=== PATIENT | female | born 1950 | race Caucasian/White ===

== ENCOUNTER → 2016-10-19 | Outpatient (CLI) | payer OTHER ==
[~2016-10-19] MED LIST: ASPCH81X PO; CYAN250T PO; FOLI800T PO; GLIP-197 PO; HYDR25TA4 PO; IPRA1AER2 INH; LOSA50TA6 PO; METF1TAB53 PO; METH2.5T PO; MULT-506 PO; NVLNI SC; PRAV20TA2 PO; RRNOVOLINR SC; SYMIN INH; TRAZ50TA35 PO; VITACAP37 PO; VITAMIN D PO
[2016-10-19 12:43] LABS: ESTIMATED AVERAGE GLUCOSE 143 mg/dl; HA1C FLAG Normal (Normal)
== END | disposition home or self-care (01) ==
LOC: C.LAB1850 09:58
PROVIDERS: ATTEND Nurse Practitioner Adult Health
DX: E11.9 Type 2 diabetes mellitus without complications (principal)

== ENCOUNTER → 2016-10-25 | Outpatient (CLI) | payer OTHER ==
--- NOTE | 2016-10-25 14:37 | MAMMOGRAPHY REPORT ---
BILATERAL DIGITAL SCREENING MAMMOGRAM WITH CAD: 10/25/2016 CLINICAL HISTORY: Routine screening. Patient has no complaints. TECHNIQUE: Bilateral CC, MLO and nipple in profile views in the CC projection were obtained. Curre nt study was also evaluated with a Computer Aided Detection (CAD) system. COMPARISON: Comparison is made to exams dated: 10/23/2015 mammogram, 05/09/2015 mammogram, 11/05/2014 mammogram, and 10/22/2014 mammogram - [facility]. BREAST COMPOSITION: There are scattered areas of fibroglandular density in both breasts. FINDINGS: There are stable benign-appearing calcifications within the right breast. A stable lobula iván 10 mm mass in the left upper outer quadrant. No new suspicious mass, architectural distortion o r cluster of microcalcifications is seen. IMPRESSION: ACR BI-RADS CATEGORY 1: NEGATIVE There is no mammographic evidence of malignancy. A 1 year screening mammogram is recommended. The p atient will receive written notification of the results. Approximately 10% of breast cancers are not detected with mammography. A negative mammographic repor t should not delay biopsy if a clinically suggestive mass is present. Mima Patel M.D. ay/:10/25/2016 14:07:03 Mimeographer: Olamide Jacob RT(R)(Shay)(BD), [facility] letter sent: Normal 1/2 BI-RADS Code: ACR BI-RADS Category 1: Negative
== END | disposition home or self-care (01) ==
LOC: C.MAMM 11:44
PROVIDERS: ATTEND Obstetrics & Gynecology
DX: Z12.31 Encounter for screening mammogram for malignant neoplasm of breast (principal)

== ENCOUNTER → 2016-11-26 | Outpatient (CLI) | payer OTHER ==
--- NOTE | 2016-11-26 11:32 | DIAGNOSTIC IMAGING REPORT ---
LUMBAR SPINE 5 VIEWS HISTORY: Pain. M54.5 Low back [id number] COMPARISON: 03/23/2012 FINDINGS: There is no fracture. No subluxation. Mild degenerative disc change. IMPRESSION: Mild degenerative disc change. No acute process. No change from the prior study. Electronically signed by: Adolfo Ochoa M.D. 11/26/2016 11:31 AM Dictated Date/Time: 11/26/2016 11:28 AM
== END | disposition home or self-care (01) ==
LOC: C.RAD1850 10:34
PROVIDERS: ATTEND Physician Assistant
DX: M54.5 Low back pain (principal)

== ENCOUNTER → 2016-12-10 | Outpatient (CLI) | payer OTHER ==
[2016-12-10 10:56] LABS: BLOOD UREA NITROGEN 18 mg/dl (7-18); CREATININE 0.95 mg/dl (0.60-1.20)
== END | disposition home or self-care (01) ==
LOC: C.LAB1850 09:07
PROVIDERS: ATTEND Physician Assistant
DX: Z00.00 Encounter for general adult medical examination without abnormal findings (principal); M54.5 Low back pain

== ENCOUNTER → 2016-12-17 | Outpatient (CLI) | payer OTHER ==
[~2016-12-17] MED LIST changes: +GADAVIST IV PRN
--- NOTE | 2016-12-17 13:35 | DIAGNOSTIC IMAGING REPORT ---
LUMBAR SPINE MRI WITH AND WITHOUT CONTRAST HISTORY: Low back pain. TECHNIQUE: Multiplanar multisequence MRI of the lumbar spine was performed both before and after the intravenous administration of contrast. COMPARISON: Lumbar spine 11/26/2016. FINDINGS: For the purpose of the report the L5-S1 disc space will be located on axial image 27 of 30. Alignment and curvature intact. No fracture or subluxation. Moderate facet degenerative changes at L4-L5. The conus to right at the L1-L2 disc space level. There is diffuse disc desiccation. However, there is no significant disc space narrowing. Subcutaneous edema within the lumbar region. A 12 mm hypointense lesion within the L2 vertebral body. There is also an 11 mm T1 and T2 hyperintense lesion at L1. This favors a hemangioma. No abnormal enhancement. L1-L2: Tiny broad-based posterior disc bulge without significant central canal or neural foraminal narrowing. L2-L3: No central canal or neural foraminal narrowing. L3-L4: Tiny broad-based posterior disc bulge without significant central canal or neural foraminal narrowing. L4-L5: No central canal narrowing. Mild right neural foraminal narrowing due to the facet hypertrophy. L5-S1: No central canal narrowing. Mild right neural foraminal narrowing due to the facet hypertrophy. IMPRESSION: 1. No significant central canal narrowing. No disc herniations. 2. Mild right-sided neural foraminal narrowing at L4-L5 and L5-S1 due to the facet hypertrophy. 3. A 12 mm hypointense lesion within the L2 vertebral body. This is consistent with a nonspecific sclerotic lesion. In the absence of a known malignancy this favors a benign lesion. Electronically signed by: Seng Griffith M.D. 12/17/2016 1:33 PM Dictated Date/Time: 12/17/2016 1:21 PM
== END | disposition home or self-care (01) ==
LOC: C.MRI 11:37
PROVIDERS: ATTEND Physician Assistant
DX: M54.5 Low back pain (principal)

== ENCOUNTER → 2017-01-27 | Outpatient (CLI) | payer OTHER ==
[~2017-01-27] MED LIST changes: -GADAVIST IV PRN
[2017-01-27 09:59] LABS: BASO % 0.5 %; BASO ABS # 0.04 K/uL (0-0.2); COMPLETE YES; EOS % 2.9 %; HEMATOCRIT 36.5 % (37-47); IG% 0.4 %; LYMPH % 27.1 %; LYMPH ABS # 2.07 K/uL (1.2-3.4); MEAN CELL VOLUME 90.3 fL (80-100); MEAN CORPUSCULAR HEMOGLOBIN 28.7 pg (25-34); MEAN CORPUSCULAR HGB CONC 31.8 g/dl (32-36); MEAN PLATELET VOLUME 9.4 fL (7.4-10.4); MONO % 6.8 %; NEUT % 62.3 %; PLATELET COUNT 276 K/uL (130-400); RED BLOOD COUNT 4.04 M/uL (4.2-5.4); WHITE BLOOD COUNT 7.64 K/uL (4.8-10.8)
== END | disposition home or self-care (01) ==
LOC: C.LAB1850 09:28
PROVIDERS: ATTEND Physician Assistant Medical
DX: Z01.812 Encounter for preprocedural laboratory examination (principal)

== ENCOUNTER → 2017-02-10 | Outpatient (CLI) | payer OTHER ==
--- NOTE | 2017-02-10 09:45 | DIAGNOSTIC IMAGING REPORT ---
RIGHT HAND MIN 3 VIEWS ROUTINE CLINICAL HISTORY: Z79.899,M06.9 Right pain COMPARISON: None. DISCUSSION: Moderate degenerative change of all major osseous structures. This primarily is of the interphalangeal joints. Several marginal erosions. No significant periarticular osteopenia. Moderate degenerative change of the intercarpal as well as carpometacarpal joints. There is no evidence for soft tissue swelling. IMPRESSION: Moderate degenerative change of the hand and wrist. The appearance is nonspecific currently. No acute bony abnormality. Electronically signed by: Adolfo Ochoa M.D. 02/10/2017 9:43 AM Dictated Date/Time: 02/10/2017 9:42 AM
--- NOTE | 2017-02-10 09:50 | DIAGNOSTIC IMAGING REPORT ---
LEFT HAND 3 VIEWS HISTORY: Left hand pain. COMPARISON: None. FINDINGS: There is no fracture or dislocation. Bone mineralization is intact. No erosions identified. Soft tissues are unremarkable. Mild cartilage space narrowing within the DIP joints of the hand. There are also mild degenerative changes within the left wrist. No radiopaque foreign bodies. 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 Electronically signed by: Seng Griffith M.D. 02/10/2017 9:48 AM Dictated Date/Time: 02/10/2017 9:43 AM
== END | disposition home or self-care (01) ==
LOC: C.RAD1850 09:23
PROVIDERS: ATTEND Internal Medicine Rheumatology
DX: M06.9 Rheumatoid arthritis, unspecified (principal); M19.041 Primary osteoarthritis, right hand; M19.042 Primary osteoarthritis, left hand; Z79.899 Other long term (current) drug therapy; L97.511 Non-pressure chronic ulcer of other part of right foot limited to breakdown of skin; M20.41 Other hammer toe(s) (acquired), right foot; E11.42 Type 2 diabetes mellitus with diabetic polyneuropathy

== ENCOUNTER → 2017-02-10 | Outpatient (CLI) | payer OTHER ==
--- NOTE | 2017-02-10 14:02 | DIAGNOSTIC IMAGING REPORT ---
ANKLE BRACHIAL INDEX COMPLETE CLINICAL HISTORY: DIABETIC POLYNEUROPATHY peripheral neuropathy TECHNIQUE: Ankle brachial index COMPARISON STUDY: None FINDINGS: Normal arterial ankle-brachial brachial index evaluation bilaterally. Ankle brachial indices are one or greater at all sites. IMPRESSION: Normal study Electronically signed by: Adolfo Ochoa M.D. 02/10/2017 2:00 PM Dictated Date/Time: 02/10/2017 1:58 PM
== END | disposition home or self-care (01) ==
LOC: C.ULTR 12:30
PROVIDERS: ATTEND Podiatrist
DX: L97.511 Non-pressure chronic ulcer of other part of right foot limited to breakdown of skin (principal); M20.41 Other hammer toe(s) (acquired), right foot; E11.42 Type 2 diabetes mellitus with diabetic polyneuropathy

== ENCOUNTER → 2017-02-11 | Day surgery (SDC) | payer OTHER ==
[2017-01-31 13:56] VITALS: Ht 157.5 cm; Wt 118.2 kg
--- NOTE | 2017-02-08 09:34 | PAT Medication Instructions ---
Service Date Feb 08, 2017. Current Home Medication List Aspirin (Aspirin Chewable), 81 MG PO QAM Budesonide/Formoterol Fumarate (Symbicort 160-4.5 Mcg/Act), 2 PUFFS INH DAILY Cyanocobalamin (Vitamin B-12), 250 MCG PO QAM Folic Acid (Folic Acid), 1 TAB PO QAM Glipizide (Glipizide Er), 1 DOSE PO BID Hydrochlorothiazide (Hctz), 25 MG PO QAM Insulin Human NPH (Novolin N), 35 UNITS SC QPM Insulin Human Regular (Novolin R), 10-14 UNITS SC QPM Ipratropium-Albuterol (Combivent Respimat), 1 PUFFS INH QID PRN for Shortness of Breath Losartan Potassium (Cozaar), 50 MG PO QPM Metformin Hcl (Glucophage Ext Rel), 1,000 MG PO BID Methotrexate (Methotrexate), 5 TAB PO WK Multivitamin (Multivitamin), 1 TAB PO QAM Pravastatin Sodium (Pravachol), 20 MG PO QPM Trazodone Hcl (Trazodone), 50 MG PO HS PRN for Sleep Vitamin E (E-400), 1 CAP PO QPM [Vitamin D], 800 INTER.UNIT PO QPM Medication Instructions For Your Scheduled Surgery - Check with surgeon/dairy products maker for instructions: Methotrexate (Methotrexate), 5 TAB PO WK (Tuesday PM) - Check with surgeon for instructions: Aspirin (Aspirin Chewable), 81 MG PO QAM - Hold the following medications starting 02/08/17 prior to surgery: Vitamin E (E-400), 1 CAP PO QPM - Hold the following medications 48 hours prior to surgery: Metformin Hcl (Glucophage Ext Rel), 1,000 MG PO BID - Hold the following medications the morning of surgery: Multivitamin (Multivitamin), 1 TAB PO QAM Hydrochlorothiazide (Hctz), 25 MG PO QAM Glipizide (Glipizide Er), 1 DOSE PO BID Folic Acid (Folic Acid), 1 TAB PO QAM Cyanocobalamin (Vitamin B-12), 250 MCG PO QAM - Take the following medications the morning of surgery with a sip of water: Ipratropium-Albuterol (Combivent Respimat), 1 PUFFS INH QID PRN for Shortness of Breath (if needed) Budesonide/Formoterol Fumarate (Symbicort 160-4.5 Mcg/Act), 2 PUFFS INH DAILY - Hold the following medications as scheduled the night before surgery: Losartan Potassium (Cozaar), 50 MG PO QPM - Take the following medications as scheduled the night before surgery: [Vitamin D], 800 INTER.UNIT PO QPM Trazodone Hcl (Trazodone), 50 MG PO HS PRN for Sleep (if needed) Pravastatin Sodium (Pravachol), 20 MG PO QPM Ipratropium-Albuterol (Combivent Respimat), 1 PUFFS INH QID PRN for Shortness of Breath (if needed) Insulin Human Regular (Novolin R), 10-14 UNITS SC QPM Insulin Human NPH (Novolin N), 35 UNITS SC QPM Glipizide (Glipizide Er), 1 DOSE PO BID Budesonide/Formoterol Fumarate (Symbicort 160-4.5 Mcg/Act), 2 PUFFS INH DAILY If you have any questions please call us at [phone] or [phone] or [phone]
--- NOTE | 2017-02-08 10:23 | DIAGNOSTIC IMAGING REPORT ---
CHEST PREADMISSION(PA/LAT) HISTORY: Preop. COMPARISON: Chest 04/04/2013. FINDINGS: The lungs are clear. Cardiac silhouette is normal in size. No pleural effusions. No pneumothorax. IMPRESSION: No acute process. Electronically signed by: Seng Griffith M.D. 02/08/2017 10:22 AM Dictated Date/Time: 02/08/2017 10:20 AM
[2017-02-08 10:30] LABS: BUN/CREATININE RATIO 19.2 (10-20); CALCIUM 8.9 mg/dl (8.5-10.1); POTASSIUM 3.7 mmol/L (3.5-5.1); PROTHROMBIN TIME (PATIENT) 10.5 SECONDS (9.0-12.0)
--- NOTE | 2017-02-08 10:58 | DIAGNOSTIC IMAGING REPORT ---
CERVICAL SPINE 2 OR 3 VIEWS CLINICAL HISTORY: PREOP, RHEUMATOID ARTHRITIS COMPARISON STUDY: None. FINDINGS: Lateral, swimmer's view, flexion, and extension of the cervical spine. The cervical spine is visualized from C1 through T1. Straightening of the cervical spine. The alignment remains intact through both flexion and extension. Specifically, the C1-C2 interval is well-maintained. Prevertebral soft tissues are within normal limits. Moderate disc space narrowing at C5-C6 and mild disc space narrowing at C6-C7 with small endplate osteophytes. No fractures. IMPRESSION: Degenerative changes as described above. The alignment remains intact throughout the examination. Electronically signed by: Seng Griffith M.D. 02/08/2017 10:57 AM Dictated Date/Time: 02/08/2017 10:55 AM
[~2017-02-11] VITALS: Ht 157.5 cm; Wt 118.2 kg
[~2017-02-11] MED LIST changes: +ATROPINE SULFATE 0.1 MG/ML 5ML SYR IV PRN; +BUPIVACAINE 0.5 % 5 MG/1 ML MPF 30ML VIAL ONE; +CEFAZOLIN 2000 MG/60 ML D5W IV SCH; +EpHEDrine SULFATE INJ 50 MG/ML AMP IV PRN; +FENTANYL CITRATE INJ 50 MCG/1 ML 2 ML VIAL IV PRN; +FENTANYL CITRATE INJ 50 MCG/1 ML 2 ML VIAL ONE; +HYDROCODONE/ACETAMOPHEN 5/325MG TAB PO PRN; +LACTATED RINGER'S 1000ML 1,000 ML IV SCH; +LIDOCAINE HCL 1% 20 ML VIAL ONE; +LIDOCAINE HCL 2% 2 ML VIAL (20MG/ML) ONE; +METOCLOPRAMIDE HCL INJ 5 MG/ML 2 ML VIAL IV PRN; +MIDAZOLAM HCL 1 MG/ML 2ML VIAL ONE; +ONDANSETRON INJ 2 MG/ML 2 ML VIAL IV PRN; +OXYCODONE/ACETAMINOPHEN 5-325 TAB PO PRN; +PROPOFOL IV EMULSION 10 MG/ML 20 ML VIAL IV ONE; +SODIUM CHLORIDE 0.9% 1000ML 1,000 ML IV SCH
--- NOTE | 2017-02-11 06:49 | History & Physical Bridge - SC ---
H&P Re-Evaluation Bridge Note: I have examined the patient, reviewed the History & Physical and in the interval since the performance of the History & Physical I have noted the following changes of clinical significance: No changes noted
[2017-02-11 08:24] VITALS: TEMP 36.5
--- NOTE | 2017-02-11 08:24 | Discharge Instructions-SurgCtr ---
Discharge Instructions Date of Service Feb 11, 2017. Visit Reason for Visit: Right ValadezSendy, Pain Discharge Discharge Diagnosis / Problem: right 5th hammertoe Discharge Goals Goal(s): Decrease discomfort, Improve function Medications Stopped Medications Name(s): metformin Vit E Restart Stopped Medication(s): all Activity Recommendations Activity Limitations: as noted below (partial weightbearing right foot, keep dressings in place with cam boot) Lifting Limitations: none Exercise/Sports Limitations: none May Resume Sexual Activity: after two weeks Shower/Bathe: keep incision dry Driving or Machine Use: none Weightbearing Status: Right partial keep dressings clean and dry call [phone] Anesthesia . Post Anesthesia Instructions: If you have had General Anesthesia or IV Sedation: * Do not drive today. * Resume driving when surgeon permits. * Do not make important decisions or sign legal documents today. * Call surgeon for: 1. Temperature elevations greater than 101 degrees F. 2. Uncontrollable pain. 3. Excessive bleeding. 4. Persistent nausea and vomiting. 5. Medication intolerance (nausea, vomiting or rash). * For nausea and vomiting use only clear liquids such as: tea, soda, bouillon until nausea subsides, then gradually increase diet as tolerated. * If you have any concerns or questions, call your surgeon's office. If physician is unavailable and it is an emergency, call 911 or go to the nearest emergency room. . Instructions / Follow-Up Instructions / Follow-Up follow up on Tuesday in the office Diet Recommendations Home Diet: diabetes diet Procedures Procedures Performed: Right Foot Fifth Digit Surgical Correction Hammertoe Deformity By Removing The Bump And Realigning The Joint With Fixation And Fusion, V-Y Skinplasty Pending Studies Studies pending at discharge: no Medical Emergencies . Who to Call and When: Medical Emergencies: If at any time you feel your situation is an emergency, please call 911 immediately. Non-Emergent Contact Non-Emergency issues call your: Primary Care Provider Call Non-Emergent contact if: temperature is above 101.5, your pain is not controlled, wound has increased drainage, wound has increased redness, wound has increased pain [phone] . . "Provider Documentation" section prepared by Misty Myers. . [place] Drug Monitoring Program Search Results: patient reviewed within database, no issues identified
--- NOTE | 2017-02-11 08:25 | [facility] Post Operative Brief Note ---
Immediate Operative Summary Operative Date Feb 11, 2017. Pre-Operative Diagnosis Right 5th hammertoe Post-Operative Diagnosis same Procedure(s) Performed Right Foot Fifth Digit Surgical Correction Hammertoe Deformity By Removing The Bump And Realigning The Joint With Fixation And Fusion, V-Y Skinplasty Surgeon Dr Talley Self Propelled Hot Mix Roller Operator Surgeon(s) 0 Estimated Blood Loss 2 ML Findings bone right foot Specimens A. Bone from right foot Drains none Anesthesia local iv sedation Complication(s) None Disposition Recovery Room / PACU stable
--- NOTE | 2017-02-11 08:31 | DIAGNOSTIC IMAGING REPORT ---
INTRAOPERATIVE RIGHT FOOT SINGLE VIEW CLINICAL HISTORY: Hammertoe deformity COMPARISON STUDY: 05/31/2012 FLUOROSCOPY TIME: 1 seconds. A single fluoroscopic spot image was acquired.. FINDINGS: Again evident are postsurgical changes of arthroplasties involving the proximal to phalangeal joints of the second third and fourth toes. There are postsurgical changes of an osteotomy involving the distal aspect of the proximal phalanx the fifth toe. A single orthopedic wire overlies the interphalangeal joints of the fifth toe and fifth metatarsal phalangeal joint. IMPRESSION: Intraoperative radiograph as described above. Electronically signed by: Umesh Julio M.D. 02/11/2017 8:30 AM Dictated Date/Time: 02/11/2017 8:28 AM
[2017-02-11 08:50] VITALS: BP 132/78; PULSE 76; O2SAT 94
--- NOTE | 2017-02-11 08:52 | Anesthesia Progress Nt - [facility] ---
Anesthesia Post Op Note Date & Time Feb 11, 2017 at 08:52 Vital Signs Pain Intensity: 0 Vital Signs Past 12 Hours Date Time Temp Pulse Resp B/P (MAP) Pulse Ox O2 Delivery O2 Flow Rate FiO2 02/11/17 08:50 76 16 132/78 (96) 94 Room Air 02/11/17 08:24 36.5 78 16 160/82 (108) 94 Room Air 02/11/17 06:26 37.0 86 16 164/112 (129) 94 Room Air Notes Mental Status: alert / awake / arousable, participated in evaluation Pt Amnestic to Procedure: Yes Nausea / Vomiting: adequately controlled Pain: adequately controlled Airway Patency, RR, SpO2: stable & adequate BP & HR: stable & adequate Hydration State: stable & adequate Anesthetic Complications: no major complications apparent
--- NOTE | 2017-02-11 14:37 | OPERATIVE REPORT ---
DATE OF OPERATION: 02/11/2017 PREOPERATIVE DIAGNOSIS: Painful right fifth hammertoe deformity. POSTOPERATIVE DIAGNOSIS: Same. PROCEDURE: Right fifth digit arthroplasty was 0.045 K-wire percutaneous fixation and V-Y skin plasty again of the right foot. SURGEON: Misty Talley DPM. HEMOSTASIS: Pneumatic ankle tourniquet at 250 mmHg. BLOOD LOSS: About 3 mL. ANESTHESIA: Local IV sedation. OPERATION AND FINDINGS: PROCEDURE: The patient was brought in the operating room and placed in the supine position. The right lower extremity was prepped and draped in the usual sterile manner. A 1:1 mixture of 1% lidocaine plain and 0.5% Marcaine was utilized to anesthetize the right foot around the area of the right 5th metatarsophalangeal joint or right fifth digit. At this point, anesthesia was induced. A timeout was taken and the procedure began. An elliptical incision was made over the right fifth proximal interphalangeal joint of the right fifth digit, there was also a V-type incision made just a hair proximal to the toe itself with the medial and lateral hands of the V proximally. At this point, the wedge of skin was removed. The extensor tendon was transected at the level of the proximal interphalangeal joint of the right fifth digit. It was dissected both proximally and distally to expose the proximal phalanx of the fifth digit. The proximal phalanx was then resected utilizing a sagittal saw and passed off the table and sent to pathology for permanent specimen. The area was flushed with copious amounts of normal saline. Next, the K-wire was then driven first distally and then proximally across the fifth proximal interphalangeal joint and adhered to the fifth metatarsal head for stability. Next, the extensor tendon was then reattached utilizing the Vicryl and the skin was closed with 3-0 nylon and simple interrupted sutures. Next, attention was directed to the area for the V-Y skin plasty. The V incision was made, the V was then dissected back with care to ensure that the subcutaneous tissues were encompassed in the skin flap to prevent skin necrosis. The fifth metatarsophalangeal joint was plantarflexed in order to allow the apex of the V to come to a more distal position to lengthen the skin in this area. The sutures were then used to close the medial and lateral sides of the V which is now forming a Y and simple interrupted sutures. This was a 3-0 nylon in the center portion which formed the base of the Y was closed in simple interrupted 3-0 nylon sutures. The toe was in a straightened and less contracted position. The patient had a prior surgery before and she had a history of diabetes and ulceration that was forming between her fourth and fifth digit due to the prior hammertoes that were fixed by a different doctor and the fifth toe being retracted and rubbing on the fourth toe. So anatomically everything was corrected. Intraoperative fluoroscopy pictures were obtained. The patient was taken to the recovery room with all vital signs stable and intact. She had good hemodynamic response noted to the digits. She will follow up with me in the office in 1 week and again she was made aware of all risks and benefits and signed consent for the procedure. Again, the patient opted to have this procedure done mainly because she is diabetic and she was forming the ulcerations on the 4th and 5th digits which were proving to be difficult to heal and that is why she opted for surgical correction at this time. I attest to the content of the Intraoperative Record and any orders documented therein. Any exceptions are noted below. JAZMYNE
== END | disposition home or self-care (01) ==
LOC: X.SURG 06:02
PROVIDERS: ATTEND Podiatrist
DX: M20.41 Other hammer toe(s) (acquired), right foot (principal); E11.21 Type 2 diabetes mellitus with diabetic nephropathy; E11.42 Type 2 diabetes mellitus with diabetic polyneuropathy; I10 Essential (primary) hypertension; E78.5 Hyperlipidemia, unspecified; D64.9 Anemia, unspecified; K21.9 Gastro-esophageal reflux disease without esophagitis; J44.9 Chronic obstructive pulmonary disease, unspecified; M06.9 Rheumatoid arthritis, unspecified; I87.2 Venous insufficiency (chronic) (peripheral); E66.9 Obesity, unspecified; Z79.4 Long term (current) use of insulin; Z79.899 Other long term (current) drug therapy; Z79.82 Long term (current) use of aspirin

== ENCOUNTER → 2017-02-21 | Outpatient (CLI) | payer OTHER ==
[~2017-02-21] MED LIST changes: -ATROPINE SULFATE 0.1 MG/ML 5ML SYR IV PRN; -BUPIVACAINE 0.5 % 5 MG/1 ML MPF 30ML VIAL ONE; -CEFAZOLIN 2000 MG/60 ML D5W IV SCH; -EpHEDrine SULFATE INJ 50 MG/ML AMP IV PRN; -FENTANYL CITRATE INJ 50 MCG/1 ML 2 ML VIAL IV PRN; -FENTANYL CITRATE INJ 50 MCG/1 ML 2 ML VIAL ONE; -HYDROCODONE/ACETAMOPHEN 5/325MG TAB PO PRN; -LACTATED RINGER'S 1000ML 1,000 ML IV SCH; -LIDOCAINE HCL 1% 20 ML VIAL ONE; -LIDOCAINE HCL 2% 2 ML VIAL (20MG/ML) ONE; -METOCLOPRAMIDE HCL INJ 5 MG/ML 2 ML VIAL IV PRN; -MIDAZOLAM HCL 1 MG/ML 2ML VIAL ONE; -ONDANSETRON INJ 2 MG/ML 2 ML VIAL IV PRN; -OXYCODONE/ACETAMINOPHEN 5-325 TAB PO PRN; -PROPOFOL IV EMULSION 10 MG/ML 20 ML VIAL IV ONE; -SODIUM CHLORIDE 0.9% 1000ML 1,000 ML IV SCH
[2017-02-21 09:32] LABS: HEMATOCRIT 36.2 % (37-47); MEAN CELL VOLUME 90.7 fL (80-100); MEAN CORPUSCULAR HEMOGLOBIN 30.1 pg (25-34); MEAN CORPUSCULAR HGB CONC 33.1 g/dl (32-36); MEAN PLATELET VOLUME 9.8 fL (7.4-10.4); PLATELET COUNT 255 K/uL (130-400); RED BLOOD COUNT 3.99 M/uL (4.2-5.4); WHITE BLOOD COUNT 6.46 K/uL (4.8-10.8)
[2017-02-21 09:51] LABS: BLOOD UREA NITROGEN 16 mg/dl (7-18); BUN/CREATININE RATIO 16.9 (10-20); CALCIUM 9.1 mg/dl (8.5-10.1); CARBON DIOXIDE 30 mmol/L (21-32); CHLORIDE 104 mmol/L (98-107); CHOLESTEROL 133 mg/dl (0-200); CREATININE 0.96 mg/dl (0.60-1.20); GLUCOSE 116 mg/dl (70-99); POTASSIUM 4.4 mmol/L (3.5-5.1); SODIUM 141 mmol/L (136-145); TRIGLYCERIDES 179 mg/dl (0-150); VERY LOW DENSITY LIPOPROT CALC 36 mg/dl
[2017-02-21 09:59] LABS: CHOLESTEROL/HDL RATIO 3.8; HDL CHOLESTEROL 35 mg/dl; LDL CHOLESTEROL CALCULATED 62 mg/dl
[2017-02-21 10:12] LABS: ESTIMATED AVERAGE GLUCOSE 143 mg/dl; HA1C FLAG Normal (Normal)
== END | disposition home or self-care (01) ==
LOC: C.LAB1850 08:11
PROVIDERS: ATTEND Internal Medicine
DX: E11.49 Type 2 diabetes mellitus with other diabetic neurological complication (principal); Z79.4 Long term (current) use of insulin; D64.9 Anemia, unspecified

== ENCOUNTER → 2017-02-23 | Outpatient (CLI) | payer OTHER ==
--- NOTE | 2017-02-23 14:25 | DIAGNOSTIC IMAGING REPORT ---
BILATERAL LOWER EXTREMITY VENOUS DOPPLER CLINICAL HISTORY: Bilateral leg pain. COMPARISON STUDY: Right lower extremity venous Doppler May 01, 2013. TECHNIQUE: Sonography of the deep venous system of the bilateral lower extremities was performed. Compression and augmentation were evaluated. FINDINGS: The common femoral, superficial femoral and popliteal veins were compressible. Augmentation was normal. Flow was shown within the deep calf vessels. IMPRESSION: No evidence of deep venous thrombus within the bilateral lower extremities. Electronically signed by: Mj Membreno M.D. 02/23/2017 2:24 PM Dictated Date/Time: 02/23/2017 2:23 PM
== END | disposition home or self-care (01) ==
LOC: C.ULTRBC 13:16
PROVIDERS: ATTEND Podiatrist
DX: I70.293 Other atherosclerosis of native arteries of extremities, bilateral legs (principal); M79.651 Pain in right thigh; I74.3 Embolism and thrombosis of arteries of the lower extremities

== ENCOUNTER → 2017-06-20 | Outpatient (CLI) | payer OTHER ==
[2017-06-20 14:37] LABS: BASO % 0.6 %; BASO ABS # 0.05 K/uL (0-0.2); COMPLETE YES; EOS % 2.3 %; HEMATOCRIT 37.9 % (37-47); IG% 0.2 %; LYMPH % 32.6 %; LYMPH ABS # 2.69 K/uL (1.2-3.4); MEAN CELL VOLUME 85.9 fL (80-100); MEAN CORPUSCULAR HEMOGLOBIN 28.3 pg (25-34); MEAN PLATELET VOLUME 10.6 fL (7.4-10.4); MONO % 10.3 %; PLATELET COUNT 278 K/uL (130-400); RED BLOOD COUNT 4.41 M/uL (4.2-5.4); WHITE BLOOD COUNT 8.26 K/uL (4.8-10.8)
[2017-06-20 16:18] LABS: RATIO 30.1 mcg/mg (0-30.0)
[2017-06-20 16:55] LABS: ALB/GLOB RATIO 0.9 (0.9-2); ALKALINE PHOSPHATASE 67 U/L (45-117); ALT/SGPT 22 U/L (12-78); AST/SGOT 12 U/L (15-37); BLOOD UREA NITROGEN 20 mg/dl (7-18); BUN/CREATININE RATIO 22.3 (10-20); CALCIUM 9.8 mg/dl (8.5-10.1); CARBON DIOXIDE 27 mmol/L (21-32); CHLORIDE 104 mmol/L (98-107); CREATININE 0.88 mg/dl (0.60-1.20); POTASSIUM 3.8 mmol/L (3.5-5.1); SODIUM 140 mmol/L (136-145)
[2017-06-20 16:56] LABS: GLUCOSE 50 mg/dl (70-99)
[2017-06-21 07:02] LABS: ESTIMATED AVERAGE GLUCOSE 134 mg/dl; HA1C FLAG Normal (Normal)
== END | disposition home or self-care (01) ==
LOC: C.LAB1850 12:57
PROVIDERS: ATTEND Nurse Practitioner Adult Health
DX: E11.49 Type 2 diabetes mellitus with other diabetic neurological complication (principal); M06.9 Rheumatoid arthritis, unspecified; Z79.899 Other long term (current) drug therapy; M19.041 Primary osteoarthritis, right hand

== ENCOUNTER 2017-09-17 10:42 | Inpatient (IN) | payer OTHER ==
[~2017-09-17] VITALS: Ht 157.5 cm; Wt 121.2 kg
[2017-09-17] VITALS (8 sets, daily range): BP systolic 122–169; BP diastolic 66–97; PULSE 87–112; TEMP 36.9–39.2; O2SAT 95–99; Ht 157.5 cm; Wt 121.2 kg
--- NOTE | 2017-09-17 11:05 | EMERGENCY ROOM VISIT NOTE ---
History Report prepared by Andres: Armen Parks Under the Supervision of: Dr. Cory Jesus M.D. First contact with patient: 10:53 Stated Complaint: WEAKNESS History of Present Illness The patient is a 67 year old female who presents to the Emergency Room with complaints of generalized weakness that began 2 days ago. Upon EMS arrival, she was altered and given 2 tubes of glucose with mild improvement. She reports body aches, fevers, chills, runny nose, nausea, vomiting, and productive cough. She denies taking any Tylenol. The patient denies chest pain, shortness of breath, dysuria, diarrhea, and chest pain. She denies a history of liver problems. She reports sick contacts with her and states she had a flu shot. No recent antibiotics. Admits not moving around much last few days. No extremity pains. No falls/injuries. Source of History: patient Onset: 2 days ago Position: other (global) Timing: constant Associated Symptoms: + fevers, + chills, + cough, + nausea, + vomiting, + weakness, No chest pain, No SOB, No diarrhea, No urinary symptoms Note: Patient reports runny nose. Review of Systems See HPI for pertinent positives & negatives. A total of 10 systems reviewed and were otherwise negative. Past Medical & Surgical Medical Problems: (1) Diabetes Family History Diabetes mellitus Social History Smoking Status: Former Smoker Alcohol Use: none Marital Status: Housing Status: lives with significant other Occupation Status: employed Current/Historical Medications Scheduled Aspirin (Aspirin Chewable), 81 MG PO QAM Budesonide/Formoterol Fumarate (Symbicort 160-4.5 Mcg/Act), 2 PUFFS INH DAILY Cyanocobalamin (Vitamin B-12), 250 MCG PO QAM Folic Acid (Folic Acid), 1 TAB PO QAM Glipizide (Glipizide Er), 1 DOSE PO BID Hydrochlorothiazide (Hctz), 25 MG PO QAM Insulin Human NPH (Novolin N), 30 UNITS SC QPM Insulin Human Regular (Novolin R), 10-14 UNITS SC QPM Losartan Potassium (Cozaar), 50 MG PO QPM Metformin Hcl (Glucophage Ext Rel), 1,000 MG PO BID Methotrexate (Methotrexate), 5 TAB PO WK Multivitamin (Multivitamin), 1 TAB PO QAM Pravastatin Sodium (Pravachol), 20 MG PO QPM Vitamin E (E-400), 1 CAP PO QPM [Vitamin D], 800 INTER.UNIT PO QPM Scheduled PRN Ipratropium-Albuterol (Combivent Respimat), 1 PUFFS INH QID PRN for Shortness of Breath Trazodone Hcl (Trazodone), 50 MG PO HS PRN for Sleep Allergies Coded Allergies: Grass (Verified Allergy, Intermediate, DIFFICULTY BREATHING, 09/17/17) Molds and Smuts (Verified Allergy, Intermediate, DIFFICULTY BREATHING, ) POLLEN (Verified Allergy, Intermediate, DIFFICULTY BREATHING, 09/17/17) Etodolac (Verified Allergy, Unknown, UNKNOWN, 09/17/17) Simvastatin (Verified Allergy, Unknown, "FEELS FUNNY", 09/17/17) Tetanus Toxoid (Verified Allergy, Unknown, SWELLING, 09/17/17) Physical Exam Vital Signs Date Time Temp Pulse Resp B/P (MAP) Pulse Ox O2 Delivery O2 Flow Rate FiO2 09/17/17 12:36 88 20 139/93 95 Nasal Cannula 2.0 09/17/17 11:51 94 22 134/83 95 Nasal Cannula 2.0 09/17/17 11:00 39.2 100 28 128/65 90 Room Air 09/17/17 10:55 98 Physical Exam GENERAL: Patient is ill and dehydrated appearing and in mild distress. HEENT: No acute trauma, normocephalic atraumatic, mucous membranes moist, no nasal congestion, no scleral icterus. Bilateral rhinorrhea. NECK: No stridor, no adenopathy, no meningismus, trachea is midline. LUNGS: No dyspnea. Clear to auscultation and equal bilaterally. No wheeze, no rhonchi. Crackles at the bases of both lungs. HEART: Tachycardiac and rhythm. No murmurs, rubs, gallops appreciated. ABDOMEN: Soft, nontender, bowel sounds positive, no masses appreciated, no peritonitis. BACK: No midline tenderness, no CVA tenderness EXTREMITIES: Normal motion all extremities, no cyanosis, no edema. NEUROLOGIC: Alert and oriented, no acute motor or sensory deficits, no focal weakness, cranial nerves grossly intact. SKIN: No rash, no jaundice, no diaphoresis. Medical Decision & Procedures ER Provider Diagnostic Interpretation: Radiology results and stated below per my review and radiologist interpretation: SINGLE VIEW CHEST CLINICAL HISTORY: Generalized weakness. FINDINGS: An AP, portable, upright chest radiograph is compared to study dated 02/08/2017. The examination is degraded by portable technique, large body habitus, and patient rotation. The heart is top normal for projection. Chronic interstitial thickening is unchanged. The lungs and pleural spaces are clear. No pneumothorax is seen. The skeletal structures are osteopenic. The bony thorax is grossly intact. IMPRESSION: No active disease in the chest. Electronically signed by: Ranjeet Lopez M.D. 09/17/2017 11:18 AM Dictated Date/Time: 09/17/2017 11:17 AM Laboratory Results 09/17/17 11:03 Red Blood Count 3.92, Mean Corpuscular Volume 85.5, Mean Corpuscular Hemoglobin 29.3, Mean Corpuscular Hemoglobin Concent 34.3, Mean Platelet Volume 9.9, Neutrophils (%) (Auto) 85.2, Lymphocytes (%) (Auto) 5.5, Monocytes (%) (Auto) 8.8, Eosinophils (%) (Auto) 0.0, Basophils (%) (Auto) 0.2, Neutrophils # (Auto) 9.93, Lymphocytes # (Auto) 0.64, Monocytes # (Auto) 1.02, Eosinophils # (Auto) 0.00, Basophils # (Auto) 0.02 Test 09/17/17 10:58 09/17/17 11:03 09/17/17 11:15 09/17/17 11:29 Bedside Glucose 257 mg/dl (70-90) White Blood Count 11.64 K/uL (4.8-10.8) Red Blood Count 3.92 M/uL (4.2-5.4) Hemoglobin 11.5 g/dL (12.0-16.0) Hematocrit 33.5 % (37-47) Mean Corpuscular Volume 85.5 fL (80-100) Mean Corpuscular Hemoglobin 29.3 pg (25-34) Mean Corpuscular Hemoglobin Concent 34.3 g/dl (32-36) Platelet Count 203 K/uL (130-400) Mean Platelet Volume 9.9 fL (7.4-10.4) Neutrophils (%) (Auto) 85.2 % Lymphocytes (%) (Auto) 5.5 % Monocytes (%) (Auto) 8.8 % Eosinophils (%) (Auto) 0.0 % Basophils (%) (Auto) 0.2 % Neutrophils # (Auto) 9.93 K/uL (1.4-6.5) Lymphocytes # (Auto) 0.64 K/uL (1.2-3.4) Monocytes # (Auto) 1.02 K/uL (0.11-0.59) Eosinophils # (Auto) 0.00 K/uL (0-0.5) Basophils # (Auto) 0.02 K/uL (0-0.2) RDW Standard Deviation 46.6 fL (36.4-46.3) RDW Coefficient of Variation 15.0 % (11.5-14.5) Immature Granulocyte % (Auto) 0.3 % Immature Granulocyte # (Auto) 0.03 K/uL (0.00-0.02) Phosphorus Level 2.1 mg/dl (2.5-4.9) Magnesium Level 1.4 mg/dl (1.8-2.4) Total Bilirubin 0.5 mg/dl (0.2-1) Direct Bilirubin 0.1 mg/dl (0-0.2) Aspartate Amino Transf (AST/SGOT) 38 U/L (15-37) Alanine Aminotransferase (ALT/SGPT) 22 U/L (12-78) Alkaline Phosphatase 60 U/L (45-117) Total Creatine Kinase 3550 U/L (26-192) Creatine Kinase MB 1.4 ng/ml (0.5-3.6) Creatine Kinase MB Ratio 0.0 (0-3.0) Troponin I < 0.015 ng/ml (0-0.045) Total Protein 7.3 gm/dl (6.4-8.2) Albumin 3.2 gm/dl (3.4-5.0) Lipase 58 U/L (73-393) Bedside Lactic Acid Venous 3.13 mmol/L (0.90-1.70) Influenza Type A Antigen Neg for Influ A (NEG) Influenza Type B Antigen Neg for Influ B (NEG) Prothrombin Time 12.0 SECONDS (9.0-12.0) Prothromb Time International Ratio 1.1 (0.9-1.1) Activated Partial Thromboplast Time 30.6 SECONDS (21.0-31.0) Partial Thromboplastin Ratio 1.2 Test 09/17/17 12:00 Urine Color YELLOW Urine Appearance CLOUDY (CLEAR) Urine pH 5.0 (4.5-7.5) Urine Specific [place] 1.021 (1.000-1.030) Urine Protein 2+ (NEG) Urine Glucose (UA) NEG (NEG) Urine Ketones NEG (NEG) Urine Occult Blood 3+ (NEG) Urine Nitrite NEG (NEG) Urine Bilirubin NEG (NEG) Urine Urobilinogen NEG (NEG) Urine Leukocyte Esterase MODERATE (NEG) Urine WBC (Auto) >30 /hpf (0-5) Urine RBC (Auto) 5-10 /hpf (0-4) Urine Hyaline Casts (Auto) 1-5 /lpf (0-5) Urine Epithelial Cells (Auto) >30 /lpf (0-5) Urine Bacteria (Auto) NEG (NEG) Urine Pathogenic Casts /lpf (0) Urine Yeast (Auto) (NONE PRSENT) Laboratory results as reviewed by me. Medications Administered Medications (Trade) Dose Ordered Sig/Lux Route Start Time Stop Time Status Last Admin Dose Admin Acetaminophen (Tylenol Tab) 1,000 mg NOW STAT PO 09/17/17 11:08 09/17/17 11:09 DC 09/17/17 11:24 1,000 MG Sodium Chloride 1,000 ml @ 999 mls/hr Q1H1M STAT IV 09/17/17 11:08 09/17/17 12:08 DC 09/17/17 11:08 999 MLS/HR Vancomycin HCl 2250 mg/Sodium Chloride 545 ml @ 200 mls/hr ONE STAT IV 09/17/17 11:39 09/17/17 14:22 DC 09/17/17 12:36 200 MLS/HR ECG Indication: weakness Rate (beats per minute): 102 Rhythm: sinus tachycardia, other (poor baseline) Findings: no acute ischemic change, no ectopy Change: EKG interpreted by me. ED Course 1053: The patient was evaluated in room C9. A complete history and physical exam was performed. 1144: I checked on the patient and she is feeling better after fluids and Tylenol. She is far too weak to stand as noted by her . 1217: I spoke with Dr. Cortes. 1231: Upon reevaluation, the patient is stable. Discussed results and treatment plan with the patient. She verbalized understanding and agreement with the treatment plan. The patient will be evaluated for further management. Medical Decision Differential: Viral, Pharyngitis, Cellulitis, Pneumonia, Influenza, Meningitis, Sepsis, Bacteremia, UTI/Pyelonephritis, Endocrine, Toxicologic, amongst other pathologies entertained. Ill appearing 67 yr old female arrives with febrile illness was altered at home but more awake with oral glucose by EMS (unknown BSG prior to it being given apparently). Not meningitis by examination. She has URI symptoms consistent with flu vs pneumonia. Lactic acid is bump and with fever, tachy she is septic. I suspect lung source and guerrero start abx with cefepime/vanco. Flu negative thus will defer tamiflu use for now. Patient looking better with fluids. admits she has essentially just been laying around the last few days, thus I suspect this is cause of Rhabdo. Medication Reconcilliation Current Medication List: was personally reviewed by me Blood Pressure Screening Patient's blood pressure: Normal blood pressure Blood pressure disposition: Did not require urgent referral Consults Time Called: 1215 Consulting Physician: Dr. Cortes Returned Call: 1217 Discussed the patient's case. The patient will be evaluated for further treatment and disposition. Impression Primary Impression: Sepsis Additional Impressions: Dehydration Rhabdomyolysis Hypomagnesemia Upper respiratory infection Scribe Attestation The scribe's documentation has been prepared under my direction and personally reviewed by me in its entirety. I confirm that the note above accurately reflects all work, treatment, procedures, and medical decision making performed by me. Departure Information Dispostion Being Evaluated By Hospitalist Referrals Chicho Langley M.D. (PCP) Problem Qualifiers
[2017-09-17] MEDS ORDERED: SODIUM CHLORIDE 0.9% 1000ML 1,000 ML IV STA ×2 (11:08→13:10)
[2017-09-17] MEDS ORDERED: ACETAMINOPHEN 500 MG TAB PO STA (11:08)
--- NOTE | 2017-09-17 11:19 | DIAGNOSTIC IMAGING REPORT ---
SINGLE VIEW CHEST CLINICAL HISTORY: Generalized weakness. FINDINGS: An AP, portable, upright chest radiograph is compared to study dated 02/08/2017. The examination is degraded by portable technique, large body habitus, and patient rotation. The heart is top normal for projection. Chronic interstitial thickening is unchanged. The lungs and pleural spaces are clear. No pneumothorax is seen. The skeletal structures are osteopenic. The bony thorax is grossly intact. IMPRESSION: No active disease in the chest. Electronically signed by: Ranjeet Lopez M.D. 09/17/2017 11:18 AM Dictated Date/Time: 09/17/2017 11:17 AM
[2017-09-17 11:35] LABS: BASO % 0.2 %; BASO ABS # 0.02 K/uL (0-0.2); HEMATOCRIT 33.5 % (37-47); HEMOGLOBIN 11.5 g/dL (12.0-16.0); IG# 0.03 K/uL (0.00-0.02); LYMPH % 5.5 %; LYMPH ABS # 0.64 K/uL (1.2-3.4); MEAN CELL VOLUME 85.5 fL (80-100); MEAN CORPUSCULAR HEMOGLOBIN 29.3 pg (25-34); MEAN CORPUSCULAR HGB CONC 34.3 g/dl (32-36); MEAN PLATELET VOLUME 9.9 fL (7.4-10.4); MONO % 8.8 %; MONO ABS # 1.02 K/uL (0.11-0.59); NEUT % 85.2 %; NEUT ABS # 9.93 K/uL (1.4-6.5); PLATELET COUNT 203 K/uL (130-400); RED CELL DISTRIBUTION WIDTH SD 46.6 fL (36.4-46.3); WHITE BLOOD COUNT 11.64 K/uL (4.8-10.8)
[2017-09-17] MEDS ORDERED: VANCOMYCIN INJ 2,250 MG in SODIUM CHLORIDE 0.9% 500ML 500 ML IV STA (11:39)
[2017-09-17] MEDS ORDERED: CEFEPIME IV 1,000 MG in DEXTROSE 5% 100ML 100 ML IV STA (11:39)
[2017-09-17 11:45] LABS: ALBUMIN 3.2 gm/dl (3.4-5.0); ALT/SGPT 22 U/L (12-78); AST/SGOT 38 U/L (15-37); BLOOD UREA NITROGEN 20 mg/dl (7-18); CALCIUM 8.5 mg/dl (8.5-10.1); CARBON DIOXIDE 29 mmol/L (21-32); CREATININE 1.25 mg/dl (0.60-1.20); GLUCOSE 236 mg/dl (70-99); LIPASE 58 U/L (73-393); POTASSIUM 3.2 mmol/L (3.5-5.1); SODIUM 129 mmol/L (136-145)
[2017-09-17] MEDS ORDERED: VANCOMYCIN CONSULT ACTIVE PRN (11:45)
[2017-09-17 11:57] LABS: INFLUENZA B ANTIGEN Neg for Influ B (NEG)
[2017-09-17 12:04] LABS: ALKALINE PHOSPHATASE 60 U/L (45-117); CKMB 1.4 ng/ml (0.5-3.6); PHOSPHORUS 2.1 mg/dl (2.5-4.9); TOTAL PROTEIN 7.3 gm/dl (6.4-8.2)
[2017-09-17 12:06] LABS: INR 1.1 (0.9-1.1); PTT PATIENT 30.6 SECONDS (21.0-31.0)
[2017-09-17] MEDS ORDERED: MAGNESIUM SULFATE 1GM / D5W 1 GM BAG IV STA (12:18)
--- NOTE | 2017-09-17 13:16 | History and Physical ---
History & Physical Date & Time of Service: Sep 17, 2017 at 13:16 Chief Complaint: Weakness Primary Care Physician: Chicho Langley M.D. History of Present Illness 67 yo female presents to the hospital with 2 day history of subjective fever, malaise, myalgias, rhinorrhea. Patient reports having flu shot. Patient denies any sick contacts. Patient reports feeling thirsty and having sweats. She has noticed becoming more short of breath this past day. Patient reports having productive cough as well, unable to quantify production. States yellow mucus. As patient reports getting worse, she decided to come to ER. Past Medical/Surgical History Medical Problems: (1) Diabetes Status: Chronic Family History Diabetes mellitus Social History Smoking Status: Former Smoker Marital Status: Housing status: lives with family Occupational Status: employed Immunizations History of Influenza Vaccine: Yes Influenza Vaccine Date: Jun 29, 2011 History of Tetanus Vaccine?: UNSURE History of Pneumococcal: Yes Pneumococcal Date: Aug 29, 2010 History of Hepatitis B Vaccine: No Multi-Drug Resistant Organisms History of MDRO: No Allergies Coded Allergies: Grass (Verified Allergy, Intermediate, DIFFICULTY BREATHING, 09/17/17) Molds and Smuts (Verified Allergy, Intermediate, DIFFICULTY BREATHING, ) POLLEN (Verified Allergy, Intermediate, DIFFICULTY BREATHING, 09/17/17) Etodolac (Verified Allergy, Unknown, UNKNOWN, 09/17/17) Simvastatin (Verified Allergy, Unknown, "FEELS FUNNY", 09/17/17) Tetanus Toxoid (Verified Allergy, Unknown, SWELLING, 09/17/17) Home Medications Scheduled Aspirin (Aspirin Chewable), 81 MG PO QAM Budesonide/Formoterol Fumarate (Symbicort 160-4.5 Mcg/Act), 2 PUFFS INH DAILY Cyanocobalamin (Vitamin B-12), 250 MCG PO QAM Folic Acid (Folic Acid), 1 TAB PO QAM Glipizide (Glipizide Er), 1 DOSE PO BID Hydrochlorothiazide (Hctz), 25 MG PO QAM Insulin Human NPH (Novolin N), 30 UNITS SC QPM Insulin Human Regular (Novolin R), 10-14 UNITS SC QPM Losartan Potassium (Cozaar), 50 MG PO QPM Metformin Hcl (Glucophage Ext Rel), 1,000 MG PO BID Methotrexate (Methotrexate), 5 TAB PO WK Multivitamin (Multivitamin), 1 TAB PO QAM Pravastatin Sodium (Pravachol), 20 MG PO QPM Vitamin E (E-400), 1 CAP PO QPM [Vitamin D], 800 INTER.UNIT PO QPM Scheduled PRN Ipratropium-Albuterol (Combivent Respimat), 1 PUFFS INH QID PRN for Shortness of Breath Trazodone Hcl (Trazodone), 50 MG PO HS PRN for Sleep Review of Systems Constitutional: + fever, No weight loss, No weakness ENT: No hearing loss, No unusual epistaxis Respiratory: + cough, + wheezing, + shortness of breath Cardiovascular: No chest pain, No orthopnea Abdomen: No pain, No nausea Musculoskeletal: No joint pain Neurologic: No memory loss, No paralysis Psychiatric: No depression symptoms Endocrine: + fatigue Hematologic / Lymphatic: No abnormal bleeding/bruising Integumentary: No rash Allergic / Immunologic: No environmental allergies Physical Exam Vital Signs Date Time Temp Pulse Resp B/P (MAP) Pulse Ox O2 Delivery O2 Flow Rate FiO2 09/17/17 12:36 88 20 139/93 95 Nasal Cannula 2.0 09/17/17 11:51 94 22 134/83 95 Nasal Cannula 2.0 09/17/17 11:00 39.2 100 28 128/65 90 Room Air 09/17/17 10:55 98 General Appearance: WD/WN, + moderate distress Head: normocephalic Eyes: normal inspection ENT: normal ENT inspection, + nasal congestion, + pertinent finding (dry mucous membranes) Neck: supple, no adenopathy Respiratory/Chest: chest non-tender, lungs clear, normal breath sounds Cardiovascular: no edema, no murmur, + tachycardia Abdomen/GI: normal bowel sounds, non tender, soft Extremities/Musculoskelatal: normal inspection Skin: normal color Lymphatic: no adenopathy Diagnostics Laboratory Results Results Past 24 Hours Test 09/17/17 10:58 09/17/17 11:03 09/17/17 11:15 09/17/17 11:29 Range/Units Bedside Glucose 257 70-90 mg/dl White Blood Count 11.64 4.8-10.8 K/uL Red Blood Count 3.92 4.2-5.4 M/uL Hemoglobin 11.5 12.0-16.0 g/dL Hematocrit 33.5 37-47 % Mean Corpuscular Volume 85.5 80-100 fL Mean Corpuscular Hemoglobin 29.3 25-34 pg Mean Corpuscular Hemoglobin Concent 34.3 32-36 g/dl Platelet Count 203 130-400 K/uL Mean Platelet Volume 9.9 7.4-10.4 fL Neutrophils (%) (Auto) 85.2 % Lymphocytes (%) (Auto) 5.5 % Monocytes (%) (Auto) 8.8 % Eosinophils (%) (Auto) 0.0 % Basophils (%) (Auto) 0.2 % Neutrophils # (Auto) 9.93 1.4-6.5 K/uL Lymphocytes # (Auto) 0.64 1.2-3.4 K/uL Monocytes # (Auto) 1.02 0.11-0.59 K/uL Eosinophils # (Auto) 0.00 0-0.5 K/uL Basophils # (Auto) 0.02 0-0.2 K/uL RDW Standard Deviation 46.6 36.4-46.3 fL RDW Coefficient of Variation 15.0 11.5-14.5 % Immature Granulocyte % (Auto) 0.3 % Immature Granulocyte # (Auto) 0.03 0.00-0.02 K/uL Sodium Level 129 136-145 mmol/L Potassium Level 3.2 3.5-5.1 mmol/L Chloride Level 94 98-107 mmol/L Carbon Dioxide Level 29 21-32 mmol/L Anion Gap 6.0 3-11 mmol/L Blood Urea Nitrogen 20 7-18 mg/dl Creatinine 1.25 0.60-1.20 mg/dl Est Creatinine Clear Calc Drug Dose 53.0 ml/min Estimated GFR () 51.2 Estimated GFR (Non- 44.2 BUN/Creatinine Ratio 15.7 10-20 Random Glucose 236 70-99 mg/dl Calcium Level 8.5 8.5-10.1 mg/dl Phosphorus Level 2.1 2.5-4.9 mg/dl Magnesium Level 1.4 1.8-2.4 mg/dl Total Bilirubin 0.5 0.2-1 mg/dl Direct Bilirubin 0.1 0-0.2 mg/dl Aspartate Amino Transf (AST/SGOT) 38 15-37 U/L Alanine Aminotransferase (ALT/SGPT) 22 12-78 U/L Alkaline Phosphatase 60 45-117 U/L Total Creatine Kinase 3550 26-192 U/L Creatine Kinase MB 1.4 0.5-3.6 ng/ml Creatine Kinase MB Ratio 0.0 0-3.0 Troponin I < 0.015 0-0.045 ng/ml Total Protein 7.3 6.4-8.2 gm/dl Albumin 3.2 3.4-5.0 gm/dl Lipase 58 73-393 U/L Bedside Lactic Acid Venous 3.13 0.90-1.70 mmol/L Influenza Type A Antigen Neg for Influ A NEG Influenza Type B Antigen Neg for Influ B NEG Prothrombin Time 12.0 9.0-12.0 SECONDS Prothromb Time International Ratio 1.1 0.9-1.1 Activated Partial Thromboplast Time 30.6 21.0-31.0 SECONDS Partial Thromboplastin Ratio 1.2 Test 09/17/17 12:00 Range/Units Urine Color YELLOW Urine Appearance CLOUDY CLEAR Urine pH 5.0 4.5-7.5 Urine Specific [place] 1.021 1.000-1.030 Urine Protein 2+ NEG Urine Glucose (UA) NEG NEG Urine Ketones NEG NEG Urine Occult Blood 3+ NEG Urine Nitrite NEG NEG Urine Bilirubin NEG NEG Urine Urobilinogen NEG NEG Urine Leukocyte Esterase MODERATE NEG Urine WBC (Auto) >30 0-5 /hpf Urine RBC (Auto) 5-10 0-4 /hpf Urine Hyaline Casts (Auto) 1-5 0-5 /lpf Urine Epithelial Cells (Auto) >30 0-5 /lpf Urine Bacteria (Auto) NEG NEG Urine Pathogenic Casts 0 /lpf Urine Yeast (Auto) NONE PRSENT Microbiology Results 09/17/17 Blood Culture, Received Pending 09/17/17 Blood Culture, Received Pending 09/17/17 Urine Culture, Received Pending Impression Assessment and Plan FLU like symptoms in a 67 yo female with Rheumatoid Arthritis, HTN, DM2. Initially admitted to [facility] Rapid flu is negative will give flu as patient has clinical symptoms of flu plus given her age Patient also has dirty urine but patient denies any dysuria. for now patient received cefepime and vanco in ER. Will obtain FLU PCR however, as stated above given her symptomatology, Influenza willl highly suspected. will continue with Rocephin as well. no steroids given as does not improve mortality in flu Asymptomatic bacteriura Patient comes in with symptoms of upper respiratory infection. On Rocephin may consider to dc. ARSEN creatinine bumped to 1.21 gave iVF. Elevated CK-Rhabdomyolysis Likely from above. However patient may be dehydrated. Obtain 2 liters in ER. HTN will appears to be controlled for now. will hold off meds. Rheumatoid Arthritis on methotrexate on Fridays stable DM2 will place on sliding scale droplet precautions GMF DVT heparin Update: Code Purple was called due to tachypnea. Respiratory rate was in the high 30s low 40s. Found to be in hypoxic respiratory failure X-ray was done which showed pulmonary edema 80 mg of lasix given IV patient placed on BIPAP Patient upgraded to telemetry Patient improved after 1 hours and was after placed on oxy mask May consider echocardiogram tomorrow 35 minutes spent on critical care time with patient. was informed. Level of Care Telemetry Advanced Directives Existing Advance Directive: No Existing Living Will: No Existing Power of Station Mechanic: No Existing Health Care Proxy: No Resuscitation Status FULL RESUSCITATION VTE Prophylaxis VTE Risk Assessment Done? Y/N: Yes Risk Level: Moderate Given or contraindicated: Unfractionated heparin SQ Note Total Time: Critical Care 30 - 74 minutes
[2017-09-17] MEDS ORDERED: CONSULT PHARMACY STA ×2 (13:23)
[2017-09-17] MEDS ORDERED: OSELTAMIVIR PHOSPHATE 75 MG CAP PO STA (13:29)
[2017-09-17] MEDS ORDERED: GLUCAGON FOR INJ 1 MG VIAL SQ PRN (13:30)
[2017-09-17] MEDS ORDERED: INFLUENZA VIRUS QUAD VACCINE 0.5 ML SYR IM. ONE (13:30)
[2017-09-17] MEDS ORDERED: ALUMINUM/MAGNESIUM/SIMETH (MAALOX MAX) 30 ML UDC PO PRN (13:30)
[2017-09-17] MEDS ORDERED: GLUCOSE 10 TABS/TUBE PO PRN (13:30)
[2017-09-17] MEDS ORDERED: PNEUMOCOCCAL POLYSACCHARIDES 25 MCG/0.5 ML VIAL/SYR IM. ONE (13:30)
[2017-09-17] MEDS ORDERED: MAGNESIUM HYDROXIDE SUSP 30 ML UDC PO PRN (13:30)
[2017-09-17] MEDS ORDERED: DEXTROSE 50% 50 ML SYR IV PRN (13:30)
[2017-09-17] MEDS ORDERED: ONDANSETRON INJ 2 MG/ML 2 ML VIAL IV PRN (13:30)
[2017-09-17] MEDS ORDERED: GLUCOSE 40% GEL 15 GM TUBE PO PRN (13:30)
[2017-09-17] MEDS ORDERED: POTASSIUM CHLORIDE 10 MEQ TABCR PO ONE (14:15)
[2017-09-17 14:48] LABS: CALCIUM 8.6 mg/dl (8.5-10.1); CREATININE 1.08 mg/dl (0.60-1.20); POTASSIUM 2.9 mmol/L (3.5-5.1)
[2017-09-17] MEDS ORDERED: PIPERACILL/TAZOBAC CONSULT ACTIVE PRN (15:30)
[2017-09-17] MEDS ORDERED: INFLUENZA VACCINE HIGH DOSE 65+ 0.5 ML SYR IM. ONE (16:00)
[2017-09-17] MEDS ORDERED: PNEUMOCOCCAL ADMINISTRATION CHARGE ONE (16:00)
[2017-09-17] MEDS ORDERED: INFLUENZA ADMINISTRATION CHARGE ONE (16:00)
--- NOTE | 2017-09-17 16:25 | DIAGNOSTIC IMAGING REPORT ---
SINGLE VIEW CHEST CLINICAL HISTORY: Sepsis. Upper respiratory tract infection. FINDINGS: An AP, portable, upright chest radiograph is compared to study dated 09/17/2017. Correlation is made with chest CT dated 04/23/2011. The examination is degraded by portable technique, large body habitus, and patient rotation. The heart is top normal for projection. There is prominence of the central pulmonary vessels. No airspace consolidation or large pleural effusion is identified. No pneumothorax is seen. The skeletal structures are osteopenic. The bony thorax is grossly intact. IMPRESSION: 1. There is no airspace consolidation or large pleural effusion. 2. There is prominence of the central pulmonary vessels. Correlate clinically for evidence of mild congestive failure. Electronically signed by: Ranjeet Lopez M.D. 09/17/2017 4:24 PM Dictated Date/Time: 09/17/2017 4:22 PM
[2017-09-17] MEDS: HEPARIN SOD 5000 UNIT/0.5 ML CARP SQ SCH (17:03)
[2017-09-17] MEDS: INSULIN ASPART 100 UNITS/ML 3 ML PEN SC SCH ×2 (17:35→21:28)
[2017-09-17] MEDS: CEFTRIAXONE SOD INJ 1000 MG in DEXTROSE 5% 50ML IV SCH (17:51)
[2017-09-17] MEDS ORDERED: PIPERACILL/TAZOBAC IV 4.5 GM in DEXTROSE 5% 100ML 100 ML IV SCH (18:00)
[2017-09-17] MEDS: ACETAMINOPHEN 325 MG TAB PO PRN (18:21)
[2017-09-17] MEDS: POTASSIUM CHLR 10 MEQ / WTR 10 MEQ in PREMIXED WATER 100 ML IV SCH ×3 (18:43→21:22)
[2017-09-17] MEDS: POTASSIUM CHLORIDE 10 MEQ TABCR PO SCH (21:22)
[2017-09-17] MEDS: OSELTAMIVIR PHOSPHATE 75 MG CAP PO SCH (21:23)
[2017-09-17 21:49] LABS: CALCIUM 8.8 mg/dl (8.5-10.1); CREATININE 1.17 mg/dl (0.60-1.20); POTASSIUM 3.1 mmol/L (3.5-5.1)
[2017-09-18] VITALS (7 sets, daily range): BP systolic 112–146; BP diastolic 72–96; PULSE 87–98; TEMP 36.5–38.9; O2SAT 94–100
[2017-09-18] MEDS: HEPARIN SOD 5000 UNIT/0.5 ML CARP SQ SCH ×3 (00:53→16:17)
[2017-09-18 01:27] LABS: CALCIUM 8.7 mg/dl (8.5-10.1); CREATININE 1.26 mg/dl (0.60-1.20); POTASSIUM 3.4 mmol/L (3.5-5.1)
[2017-09-18] MEDS: POTASSIUM CHLR 10 MEQ / WTR 10 MEQ in PREMIXED WATER 100 ML IV SCH (01:30)
[2017-09-18] MEDS: ACETAMINOPHEN 325 MG TAB PO PRN ×2 (04:09→19:57)
[2017-09-18 05:54] LABS: HEMATOCRIT 34.6 % (37-47); HEMOGLOBIN 11.7 g/dL (12.0-16.0); MEAN CELL VOLUME 85.6 fL (80-100); MEAN CORPUSCULAR HGB CONC 33.8 g/dl (32-36); MEAN PLATELET VOLUME 9.5 fL (7.4-10.4); PLATELET COUNT 171 K/uL (130-400); RED CELL DISTRIBUTION WIDTH CV 15.3 % (11.5-14.5); RED CELL DISTRIBUTION WIDTH SD 47.8 fL (36.4-46.3)
[2017-09-18 06:30] LABS: ALBUMIN 3.1 gm/dl (3.4-5.0); CALCIUM 8.5 mg/dl (8.5-10.1); CREATININE 1.14 mg/dl (0.60-1.20); POTASSIUM 3.3 mmol/L (3.5-5.1)
[2017-09-18 06:33] LABS: TOTAL PROTEIN 7.2 gm/dl (6.4-8.2)
[2017-09-18 07:19] LABS: INFLUENZA A PCR Neg for Influ A (NEG); INFLUENZA B PCR Neg for Influ B (NEG)
[2017-09-18] MEDS: INSULIN ASPART 100 UNITS/ML 3 ML PEN SC SCH ×4 (08:33→21:58)
[2017-09-18] MEDS: PANTOprazole SOD 40 MG TAB PO SCH (08:33)
[2017-09-18] MEDS: OSELTAMIVIR PHOSPHATE 75 MG CAP PO SCH ×2 (09:13→19:58)
[2017-09-18] MEDS: POTASSIUM CHLORIDE 10 MEQ TABCR PO SCH ×2 (09:30→19:58)
[2017-09-18] MEDS: IPRATROPIUM BROMIDE/ALBUTEROL respimat INH INH SCH ×4 (10:45→19:58)
[2017-09-18] MEDS: BUDESONIDE/FORMOTEROL FUMARATE 160/4.5 60 PUFFS/INHALER INH SCH ×2 (10:45→19:59)
[2017-09-18] MEDS: BENZONATATE 100MG CAP PO PRN (13:02)
[2017-09-18] MEDS: GUAIFENESIN 600 MG TABCR PO SCH ×2 (13:02→19:57)
[2017-09-18] MEDS: CEFTRIAXONE SOD INJ 1000 MG in DEXTROSE 5% 50ML IV SCH (18:24)
--- NOTE | 2017-09-18 19:02 | Progress Note ---
Subjective Date of Service: Sep 18, 2017. Subjective Pt evaluation today including: conversation w/ patient, physical exam, chart review, lab review, review of studies (cxr), review of inpatient medication list Pain: myalgias - diffuse PO Intake: ate 100% breakfast today Voiding: garnica catheter in place events of last 24 hours noted including code purple for tachypnea, etc she states "I feel a little better today" still with cough and mild dyspnea but no orthopnea apparently recently IV lasix yesterday for ? acute CHF and diuresed over 1 liter with such is sick with exact symptoms at home she has been sick for 3-4 days no recent travel patient states "I was dx with COPD by Dr. Alberts" doesn't use symbicort regularly Problem List Medical Problems: (1) Dehydration Status: Acute (2) Hypomagnesemia Status: Acute (3) Rhabdomyolysis Status: Acute (4) Sepsis Status: Acute (5) Upper respiratory infection Status: Acute Review of Systems Constitutional: + fever, + chills, + fatigue Respiratory: + cough, + dyspnea on exertion, No sputum, No wheezing, No shortness of breath, No dyspnea at rest Cardiac: No chest pain, No orthopnea Abdomen: + vomiting (had such at home, now resolved), No pain, No nausea Musculoskeletal: + joint pain, + muscle pain Objective Vital Signs Date Time Temp Pulse Resp B/P (MAP) Pulse Ox O2 Delivery O2 Flow Rate FiO2 09/18/17 16:00 37.3 87 18 134/75 (94) 96 Nasal Cannula 2.0 09/18/17 16:00 Nasal Cannula 2.0 09/18/17 12:00 Nasal Cannula 2.0 09/18/17 12:00 37.2 96 18 128/82 (97) 96 Nasal Cannula 2.0 09/18/17 08:00 Nasal Cannula 3.0 09/18/17 08:00 37.7 98 23 112/78 (89) 100 Nasal Cannula 3.0 09/18/17 06:00 37.6 09/18/17 04:00 38.7 96 30 144/96 (112) 97 8.0 09/18/17 04:00 Oxymask 8.0 09/18/17 00:00 36.5 88 31 146/82 (103) Oxymask 10.0 09/17/17 23:59 Oxymask 1/20/18 20:00 Oxymask 09/17/17 20:00 36.9 87 24 127/66 (86) 97 Oxymask 10.0 Physical Exam General Appearance: no apparent distress, + obese, + pertinent finding (looks sick but nontoxic) ENT: + pertinent finding (MM slightly dry) Neck: no JVD Respiratory/Chest: chest non-tender, lungs clear, normal breath sounds, no respiratory distress, no accessory muscle use Cardiovascular: regular rate, rhythm, no gallop, no murmur Abdomen: normal bowel sounds, non tender, soft, no organomegaly Extremities: no pedal edema Neurologic/Psychiatric: alert, oriented x 3 Skin: no rash Laboratory Results Last 24 Hours Test 09/17/17 20:47 09/17/17 21:24 09/18/17 00:00 09/18/17 00:51 Bedside Glucose 216 mg/dl Venous Blood pH 7.46 Venous Blood Partial Pressure CO2 41 mmHg Venous Blood Partial Pressure O2 55 mmHg Venous Blood HCO3 28 mmol/L Venous Blood Oxygen Saturation 87.6 % Venous Blood Base Excess 4.2 mEq/L Sodium Level 133 mmol/L 133 mmol/L Potassium Level 3.1 mmol/L 3.4 mmol/L Chloride Level 94 mmol/L 93 mmol/L Carbon Dioxide Level 28 mmol/L 31 mmol/L Anion Gap 11.0 mmol/L 9.0 mmol/L Blood Urea Nitrogen 20 mg/dl 20 mg/dl Creatinine 1.17 mg/dl 1.26 mg/dl Est Creatinine Clear Calc Drug Dose 56.6 ml/min 52.5 ml/min Estimated GFR () 55.4 50.7 Estimated GFR (Non- 47.8 43.7 BUN/Creatinine Ratio 17.0 15.5 Random Glucose 198 mg/dl 157 mg/dl Calcium Level 8.8 mg/dl 8.7 mg/dl Magnesium Level 2.3 mg/dl Influenza Type A (RT-PCR) Neg for Influ A Influenza Type B (RT-PCR) Neg for Influ B Test 09/18/17 05:44 09/18/17 06:37 09/18/17 11:21 09/18/17 16:20 White Blood Count 10.60 K/uL Red Blood Count 4.04 M/uL Hemoglobin 11.7 g/dL Hematocrit 34.6 % Mean Corpuscular Volume 85.6 fL Mean Corpuscular Hemoglobin 29.0 pg Mean Corpuscular Hemoglobin Concent 33.8 g/dl RDW Standard Deviation 47.8 fL RDW Coefficient of Variation 15.3 % Platelet Count 171 K/uL Mean Platelet Volume 9.5 fL Sodium Level 131 mmol/L Potassium Level 3.3 mmol/L Chloride Level 94 mmol/L Carbon Dioxide Level 29 mmol/L Anion Gap 8.0 mmol/L Blood Urea Nitrogen 21 mg/dl Creatinine 1.14 mg/dl Est Creatinine Clear Calc Drug Dose 58.1 ml/min Estimated GFR () 57.2 Estimated GFR (Non- 49.4 BUN/Creatinine Ratio 18.4 Random Glucose 156 mg/dl Lactic Acid Level 1.3 mmol/L Calcium Level 8.5 mg/dl Magnesium Level 1.8 mg/dl Total Bilirubin 0.5 mg/dl Aspartate Amino Transf (AST/SGOT) 43 U/L Alanine Aminotransferase (ALT/SGPT) 26 U/L Alkaline Phosphatase 61 U/L Total Creatine Kinase 2303 U/L Troponin I 0.019 ng/ml Total Protein 7.2 gm/dl Albumin 3.1 gm/dl Globulin 4.1 gm/dl Albumin/Globulin Ratio 0.8 Bedside Glucose 168 mg/dl 181 mg/dl 196 mg/dl Assessment and Plan 67yo female - 1. sepsis 2nd to suspected influenza - more stable today, patient feeling better, and fever resolving. CBC stable. Continue tamiflu x 5 days. 2. suspected influenza despite negative rapid flu testing - tamiflu x 5 days; supportive care. 3. proteus UTI - day #2 of rocephin; await final culture results. 4. acute hypoxic respiratory failure - 2nd to suspected influenza. Does not appear to have active asthma/COPD exacerbation; defer on IV steroids for now. Wean o2 as tolerated. 5. morbid obesity with BMI 50 6. at risk of DELL - avoid sedatives, benzos, etc. 7. acute kidney injury - improved, 2nd to #1 above. 8. hyponatremia - likely 2nd to HCTZ use and volume depletion in setting of illness. Improved today. 9. hypokalemia - 2nd to HCTZ use and vomiting - improved, but not normal; cont supplementation. BMP in am. 10. rhabdomyolysis - CPK improved today. Either 2nd to viral illness vs statin vs other. Hold statin. Supportive care. Ideally would give IVF but patient may have had mild volume overload overnight. 11. hypomagnesemia - resolved. 12. RA - noted. 13. HTN - hold anti-hypertensive meds for now. 13. DVT proph - heparin TID. 14. request PT, OT consults. 15. T2DM - hold oral agents; novolog for meal coverage; add lantus 10 units HS as well. 16. high AST - likely due to high CPK; repeat CPK in am; recheck AST in 48 hours. update when able Continued [facility] stay due to: inadequate po fluid intake, voiding difficulties, ambulation difficulties, multiple IV medications needed Discharge planning: uncertain
[2017-09-18] MEDS ORDERED: INSULIN GLARGINE SOLOSTAR 100 UNITS/ML 3 ML PEN SC SCH (21:00)
[2017-09-19] VITALS (7 sets, daily range): BP systolic 116–155; BP diastolic 63–94; PULSE 74–88; TEMP 36.8–37.1; O2SAT 93–98
[2017-09-19] MEDS: HEPARIN SOD 5000 UNIT/0.5 ML CARP SQ SCH ×3 (00:01→17:24)
[2017-09-19] MEDS: ACETAMINOPHEN 325 MG TAB PO PRN (06:21)
[2017-09-19 06:46] LABS: CALCIUM 8.5 mg/dl (8.5-10.1); CREATININE 0.87 mg/dl (0.60-1.20); POTASSIUM 3.6 mmol/L (3.5-5.1)
[2017-09-19] MEDS: IPRATROPIUM BROMIDE/ALBUTEROL respimat INH INH SCH ×4 (07:47→21:21)
[2017-09-19] MEDS: BUDESONIDE/FORMOTEROL FUMARATE 160/4.5 60 PUFFS/INHALER INH SCH ×2 (07:47→21:21)
[2017-09-19] MEDS: GUAIFENESIN 600 MG TABCR PO SCH ×2 (07:48→21:23)
[2017-09-19] MEDS: POTASSIUM CHLORIDE 10 MEQ TABCR PO SCH ×2 (07:48→21:22)
[2017-09-19] MEDS: PANTOprazole SOD 40 MG TAB PO SCH (07:48)
[2017-09-19] MEDS: OSELTAMIVIR PHOSPHATE 75 MG CAP PO SCH ×2 (07:48→21:22)
[2017-09-19] MEDS: BENZONATATE 100MG CAP PO PRN ×2 (07:49→17:18)
[2017-09-19] MEDS: INSULIN ASPART 100 UNITS/ML 3 ML PEN SC SCH ×4 (07:55→21:25)
--- NOTE | 2017-09-19 08:27 | DIAGNOSTIC IMAGING REPORT ---
CHEST 2 VIEWS ROUTINE HISTORY: resp failure, influenza, eval for any developing pneumonia COMPARISON: Chest 09/17/2017. FINDINGS: The lungs are clear. Cardiac silhouette is normal in size. No pleural effusions. No pneumothorax. IMPRESSION: No acute process. Electronically signed by: Seng Griffith M.D. 09/19/2017 8:25 AM Dictated Date/Time: 09/19/2017 8:22 AM
--- NOTE | 2017-09-19 09:16 | Clinical Documentation Query ---
SUSAN Menchaca : CLINICAL DOCUMENTATION QUERY Please document the POA status of sepsis as this did not appear in H&P so as to avoid chain puller uncertainty at time of discharge. Thank you. In your clinical opinion is this patient being managed for: ( x ) Sepsis, POA, secondary to suspected influenza ( ) Sepsis, not POA, secondary to suspected influenza ( ) Not Agree ( ) Other explanation of clinical findings (Please Explain) ( ) Unable to determine (Please Define) ( ) Need to Discuss The medical record reflects the following clinical findings, treatment, and risk factors. Please clarify and document your clinical opinion in the progress notes and discharge summary. Terms such as "probable", "suspected", "likely", "questionable", "possible", or "still to be ruled out" are acceptable. IF IN AGREEMENT, YOU MUST DOCUMENT ABOVE DIAGNOSTIC STATEMENT IN DAILY PROGRESS NOTES AND DISCHARGE SUMMARY. This document is not part of the patient's record. Thank You, Arnie Flores, RN [phone]
[2017-09-19] MEDS ORDERED: COUGH DROP (SUGAR FREE) LOZ 24 LOZ/1 BOX LOZ ONE (11:10)
--- NOTE | 2017-09-19 16:29 | Hospitalist Progress Note ---
Hospitalist Progress Note Date of Service Sep 19, 2017. (Opal Marvin PA-C) Subjective Pt evaluation today including: conversation w/ patient, physical exam, chart review, lab review, review of studies, review of inpatient medication list Voiding: garnica catheter in place Patient seen and evaluated. No acute events overnight. Tele with NSR. Reporting feeling much better compared to admission but states not her normal self. Continues to feel achy all over and weak. Did participate in PT/OT and recommending that she could return home if she meets goals. Reporting her breathing is much better but still with supplemental O2. States she does not use this at home. Constitutional: + weakness, + fatigue, No fever, No chills ENT: + nasal symptoms, + sore throat Respiratory: + cough, + sputum, No shortness of breath Cardiovascular: No chest pain Abdomen: No pain, No nausea, No vomiting, No diarrhea, No constipation Female : No dysuria Heme: No abnormal bleeding/bruising Skin: No rash (Opal Marvin, MYLESC) Medications Current Inpatient Medications Medications (Trade) Dose Ordered Sig/Lux Route Start Time Stop Time Status Last Admin Dose Admin Heparin Sodium (Porcine) (Heparin Sq 5000 Unit/0.5ml) 5,000 unit Q8H SQ 09/17/17 16:00 10/17/17 15:59 09/19/17 07:55 5,000 UNIT Acetaminophen (Tylenol Tab) 650 mg Q4H PRN PO 09/17/17 13:30 10/17/17 13:29 09/19/17 06:21 650 MG Al Hydrox/Mg Hydrox/Simethicone (Maalox Max Susp) 15 ml Q4H PRN PO 09/17/17 13:30 10/17/17 13:29 Magnesium Hydroxide (Milk Of Magnesia Susp) 30 ml Q6H PRN PO 09/17/17 13:30 10/17/17 13:29 Ondansetron HCl (Zofran Inj) 4 mg Q6H PRN IV 09/17/17 13:30 10/17/17 13:29 Insulin Aspart (novoLOG ASPART) SLIDING SCALE If C... ACHS SC 09/17/17 16:00 10/17/17 15:59 09/19/17 12:33 8 UNITS Glucose (Glucose 40% Gel) 15-30 GRAMS 15 GRAMS... UD PRN PO 09/17/17 13:30 10/17/17 13:29 Glucose (Glucose Chew Tab) 4-8 Tablets 4 Tabl... UD PRN PO 09/17/17 13:30 10/17/17 13:29 Dextrose (Dextrose 50% 50ML Syringe) 25-50ML OF 50% DW IV FOR... UD PRN IV 09/17/17 13:30 10/17/17 13:29 Glucagon (Glucagon Inj) 1 mg UD PRN SQ 09/17/17 13:30 10/17/17 13:29 Oseltamivir Phosphate (Tamiflu Cap) 75 mg BID PO 09/17/17 20:00 09/22/17 20:59 09/19/17 07:48 75 MG Potassium Chloride (Klor-Con M10) 20 meq BID PO 09/17/17 20:00 10/17/17 20:59 09/19/17 07:48 20 MEQ Ceftriaxone Sodium 1 gm/ Dextrose 50 ml @ 100 mls/hr DAILY@1800 IV 09/17/17 18:00 09/27/17 17:59 09/18/17 18:24 100 MLS/HR Pantoprazole Sodium (Protonix Tab) 40 mg QAM PO 09/18/17 09:00 09/22/17 08:59 09/19/17 07:48 40 MG Budesonide/ Formoterol Fumarate (Symbicort 160/ 4.5 Inh) 2 puffs BID INH 09/18/17 10:45 10/18/17 10:44 09/19/17 07:47 2 PUFFS Albuterol/ Ipratropium (Combivent Respimat Inh) 1 puffs QID INH 09/18/17 10:45 10/18/17 10:44 09/19/17 12:34 1 PUFFS Guaifenesin (Mucinex Contr Rel Tab) 1,200 mg Q12 PO 09/18/17 10:45 10/18/17 10:44 09/19/17 07:48 1,200 MG Benzonatate (Tessalon Perles Cap) 100 mg TID PRN PO 09/18/17 10:45 10/18/17 10:44 09/19/17 07:49 100 MG Insulin Glargine (Lantus Solostar Pen) 10 units HS SC 09/18/17 21:00 10/18/17 20:59 09/18/17 21:59 10 UNITS (Opal Marvin PA-C) Objective Vital Signs Date Time Temp Pulse Resp B/P (MAP) Pulse Ox O2 Delivery O2 Flow Rate FiO2 09/19/17 12:17 36.9 79 18 119/89 (99) 98 Nasal Cannula 2.0 09/19/17 12:00 Nasal Cannula 09/19/17 08:14 37.0 84 16 119/94 (102) 95 Room Air 09/19/17 08:00 Nasal Cannula 09/19/17 04:00 Nasal Cannula 2.0 09/19/17 03:36 37.0 86 19 128/77 (94) 94 Nasal Cannula 2.0 09/19/17 00:04 37.0 74 16 144/88 (106) 95 Nasal Cannula 2.0 09/19/17 00:00 Nasal Cannula 2.0 09/18/17 20:00 Nasal Cannula 2.0 09/18/17 19:50 38.9 87 20 119/72 (88) 94 Nasal Cannula 2.0 (Opal Marvin PA-C) Physical Exam General Appearance: WD/WN, no apparent distress, + obese Eyes: sclerae normal ENT: hearing grossly normal Neck: supple, no JVD, trachea midline Respiratory/Chest: lungs clear, no respiratory distress, no accessory muscle use, + decreased breath sounds (bases b/l) Cardiovascular: regular rate, rhythm Abdomen: normal bowel sounds, non tender, soft Extremities: no pedal edema, no calf tenderness Neurologic/Psychiatric: alert, oriented x 3 Skin: normal color, warm/dry (Opal Marvin, JESSICA-C) Laboratory Results Last 24 Hours Test 09/18/17 20:51 09/19/17 05:39 09/19/17 07:05 09/19/17 11:22 Bedside Glucose 183 mg/dl 190 mg/dl 240 mg/dl Sodium Level 132 mmol/L Potassium Level 3.6 mmol/L Chloride Level 95 mmol/L Carbon Dioxide Level 30 mmol/L Anion Gap 7.0 mmol/L Blood Urea Nitrogen 17 mg/dl Creatinine 0.87 mg/dl Est Creatinine Clear Calc Drug Dose 76.8 ml/min Estimated GFR () 79.3 Estimated GFR (Non- 68.5 BUN/Creatinine Ratio 19.2 Random Glucose 161 mg/dl Calcium Level 8.5 mg/dl Total Creatine Kinase 1258 U/L (Opal Marvin, PA-C) Assessment and Plan Sepsis 2/2 Suspected Influenza and Acute Hypoxic Respiratory Failure: IMPROVING - Suspected influenza despite negative testing - Tamiflu 75 mg BID - Plan to wean O2 as tolerated Pansensitive Proteus UTI: - Initiated on Rocephin and will convert to Keflex 500 mg BID Rhabdomyolysis and High AST: IMPROVING - Continues to trend down - will continue to monitor - likely due to illness vs statin - Will allow oral intake and hold further fluids for concern of fluid overload ARSEN 2/2 Above: RESOLVED - HCTZ and Cozaar on hold Asthma/COPD without Exacerbation: - Symbicort 2 puffs BID and Combivent T2DM: - Hold oral agents and cover with Lantus 10 units SC HS and SSI DVT Prophylaxis: Heparin 5000 units SC Q8H Disposition: - PT/OT evaluations - goals set and pending clinical course home vs rehab Continued [facility] stay due to: multiple IV medications needed Discharge planning: uncertain (Opal Marvin, PA-C) Attending Attestation: Pt seen/examined, chart reviewed, care plan d/w JESSICA Marvin. I agree w/ the douglas components of her documentation. Pt "feeling better than yesterday" but still with cough, weakness, mild anorexia. Tele overnight wnl. febrile overnight, now resolved VSS otherwise gen - ill-appearing but nontoxic, NAD neck - no JVD heart - RRR lungs - CTA b/l, no wheeze, no rales abd - soft ext - no edema A/P: 1. sepsis 2nd to flu or flu-like illness + proteus UTI - improving. 2. suspected influenza - finish tamiflu, supportive care. CXR today still w/o pneumonia. 3. UTI - change rocephin to keflex; Rx 5-7 days in total. 4. uncontrolled T2DM - increase lantus to 15 units HS. 5. rhabdomyolysis - improving; CPK in am. PT, OT progressing Klaus MCGRATH MD (Tavon Mcgrath MD)
[2017-09-19] MEDS: CEFTRIAXONE SOD INJ 1000 MG in DEXTROSE 5% 50ML IV SCH (17:18)
[2017-09-19] MEDS ORDERED: GUAIFENESIN/CODEINE 100MG/10MG 5ML UDC PO PRN (18:45)
[2017-09-19] MEDS: INSULIN GLARGINE SOLOSTAR 100 UNITS/ML 3 ML PEN SC SCH (21:26)
[2017-09-20] VITALS (8 sets, daily range): BP systolic 127–155; BP diastolic 61–100; PULSE 76–88; TEMP 36.6–37.1; O2SAT 91–95
[2017-09-20] MEDS: HEPARIN SOD 5000 UNIT/0.5 ML CARP SQ SCH ×4 (00:18→23:58)
[2017-09-20 07:10] LABS: HEMATOCRIT 34.5 % (37-47); HEMOGLOBIN 11.6 g/dL (12.0-16.0); MEAN CELL VOLUME 85.6 fL (80-100); MEAN CORPUSCULAR HEMOGLOBIN 28.8 pg (25-34); MEAN CORPUSCULAR HGB CONC 33.6 g/dl (32-36); MEAN PLATELET VOLUME 10.1 fL (7.4-10.4); PLATELET COUNT 174 K/uL (130-400); RED CELL DISTRIBUTION WIDTH CV 15.1 % (11.5-14.5); RED CELL DISTRIBUTION WIDTH SD 47.5 fL (36.4-46.3); WHITE BLOOD COUNT 7.14 K/uL (4.8-10.8)
[2017-09-20] MEDS: INSULIN ASPART 100 UNITS/ML 3 ML PEN SC SCH ×4 (07:36→21:44)
[2017-09-20] MEDS: BUDESONIDE/FORMOTEROL FUMARATE 160/4.5 60 PUFFS/INHALER INH SCH ×2 (07:38→19:25)
[2017-09-20] MEDS: IPRATROPIUM BROMIDE/ALBUTEROL respimat INH INH SCH ×4 (07:38→19:25)
[2017-09-20] MEDS: CEPHALEXIN MONOHYDRATE 500 MG CAP PO SCH ×2 (07:39→19:26)
[2017-09-20] MEDS: POTASSIUM CHLORIDE 10 MEQ TABCR PO SCH ×2 (07:39→19:27)
[2017-09-20] MEDS: OSELTAMIVIR PHOSPHATE 75 MG CAP PO SCH ×2 (07:40→19:26)
[2017-09-20] MEDS: PANTOprazole SOD 40 MG TAB PO SCH (07:40)
[2017-09-20] MEDS: GUAIFENESIN 600 MG TABCR PO SCH ×2 (07:40→19:28)
[2017-09-20 07:43] LABS: ALBUMIN 2.6 gm/dl (3.4-5.0); CALCIUM 9.1 mg/dl (8.5-10.1); CREATININE 0.93 mg/dl (0.60-1.20); POTASSIUM 3.8 mmol/L (3.5-5.1)
[2017-09-20 07:46] LABS: TOTAL PROTEIN 6.9 gm/dl (6.4-8.2)
[2017-09-20] MEDS ORDERED: SODIUM CHLORIDE 0.9% 10ML FLUSH IV ONE (08:07)
[2017-09-20] MEDS ORDERED: FUROSEMIDE 10 MG/ML 10 ML VIAL IV ONE (08:07)
--- NOTE | 2017-09-20 13:41 | Hospitalist Progress Note ---
Hospitalist Progress Note Date of Service Sep 20, 2017. (Opal Marvin PA-C) Subjective Pt evaluation today including: conversation w/ patient, physical exam, chart review, lab review, review of studies, review of inpatient medication list Patient seen and evaluated. No acute events overnight. Reporting feeling a little bit better today and feels that her weakness is slowly improving. Does not feel quite at baseline. Feels that she is coughing more mucus up and has a lot more post-nasal drip. Feels that breathing is improving and currently on RA. Would like to leave Carroll in place today as she does not feel that she can ambulate fast enough to the bathroom. at home with similar symptoms. State he did test positive for the flu but was told he was outside the window for treatment. Says he is slowly recovering. Constitutional: No fever, No chills ENT: + nasal symptoms, + sore throat Respiratory: + cough, + sputum, + dyspnea on exertion, No wheezing, No dyspnea at rest Cardiovascular: No chest pain, No palpitations Abdomen: No pain, No nausea, No vomiting, No diarrhea, No constipation Musculoskeletal: No swelling, No calf pain Female : No dysuria Heme: No abnormal bleeding/bruising Skin: No rash (Opal Marvin PA-C) Medications Current Inpatient Medications Medications (Trade) Dose Ordered Sig/Lux Route Start Time Stop Time Status Last Admin Dose Admin Heparin Sodium (Porcine) (Heparin Sq 5000 Unit/0.5ml) 5,000 unit Q8H SQ 09/17/17 16:00 10/17/17 15:59 09/20/17 07:36 5,000 UNIT Acetaminophen (Tylenol Tab) 650 mg Q4H PRN PO 09/17/17 13:30 10/17/17 13:29 09/19/17 06:21 650 MG Al Hydrox/Mg Hydrox/Simethicone (Maalox Max Susp) 15 ml Q4H PRN PO 09/17/17 13:30 10/17/17 13:29 Magnesium Hydroxide (Milk Of Magnesia Susp) 30 ml Q6H PRN PO 09/17/17 13:30 10/17/17 13:29 Ondansetron HCl (Zofran Inj) 4 mg Q6H PRN IV 09/17/17 13:30 10/17/17 13:29 Insulin Aspart (novoLOG ASPART) SLIDING SCALE If C... ACHS SC 09/17/17 16:00 10/17/17 15:59 09/20/17 11:58 8 UNITS Glucose (Glucose 40% Gel) 15-30 GRAMS 15 GRAMS... UD PRN PO 09/17/17 13:30 10/17/17 13:29 Glucose (Glucose Chew Tab) 4-8 Tablets 4 Tabl... UD PRN PO 09/17/17 13:30 10/17/17 13:29 Dextrose (Dextrose 50% 50ML Syringe) 25-50ML OF 50% DW IV FOR... UD PRN IV 09/17/17 13:30 10/17/17 13:29 Glucagon (Glucagon Inj) 1 mg UD PRN SQ 09/17/17 13:30 10/17/17 13:29 Oseltamivir Phosphate (Tamiflu Cap) 75 mg BID PO 09/17/17 20:00 09/22/17 20:59 09/20/17 07:40 75 MG Potassium Chloride (Klor-Con M10) 20 meq BID PO 09/17/17 20:00 10/17/17 20:59 09/20/17 07:39 20 MEQ Pantoprazole Sodium (Protonix Tab) 40 mg QAM PO 09/18/17 09:00 09/22/17 08:59 09/20/17 07:40 40 MG Budesonide/ Formoterol Fumarate (Symbicort 160/ 4.5 Inh) 2 puffs BID INH 09/18/17 10:45 10/18/17 10:44 09/20/17 07:38 2 PUFFS Albuterol/ Ipratropium (Combivent Respimat Inh) 1 puffs QID INH 09/18/17 10:45 10/18/17 10:44 09/20/17 07:38 1 PUFFS Guaifenesin (Mucinex Contr Rel Tab) 1,200 mg Q12 PO 09/18/17 10:45 10/18/17 10:44 09/20/17 07:40 1,200 MG Benzonatate (Tessalon Perles Cap) 100 mg TID PRN PO 09/18/17 10:45 10/18/17 10:44 09/19/17 17:18 100 MG Codeine Phosphate/ Guaifenesin (Robitussin-AC Sugar Free Syrup) 5 ml HS PRN PO 09/19/17 18:45 10/19/17 18:44 Insulin Glargine (Lantus Solostar Pen) 15 units HS SC 09/19/17 21:00 10/18/17 20:59 09/19/17 21:26 15 UNITS Cephalexin Monohydrate (Keflex Cap) 500 mg BID PO 09/20/17 09:00 09/25/17 08:59 09/20/17 07:39 500 MG (Opal Marvin PA-C) Objective Vital Signs Date Time Temp Pulse Resp B/P (MAP) Pulse Ox O2 Delivery O2 Flow Rate FiO2 09/20/17 12:07 Room Air 09/20/17 12:00 Room Air 09/20/17 11:32 82 18 128/86 (100) 93 Room Air 09/20/17 11:32 36.6 09/20/17 11:32 Room Air 09/20/17 08:00 Room Air 09/20/17 07:36 36.9 86 18 144/79 (100) 95 09/20/17 04:00 37.1 88 19 135/79 (97) 92 Room Air 09/20/17 04:00 Nasal Cannula 2.0 09/19/17 23:59 Nasal Cannula 2.0 09/19/17 23:43 36.8 88 20 122/63 (82) 95 Nasal Cannula 2.0 09/19/17 20:00 Nasal Cannula 2.0 09/19/17 19:33 37.0 88 21 116/85 (95) 96 Nasal Cannula 2.0 09/19/17 16:00 37.1 88 26 155/86 (109) 93 Room Air 09/19/17 16:00 Nasal Cannula (Opal Marvin PA-C) Physical Exam General Appearance: WD/WN, no apparent distress, + obese Eyes: sclerae normal ENT: hearing grossly normal Neck: supple, no JVD, trachea midline Respiratory/Chest: no respiratory distress, no accessory muscle use, + decreased breath sounds (bases b/l) Cardiovascular: regular rate, rhythm, no gallop, no murmur Abdomen: normal bowel sounds, non tender, soft Extremities: no calf tenderness Neurologic/Psychiatric: alert Skin: normal color, warm/dry (Opal Marvin, PA-C) Laboratory Results Last 24 Hours Test 09/19/17 16:32 09/19/17 21:09 09/20/17 06:42 Bedside Glucose 207 mg/dl 185 mg/dl White Blood Count 7.14 K/uL Red Blood Count 4.03 M/uL Hemoglobin 11.6 g/dL Hematocrit 34.5 % Mean Corpuscular Volume 85.6 fL Mean Corpuscular Hemoglobin 28.8 pg Mean Corpuscular Hemoglobin Concent 33.6 g/dl RDW Standard Deviation 47.5 fL RDW Coefficient of Variation 15.1 % Platelet Count 174 K/uL Mean Platelet Volume 10.1 fL Sodium Level 132 mmol/L Potassium Level 3.8 mmol/L Chloride Level 98 mmol/L Carbon Dioxide Level 29 mmol/L Anion Gap 6.0 mmol/L Blood Urea Nitrogen 18 mg/dl Creatinine 0.93 mg/dl Est Creatinine Clear Calc Drug Dose 71.8 ml/min Estimated GFR () 73.2 Estimated GFR (Non- 63.1 BUN/Creatinine Ratio 19.7 Random Glucose 171 mg/dl Calcium Level 9.1 mg/dl Total Bilirubin 0.3 mg/dl Aspartate Amino Transf (AST/SGOT) 30 U/L Alanine Aminotransferase (ALT/SGPT) 33 U/L Alkaline Phosphatase 58 U/L Total Creatine Kinase 431 U/L Total Protein 6.9 gm/dl Albumin 2.6 gm/dl Globulin 4.3 gm/dl Albumin/Globulin Ratio 0.6 (Opal Marvin, PA-C) Assessment and Plan Sepsis 2/2 Suspected Influenza and Acute Hypoxic Respiratory Failure: IMPROVING - Suspected influenza despite negative testing - Tamiflu 75 mg BID to finish on 09/22 Pansensitive Proteus UTI: - Initiated on Rocephin and will complete course with Keflex 500 mg BID Rhabdomyolysis and High AST: IMPROVING - Continues to trend down - will continue to monitor - likely due to illness vs statin - Will allow oral intake and hold further fluids for concern of fluid overload ARSEN 2/2 Above: RESOLVED - HCTZ and Cozaar on hold - BP continue to be acceptable and will continue to monitor off them Asthma/COPD without Exacerbation: - Symbicort 2 puffs BID and Combivent T2DM: - Hold oral agents and cover with Lantus 10 units SC HS and SSI DVT Prophylaxis: Heparin 5000 units SC Q8H Disposition: - PT/OT evaluations - goals set and pending clinical course home vs rehab - Possible D/C next 1-2 days Discharge planning: home (Opal Marvin, PAJoseph) Attending Attestation: Pt seen/examined, chart reviewed, care plan d/w JESSICA Marvin. I agree w/ the douglas components of her documentation. Pt again feels better than yesterday. Still w/ cough but no dyspnea at rest. VSS, no fever gen - looks better today; obese neck - no JVD heart - RRR lungs - CTA b/l, no wheeze, no rales abd - soft ext - no edema A/P: 1. sepsis 2nd to flu or flu-like illness + proteus UTI - improving/resolved. 2. suspected influenza - finish tamiflu, supportive care. No clinical evidence of complicating pneumonia. 3. UTI - proteus - keflex 500 BID. total 7 days. 4. uncontrolled T2DM - increase lantus to 15 units BID; novolog as is for now. 5. rhabdomyolysis - improving as CPK today is nearly normal. 6. hyponatremia - slowly improving. d/c nahun PT, OT progressing slowly Klaus MCGRATH MD (Tavon Mcgrath MD)
[2017-09-20] MEDS: ACETAMINOPHEN 325 MG TAB PO PRN (16:25)
[2017-09-20] MEDS: BENZONATATE 100MG CAP PO PRN (18:24)
[2017-09-20] MEDS: INSULIN GLARGINE SOLOSTAR 100 UNITS/ML 3 ML PEN SC SCH (21:45)
[2017-09-21 07:05] LABS: HEMATOCRIT 32.9 % (37-47); HEMOGLOBIN 11.1 g/dL (12.0-16.0); MEAN CELL VOLUME 85.7 fL (80-100); MEAN CORPUSCULAR HEMOGLOBIN 28.9 pg (25-34); MEAN CORPUSCULAR HGB CONC 33.7 g/dl (32-36); MEAN PLATELET VOLUME 10.3 fL (7.4-10.4); PLATELET COUNT 187 K/uL (130-400); RED CELL DISTRIBUTION WIDTH CV 15.2 % (11.5-14.5); RED CELL DISTRIBUTION WIDTH SD 47.4 fL (36.4-46.3); WHITE BLOOD COUNT 7.44 K/uL (4.8-10.8)
[2017-09-21 07:37] VITALS: BP 143/78; PULSE 82; TEMP 37.2; O2SAT 94
[2017-09-21 07:43] LABS: ALBUMIN 2.8 gm/dl (3.4-5.0); CALCIUM 8.7 mg/dl (8.5-10.1); CREATININE 0.94 mg/dl (0.60-1.20); POTASSIUM 4.3 mmol/L (3.5-5.1)
[2017-09-21] MEDS: HEPARIN SOD 5000 UNIT/0.5 ML CARP SQ SCH ×2 (07:56→17:04)
[2017-09-21] MEDS: IPRATROPIUM BROMIDE/ALBUTEROL respimat INH INH SCH ×4 (07:57→20:44)
[2017-09-21] MEDS: INSULIN GLARGINE SOLOSTAR 100 UNITS/ML 3 ML PEN SC SCH ×2 (07:57→20:56)
[2017-09-21] MEDS: CEPHALEXIN MONOHYDRATE 500 MG CAP PO SCH ×2 (07:58→20:48)
[2017-09-21] MEDS: BUDESONIDE/FORMOTEROL FUMARATE 160/4.5 60 PUFFS/INHALER INH SCH ×2 (07:58→20:44)
[2017-09-21] MEDS: POTASSIUM CHLORIDE 10 MEQ TABCR PO SCH ×2 (08:00→20:48)
[2017-09-21] MEDS: GUAIFENESIN 600 MG TABCR PO SCH ×2 (08:00→20:45)
[2017-09-21] MEDS: OSELTAMIVIR PHOSPHATE 75 MG CAP PO SCH ×2 (08:04→20:47)
[2017-09-21] MEDS: ACETAMINOPHEN 325 MG TAB PO PRN (08:11)
[2017-09-21] MEDS: PANTOprazole SOD 40 MG TAB PO SCH (08:11)
[2017-09-21] MEDS: INSULIN ASPART 100 UNITS/ML 3 ML PEN SC SCH ×4 (09:24→20:55)
[2017-09-21] MEDS: BENZONATATE 100MG CAP PO PRN (12:26)
[2017-09-21 15:16] VITALS: BP 157/106; PULSE 88; TEMP 36.5; O2SAT 95
--- NOTE | 2017-09-21 15:36 | Hospitalist Progress Note ---
Hospitalist Progress Note Date of Service Sep 21, 2017. (Opal Marvin PA-C) Subjective Pt evaluation today including: conversation w/ patient, physical exam, chart review, lab review, review of studies, review of inpatient medication list Patient seen and evaluated. No acute events overnight. Continues to feel a little better each day but is hesitant to return home at this time due to weakness. States she is trying to ambulate more but really just getting up to go to the bathroom. PT/OT are on the case. Patient was feeling too weak to participate in PT yesterday. Did encourage her to participate even if still weak as we would not want her to get weaker by not moving. Continues to be on room air. Continues to have a cough but feels breathing is much better. Constitutional: No fever, No chills Respiratory: + cough, No shortness of breath Cardiovascular: No chest pain Abdomen: No pain, No nausea, No vomiting, No diarrhea, No constipation Musculoskeletal: No calf pain Female : No dysuria Heme: No abnormal bleeding/bruising (Opal Marvin, MYLESC) Medications Current Inpatient Medications Medications (Trade) Dose Ordered Sig/Lux Route Start Time Stop Time Status Last Admin Dose Admin Heparin Sodium (Porcine) (Heparin Sq 5000 Unit/0.5ml) 5,000 unit Q8H SQ 09/17/17 16:00 10/17/17 15:59 09/21/17 07:56 5,000 UNIT Acetaminophen (Tylenol Tab) 650 mg Q4H PRN PO 09/17/17 13:30 10/17/17 13:29 09/21/17 08:11 650 MG Al Hydrox/Mg Hydrox/Simethicone (Maalox Max Susp) 15 ml Q4H PRN PO 09/17/17 13:30 10/17/17 13:29 Magnesium Hydroxide (Milk Of Magnesia Susp) 30 ml Q6H PRN PO 09/17/17 13:30 10/17/17 13:29 Ondansetron HCl (Zofran Inj) 4 mg Q6H PRN IV 09/17/17 13:30 10/17/17 13:29 Insulin Aspart (novoLOG ASPART) SLIDING SCALE If C... ACHS SC 09/17/17 16:00 10/17/17 15:59 09/21/17 13:01 12 UNITS Glucose (Glucose 40% Gel) 15-30 GRAMS 15 GRAMS... UD PRN PO 09/17/17 13:30 10/17/17 13:29 Glucose (Glucose Chew Tab) 4-8 Tablets 4 Tabl... UD PRN PO 09/17/17 13:30 10/17/17 13:29 Dextrose (Dextrose 50% 50ML Syringe) 25-50ML OF 50% DW IV FOR... UD PRN IV 09/17/17 13:30 10/17/17 13:29 Glucagon (Glucagon Inj) 1 mg UD PRN SQ 09/17/17 13:30 10/17/17 13:29 Oseltamivir Phosphate (Tamiflu Cap) 75 mg BID PO 09/17/17 20:00 09/22/17 20:59 09/21/17 08:04 75 MG Potassium Chloride (Klor-Con M10) 20 meq BID PO 09/17/17 20:00 10/17/17 20:59 09/21/17 08:00 20 MEQ Pantoprazole Sodium (Protonix Tab) 40 mg QAM PO 09/18/17 09:00 09/22/17 08:59 09/21/17 08:11 40 MG Budesonide/ Formoterol Fumarate (Symbicort 160/ 4.5 Inh) 2 puffs BID INH 09/18/17 10:45 10/18/17 10:44 09/21/17 07:58 2 PUFFS Albuterol/ Ipratropium (Combivent Respimat Inh) 1 puffs QID INH 09/18/17 10:45 10/18/17 10:44 09/21/17 12:15 1 PUFFS Guaifenesin (Mucinex Contr Rel Tab) 1,200 mg Q12 PO 09/18/17 10:45 10/18/17 10:44 09/21/17 08:00 1,200 MG Benzonatate (Tessalon Perles Cap) 100 mg TID PRN PO 09/18/17 10:45 10/18/17 10:44 09/21/17 12:26 100 MG Codeine Phosphate/ Guaifenesin (Robitussin-AC Sugar Free Syrup) 5 ml HS PRN PO 09/19/17 18:45 10/19/17 18:44 Cephalexin Monohydrate (Keflex Cap) 500 mg BID PO 09/20/17 09:00 09/25/17 08:59 09/21/17 07:58 500 MG Insulin Glargine (Lantus Solostar Pen) 15 units BID SC 09/21/17 08:00 10/18/17 20:59 09/21/17 07:57 15 UNITS (Opal Marvin PA-C) Objective Vital Signs Date Time Temp Pulse Resp B/P (MAP) Pulse Ox O2 Delivery O2 Flow Rate FiO2 09/21/17 15:16 36.5 88 18 157/106 (123) 95 Room Air 09/21/17 13:22 Room Air 09/21/17 08:53 Room Air 09/21/17 07:37 37.2 82 20 143/78 (99) 94 09/21/17 00:25 Room Air 09/20/17 23:28 36.7 83 16 127/84 (98) 93 Room Air 09/20/17 17:45 37.0 76 20 128/61 (83) 91 Room Air 09/20/17 17:30 Room Air 09/20/17 17:16 36.9 82 18 94 2.0 09/20/17 16:38 94 Nasal Cannula 2.0 09/20/17 16:34 36.9 82 18 155/100 (118) 94 Nasal Cannula 2.0 09/20/17 16:00 Room Air (Opal Marvin PA-C) Physical Exam General Appearance: WD/WN, no apparent distress, + obese Eyes: sclerae normal ENT: hearing grossly normal Neck: supple, no JVD, trachea midline Respiratory/Chest: lungs clear, normal breath sounds, no respiratory distress, no accessory muscle use Cardiovascular: regular rate, rhythm, no gallop, no murmur Abdomen: normal bowel sounds, non tender, soft Neurologic/Psychiatric: alert Skin: normal color, warm/dry (Opal Marvin PA-C) Laboratory Results Last 24 Hours Test 09/20/17 16:10 09/20/17 20:12 09/21/17 06:17 Bedside Glucose 156 mg/dl 210 mg/dl White Blood Count 7.44 K/uL Red Blood Count 3.84 M/uL Hemoglobin 11.1 g/dL Hematocrit 32.9 % Mean Corpuscular Volume 85.7 fL Mean Corpuscular Hemoglobin 28.9 pg Mean Corpuscular Hemoglobin Concent 33.7 g/dl RDW Standard Deviation 47.4 fL RDW Coefficient of Variation 15.2 % Platelet Count 187 K/uL Mean Platelet Volume 10.3 fL Sodium Level 133 mmol/L Potassium Level 4.3 mmol/L Chloride Level 99 mmol/L Carbon Dioxide Level 28 mmol/L Anion Gap 6.0 mmol/L Blood Urea Nitrogen 21 mg/dl Creatinine 0.94 mg/dl Est Creatinine Clear Calc Drug Dose 71.0 ml/min Estimated GFR () 72.2 Estimated GFR (Non- 62.3 BUN/Creatinine Ratio 22.5 Random Glucose 183 mg/dl Calcium Level 8.7 mg/dl Total Bilirubin 0.3 mg/dl Aspartate Amino Transf (AST/SGOT) 27 U/L Alanine Aminotransferase (ALT/SGPT) 40 U/L Alkaline Phosphatase 63 U/L Total Creatine Kinase 175 U/L Total Protein 7.0 gm/dl Albumin 2.8 gm/dl Globulin 4.2 gm/dl Albumin/Globulin Ratio 0.7 (Opal Marvin PA-C) Assessment and Plan Sepsis 2/2 Suspected Influenza and Acute Hypoxic Respiratory Failure: IMPROVING - Suspected influenza despite negative testing - Tamiflu 75 mg BID to finish on 09/22 Pansensitive Proteus UTI: - Initiated on Rocephin and will complete course with Keflex 500 mg BID Rhabdomyolysis and High AST: RESOLVED ARSEN 2/2 Above: RESOLVED - HCTZ and Cozaar on hold - BP continue to be acceptable and will continue to monitor off them Asthma/COPD without Exacerbation: - Symbicort 2 puffs BID and Combivent T2DM: - Hold oral agents and cover with Lantus 15 units SC BID and SSI -- Is running high but will monitor with BID dosing which was just started today DVT Prophylaxis: Heparin 5000 units SC Q8H Disposition: - Hopeful D/C tomorrow Continued [facility] stay due to: other (generalized weakness) Discharge planning: home (Opal Marvin PA-C) PA Physician Supervision Note: I interviewed and examined the patient. Discussed with Opal Marvin PAC and agree with findings and plan as documented in the note. Any exceptions or clarifications are listed here: None Patient still feels wheezy short of breath and fatigued. Her labs from improve with regard to her rhabdomyolysis, glucose control has been challenging. Vital signs show temp 37 2 pulse 82 respiration rate 20 blood pressure 143/70 Lung exam shows coarse rhonchi in all lung velásquez with occasional expiratory wheezing The patient is here with acute hypoxic respiratory failure and influenza resolving rhabdomyolysis with IV fluids continue supportive care with her baseline history of chronic lung disease of COPD escalation control over her glycemic management with long-acting insulin Documented By: Leonardo Abraham (Leonardo Abraham M.D.)
[2017-09-21] MEDS ORDERED: COUGH DROP (SUGAR FREE) LOZ 24 LOZ/1 BOX LOZ PRN (16:15)
[2017-09-21] MEDS ORDERED: HydrALAZINE HCL 20 MG/ML VIAL IV. PRN (16:45)
[2017-09-21 20:46] VITALS: BP 138/83; PULSE 80
[2017-09-21] MEDS: LOSARTAN POTASSIUM 50 MG TAB PO SCH (20:50)
[2017-09-21] MEDS: GUAIFENESIN/CODEINE 100MG/10MG 5ML UDC PO PRN (20:56)
[2017-09-22 00:14] VITALS: BP 131/81; PULSE 84; TEMP 36.7; O2SAT 95
[2017-09-22] MEDS: GUAIFENESIN/CODEINE 100MG/10MG 5ML UDC PO PRN (04:25)
[2017-09-22 07:36] VITALS: BP 115/74; PULSE 79; TEMP 36.9; O2SAT 95
[2017-09-22] MEDS: HEPARIN SOD 5000 UNIT/0.5 ML CARP SQ SCH ×4 (08:00→23:29)
[2017-09-22] MEDS: BENZONATATE 100MG CAP PO PRN (08:08)
[2017-09-22] MEDS: BUDESONIDE/FORMOTEROL FUMARATE 160/4.5 60 PUFFS/INHALER INH SCH ×2 (08:08→21:43)
[2017-09-22] MEDS: IPRATROPIUM BROMIDE/ALBUTEROL respimat INH INH SCH ×4 (08:08→21:43)
[2017-09-22] MEDS: GUAIFENESIN 600 MG TABCR PO SCH ×2 (08:09→21:48)
[2017-09-22] MEDS: PANTOprazole SOD 40 MG TAB PO SCH (08:10)
[2017-09-22] MEDS: POTASSIUM CHLORIDE 10 MEQ TABCR PO SCH ×2 (08:10→21:49)
[2017-09-22] MEDS: OSELTAMIVIR PHOSPHATE 75 MG CAP PO SCH ×2 (08:11→21:48)
[2017-09-22] MEDS: CEPHALEXIN MONOHYDRATE 500 MG CAP PO SCH ×2 (08:11→21:49)
[2017-09-22] MEDS: INSULIN ASPART 100 UNITS/ML 3 ML PEN SC SCH ×4 (09:32→21:46)
[2017-09-22] MEDS: INSULIN GLARGINE SOLOSTAR 100 UNITS/ML 3 ML PEN SC SCH ×2 (09:32→21:45)
--- NOTE | 2017-09-22 13:26 | Hospitalist Progress Note ---
Hospitalist Progress Note Date of Service Sep 22, 2017. (Opal Marvin PA-C) Subjective Pt evaluation today including: conversation w/ patient, physical exam, chart review, lab review, review of studies, review of inpatient medication list Patient seen and evaluated. No acute events overnight. States she feels that she is getting a little better each day. States she is still having more CORRIGAN then what is baseline for her. Is hesitant that she would not be able to appropriately get around at home given her CORRIGAN. Feels that she is moving a lot more secretions today. Constitutional: + fatigue, No fever, No chills Respiratory: + cough, + sputum, + dyspnea on exertion, No dyspnea at rest Cardiovascular: No chest pain Abdomen: No pain, No nausea, No vomiting Musculoskeletal: No swelling, No calf pain Heme: No abnormal bleeding/bruising (Opal Marvin PA-C) Medications Current Inpatient Medications Medications (Trade) Dose Ordered Sig/Lux Route Start Time Stop Time Status Last Admin Dose Admin Heparin Sodium (Porcine) (Heparin Sq 5000 Unit/0.5ml) 5,000 unit Q8H SQ 09/17/17 16:00 10/17/17 15:59 09/21/17 17:04 5,000 UNIT Acetaminophen (Tylenol Tab) 650 mg Q4H PRN PO 09/17/17 13:30 10/17/17 13:29 09/21/17 08:11 650 MG Al Hydrox/Mg Hydrox/Simethicone (Maalox Max Susp) 15 ml Q4H PRN PO 09/17/17 13:30 10/17/17 13:29 Magnesium Hydroxide (Milk Of Magnesia Susp) 30 ml Q6H PRN PO 09/17/17 13:30 10/17/17 13:29 Ondansetron HCl (Zofran Inj) 4 mg Q6H PRN IV 09/17/17 13:30 10/17/17 13:29 Insulin Aspart (novoLOG ASPART) SLIDING SCALE If C... ACHS SC 09/17/17 16:00 10/17/17 15:59 09/22/17 12:35 5 UNITS Glucose (Glucose 40% Gel) 15-30 GRAMS 15 GRAMS... UD PRN PO 09/17/17 13:30 10/17/17 13:29 Glucose (Glucose Chew Tab) 4-8 Tablets 4 Tabl... UD PRN PO 09/17/17 13:30 10/17/17 13:29 Dextrose (Dextrose 50% 50ML Syringe) 25-50ML OF 50% DW IV FOR... UD PRN IV 09/17/17 13:30 10/17/17 13:29 Glucagon (Glucagon Inj) 1 mg UD PRN SQ 09/17/17 13:30 10/17/17 13:29 Oseltamivir Phosphate (Tamiflu Cap) 75 mg BID PO 09/17/17 20:00 09/22/17 20:59 09/22/17 08:11 75 MG Potassium Chloride (Klor-Con M10) 20 meq BID PO 09/17/17 20:00 10/17/17 20:59 09/22/17 08:10 20 MEQ Budesonide/ Formoterol Fumarate (Symbicort 160/ 4.5 Inh) 2 puffs BID INH 09/18/17 10:45 10/18/17 10:44 09/22/17 08:08 2 PUFFS Albuterol/ Ipratropium (Combivent Respimat Inh) 1 puffs QID INH 09/18/17 10:45 10/18/17 10:44 09/22/17 12:29 1 PUFFS Guaifenesin (Mucinex Contr Rel Tab) 1,200 mg Q12 PO 09/18/17 10:45 10/18/17 10:44 09/22/17 08:09 1,200 MG Benzonatate (Tessalon Perles Cap) 100 mg TID PRN PO 09/18/17 10:45 10/18/17 10:44 09/22/17 08:08 100 MG Cephalexin Monohydrate (Keflex Cap) 500 mg BID PO 09/20/17 09:00 09/25/17 08:59 09/22/17 08:11 500 MG Insulin Glargine (Lantus Solostar Pen) 15 units BID SC 09/21/17 08:00 10/18/17 20:59 09/22/17 09:32 15 UNITS Codeine Phosphate/ Guaifenesin (Robitussin-AC Sugar Free Syrup) 5 ml Q6H PRN PO 09/21/17 16:15 10/19/17 18:44 09/22/17 04:25 5 ML Menthol (Nice Brijesh) 1 brijesh Q1H PRN BRIJESH 09/21/17 16:15 10/21/17 16:14 09/21/17 17:04 1 BRIJESH Losartan Potassium (coZAAR TAB) 50 mg QPM PO 09/21/17 21:00 10/21/17 20:59 09/21/17 20:50 50 MG Hydralazine HCl (HydrALAZINE INJ) 10 mg Q6 PRN IV. 09/21/17 16:45 10/21/17 16:44 09/21/17 17:00 10 MG (Opal Marvin PA-C) Objective Vital Signs Date Time Temp Pulse Resp B/P (MAP) Pulse Ox O2 Delivery O2 Flow Rate FiO2 09/22/17 07:36 36.9 79 20 115/74 (88) 95 09/22/17 01:29 Room Air 09/22/17 00:14 36.7 84 20 131/81 (98) 95 Room Air 09/21/17 20:46 80 138/83 (101) 09/21/17 15:16 36.5 88 18 157/106 (123) 95 Room Air 09/21/17 13:22 Room Air (Opal Marvin PA-C) Physical Exam General Appearance: WD/WN, no apparent distress, + obese ENT: hearing grossly normal Neck: supple, no JVD, trachea midline Respiratory/Chest: no respiratory distress, no accessory muscle use, + rhonchi (bases b/l) Cardiovascular: regular rate, rhythm Abdomen: normal bowel sounds, non tender, soft Skin: normal color, warm/dry (Opal Marvin, JESSICA-C) Laboratory Results Last 24 Hours Test 09/21/17 16:28 09/21/17 20:24 09/22/17 07:17 Bedside Glucose 154 mg/dl 216 mg/dl 201 mg/dl (Opal Marvin PA-C) Assessment and Plan Sepsis 2/2 Suspected Influenza and Acute Hypoxic Respiratory Failure: IMPROVING - Suspected influenza despite negative testing - Tamiflu 75 mg BID completed today Pansensitive Proteus UTI: - Initiated on Rocephin and will complete course with Keflex 500 mg BID - Complete 7 day course on 09/23 Rhabdomyolysis and High AST: RESOLVED ARSEN 2/2 Above: RESOLVED - Cozaar 50 mg HS Asthma/COPD without Exacerbation: - Symbicort 2 puffs BID and Combivent T2DM: - Hold oral agents and cover with Lantus 15 units SC BID and SSI DVT Prophylaxis: Heparin 5000 units SC Q8H Disposition: - Hopeful D/C next 1-2 days Continued [facility] stay due to: ambulation difficulties Discharge planning: home (Opal Marvin, PA-C) PA Physician Supervision Note: I interviewed and examined the patient. Discussed with Opal Marvin PAC and agree with findings and plan as documented in the note. Any exceptions or clarifications are listed here: None Patient is improved somewhat with her breathing however she remains with increased coughing she's in no additional fevers overall she feels weak and tired and ambulation the room is a challenge for her due to dyspnea on exertion temperatures 36 9 respiration rate 20 pulse 79 and blood pressure 115/74 Her lungs have prolonged expiratory phase and poor air movement no focal air loss Patient is slowly recovering from an influenza exacerbation on top of existing chronic lung disease continuing treatment with Tamiflu supportive nebulizers with the addition of flutter valve continuing mucolytic and adding formoterol Documented By: Leonardo Abraham (Leonardo Abraham M.D.)
[2017-09-22 14:55] VITALS: BP 108/76; PULSE 79; TEMP 36.6; O2SAT 95
[2017-09-22] MEDS: LOSARTAN POTASSIUM 50 MG TAB PO SCH (21:48)
[2017-09-22] MEDS: ACETAMINOPHEN 325 MG TAB PO PRN (21:54)
[2017-09-22 22:54] VITALS: BP 143/85; PULSE 86; TEMP 36.8; O2SAT 90
[2017-09-23 07:32] VITALS: BP 113/68; PULSE 73; TEMP 36.8; O2SAT 96
[2017-09-23] MEDS: HEPARIN SOD 5000 UNIT/0.5 ML CARP SQ SCH ×3 (08:00→23:34)
[2017-09-23] MEDS: IPRATROPIUM BROMIDE/ALBUTEROL respimat INH INH SCH ×4 (08:11→20:45)
[2017-09-23] MEDS: BUDESONIDE/FORMOTEROL FUMARATE 160/4.5 60 PUFFS/INHALER INH SCH ×2 (08:11→20:44)
[2017-09-23] MEDS: BENZONATATE 100MG CAP PO PRN (08:11)
[2017-09-23] MEDS: GUAIFENESIN 600 MG TABCR PO SCH ×2 (08:12→20:45)
[2017-09-23] MEDS: POTASSIUM CHLORIDE 10 MEQ TABCR PO SCH ×2 (08:13→20:46)
[2017-09-23] MEDS: INSULIN ASPART 100 UNITS/ML 3 ML PEN SC SCH ×4 (08:22→20:40)
[2017-09-23] MEDS: INSULIN GLARGINE SOLOSTAR 100 UNITS/ML 3 ML PEN SC SCH ×2 (08:22→20:50)
[2017-09-23] MEDS: CIPROFLOXACIN 500 MG TAB PO SCH ×2 (09:05→20:46)
[2017-09-23 14:49] VITALS: BP 126/85; PULSE 84; TEMP 36.7; O2SAT 93
[2017-09-23] MEDS: ACETAMINOPHEN 325 MG TAB PO PRN (17:47)
--- NOTE | 2017-09-23 18:20 | Progress Note ---
Subjective Date of Service: Sep 23, 2017. Subjective Patient is feeling better continuing to having dyspnea on exertion cough has been significantly reduced Problem List Medical Problems: (1) Dehydration Status: Acute (2) Hypomagnesemia Status: Acute (3) Rhabdomyolysis Status: Acute (4) Sepsis Status: Acute (5) Upper respiratory infection Status: Acute Review of Systems Constitutional: + weakness, + fatigue, No fever, No chills Respiratory: + dyspnea on exertion, No cough, No shortness of breath Cardiac: No chest pain, No orthopnea, No edema Abdomen: No pain, No nausea, No vomiting, No diarrhea Psychiatric: No depression symptoms, No anhedonism Objective Vital Signs Date Time Temp Pulse Resp B/P (MAP) Pulse Ox O2 Delivery O2 Flow Rate FiO2 09/23/17 16:00 Room Air 09/23/17 14:49 36.7 84 20 126/85 (99) 93 09/23/17 08:00 Room Air 09/23/17 07:32 36.8 73 20 113/68 (83) 96 09/23/17 00:00 Room Air 2.0 Nasal Cannula 09/22/17 22:54 36.8 86 22 143/85 (104) 90 Room Air 09/22/17 20:00 Room Air 2.0 Nasal Cannula Physical Exam General Appearance: WD/WN, + mild distress, + obese Eyes: PERRL, EOMI Respiratory/Chest: chest non-tender, + respiratory distress (mild), + accessory muscle use Cardiovascular: regular rate, rhythm, no murmur Abdomen: normal bowel sounds, non tender, soft Extremities: no pedal edema, no calf tenderness Neurologic/Psychiatric: alert, oriented x 3 Laboratory Results Last 24 Hours Test 09/22/17 20:21 09/23/17 07:14 09/23/17 11:28 Bedside Glucose 187 mg/dl 188 mg/dl 282 mg/dl Assessment and Plan 67-year-old female admitted with Sepsis 2/2 Suspected Influenza and Acute Hypoxic Respiratory Failure: Review of acute hypoxic respiratory failure has continued to generally improve we continue to suspect influenza despite negative testing - Tamiflu 75 mg BID completed 09/22 Another source of her sepsis wasn't on admission was likely Pansensitive Proteus UTI: We'll of completed a seven-day course on 09/23 Rhabdomyolysis and High AST: RESOLVED suspect due to poor by mouth intake at home ARSEN 2/2 Above: RESOLVED - Cozaar 50 mg HS has been resumed Asthma/COPD without Exacerbation: - Symbicort 2 puffs BID and Combivent Some of her respiratory distress is based upon her morbid obesity with a BMI of 48.9 making her have increased exertion and chest wall heaviness with ambulation T2DM continued to- Hold oral agents and cover with Lantus 15 units SC BID and SSI DVT Prophylaxis: Heparin 5000 units SC Q8H Continued [facility] stay due to: ambulation difficulties Discharge planning: home
[2017-09-23] MEDS: LOSARTAN POTASSIUM 50 MG TAB PO SCH (20:45)
[2017-09-23 22:58] VITALS: BP 103/74; PULSE 75; TEMP 36.6; O2SAT 94
[2017-09-24] VITALS: O2SAT 94
[2017-09-24 07:21] VITALS: BP 113/75; PULSE 91; TEMP 36.6; O2SAT 93
[2017-09-24] MEDS ORDERED: GUAISYP4 PO (08:13)
--- NOTE | 2017-09-24 08:15 | Discharge Instructions ---
Discharge Instructions Date of Service Sep 24, 2017. Admission Reason for Admission: Rhabdomyolysis,Sepsis,Upper Resp. Infection Discharge Discharge Diagnosis / Problem: uti with sepsis, cough Discharge Goals Goal(s): Diagnostic testing, Therapeutic intervention Activity Recommendations Activity Limitations: as noted below You may also use Gyne lotrimin or generic over the counter if you need to please see your primary care doctor this week . Current Hospital Diet Patient's current hospital diet: Diabetes Type 2 Diet, AHA Diet (Heart Healthy) Discharge Diet Recommended Diet: Regular Diet Pending Studies Studies pending at discharge: no Medical Emergencies . Who to Call and When: Medical Emergencies: If at any time you feel your situation is an emergency, please call 911 immediately. . Non-Emergent Contact Non-Emergency issues call your: Primary Care Provider Call Non-Emergent contact if: temperature is above 101, your pain is unusual for you . . "Provider Documentation" section prepared by Leonardo Abraham. . VTE Core Measure Inpt VTE Proph given/why not?: Unfractionated heparin SQ
[2017-09-24] MEDS: BUDESONIDE/FORMOTEROL FUMARATE 160/4.5 60 PUFFS/INHALER INH SCH (08:25)
[2017-09-24] MEDS: IPRATROPIUM BROMIDE/ALBUTEROL respimat INH INH SCH ×2 (08:25→12:00)
[2017-09-24] MEDS: BENZONATATE 100MG CAP PO PRN (08:26)
[2017-09-24] MEDS: CIPROFLOXACIN 500 MG TAB PO SCH (08:30)
[2017-09-24] MEDS: GUAIFENESIN 600 MG TABCR PO SCH (08:30)
[2017-09-24] MEDS: HEPARIN SOD 5000 UNIT/0.5 ML CARP SQ SCH (08:30)
[2017-09-24] MEDS: POTASSIUM CHLORIDE 10 MEQ TABCR PO SCH (08:30)
[2017-09-24] MEDS: INSULIN ASPART 100 UNITS/ML 3 ML PEN SC SCH ×2 (08:38→12:07)
[2017-09-24] MEDS: INSULIN GLARGINE SOLOSTAR 100 UNITS/ML 3 ML PEN SC SCH (08:38)
[2017-09-24] MEDS ORDERED: FLUC150T PO (08:57)
[2017-09-24 09:51] VITALS: BP 113/75; PULSE 91; TEMP 36.6; O2SAT 93
[2017-09-24] MEDS: GUAIFENESIN/CODEINE 100MG/10MG 5ML UDC PO PRN (11:28)
--- NOTE | 2017-09-24 13:11 | Discharge Summary ---
Discharge Summary Date of Service Sep 24, 2017. Discharge Summary Admission Date: Sep 17, 2017 at 13:29 Discharge Date: Sep 24, 2017 Discharge Disposition: Home Principal Diagnosis: sepsis from uti poa Immunizations: Have You Had Influenza Vaccine: Yes Influenza Vaccine Date: Jun 29, 2011 History of Tetanus Vaccine?: UNSURE History of Pneumococcal: Yes Pneumococcal Date: Aug 29, 2010 History of Hepatitis B Vaccine: No Medication Reconciliation New Medications: Fluconazole (Diflucan) 150 Mg Tab 150 MG PO WK, #2 TAB Guaifenesin/Codeine (Robitussin-Ac Syrup) Syrp 5-10 ML PO Q6H PRN for Cough, #200 ML Continued Medications: Aspirin (Aspirin Chewable) 81 Mg Chew 81 MG PO QAM Budesonide/Formoterol Fumarate (Symbicort 160-4.5 Mcg/Act) 60 Puffs/Inhaler Aero 2 PUFFS INH DAILY Cyanocobalamin (Vitamin B-12) 250 Mcg Tab 250 MCG PO QAM, TAB Folic Acid (Folic Acid) 800 Mcg Tab 1 TAB PO QAM Glipizide (Glipizide Er) 5 Mg Tab 1 DOSE PO BID for 90 Days, TAB 3 Refills 2 TABS IN AM 1 TAB IN PM Hydrochlorothiazide (Hctz) 25 Mg Tab 25 MG PO QAM, TAB Insulin Human NPH (Novolin N) 100 Units/Ml Susp 30 UNITS SC QPM Insulin Human Regular (Novolin R) 100 Units/1 Ml Inj 10-14 UNITS SC QPM "WILL TAKE AN ADDITIONAL DOSE OF INSULIN IN AM IF BSG ELEVATED" Ipratropium-Albuterol (Combivent Respimat) 1 Aer Aer 1 PUFFS INH QID PRN for Shortness of Breath, INH Losartan Potassium (Cozaar) 50 Mg Tab 50 MG PO QPM, TAB Metformin Hcl (Glucophage Ext Rel) 1,000 Mg Tab 1000 MG PO BID, TAB Methotrexate (Methotrexate) 2.5 Mg Tab 5 TAB PO WK, TAB TAKES ON FRIDAYS Multivitamin (Multivitamin) Tab 1 TAB PO QAM, TAB Pravastatin Sodium (Pravachol) 20 Mg Tab 20 MG PO QPM, TAB Trazodone Hcl (Trazodone) 50 Mg Tab 50 MG PO HS PRN for Sleep, TAB Vitamin E (E-400) 400 Unit Cap 1 CAP PO QPM [Vitamin D] () 800 INTER.UNIT PO QPM Discharge Exam Review of Systems: Constitutional: No fever, No chills Respiratory: No cough, No sputum, No shortness of breath, No dyspnea on exertion Cardiovascular: No chest pain, No orthopnea, No edema Abdomen: No pain, No nausea, No diarrhea Physical Exam: General Appearance: WD/WN Eyes: PERRL, EOMI Neck: supple, no JVD Respiratory/Chest: chest non-tender, lungs clear, normal breath sounds Cardiovascular: regular rate, rhythm, no murmur Neurologic/Psychiatric: alert, oriented x 3 Hospital Course 67-year-old female admitted with Sepsis 2/2 Suspected Influenza and Acute Hypoxic Respiratory Failure: Review of acute hypoxic respiratory failure has improved we continue to suspect influenza despite negative testing - Tamiflu 75 mg BID completed 09/22 Another source of her sepsis wasn't on admission was Pansensitive Proteus UTI: We'll of completed a seven-day course on 09/23 Rhabdomyolysis and High AST: RESOLVED suspect due to poor by mouth intake at home ARSEN 2/2 Above: RESOLVED Cozaar 50 mg HS has been resumed Asthma/COPD without Exacerbation: Symbicort 2 puffs BID and Combivent Some of her respiratory distress is based upon her morbid obesity with a BMI of 48.9 making her have increased exertion and chest wall heaviness with ambulation T2DM resume usual home regimen recommend follow up with Dr Tao in the next week Total Time Spent: Greater than 30 minutes This includes examination of the patient, discharge planning, medication reconciliation, and communication with other providers. Discharge Instructions Please refer to the electronic Patient Visit Report (Discharge Instructions) for additional information.
== END 2017-09-24 12:16 | disposition home or self-care (01) | DRG 871 ==
LOC: EDBD 10:42 → C.EDC 10:43 → C.4E 13:29 → UNDOADMIN 13:29 → ENRESERV 13:59 → C.MSICU 16:48 → C.4E 16:48 → ENRESERV 09-18 19:00 → C.2E 09-18 19:44 → C.MSICU 09-18 19:44 → ENRESERV 09-20 16:07 → C.2E 09-20 17:14 → C.MS4W 09-20 17:14
PROVIDERS: ADMIT Internal Medicine Sports Medicine; ATTEND Internal Medicine
DX: A41.89 Other specified sepsis (principal); J96.01 Acute respiratory failure with hypoxia; M62.82 Rhabdomyolysis; N17.9 Acute kidney failure, unspecified; Z68.43 Body mass index [BMI] 50.0-59.9, adult; E87.1 Hypo-osmolality and hyponatremia; N39.0 Urinary tract infection, site not specified; E11.9 Type 2 diabetes mellitus without complications; J11.1 Influenza due to unidentified influenza virus with other respiratory manifestations; Z87.891 Personal history of nicotine dependence; Z79.4 Long term (current) use of insulin; E86.0 Dehydration; E83.42 Hypomagnesemia; J06.9 Acute upper respiratory infection, unspecified; Z79.84 Long term (current) use of oral hypoglycemic drugs; M06.9 Rheumatoid arthritis, unspecified; R65.20 Severe sepsis without septic shock; J44.9 Chronic obstructive pulmonary disease, unspecified; E66.01 Morbid (severe) obesity due to excess calories; G47.33 Obstructive sleep apnea (adult) (pediatric); E87.6 Hypokalemia; T50.2X5A Adverse effect of carbonic-anhydrase inhibitors, benzothiadiazides and other diuretics, initial encounter; B97.89 Other viral agents as the cause of diseases classified elsewhere; B96.4 Proteus (mirabilis) (morganii) as the cause of diseases classified elsewhere; Y92.239 Unspecified place in hospital as the place of occurrence of the external cause

== ENCOUNTER → 2017-10-26 | Outpatient (CLI) | payer OTHER ==
[~2017-10-26] MED LIST changes: +GUAISYP4 PO
--- NOTE | 2017-10-26 15:55 | MAMMOGRAPHY REPORT ---
BILATERAL DIGITAL SCREENING MAMMOGRAM TOMOSYNTHESIS WITH CAD: 10/26/2017 CLINICAL HISTORY: Routine screening. Patient reported lower outer quadrant breast pain since a fall 2 years ago, which she also reported at the time of the 2016 mammograms. TECHNIQUE: Bilateral breast tomosynthesis in addition to standard 2D mammography was performed. Curre nt study was also evaluated with a Computer Aided Detection (CAD) system. COMPARISON: Comparison is made to exams dated: 10/25/2016 mammogram, 10/23/2015 mammogram, 05/09/2015 m ammogram, 11/05/2014 ultrasound, 11/05/2014 mammogram, and 10/22/2014 mammogram - [facility]. BREAST COMPOSITION: There are scattered areas of fibroglandular density in both breasts. FINDINGS: [employer] markers were placed over the nipples prior to mammographic imaging. There is a st able benign 10 mm mass in the left upper outer quadrant. No new suspicious mass, asymmetry, architec tural distortion or cluster of microcalcifications is seen. IMPRESSION: ACR BI-RADS CATEGORY 1: NEGATIVE 1. Stable bilateral mammograms, without mammographic evidence of malignancy. A 1 year screening mamm ogram is recommended. 2. Clinical follow-up is recommended for the reported pain in the lower outer quadrant. The patient will receive written notification of the results. Approximately 10% of breast cancers are not detected with mammography. A negative mammographic report should not delay biopsy if a clinically suggestive mass is present. Mima Patel M.D. ay/:10/26/2017 10:29:58 Alligator Trapper: Blessing YANEZ(R)(M), [facility] letter sent: Normal 1/2 BI-RADS Code: ACR BI-RADS Category 1: Negative
== END | disposition home or self-care (01) ==
LOC: C.MAMM 09:56
PROVIDERS: ATTEND Obstetrics & Gynecology
DX: Z12.31 Encounter for screening mammogram for malignant neoplasm of breast (principal); N64.4 Mastodynia

== ENCOUNTER → 2017-10-26 | Outpatient (CLI) | payer OTHER ==
[2017-10-26 09:32] LABS: BASO % 1.1 %; BASO ABS # 0.07 K/uL (0-0.2); EOS % 2.2 %; EOS ABS # 0.14 K/uL (0-0.5); IG# 0.01 K/uL (0.00-0.02); LYMPH % 36.4 %; LYMPH ABS # 2.34 K/uL (1.2-3.4); MEAN CELL VOLUME 87.6 fL (80-100); MEAN CORPUSCULAR HEMOGLOBIN 29.2 pg (25-34); MEAN CORPUSCULAR HGB CONC 33.3 g/dl (32-36); MEAN PLATELET VOLUME 10.1 fL (7.4-10.4); MONO ABS # 0.64 K/uL (0.11-0.59); NEUT % 50.1 %; NEUT ABS # 3.23 K/uL (1.4-6.5); PLATELET COUNT 248 K/uL (130-400); RED CELL DISTRIBUTION WIDTH CV 15.6 % (11.5-14.5); RED CELL DISTRIBUTION WIDTH SD 50.1 fL (36.4-46.3); WHITE BLOOD COUNT 6.43 K/uL (4.8-10.8)
[2017-10-26 09:50] LABS: HEMOGLOBIN A1C 5.9 % (4.5-5.6)
[2017-10-26 10:06] LABS: ALBUMIN 3.5 gm/dl (3.4-5.0); ALT/SGPT 37 U/L (12-78); AST/SGOT 18 U/L (15-37); BLOOD UREA NITROGEN 18 mg/dl (7-18); CALCIUM 8.9 mg/dl (8.5-10.1); CARBON DIOXIDE 28 mmol/L (21-32); CREATININE 0.92 mg/dl (0.60-1.20); GLUCOSE 89 mg/dl (70-99); SODIUM 140 mmol/L (136-145)
[2017-10-26 10:08] LABS: ALKALINE PHOSPHATASE 50 U/L (45-117); LDL CHOLESTEROL (DIRECT) 47 mg/dl; TOTAL PROTEIN 6.8 gm/dl (6.4-8.2)
== END | disposition home or self-care (01) ==
LOC: C.LAB1850 08:44
PROVIDERS: ATTEND Internal Medicine Rheumatology
DX: M06.9 Rheumatoid arthritis, unspecified (principal); Z79.899 Other long term (current) drug therapy; Z51.81 Encounter for therapeutic drug level monitoring; E11.49 Type 2 diabetes mellitus with other diabetic neurological complication; Z79.4 Long term (current) use of insulin; Z86.31 Personal history of diabetic foot ulcer; E78.5 Hyperlipidemia, unspecified

== ENCOUNTER → 2017-12-12 | Outpatient (CLI) | payer OTHER | END | disposition home or self-care (01) | LOC: C.PAPS 16:25 | PROVIDERS: ATTEND Obstetrics & Gynecology | DX: Z12.4 Encounter for screening for malignant neoplasm of cervix (principal) ==

== ENCOUNTER → 2018-01-16 | Outpatient (CLI) | payer OTHER ==
--- NOTE | 2018-01-16 12:37 | DIAGNOSTIC IMAGING REPORT ---
RIGHT FOOT 3 VIEWS CLINICAL HISTORY: Hammertoe deformity of the right foot. FINDINGS: 3 views of the right foot are compared to study dated 05/31/2012. The skeletal structures are osteopenic. No fracture is seen. There has been arthroplasty placement at the second, third, and fourth proximal phalangeal joints. Erosive change is seen involving the distal shaft and head of the fifth proximal phalanx. Osteoarthritic change is seen at the first metatarsophalangeal and interphalangeal joints. Osteoarthritic change is also seen involving the second through fourth distal interphalangeal joints. Enthesopathy is noted at the base of the fifth metatarsal. There are large dorsal and plantar calcaneal enthesophytes. Bulky degenerative spurring is seen on the dorsal aspect of the tarsal bones. The overlying soft tissues are within normal limits. IMPRESSION: 1. Erosive change is seen involving the distal shaft and head of the fifth proximal phalanx. Clinical correlation will be essential. 2. Osteopenia with additional postoperative and degenerative changes of the foot as above. 3. Large heel spurs. Dictated: 01/16/2018 11:59 AM Transcribed: 01/16/2018 12:37 PM Tayo Electronically signed by: Ranjeet Lopez M.D. 01/16/2018 12:53 PM Dictated Date/Time: 01/16/2018 11:59 AM
== END | disposition home or self-care (01) ==
LOC: C.RAD1850 11:43
PROVIDERS: ATTEND Podiatrist
DX: M20.41 Other hammer toe(s) (acquired), right foot (principal); M85.871 Other specified disorders of bone density and structure, right ankle and foot; M77.31 Calcaneal spur, right foot

== ENCOUNTER 2018-10-05 11:11 | Observation (INO) ==
[2018-10-05] MEDS ORDERED: DiphenhydrAMINE HCL 50 MG/ML VIAL IV STA (12:06)
[2018-10-05] MEDS ORDERED: PROCHLORPERAZINE 5 MG/ML 2 ML VIAL IV STA (12:06)
[2018-10-05 13:44] LABS: Basophils # (auto) 0.05 K/uL (0-0.2); Basophils % (auto) 0.4 %; Eosinophils # (auto) 0.31 K/uL (0-0.5); Eosinophils % (auto) 2.7 %; Hematocrit (blood only) 38.8 % (37-47); Immature Granulocytes # (auto) 0.04 K/uL (0.00-0.02); Immature Granulocytes % (auto) 0.3 %; Lymphocytes # (auto) 4.53 K/uL (1.2-3.4); Lymphocytes % (auto) 39.4 %; Mean Corpuscular Hgb Conc 33.5 g/dL (32-36); Mean Corpuscular Volume 85.8 fL (80-100); Mean Platelet Volume 9.9 fL (7.4-10.4); Monocytes # (auto) 1.12 K/uL (0.11-0.59); Monocytes % (auto) 9.7 %; Neutrophils # (auto) 5.46 K/uL (1.4-6.5); Neutrophils % (auto) 47.5 %; Platelet Count 274 K/uL (130-400); RDW Standard Deviation 47.1 fL (36.4-46.3); Red Blood Count 4.52 M/uL (4.2-5.4); White Blood Count 11.51 K/uL (4.8-10.8)
[2018-10-05] MEDS ORDERED: GLUCOSE 40% GEL 15 GM TUBE PO ONE (13:50)
[2018-10-05] MEDS ORDERED: GLUCOSE 40% GEL 15 GM TUBE PO STA (13:58)
[2018-10-05 14:04] LABS: Alanine Aminotransferase 26 U/L (12-78); Albumin Globulin Ratio 0.9 (0.9-2); Albumin Level 3.6 gm/dl (3.4-5.0); Alkaline Phosphatase 64 U/L (45-117); Aspartate Aminotransferase 16 U/L (15-37); Bilirubin,Total 0.3 mg/dl (0.2-1); Blood Urea Nitrogen 16 mg/dl (7-18); Calcium 9.2 mg/dl (8.5-10.1); Carbon Dioxide 29 mmol/L (21-32); Chloride 105 mmol/L (98-107); Creatinine Clr Calc Pharmacy 66.4 ml/min; Est GFR (African American) 67.4; Est GFR (Non-African American) 58.1; Glucose 49 mg/dl (70-99); Potassium 3.6 mmol/L (3.5-5.1); Sodium 140 mmol/L (136-145); Total Protein 7.6 gm/dl (6.4-8.2); Troponin I < 0.015 ng/ml (0-0.045)
[2018-10-05] MEDS ORDERED: PROCHLORPERAZINE 5 MG/ML 2 ML VIAL ONE (16:14)
[2018-10-05] MEDS ORDERED: DiphenhydrAMINE HCL 50 MG/ML VIAL ONE (16:15)
[2018-10-05] MEDS ORDERED: LORazepam 1 MG TAB SL STA (16:49)
[2018-10-05] MEDS ORDERED: LORazepam 1 MG TAB ONE (16:50)
--- NOTE | 2018-10-05 17:45 | Magnetic Resonance Report ---
MR angio head wo con HISTORY: Mental status change eval for cva TECHNIQUE: 3-D [id number] MRA of the brain was performed without contrast. COMPARISON STUDY: None. FINDINGS: Visualized intracranial internal carotid arteries,, and basilar artery are widely patent. T here is no significant stenosis, occlusion, or aneurysm seen within the bilateral ACAs, MCAs, or shipping coordinator . Appears to be occlusion of the right vertebral vessel. Left vertebral vessel is dominant and serpig inous. Small caliber posterior cerebral vessels. IMPRESSION: 1. Occlusion of the right vertebral vessel. 2. Left vertebral artery is dominant and serpiginous. 3. No acute process of the middle or anterior cerebral circulation . 4. Small caliber posterior cerebral vasculature. The above report was generated using voice recognition software. It may contain grammatical, syntax or spelling errors. Electronically signed by: Adolfo Ochoa M.D. 10/05/2018 5:44 PM
[2018-10-05] MEDS ORDERED: GADOBUTROL 65ML VIAL IV PRN (18:02)
--- NOTE | 2018-10-05 18:09 | Magnetic Resonance Report ---
MR brain wo/w con CLINICAL HISTORY: vertigo and lip numbness eval for cva COMPARISON STUDY: No previous studies for comparison. TECHNIQUE: Utilizing a 1.5 Kianna magnet and dedicated coil, multiplanar, multiecho imaging of the br ain was performed pre and postcontrast administration. IV administration of 8 mL of Gadavist contras t was uneventful. FINDINGS: Diffusion-weighted images are negative for an acute ischemic event. Minimal age-related atr ophy and chronic small vessel change. Signal characteristics are otherwise unremarkable. No evidence for abnormal postcontrast enhancement. Sella and parasellar region is unremarkable. IMPRESSION: 1. No evidence for an acute ischemic event. 2. Minimal/mild age-related atrophy and chronic small vessel change. 3. No abnormal postcontrast enhancement. The above report was generated using voice recognition software. It may contain grammatical, syntax or spelling errors. Electronically signed by: Adolfo Ochoa M.D. 10/05/2018 6:07 PM
--- NOTE | 2018-10-05 18:11 | Emergency Department Note ---
Entered by Saran Lazaro acting as a scribe for History of Present Illness General Chief complaint: Dizziness Stated complaint: DIZZINESS Source: patient Limitations: no limitations History of Present Illness Provider complaint: Dizziness Onset (ago): day(s) (4) Location: head Pain Consistency: + other (persistent) Maximum Pain Intensity: 1 Quality: + other (lightheaded and dizzy) Associated symptoms: + other (Lips are numb); no chest pain, no fever/chills, no headaches and no nausea/vomiting Treatments prior to arrival: none The patient is a 68 year old female who presents to the Emergency Room with complaints of persistent dizziness that first on set 4-5 days ago. The patient states that she was here in the emergency department 4 days ago for vertigo. She notes that she felt well when she was discharged and continued to improve as she was resting at home. The patient explains that she was laying in bed two nights ago and "rolled over" to shift positions and instantly felt like she was spinning around. She has been persistently dizzy since and describes her current dizziness as both lightheaded, and the room spinning. The patient notes that her symptoms are now precipitated/exacerbated by changing positions from lying to standing. She adds that the severity of her symptoms are dependent upon how fasts she stands up. She will also feel lightheaded/dizzy with rotation of her head. The patient also complains of ringing in her ears which began on 3 days ago, as well as a new "numbness" around her lips. She describes the numbness as though she just took "4 shots of Ino Ashley." The numbness is bilateral and involves the upper and lower lips. She denies any headache or vomiting and has not hit her head recently. She is able to walk with her cane. She has not experienced any chest pain or abdominal pain. She denies any numbness or weakness to her legs or arms. Home Medications Home Medications Medication Instructions Recorded Confirmed Type aspirin [Aspir-81] 81 mg PO DAILY 06/18/18 10/05/18 History glipizide 10 mg PO QAM 06/18/18 10/05/18 History hydrochlorothiazide 25 mg PO DAILY 06/18/18 10/05/18 History losartan 50 mg PO DAILY 06/18/18 10/05/18 History metformin 1,000 mg PO BID 06/18/18 10/05/18 History methotrexate sodium 12.5 mg PO .Tuesday06/18/18 10/05/18 History multivitamin 1 tab PO DAILY 06/18/18 10/05/18 History budesonide-formoterol [Symbicort] 2 puff INHALATION BID 10/01/18 10/05/18 History cholecalciferol (vitamin D3) 1,000 unit PO DAILY 10/01/18 10/05/18 History folic acid 2 mg PO DAILY 10/01/18 10/05/18 History glipizide 5 mg PO QPM 10/01/18 10/05/18 History insulin NPH isoph U-100 human 25 - 30 units SUBCUT DAILY 10/01/18 10/05/18 History [Novolin N NPH U-100 Insulin] insulin regular human [Novolin R 10 unit SUBCUT .LUNCH 10/01/18 10/05/18 History Regular U-100 Insuln] insulin regular human [Novolin R 15 - 20 unit SUBCUT .MANNY MEAL 10/01/18 History Regular U-100 Insuln] meclizine 25 mg PO TID PRN #14 tab 10/01/18 10/05/18 Rx pravastatin 20 mg PO HS 10/01/18 10/05/18 History vitamin E 400 unit PO DAILY 10/01/18 10/05/18 History Allergies Allergy/AdvReac Type Severity Reaction Status Date / Time grass pollen-perennial rye, Allergy Intermediate DIFFICULTY Verified 10/05/18 11 :55 standar BREATHING mold Allergy Intermediate DIFFICULTY Verified 10/05/18 11:55 BREATHING pollen extracts Allergy Intermediate DIFFICULTY Verified 10/05/18 11:55 BREATHING etodolac Allergy Unknown UNKNOWN Verified 10/05/18 11:55 simvastatin Allergy Unknown "FEELS Verified 10/05/18 11:55 FUNNY" tetanus toxoid, adsorbed Allergy Unknown SWELLING Verified 10/05/18 11:55 Past Med/Surg History Medical History Diabetes (Chronic) GI bleed (Acute) Hypertension Family History Other Family history non-contributory Social History Feels Safe at Home: Yes Smoking Status: Former smoker Preferred Language: Indian Review of Systems See HPI for pertinent positives & negatives. and A total of 10 systems reviewed and were otherwise negative Physical Exam Vital Signs Vital Signs - 24 hr 10/05/18 11:13 10/05/18 11:17 10/05/18 11:40 Temperature 36.5 C Temperature Source Oral Sepsis Recent Fever Within 48 Hours No Sepsis New/Unexplained Change in Mental Status No Sepsis Action Taken by Nursing No Action Required Pulse Rate - Lying Pulse Rate - Sitting Pulse Rate - Standing Pulse Rate 79 82 83 Pulse Rate [Left] Respiratory Rate 23 17 24 Respiratory Effort / Characteristics Respiratory Depth Respiratory Pattern Blood Pressure - Lying Blood Pressure - Sitting Blood Pressure- Standing Blood Pressure 135/85 148/77 H 150/104 H Blood Pressure [Right Arm] Blood Pressure Mean 101 100 119 Blood Pressure Mean [Right Arm] Blood Pressure Position Sitting Pulse Oximetry 94 Oxygen Delivery Method Room Air 10/05/18 11:42 10/05/18 11:43 10/05/18 12:07 Temperature Temperature Source Sepsis Recent Fever Within 48 Hours Sepsis New/Unexplained Change in Mental Status Sepsis Action Taken by Nursing Pulse Rate - Lying 74 Pulse Rate - Sitting 80 Pulse Rate - Standing 70 Pulse Rate Pulse Rate [Left] Respiratory Rate 24 33 H Respiratory Effort / Characteristics Respiratory Depth Respiratory Pattern Blood Pressure - Lying 150/104 H Blood Pressure - Sitting 155/96 H Blood Pressure- Standing 138/119 H Blood Pressure 155/96 H 138/119 H Blood Pressure [Right Arm] Blood Pressure Mean 115 125 Blood Pressure Mean [Right Arm] Blood Pressure Position Pulse Oximetry 93 Oxygen Delivery Method Room Air 10/05/18 13:00 10/05/18 13:55 10/05/18 13:56 Temperature Temperature Source Sepsis Recent Fever Within 48 Hours Sepsis New/Unexplained Change in Mental Status Sepsis Action Taken by Nursing Pulse Rate - Lying Pulse Rate - Sitting Pulse Rate - Standing Pulse Rate 83 82 Pulse Rate [Left] 83 Respiratory Rate 28 H 20 27 H Respiratory Effort / Characteristics Respiratory Depth Respiratory Pattern Blood Pressure - Lying Blood Pressure - Sitting Blood Pressure- Standing Blood Pressure 141/92 H Blood Pressure [Right Arm] 141/92 H Blood Pressure Mean 108 Blood Pressure Mean [Right Arm] 108 Blood Pressure Position Pulse Oximetry 92 93 93 Oxygen Delivery Method Room Air 10/05/18 15:26 10/05/18 15:30 10/05/18 16:00 Temperature Temperature Source Sepsis Recent Fever Within 48 Hours Sepsis New/Unexplained Change in Mental Status Sepsis Action Taken by Nursing Pulse Rate - Lying Pulse Rate - Sitting Pulse Rate - Standing Pulse Rate 86 84 84 Pulse Rate [Left] Respiratory Rate 23 22 25 H Respiratory Effort / Characteristics Respiratory Depth Respiratory Pattern Blood Pressure - Lying Blood Pressure - Sitting Blood Pressure- Standing Blood Pressure 139/83 145/78 H 162/101 H Blood Pressure [Right Arm] Blood Pressure Mean 101 100 121 Blood Pressure Mean [Right Arm] Blood Pressure Position Pulse Oximetry 93 92 93 Oxygen Delivery Method 10/05/18 18:38 Temperature Temperature Source Sepsis Recent Fever Within 48 Hours Sepsis New/Unexplained Change in Mental Status Sepsis Action Taken by Nursing Pulse Rate - Lying Pulse Rate - Sitting Pulse Rate - Standing Pulse Rate Pulse Rate [Left] 81 Respiratory Rate 24 Respiratory Effort / Characteristics Non-Labored Spontaneous Respiratory Depth Normal Respiratory Pattern Regular Blood Pressure - Lying Blood Pressure - Sitting Blood Pressure- Standing Blood Pressure Blood Pressure [Right Arm] 151/93 H Blood Pressure Mean Blood Pressure Mean [Right Arm] 112 Blood Pressure Position Pulse Oximetry 93 Oxygen Delivery Method Room Air Constitutional: Vital signs reviewed. Eyes: Pupils are equal round reactive to light. Conjunctiva are noninjected. ENT: Pharynx is clear without erythema or exudate. Mucous membranes are moist. Neck supple without meningeal signs. Respiratory: Clear to auscultation bilaterally. Breath sounds are equal bilaterally. Cardiovascular: Regular rate and rhythm. No rubs or gallops. GI: Soft, nondistended and nontender. Bowel sounds are present. Musculoskeletal: No peripheral edema. No lower extremity tenderness. Integumentary: No cyanosis. Neurological: The patient is awake and alert. Cranial nerves II-XII are intact. Motor is 5 out of 5 all extremities. Sensation is intact to light touch all extremities. Normal speech. No pronator drift. No limb ataxia. No dysdiadochokinesis. Psychiatric: Normal affect. Course 1159: Past medical records reviewed. The patient was evaluated in room A4B, and a complete history and physical examination were performed. 1358: The patient's blood sugar resulted at 54. I I did treat her with orange juice as well as oral glucose. 1434: The patient's blood sugar come up to 75. 1503: I checked on the patient she is feeling better. 1630: The patient is on her way to MRI. Consultations Consultation #1: Dr. Fleming Time: 18:39 Administered Medications Gadobutrol (Gadavist 65ml) 12 ml IV ONCE PRN PRN Reason: Interaction Checking Stop: 10/09/18 18:01 Last Admin: 10/05/18 18:02 Dose: 12 ml Discontinued Medications Diphenhydramine HCl (Benadryl) 25 mg IV NOW STA Stop: 10/05/18 12:07 Last Admin: 10/05/18 14:48 Dose: 25 mg Diphenhydramine HCl (Benadryl) Confirm Administered Dose 50 mg .ROUTE .STK-MED ONE Stop: 10/05/18 16:16 Last Admin: 10/05/18 16:17 Dose: 25 mg Glucose (Glucose 40%) Confirm Administered Dose 15 gm PO .STK-MED ONE Stop: 10/05/18 13:51 Last Admin: 10/05/18 13:53 Dose: 15 gm Glucose (Glucose 40%) 15 gm PO NOW STA Stop: 10/05/18 13:59 Last Admin: 10/05/18 14:08 Dose: Not Given Lorazepam (Ativan) 1 mg SL NOW STA Stop: 10/05/18 16:50 Last Admin: 10/05/18 17:24 Dose: 1 mg Lorazepam (Ativan) Confirm Administered Dose 1 mg .ROUTE .STK-MED ONE Stop: 10/05/18 16:51 Last Admin: 10/05/18 17:24 Dose: Not Given Prochlorperazine (Compazine) 5 mg IV NOW STA Stop: 10/05/18 12:07 Last Admin: 10/05/18 14:48 Dose: 5 mg Prochlorperazine (Compazine) Confirm Administered Dose 10 mg .ROUTE .STK-MED ONE Stop: 10/05/18 16:15 Last Admin: 10/05/18 16:17 Dose: 5 mg . Medical Decision Making Differential Diagnosis Differential Diagnosis includes: BPV, intracranial mass, intracranial hemorrhage, CVA, labyrinthitis. Medical Records Attestation: I reviewed the patient's medical records. Home Medications Current Medication List: was personally reviewed by me Laboratory Data Attestation: I reviewed the patient's lab results. Result diagrams: 10/05/18 13:20 10/05/18 13:20 Lab Results 10/05/18 10/05/18 10/05/18 Range/Units 11:35 13:20 13:20 WBC 11.51 H (4.8-10.8) K/uL RBC 4.52 (4.2-5.4) M/uL Hgb 13.0 (12.0-16.0) g/dL Hct 38.8 (37-47) % MCV 85.8 (80-100) fL MCH 28.8 (25-34) pg MCHC 33.5 (32-36) g/dL RDW Std Deviation 47.1 H (36.4-46.3) fL RDW Coeff of Ilana 15.0 H (11.5-14.5) % Plt Count 274 (130-400) K/uL MPV 9.9 (7.4-10.4) fL Immature Gran % (Auto) 0.3 % Neut % (Auto) 47.5 % Lymph % (Auto) 39.4 % [place] % (Auto) 9.7 % Eos % (Auto) 2.7 % Baso % (Auto) 0.4 % Immature Gran # (Auto) 0.04 H (0.00-0.02) K/uL Neut # (Auto) 5.46 (1.4-6.5) K/uL Lymph # (Auto) 4.53 H (1.2-3.4) K/uL [place] # (Auto) 1.12 H (0.11-0.59) K/uL Eos # (Auto) 0.31 (0-0.5) K/uL Baso # (Auto) 0.05 (0-0.2) K/uL Sodium 140 (136-145) mmol/L Potassium 3.6 (3.5-5.1) mmol/L Chloride 105 (98-107) mmol/L Carbon Dioxide 29 (21-32) mmol/L Anion Gap 6.0 (3-11) BUN 16 (7-18) mg/dl Creatinine 0.99 (0.6-1.2) mg/dl Est Cr Clr Drug Dosing 66.4 ml/min Est GFR ( Amer) 67.4 Est GFR (Non-Af Amer) 58.1 BUN/Creatinine Ratio 16.0 (10-20) Glucose 49 L* (70-99) mg/dl POC Glucose 126 H (70-99) Calcium 9.2 (8.5-10.1) mg/dl Total Bilirubin 0.3 (0.2-1) mg/dl AST 16 (15-37) U/L ALT 26 (12-78) U/L Alkaline Phosphatase 64 (45-117) U/L Troponin I < 0.015 (0-0.045) ng/ml Total Protein 7.6 (6.4-8.2) gm/dl Albumin 3.6 (3.4-5.0) gm/dl Globulin 4.0 (2.5-4.0) gm/dl Albumin/Globulin Ratio 0.9 (0.9-2) 10/05/18 10/05/18 10/05/18 Range/Units 13:42 13:46 14:01 WBC (4.8-10.8) K/uL RBC (4.2-5.4) M/uL Hgb (12.0-16.0) g/dL Hct (37-47) % MCV (80-100) fL MCH (25-34) pg MCHC (32-36) g/dL RDW Std Deviation (36.4-46.3) fL RDW Coeff of Ilana (11.5-14.5) % Plt Count (130-400) K/uL MPV (7.4-10.4) fL Immature Gran % (Auto) % Neut % (Auto) % Lymph % (Auto) % [place] % (Auto) % Eos % (Auto) % Baso % (Auto) % Immature Gran # (Auto) (0.00-0.02) K/uL Neut # (Auto) (1.4-6.5) K/uL Lymph # (Auto) (1.2-3.4) K/uL [place] # (Auto) (0.11-0.59) K/uL Eos # (Auto) (0-0.5) K/uL Baso # (Auto) (0-0.2) K/uL Sodium (136-145) mmol/L Potassium (3.5-5.1) mmol/L Chloride (98-107) mmol/L Carbon Dioxide (21-32) mmol/L Anion Gap (3-11) BUN (7-18) mg/dl Creatinine (0.6-1.2) mg/dl Est Cr Clr Drug Dosing ml/min Est GFR ( Amer) Est GFR (Non-Af Amer) BUN/Creatinine Ratio (10-20) Glucose (70-99) mg/dl POC Glucose 51 L* 54 L* 75 (70-99) Calcium (8.5-10.1) mg/dl Total Bilirubin (0.2-1) mg/dl AST (15-37) U/L ALT (12-78) U/L Alkaline Phosphatase (45-117) U/L Troponin I (0-0.045) ng/ml Total Protein (6.4-8.2) gm/dl Albumin (3.4-5.0) gm/dl Globulin (2.5-4.0) gm/dl Albumin/Globulin Ratio (0.9-2) 10/05/18 Range/Units 15:24 WBC (4.8-10.8) K/uL RBC (4.2-5.4) M/uL Hgb (12.0-16.0) g/dL Hct (37-47) % MCV (80-100) fL MCH (25-34) pg MCHC (32-36) g/dL RDW Std Deviation (36.4-46.3) fL RDW Coeff of Ilana (11.5-14.5) % Plt Count (130-400) K/uL MPV (7.4-10.4) fL Immature Gran % (Auto) % Neut % (Auto) % Lymph % (Auto) % [place] % (Auto) % Eos % (Auto) % Baso % (Auto) % Immature Gran # (Auto) (0.00-0.02) K/uL Neut # (Auto) (1.4-6.5) K/uL Lymph # (Auto) (1.2-3.4) K/uL [place] # (Auto) (0.11-0.59) K/uL Eos # (Auto) (0-0.5) K/uL Baso # (Auto) (0-0.2) K/uL Sodium (136-145) mmol/L Potassium (3.5-5.1) mmol/L Chloride (98-107) mmol/L Carbon Dioxide (21-32) mmol/L Anion Gap (3-11) BUN (7-18) mg/dl Creatinine (0.6-1.2) mg/dl Est Cr Clr Drug Dosing ml/min Est GFR ( Amer) Est GFR (Non-Af Amer) BUN/Creatinine Ratio (10-20) Glucose (70-99) mg/dl POC Glucose 120 H (70-99) Calcium (8.5-10.1) mg/dl Total Bilirubin (0.2-1) mg/dl AST (15-37) U/L ALT (12-78) U/L Alkaline Phosphatase (45-117) U/L Troponin I (0-0.045) ng/ml Total Protein (6.4-8.2) gm/dl Albumin (3.4-5.0) gm/dl Globulin (2.5-4.0) gm/dl Albumin/Globulin Ratio (0.9-2) Imaging Data Attestation: I personally reviewed and interpreted this imaging study as follows : Radiologist's Impression: MR angio head wo con HISTORY: Mental status change eval for cva TECHNIQUE: 3-D [id number] MRA of the brain was performed without contrast. COMPARISON STUDY: None. FINDINGS: Visualized intracranial internal carotid arteries,, and basilar artery are widely patent. There is no significant stenosis, occlusion, or aneurysm seen within the bilateral ACAs, MCAs, or auto fleet manager. Appears to be occlusion of the right vertebral vessel. Left vertebral vessel is dominant and serpiginous. Small caliber posterior cerebral vessels. IMPRESSION: 1. Occlusion of the right vertebral vessel. 2. Left vertebral artery is dominant and serpiginous. 3. No acute process of the middle or anterior cerebral circulation . 4. Small caliber posterior cerebral vasculature. The above report was generated using voice recognition software. It may contain grammatical, syntax or spelling errors. Electronically signed by: Adolfo Ochoa M.D. 10/05/2018 5:44 PM MR ANGIOGRAM OF THE NECK COMBO CLINICAL HISTORY: Strokelike symptoms. Dizziness. COMPARISON STUDY: Carotid artery ultrasound dated 03/04/2010. TECHNIQUE: Axial 3-D [id number] MR angiography of the neck is performed. Subsequently, following the IV administration of 12 cc of Gadavist. Coronal MR angiogram of the neck was performed to corroborate the findings. 3-D reformats are created and assessed. All measurements were calculated based on NASCET criteria. The examination is degraded by large body habitus and motion artifact. FINDINGS: Visualized portions of the thoracic aorta are normal in caliber. The aortic arch demonstrates standard 3-vessel anatomy. The subclavian arteries are widely patent bilaterally. The right common carotid artery is widely patent, as are the right internal and external carotid arteries. The left common carotid artery is widely patent, as are the left internal and external carotid arteries. The vertebral arteries are widely patent. The left vertebral artery is dominant. The right vertebral artery is diminutive. The visualized intracranial vessels at the skull base appear patent. IMPRESSION: Unremarkable MR angiogram of the neck. MR brain wo/w con CLINICAL HISTORY: vertigo and lip numbness eval for cva COMPARISON STUDY: No previous studies for comparison. TECHNIQUE: Utilizing a 1.5 Kianna magnet and dedicated coil, multiplanar, multiecho imaging of the brain was performed pre and postcontrast administration. IV administration of 8 mL of Gadavist contrast was uneventful. FINDINGS: Diffusion-weighted images are negative for an acute ischemic event. Minimal age-related atrophy and chronic small vessel change. Signal characteristics are otherwise unremarkable. No evidence for abnormal postcontrast enhancement. Sella and parasellar region is unremarkable. IMPRESSION: 1. No evidence for an acute ischemic event. 2. Minimal/mild age-related atrophy and chronic small vessel change. 3. No abnormal postcontrast enhancement. ECG Data Attestation: I personally reviewed and interpreted this ECG as follows: Indication: other (Dizziness) Rate (beats per minute): 75 Rhythm: sinus rhythm Findings: + other (Low voltage QRS) and + Q waves (inferiorly) Blood Pressure Blood Pressure Findings: Elevated blood pressure Blood Pressure Disposition: Referred to patients primary care provider KORY Narrative I did perform a limited focused review of portions of the patient's old chart on the electronic medical record. The patient was seen here on the 3rd of this month for dizziness. Treated with Meclizine and normal saline and discharged home. I did evaluate the patient as noted above. The patient is presenting with persistent vertigo with change in position. She was evaluated for the same and felt better with Antivert 4 days ago. She was sent here for MRI by her regular physician. She has developed numbness to her lips but states that this is bilateral and involving both the upper and lower extremities. IV access was established. The patient was placed on a continuous court recording monitor. I did order and personally review the patient's 12-lead EKG and chest x-ray as described above. Twelve-lead EKG does not show any acute ischemia. She does have low voltage QRS. I did order and review the patient's blood work as noted in the electronic medical record. She is hypoglycemic. She was given oral glucose as well as something to eat. She did feel much better afterwards. I did order an MRI of the brain as well as an MRA of the head and neck. I did review the images myself as well as the radiology report as described above. She does have occlusion of the right vertebral vessel with a dominant left vertebral artery and small caliber posterior cerebral vasculature. No evidence of CVA. I did treat patient with IV Compazine and Benadryl. She was given normal saline. She was also given Ativan. She had no resolution of her symptoms. She felt too dizzy to go home. I did discuss the test results with the patient. I did discuss case with Dr. Tolliver of neurology. It is unclear if she has true vertebral basilar insufficiency versus peripheral vertigo. She will be hospitalized for further care and evaluation. I did discuss case with the hospitalist and continuous pillowcase cutter. Impression & Plan Vertebral basilar insufficiency Discharge Plan Visit Data Chief Complaint: Dizziness Stated Complaint: DIZZINESS ED Provider: Leonardo Torres Discharge Problem: Vertebral basilar insufficiency Patient Disposition: Being Evaluated by Hospitalist Condition: Fair Forms Stand Alone Forms: My [facility] Prescriptions Prescriptions: No Action multivitamin Tablet 1 tab PO DAILY RF: 0 losartan 50 mg tablet 50 mg PO DAILY RF: 0 aspirin [Aspir-81] 81 mg Tablet,Delayed Release (Dr/Ec) 81 mg PO DAILY RF: 0 methotrexate sodium 2.5 mg tablet 12.5 mg PO .TUESDAY RF: 0 metformin 1,000 mg tablet 1,000 mg PO BID RF: 0 hydrochlorothiazide 25 mg tablet 25 mg PO DAILY RF: 0 glipizide 5 mg tablet 10 mg PO QAM RF: 0 vitamin E 400 unit Capsule 400 unit PO DAILY RF: 0 budesonide-formoterol [Symbicort] 160-4.5 mcg/actuation Hfa Aerosol Inhaler 2 puff INHALATION BID RF: 0 glipizide 5 mg Tablet 5 mg PO QPM RF: 0 insulin NPH isoph U-100 human [Novolin N NPH U-100 Insulin] 100 unit/mL Suspension 25 - 30 units subcut DAILY RF: 0 insulin regular human [Novolin R Regular U-100 Insuln] 100 unit/mL Solution 10 unit SUBCUT .LUNCH RF: 0 insulin regular human [Novolin R Regular U-100 Insuln] 100 unit/mL Solution 15 - 20 unit SUBCUT .MANNY MEAL RF: 0 pravastatin 20 mg Tablet 20 mg PO HS RF: 0 cholecalciferol (vitamin D3) 1,000 unit Tablet 1,000 unit PO DAILY RF: 0 folic acid 1 mg Tablet 2 mg PO DAILY RF: 0 meclizine 25 mg tablet 25 mg PO TID PRN (Reason: dizziness) Qty: 14 RF: 0 Referrals Referrals: Pro,Chicho Velez MD [Primary Care Provider] - The scribe's documentation has been prepared under my direction and personally reviewed by me in its entirety. I confirm that the note above accurately reflects all work, treatment, procedures, and medical decision making performed by me.
--- NOTE | 2018-10-05 18:29 | Magnetic Resonance Report ---
MR ANGIOGRAM OF THE NECK COMBO CLINICAL HISTORY: Strokelike symptoms. Dizziness. COMPARISON STUDY: Carotid artery ultrasound dated 03/04/2010. TECHNIQUE: Axial 3-D [id number] MR angiography of the neck is performed. Subsequently, following the IV administration of 12 cc of Gadavist. Coronal MR angiogram of the neck was performed to corrobo rate the findings. 3-D reformats are created and assessed. All measurements were calculated based on NASCET criteria. The examination is degraded by large body habitus and motion artifact. FINDINGS: Visualized portions of the thoracic aorta are normal in caliber. The aortic arch demonstrat es standard 3-vessel anatomy. The subclavian arteries are widely patent bilaterally. The right common carotid artery is widely patent, as are the right internal and external carotid arteries. The left c ommon carotid artery is widely patent, as are the left internal and external carotid arteries. The ve rtebral arteries are widely patent. The left vertebral artery is dominant. The right vertebral artery is diminutive. The visualized intracranial vessels at the skull base appear patent. IMPRESSION: Unremarkable MR angiogram of the neck. Electronically signed by: Ranjeet Lopez M.D. 10/05/2018 6:28 PM
--- NOTE | 2018-10-05 21:19 | History & Physical Report ---
Date of Service October 05, 2018 Assessment & Plan (1) Vertigo: 68-year-old female who presents to the emergency room due to intractable dizziness. She was seen on 4 days prior in the emergency room for similar complaints, was given meclizine and sodium chloride, EKG was unremarkable for acute ischemic changes, diagnosed with vertigo and sent home. She was offered further workup for stroke but patient declined at that time. She presented again today with similar complaints of dizziness upon standing. The symptoms were exacerbated when she rolled over to shift her position in bed and instantly felt like the room was spinning. Exacerbated by changing positions. She also complained of ringing in her ears which began 3 days ago. And some numbness around her lips. No fall or syncope before presentation to the emergency room. Denies chest pain, dyspnea, abdominal pain, diarrhea or constipation, or any focal weakness. Her blood sugar was noted to be 54 when she presented to the emergency room which was treated with p.o. glucose and orange juice and came back up to 75. She was given more Compazine, Ativan and Benadryl with good effect. Labs were otherwise unremarkable. Electrolytes normal. No transaminitis no anemia. MRA of the head without contrast was initially read as showing an occlusion of the right vertebral vessel, left vertebral artery dominant and serpiginous. MR of the brain with and without contrast showed no evidence for an acute ischemic event. Hospitalist service was consulted for further management. Dizziness consistent with vertigo which could be secondary to BPPV/ labyrinthitis versus CVA and vertebral artery occlusion -Positional -Patient is clinically dry -no evidence of infarct on MR brain. MRA of neck unremarkable. -I personally called Dr. Lopez radiology at [phone] to discuss the findings of MRA of head, query "RT vertebral artery occlusion". -He confirmed with me that there was indeed no occlusion of the right vertebral artery but was rather a physiologic narrowing. -I also discussed radiology's revised impression with Dr. Tolliver in neurology and she agreed that we could treat her vertigo symptomatically. -I discussed this revision of the initial impression of the imaging with the patient. I answered all her questions and she verbalized understanding. Plan -Meclizine 3 times daily as needed p.o. -Maintenance fluids -Recommend outpatient physical therapy for vertigo, discussed with the patient Hypoglycemia in setting of type 2 diabetes -On insulin sliding scale here -Held home metformin and glipizide -Last A1c 6.1 in May 2018 -Exacerbating vertigo here -recommend hold home glipizide which is associated with high risk of hypoglycemia, on discharge until can be reassessed by her veterinary medicine doctor -A1c pending. Goal A1c less than 7 FEN/GI: Heart healthy, diabetic diet. Maintenance fluids running at 125 mL/hr DVT ppx: Low risk-Daily aspirin, SCDs CODE STATUS: Full code DISPO: Observation on MedSurg Other ongoing medical problems: Hyperlipidemia-continue home pravastatin 20 mg p.o. at bedtime Rheumatoid arthritis-continue home methotrexate 12.5 mg p.o. q. Tuesday Hypertension-continue home losartan 50 mg nightly, hydrochlorothiazide 25 mg daily COPD-continue home Symbicort 2 puffs twice daily Kae Johnson MD Literacy Coach (2) Diabetes: (3) Hypoglycemia: (4) Hyperlipidemia: (5) Morbid obesity with BMI of 60.0-69.9, adult: (6) Benign essential hypertension: History of Present Illness Chief Complaint: Dizziness Primary Care Provider: Chicho Langley MD 68-year-old female who presents to the emergency room due to intractable dizziness. She was seen on 4 days prior in the emergency room for similar complaints, was given meclizine and sodium chloride, EKG was unremarkable for acute ischemic changes, diagnosed with vertigo and sent home. She was offered further workup for stroke but patient declined at that time. She presented again today with similar complaints of dizziness upon standing. The symptoms were exacerbated when she rolled over to shift her position in bed and instantly felt like the room was spinning. Exacerbated by changing positions. She also complained of ringing in her ears which began 3 days ago. And some numbness around her lips. No fall or syncope before presentation to the emergency room. Denies chest pain, dyspnea, abdominal pain, diarrhea or constipation, or any focal weakness. Her blood sugar was noted to be 54 when she presented to the emergency room which was treated with p.o. glucose and orange juice and came back up to 75. She was given more Compazine, Ativan and Benadryl with good effect. Labs were otherwise unremarkable. Electrolytes normal. No transaminitis no anemia. MRA of the head without contrast was initially read as showing an occlusion of the right vertebral vessel, left vertebral artery dominant and serpiginous. MR of the brain with and without contrast showed no evidence for an acute ischemic event. Hospitalist service was consulted for further management. I called Dr. Lopez radiology at [phone] to discuss the findings of this exam. He confirmed with me that there was indeed no occlusion of the right vertebral artery but was rather a narrowing but not critical. I also discussed radiology's revised impression with Dr. Tolliver in neurology and she agreed that we could treat her vertigo symptomatically. Upon my examination of the patient she was lying in bed sleeping but arousable. Symptom-free. PMH 1. Morbid obesity 2. Type 2 diabetes, on Novolin NPH, metformin, glipizide 3. Hypertension 4. Hyperlipidemia, on pravastatin Social history: Lives with , former smoker, no illicit drug use or alcohol. Allergies Allergy/AdvReac Type Severity Reaction Status Date / Time grass pollen-perennial rye, Allergy Intermediate DIFFICULTY Verified 10/05/18 11 :55 standar BREATHING mold Allergy Intermediate DIFFICULTY Verified 10/05/18 11:55 BREATHING pollen extracts Allergy Intermediate DIFFICULTY Verified 10/05/18 11:55 BREATHING etodolac Allergy Unknown UNKNOWN Verified 10/05/18 11:55 simvastatin Allergy Unknown "FEELS Verified 10/05/18 11:55 FUNNY" tetanus toxoid, adsorbed Allergy Unknown SWELLING Verified 10/05/18 11:55 Home Medications Home Medications Medication Instructions Recorded Confirmed Type aspirin [Aspir-81] 81 mg PO DAILY 06/18/18 10/05/18 History glipizide 10 mg PO QAM 06/18/18 10/05/18 History hydrochlorothiazide 25 mg PO DAILY 06/18/18 10/05/18 History losartan 50 mg PO DAILY 06/18/18 10/05/18 History metformin 1,000 mg PO BID 06/18/18 10/05/18 History methotrexate sodium 12.5 mg PO .Tuesday06/18/18 10/05/18 History multivitamin 1 tab PO DAILY 06/18/18 10/05/18 History budesonide-formoterol [Symbicort] 2 puff INHALATION BID 10/01/18 10/05/18 History cholecalciferol (vitamin D3) 1,000 unit PO DAILY 10/01/18 10/05/18 History folic acid 2 mg PO DAILY 10/01/18 10/05/18 History glipizide 5 mg PO QPM 10/01/18 10/05/18 History insulin NPH isoph U-100 human 25 - 30 units SUBCUT DAILY 10/01/18 10/05/18 History [Novolin N NPH U-100 Insulin] insulin regular human [Novolin R 10 unit SUBCUT .LUNCH 10/01/18 10/05/18 History Regular U-100 Insuln] insulin regular human [Novolin R 15 - 20 unit SUBCUT .AMNNY MEAL 10/01/18 History Regular U-100 Insuln] meclizine 25 mg PO TID PRN #14 tab 10/01/18 10/05/18 Rx pravastatin 20 mg PO HS 10/01/18 10/05/18 History vitamin E 400 unit PO DAILY 10/01/18 10/05/18 History Past Med/Surg History Medical History Diabetes (Chronic) GI bleed (Acute) Hypertension Family History Other Family history non-contributory Social History Current Living Situation: Spouse Other Information That Helps Us Care for You: No Feels Safe at Home: Yes Safety Concerns: Feels Safe At This Time Smoking Status: Former smoker Hx Alcohol Use: No Hx Substance Use: No Beliefs That Will Affect Care: None Preferred Language: Palauan Review of Systems All systems reviewed & are unremarkable except as noted in HPI & below Physical Exam 2 Vital Signs (Past 24 Hours): Last Vital Signs Temp 36.5 C 10/05/18 11:17 Pulse 83 10/05/18 20:15 Resp 20 10/05/18 20:15 BP 148/112 H 10/05/18 20:15 Pulse Ox 92 10/05/18 20:15 Physical Exam: Vitals noted as above and within normal limits with the exception of hypertension. GENERAL: Awake, alert to person, place, and time, nontoxic-appearing, in no distress HENT: Normocephalic, atraumatic. . Mucus membranes appear dry. EYES: Normal conjunctiva. Sclera non-icteric. EOMI. NECK: Supple. Full range of motion. No JVD RESPIRATORY: Clear to auscultation. Normal work of breathing. CARDIAC: Regular rate, normal rhythm. Extremities warm and well perfused, 2+ radial pulses bilaterally; 2+ posterior tibialis pulses bilaterally. ABDOMEN: Soft, non-distended. No tenderness to palpation in all four quadrants. No rebound or guarding. No masses. Bowel sounds are normal. LOWER EXTREMITIES: Inspection of calves reveal equal size bilaterally. They are non-tender. No edema. No discoloration. NEURO: No focal gross focal motor deficits noted. Sensation in tact. CN II-XII grossly in tact. SKIN: Rash not present. No jaundice noted. Significant lesions not present. PSYCH: Appropriate mood and affect. Cooperative. Exam as done by Kae Johnson MD, Literacy Coach. Results & Data Laboratory Results 10/05/18 10/05/18 10/05/18 Range/Units 22:14 15:24 14:01 WBC (4.8-10.8) K/uL RBC (4.2-5.4) M/uL Hgb (12.0-16.0) g/dL Hct (37-47) % MCV (80-100) fL MCH (25-34) pg MCHC (32-36) g/dL RDW Std Deviation (36.4-46.3) fL RDW Coeff of Ilana (11.5-14.5) % Plt Count (130-400) K/uL MPV (7.4-10.4) fL Immature Gran % (Auto) % Neut % (Auto) % Lymph % (Auto) % [place] % (Auto) % Eos % (Auto) % Baso % (Auto) % Immature Gran # (Auto) (0.00-0.02) K/uL Neut # (Auto) (1.4-6.5) K/uL Lymph # (Auto) (1.2-3.4) K/uL [place] # (Auto) (0.11-0.59) K/uL Eos # (Auto) (0-0.5) K/uL Baso # (Auto) (0-0.2) K/uL Sodium (136-145) mmol/L Potassium (3.5-5.1) mmol/L Chloride (98-107) mmol/L Carbon Dioxide (21-32) mmol/L Anion Gap (3-11) BUN (7-18) mg/dl Creatinine (0.6-1.2) mg/dl Est Cr Clr Drug Dosing ml/min Est GFR ( Amer) Est GFR (Non-Af Amer) BUN/Creatinine Ratio (10-20) Glucose (70-99) mg/dl POC Glucose 175 H 120 H 75 (70-99) Calcium (8.5-10.1) mg/dl Total Bilirubin (0.2-1) mg/dl AST (15-37) U/L ALT (12-78) U/L Alkaline Phosphatase (45-117) U/L Troponin I (0-0.045) ng/ml Total Protein (6.4-8.2) gm/dl Albumin (3.4-5.0) gm/dl Globulin (2.5-4.0) gm/dl Albumin/Globulin Ratio (0.9-2) 10/05/18 10/05/18 10/05/18 Range/Units 13:46 13:42 13:20 WBC (4.8-10.8) K/uL RBC (4.2-5.4) M/uL Hgb (12.0-16.0) g/dL Hct (37-47) % MCV (80-100) fL MCH (25-34) pg MCHC (32-36) g/dL RDW Std Deviation (36.4-46.3) fL RDW Coeff of Ilana (11.5-14.5) % Plt Count (130-400) K/uL MPV (7.4-10.4) fL Immature Gran % (Auto) % Neut % (Auto) % Lymph % (Auto) % [place] % (Auto) % Eos % (Auto) % Baso % (Auto) % Immature Gran # (Auto) (0.00-0.02) K/uL Neut # (Auto) (1.4-6.5) K/uL Lymph # (Auto) (1.2-3.4) K/uL [place] # (Auto) (0.11-0.59) K/uL Eos # (Auto) (0-0.5) K/uL Baso # (Auto) (0-0.2) K/uL Sodium 140 (136-145) mmol/L Potassium 3.6 (3.5-5.1) mmol/L Chloride 105 (98-107) mmol/L Carbon Dioxide 29 (21-32) mmol/L Anion Gap 6.0 (3-11) BUN 16 (7-18) mg/dl Creatinine 0.99 (0.6-1.2) mg/dl Est Cr Clr Drug Dosing 66.4 ml/min Est GFR ( Amer) 67.4 Est GFR (Non-Af Amer) 58.1 BUN/Creatinine Ratio 16.0 (10-20) Glucose 49 L* (70-99) mg/dl POC Glucose 54 L* 51 L* (70-99) Calcium 9.2 (8.5-10.1) mg/dl Total Bilirubin 0.3 (0.2-1) mg/dl AST 16 (15-37) U/L ALT 26 (12-78) U/L Alkaline Phosphatase 64 (45-117) U/L Troponin I < 0.015 (0-0.045) ng/ml Total Protein 7.6 (6.4-8.2) gm/dl Albumin 3.6 (3.4-5.0) gm/dl Globulin 4.0 (2.5-4.0) gm/dl Albumin/Globulin Ratio 0.9 (0.9-2) 10/05/18 10/05/18 Range/Units 13:20 11:35 WBC 11.51 H (4.8-10.8) K/uL RBC 4.52 (4.2-5.4) M/uL Hgb 13.0 (12.0-16.0) g/dL Hct 38.8 (37-47) % MCV 85.8 (80-100) fL MCH 28.8 (25-34) pg MCHC 33.5 (32-36) g/dL RDW Std Deviation 47.1 H (36.4-46.3) fL RDW Coeff of Ilana 15.0 H (11.5-14.5) % Plt Count 274 (130-400) K/uL MPV 9.9 (7.4-10.4) fL Immature Gran % (Auto) 0.3 % Neut % (Auto) 47.5 % Lymph % (Auto) 39.4 % [place] % (Auto) 9.7 % Eos % (Auto) 2.7 % Baso % (Auto) 0.4 % Immature Gran # (Auto) 0.04 H (0.00-0.02) K/uL Neut # (Auto) 5.46 (1.4-6.5) K/uL Lymph # (Auto) 4.53 H (1.2-3.4) K/uL [place] # (Auto) 1.12 H (0.11-0.59) K/uL Eos # (Auto) 0.31 (0-0.5) K/uL Baso # (Auto) 0.05 (0-0.2) K/uL Sodium (136-145) mmol/L Potassium (3.5-5.1) mmol/L Chloride (98-107) mmol/L Carbon Dioxide (21-32) mmol/L Anion Gap (3-11) BUN (7-18) mg/dl Creatinine (0.6-1.2) mg/dl Est Cr Clr Drug Dosing ml/min Est GFR ( Amer) Est GFR (Non-Af Amer) BUN/Creatinine Ratio (10-20) Glucose (70-99) mg/dl POC Glucose 126 H (70-99) Calcium (8.5-10.1) mg/dl Total Bilirubin (0.2-1) mg/dl AST (15-37) U/L ALT (12-78) U/L Alkaline Phosphatase (45-117) U/L Troponin I (0-0.045) ng/ml Total Protein (6.4-8.2) gm/dl Albumin (3.4-5.0) gm/dl Globulin (2.5-4.0) gm/dl Albumin/Globulin Ratio (0.9-2) Code Status & VTE Plan Code Status Full code Supervising Physician Co-Signing Physician Notes Attending addendum: I have physically seen this patient, have supervised the medical residents activities, and agree with the H&P unless as otherwise noted. Assessment and Plan: Intractable dizziness/vertigo-- Differential includes BPPV versus CVA associated with vertebral artery occlusion versus aggravation by hypoglycemia. Per conversation with Dr. Tolliver from neurology, patient is being admitted for treatment of intractable vertigo. Meclizine 25 mg p.o. 3 times daily as needed. IV fluids. Consult for PT/OT. Consider consult for ENT/audiology. Will also hold any sulfonylureas that could cause persistent hypoglycemia. Remainder of orders and notations as noted. Resident Activity Tracking Resident Involvement: Resident Care Provided Care Provided: Adult [facility] Medicine
[2018-10-05] MEDS ORDERED: ALUMINUM/MAGNESIUM SUSP 30 ML UDC PO PRN (22:06)
[2018-10-05] MEDS ORDERED: CARBOHYDRATES FOR HYPOGLYCEMIA PO PRN ×2 (22:06→22:24)
[2018-10-05] MEDS ORDERED: ACETAMINOPHEN 325 MG TAB PO PRN (22:06)
[2018-10-05] MEDS ORDERED: GLUCAGON FOR INJ 1 MG VIAL SQ PRN ×2 (22:06→22:24)
[2018-10-05] MEDS ORDERED: DEXTROSE 50% 50 ML SYRINGE IV PRN ×2 (22:06→22:24)
[2018-10-05] MEDS ORDERED: POLYETHYLENE (MIRALAX) 17 GM PACK PO PRN (22:06)
[2018-10-05] MEDS ORDERED: GLUCOSE 10 TABS/TUBE PO PRN ×2 (22:06→22:24)
[2018-10-05] MEDS ORDERED: MAGNESIUM HYDROXIDE SUSP 30 ML UDC PO PRN (22:06)
[2018-10-05] MEDS ORDERED: GLUCOSE 40% GEL 15 GM TUBE PO PRN ×2 (22:06→22:24)
[2018-10-05] MEDS: SODIUM CHLORIDE 0.9% 500 ML IV SCH (23:09)
[2018-10-06] MEDS: MECLIZINE HCL 25 MG TAB PO PRN ×4 (00:19→23:54)
[2018-10-06] MEDS: LOSARTAN POTASSIUM 50 MG TAB PO SCH ×2 (00:19→20:57)
[2018-10-06] MEDS: SODIUM CHLORIDE 0.9% 1000ML 1,000 ML IV SCH ×3 (03:57→20:57)
[2018-10-06 06:16] LABS: Calcium 8.8 mg/dl (8.5-10.1); Creatinine Clr Calc Pharmacy 59.9 ml/min; Est GFR (African American) 58.7; Est GFR (Non-African American) 50.6
[2018-10-06] MEDS: SODIUM CHLORIDE 0.9% 500 ML IV SCH (06:18)
[2018-10-06 07:08] LABS: Estimated Average Glucose 134 mg/dl
[2018-10-06] MEDS: FOLIC ACID 1 MG TAB PO SCH (07:41)
[2018-10-06] MEDS: MULTIVITAMIN TAB PO SCH (07:42)
[2018-10-06] MEDS: CHOLECALCIFEROL 1,000 UNITS TAB PO SCH ×2 (07:43→20:04)
[2018-10-06] MEDS: TOCOPHERYL, DL-ALPHA 400 UNITS CAP PO SCH ×2 (07:43→20:04)
[2018-10-06] MEDS: ASPIRIN 81 MG ECTAB PO SCH (07:44)
[2018-10-06] MEDS: BUDESONIDE/FORMOTEROL FUMARATE 160/4.5 60 PUFFS/INHALER INH SCH ×2 (07:45→17:56)
[2018-10-06] MEDS ORDERED: metHOTREXate sodium 2.5 MG TAB PO SCH (08:00)
--- NOTE | 2018-10-06 08:33 | Hospitalist Progress Note ---
Date of Service October 06, 2018 Assessment & Plan (1) Vertigo: 68-year-old female who presents to the emergency room due to intractable dizziness. She was seen on 4 days prior in the emergency room for similar complaints, was given meclizine and sodium chloride, EKG was unremarkable for acute ischemic changes, diagnosed with vertigo and sent home. She was offered further workup for stroke but patient declined at that time. She presented again today with similar complaints of dizziness upon standing. The symptoms were exacerbated when she rolled over to shift her position in bed and instantly felt like the room was spinning. Exacerbated by changing positions. She also complained of ringing in her ears which began 3 days ago. And some numbness around her lips. No fall or syncope before presentation to the emergency room. Denies chest pain, dyspnea, abdominal pain, diarrhea or constipation, or any focal weakness. Her blood sugar was noted to be 54 when she presented to the emergency room which was treated with p.o. glucose and orange juice and came back up to 75. She was given more Compazine, Ativan and Benadryl with good effect. Labs were otherwise unremarkable. Electrolytes normal. No transaminitis no anemia. MRA of the head without contrast was initially read as showing an occlusion of the right vertebral vessel, left vertebral artery dominant and serpiginous. MR of the brain with and without contrast showed no evidence for an acute ischemic event. Hospitalist service was consulted for further management. Dizziness consistent with vertigo which could be secondary to BPPV/ labyrinthitis versus CVA and vertebral artery occlusion -Positional -no evidence of infarct on MR brain. MRA of neck unremarkable. Dr. Hidalgo personally called Dr. Lopez radiology at [phone] to discuss the findings of MRA of head, query "RT vertebral artery occlusion". -He confirmed with me that there was indeed no occlusion of the right vertebral artery but was rather a physiologic narrowing. Dr. Johnson also discussed radiology's revised impression with Dr. Tolliver in neurology and she agreed that we could treat her vertigo symptomatically. Plan -Meclizine 3 times daily as needed p.o. I offered additional Transderm scopolamine which patient says she wishes C of the meclizine works especially since the physical therapy maneuver improves her symptoms -We will continue to recommend outpatient physical therapy for vertigo, (2) Diabetes: Hypoglycemia in setting of type 2 diabetes -On insulin sliding scale here -Held home metformin and glipizide -Last A1c 6.1 in May 2018 (3) Hypoglycemia: (4) Hyperlipidemia: Atorvastatin (5) Morbid obesity with BMI of 60.0-69.9, adult: (6) Benign essential hypertension: Losartan (7) COPD (chronic obstructive pulmonary disease): Symbicort Subjective Patient says her instability dizziness and vertiginous symptoms have improved with the institution of meclizine and also physical therapy Delta maneuver. Patient says she feels about 50-60% improved but still has fairly significant disequilibrium with walking and moving around her room. He had no nausea and vomiting he does have occasional double vision with this Review of Systems ROS: well nourished well developed. Occasional double vision but no blurry vision No problems with speech or swallowing No palpitations, chest pain or pressure No Wheezing or breathing issues No abdominal pain mild nausea when symptom medic but no vomiting or diarrhea No burning urine urine frequency or changes in color No focal joint pain or muscle pain No skin rashes or oral lesions No unusual bruising or bleeding No focused back pain or numbness or loss of strength No changes in memory or confusion Physical Exam 2 Vital Signs (Past 24 Hours): Last Vital Signs Temp 36.7 C 10/06/18 07:08 Pulse 72 10/06/18 07:08 Resp 20 10/06/18 07:08 BP 126/73 10/06/18 07:08 Pulse Ox 98 10/06/18 07:08 The patient appeared well nourished and normally developed. Vital signs as documented. Head exam is unremarkable. normocephalic, atraumatic no nystagmus PERRLA EOMI Neck is without jugular venous distension, thyromegaly, or lymphademopathy Lungs are clear to auscultation and percussion. Cardiac exam reveals Rhythm is regular. First and second heart sounds normal. Abdominal exam reveals normal bowel sounds, no masses, no organomegaly Extremities are nonedematous and both pedal pulses are present Neurologic exam is A&Ox3, no focal deficits, strength is equal bilateral symptoms are reproducible with head movement Psychologically seems neither anxious or depressed Skin is warm Dry without bruises or lesions
[2018-10-06] MEDS: INSULIN ASPART 100 UNITS/ML 3 ML PEN SC SCH ×4 (08:55→20:57)
[2018-10-06] MEDS ORDERED: LOSARTAN POTASSIUM 50 MG TAB PO SCH (09:00)
[2018-10-06] MEDS ORDERED: hydroCHLOROthiazide 25 MG TAB PO SCH (09:00)
[2018-10-06] MEDS ORDERED: CHOLECALCIFEROL 1,000 UNITS TAB PO SCH (21:00)
[2018-10-06] MEDS ORDERED: TOCOPHERYL, DL-ALPHA 400 UNITS CAP PO SCH (21:00)
[2018-10-06] MEDS ORDERED: PRAVASTATIN SOD 20 MG TAB PO SCH (21:00)
[2018-10-07] MEDS: MULTIVITAMIN TAB PO SCH (08:02)
[2018-10-07] MEDS: ASPIRIN 81 MG ECTAB PO SCH (08:02)
[2018-10-07] MEDS: BUDESONIDE/FORMOTEROL FUMARATE 160/4.5 60 PUFFS/INHALER INH SCH (08:02)
[2018-10-07] MEDS: FOLIC ACID 1 MG TAB PO SCH (08:02)
[2018-10-07] MEDS: INSULIN ASPART 100 UNITS/ML 3 ML PEN SC SCH ×2 (08:44→12:32)
--- NOTE | 2018-10-07 11:36 | Discharge Summary ---
Date of Service October 07, 2018 Admission HPI Per Admitting Provider 68-year-old female who presents to the emergency room due to intractable dizziness. She was seen on 4 days prior in the emergency room for similar complaints, was given meclizine and sodium chloride, EKG was unremarkable for acute ischemic changes, diagnosed with vertigo and sent home. She was offered further workup for stroke but patient declined at that time. She presented again today with similar complaints of dizziness upon standing. The symptoms were exacerbated when she rolled over to shift her position in bed and instantly felt like the room was spinning. Exacerbated by changing positions. She also complained of ringing in her ears which began 3 days ago. And some numbness around her lips. No fall or syncope before presentation to the emergency room. Denies chest pain, dyspnea, abdominal pain, diarrhea or constipation, or any focal weakness. Her blood sugar was noted to be 54 when she presented to the emergency room which was treated with p.o. glucose and orange juice and came back up to 75. She was given more Compazine, Ativan and Benadryl with good effect. Labs were otherwise unremarkable. Electrolytes normal. No transaminitis no anemia. MRA of the head without contrast was initially read as showing an occlusion of the right vertebral vessel, left vertebral artery dominant and serpiginous. MR of the brain with and without contrast showed no evidence for an acute ischemic event. Hospitalist service was consulted for further management. I called Dr. Lopez radiology at [phone] to discuss the findings of this exam. He confirmed with me that there was indeed no occlusion of the right vertebral artery but was rather a narrowing but not critical. I also discussed radiology's revised impression with Dr. Tolliver in neurology and she agreed that we could treat her vertigo symptomatically. Upon my examination of the patient she was lying in bed sleeping but arousable. Symptom-free. PMH 1. Morbid obesity 2. Type 2 diabetes, on Novolin NPH, metformin, glipizide 3. Hypertension 4. Hyperlipidemia, on pravastatin Social history: Lives with , former smoker, no illicit drug use or alcohol. Principal Diagnosis intractable vertigo Discharge Exam Constitutional well developed and average body habitus Eyes no conjunctival abnormality and no scleral abnormality Neck normal visual inspection and trachea midline Respiratory normal respiratory effort; no respiratory distress Auscultation: lungs clear to auscultation bilaterally Cardiovascular RRR, no murmur, no edema Gastrointestinal (Abdomen) normal bowel sounds, soft, nontender, no hepatosplenomegaly Musculoskeletal no cyanosis or clubbing, extremities motor strength 5/5 Discharge Data Allergies Allergy/AdvReac Type Severity Reaction Status Date / Time grass pollen-perennial rye, Allergy Intermediate DIFFICULTY Verified 10/05/18 11 :55 standar BREATHING mold Allergy Intermediate DIFFICULTY Verified 10/05/18 11:55 BREATHING pollen extracts Allergy Intermediate DIFFICULTY Verified 10/05/18 11:55 BREATHING etodolac Allergy Unknown UNKNOWN Verified 10/05/18 11:55 simvastatin Allergy Unknown "FEELS Verified 10/05/18 11:55 FUNNY" tetanus toxoid, adsorbed Allergy Unknown SWELLING Verified 10/05/18 11:55 Consultations 10/05/18 18:38 ED Decision to Admit Stat Ordered Studies 10/05/18 12:06 MR angio head wo con Stat MR angio neck wo/w con Stat MR brain wo/w con Stat Hospital Course (1) Vertigo: 68-year-old female who presents to the emergency room due to intractable dizziness. She was seen on 4 days prior in the emergency room for similar complaints, was given meclizine and sodium chloride, EKG was unremarkable for acute ischemic changes, diagnosed with vertigo and sent home. She was offered further workup for stroke but patient declined at that time. She presented again today with similar complaints of dizziness upon standing. The symptoms were exacerbated when she rolled over to shift her position in bed and instantly felt like the room was spinning. Exacerbated by changing positions. She also complained of ringing in her ears which began 3 days ago. And some numbness around her lips. No fall or syncope before presentation to the emergency room. Denies chest pain, dyspnea, abdominal pain, diarrhea or constipation, or any focal weakness. Her blood sugar was noted to be 54 when she presented to the emergency room which was treated with p.o. glucose and orange juice and came back up to 75. She was given more Compazine, Ativan and Benadryl with good effect. Labs were otherwise unremarkable. Electrolytes normal. No transaminitis no anemia. MRA of the head without contrast was initially read as showing an occlusion of the right vertebral vessel, left vertebral artery dominant and serpiginous. MR of the brain with and without contrast showed no evidence for an acute ischemic event. Hospitalist service was consulted for further management. Dizziness consistent with vertigo -no evidence of infarct on MR brain. MRA of neck unremarkable. Dr. Hidalgo personally called Dr. Lopez radiology at [phone] to discuss the findings of MRA of head, query "RT vertebral artery occlusion". -He confirmed with me that there was indeed no occlusion of the right vertebral artery but was rather a physiologic narrowing. Dr. Johnson also discussed radiology's revised impression with Dr. Tolliver in neurology and she agreed that we could treat her vertigo symptomatically. Pt has complete resolution of her symptoms, mostly improved after PT an brunson (2) Diabetes: Hypoglycemia in setting of type 2 diabetes reusme home metformin and glipizide -Last A1c 6.1 in May 2018 (3) Hypoglycemia: (4) Hyperlipidemia: Atorvastatin (5) Morbid obesity with BMI of 60.0-69.9, adult: (6) Benign essential hypertension: Losartan Total Time Total Time Spent Total Time Spent (In Minutes): greater than 30 minutes were required to prepare discharge Discharge Plan Discharge Items Patient Disposition: Home - Self-Care Reason For Visit: INTRACTABLE DIZZINESS Discharge Diagnosis: Vertigo Condition: Fair Discharge Goals: Decrease discomfort and Improve disease control Activity: Resume your previous activity Non-emergency contact: Primary Care Provider Call non-emergency contact if: you have any medication questions Diet: Carb Consistent or DM2 Addtl Provider Instructions: please follow up with your primary care in one week Prescriptions: Continue multivitamin Tablet 1 tab PO DAILY RF: 0 losartan 50 mg tablet 50 mg PO DAILY RF: 0 aspirin [Aspir-81] 81 mg Tablet,Delayed Release (Dr/Ec) 81 mg PO DAILY RF: 0 methotrexate sodium 2.5 mg tablet 12.5 mg PO .TUESDAY RF: 0 metformin 1,000 mg tablet 1,000 mg PO BID RF: 0 hydrochlorothiazide 25 mg tablet 25 mg PO DAILY RF: 0 glipizide 5 mg tablet 10 mg PO QAM RF: 0 vitamin E 400 unit Capsule 400 unit PO DAILY RF: 0 budesonide-formoterol [Symbicort] 160-4.5 mcg/actuation Hfa Aerosol Inhaler 2 puff INHALATION BID RF: 0 glipizide 5 mg Tablet 5 mg PO QPM RF: 0 insulin NPH isoph U-100 human [Novolin N NPH U-100 Insulin] 100 unit/mL Suspension 25 - 30 units subcut DAILY RF: 0 insulin regular human [Novolin R Regular U-100 Insuln] 100 unit/mL Solution 10 unit SUBCUT .LUNCH RF: 0 insulin regular human [Novolin R Regular U-100 Insuln] 100 unit/mL Solution 15 - 20 unit SUBCUT .MANNY MEAL RF: 0 pravastatin 20 mg Tablet 20 mg PO HS RF: 0 cholecalciferol (vitamin D3) 1,000 unit Tablet 1,000 unit PO DAILY RF: 0 folic acid 1 mg Tablet 2 mg PO DAILY RF: 0 meclizine 25 mg tablet 25 mg PO TID PRN (Reason: dizziness) Qty: 14 RF: 0 Stand-Alone Forms: [facility], [facility] Discharge Orders: Discharge Order (Routine); Ordered 10/07/18 Ordered By: Leonardo Abraham Admission Data Admit Date/Time: 10/05/18 21:13 Attending Provider: Leonardo Abraham Admit Provider: Kae Johnson Primary Care Provider: Chicho Langley Other Providers: Pablo Guerrero Service: Medical Other Interventions: Discharge Summary Assessment (RN) Last Done: 10/07/18 11:03
--- NOTE | 2018-10-23 11:18 | Coding Letter ---
A supporting diagnosis is required for the test/procedure performed on this patient in order for us to be reimbursed by the patient's insurance. Please provide a supporting diagnosis for the following test/procedure listed below next to the test name along with your signature. *If there is no additional diagnosis for this patient that would support the following test/procedure please document that below next to the test/procedure. Test(s)/Procedure(s) that require a supporting diagnosis: * [id number] CANALITH REPOSITIONING PROC DIAGNOSIS: DATE OF SERVICE: 10/06/18 Provider Signature: Date: Thank you Erik Lerma [facility] Information Management Once completed, please kindly fax back to [phone] For questions please call [phone] [email or web address]
== END 2018-10-07 13:05 | disposition home or self-care (01) ==
LOC: ED 11:11 → 4W 11:11 → SUATTDRO 21:13 → 4W 21:55

== ENCOUNTER 2019-08-09 12:40 | Inpatient (IN) ==
[2019-08-09] MEDS ORDERED: ONDANSETRON INJ 2 MG/ML 2 ML VIAL IV STA (14:06)
[2019-08-09] MEDS ORDERED: SODIUM CHLORIDE 0.9% 500 ML IV SCH (14:15)
[2019-08-09 14:32] LABS: Basophils # (auto) 0.03 K/uL (0-0.2); Basophils % (auto) 0.2 %; Eosinophils # (auto) 0.08 K/uL (0-0.5); Eosinophils % (auto) 0.6 %; Hemoglobin 13.1 g/dL (12.0-16.0); Immature Granulocytes # (auto) 0.04 K/uL (0.00-0.02); Immature Granulocytes % (auto) 0.3 %; Lymphocytes % (auto) 10.5 %; Mean Corpuscular Hemoglobin 28.4 pg (25-34); Mean Corpuscular Hgb Conc 32.8 g/dL (32-36); Mean Corpuscular Volume 86.6 fL (80-100); Monocytes # (auto) 1.05 K/uL (0.11-0.59); Monocytes % (auto) 8.5 %; Neutrophils # (auto) 9.92 K/uL (1.4-6.5); Neutrophils % (auto) 79.9 %; Platelet Count 271 K/uL (130-400); RDW Coefficient of Variation 15.1 % (11.5-14.5); RDW Standard Deviation 47.7 fL (36.4-46.3); Red Blood Count 4.62 M/uL (4.2-5.4); White Blood Count 12.42 K/uL (4.8-10.8)
[2019-08-09] MEDS: fentaNYL citrate 100 MCG/2 ML VIAL IV PRN ×2 (14:36→16:53)
--- NOTE | 2019-08-09 14:43 | Emergency Department Note ---
Entered by Agustin Mitchell acting as a scribe for History of Present Illness General Chief complaint: Back Injury/Pain Stated complaint: BACK PAIN Time Seen by Provider: 08/09/19 13:56 Source: patient History of Present Illness Onset (ago): hour(s) (11) Location: right (flank) Severity: moderate Pain Consistency: + other (worsening) Maximum Pain Intensity: 9 Associated symptoms: + denies other symptoms (changes in her urination), + nausea/vomiting and + other (abdominal discomfort); no chest pain and no shortness of breath The patient is a 69 y/o female who presents to the ED w/ CC of worsening, moderate, right flank discomfort beginning 11 hours ago. The patient states her pain woke her up from her sleep at 0300. She reports it was sudden and does not radiate. The patient notes she also has abdominal discomfort and intermittent nausea. She states she vomited once this morning, and it helped her abdominal discomfort, but it did not change her flank discomfort. The patient reports she still has her gallbladder, and she does not have a history of this pain or kidney stones. She notes her PCP is Dr. Langley, and she has not been evaluated for this pain yet. The patient denies changes in her urination, chest pain, and shortness of breath. Home Medications Home Medications Medication Instructions Recorded Confirmed Type aspirin [Aspir-81] 81 mg PO DAILY 06/18/18 08/09/19 History hydrochlorothiazide 25 mg PO DAILY 06/18/18 08/09/19 History metformin 1,000 mg PO BID 06/18/18 08/09/19 History multivitamin 1 tab PO DAILY 06/18/18 08/09/19 History Novolin N NPH U-100 Insulin 25 - 30 units SUBCUT DAILY 10/01/18 08/09/19 History cholecalciferol (vitamin D3) 1,000 unit PO DAILY 10/01/18 08/09/19 History vitamin E 400 unit PO DAILY 10/01/18 08/09/19 History fesoterodine 8 mg tablet,extended 8 mg PO DAILY #90 tab 04/16/19 08/09/19 Rx release 24 hr losartan 50 mg tablet 50 mg PO DAILY 90 Days #90 tab 04/26/19 08/09/19 Rx cyanocobalamin (vitamin B-12) 1,000 mcg PO DAILY tab 05/22/19 08/09/19 History 1,000 mcg tablet folic acid 1 mg tablet 1 mg PO DAILY tab 05/22/19 08/09/19 History glipizide 5 mg tablet 5 mg PO UD tab 05/22/19 08/09/19 History insulin regular human 100 regular 15 units SUBCUT DAILY ml 05/22/19 08/09/19 History human 100 unit/mL injection solution ipratropium 20 mcg-albuterol 100 1 puffs INH Q6H PRN 05/22/19 08/09/19 History mcg/actuation mist for inhalation methotrexate sodium 2.5 mg tablet 5 mg PO WEEKLY tab 05/22/19 08/09/19 History atorvastatin 20 mg tablet 20 mg PO QPM #90 tab 07/30/19 08/09/19 Rx Allergies Allergy/AdvReac Type Severity Reaction Status Date / Time grass pollen-perennial rye, Allergy Intermediate DIFFICULTY Verified 08/09/19 15:11 standar BREATHING mold Allergy Intermediate DIFFICULTY Verified 08/09/19 15:11 BREATHING pollen extracts Allergy Intermediate DIFFICULTY Verified 08/09/19 15:11 BREATHING etodolac Allergy Unknown UNKNOWN Verified 08/09/19 15:11 simvastatin Allergy Unknown "FEELS Verified 08/09/19 15:11 FUNNY" tetanus toxoid, adsorbed Allergy Unknown SWELLING Verified 08/09/19 15:11 house dust Allergy Verified 08/09/19 15:11 pregabalin [From Lyrica] Allergy Verified 08/09/19 15:11 Lodine Allergy Unknown Uncoded 08/09/19 15:11 Past Med/Surg History Medical History Acquired claw toe of left foot (Acute) Acquired claw toe of right foot (Acute) Acquired hallux valgus of right foot (Acute) Asthma (Acute) Callus (Acute) Controlled type 2 diabetes mellitus with neurologic complication, with long-term current use of insulin (Acute) Diabetes (Chronic) Diabetes mellitus with diabetic polyneuropathy (Acute) Diabetic nephropathy associated with type 2 diabetes mellitus (Acute) Diabetic peripheral neuropathy associated with type 2 diabetes mellitus (Acute) Dyslipidemia (Acute) Dysuria (Acute) Edema (Acute) Generalized osteoarthritis of multiple sites (Acute) Generalized weakness (Acute) GI bleed (Acute) Hallux valgus (acquired), left foot (Acute) History of diabetic ulcer of foot (Resolved) History of gastrointestinal hemorrhage (Resolved) History of Helicobacter pylori infection (Resolved) Hypertension Long-term use of hydroxychloroquine (Acute) Loss of sensation (Acute) Low back pain (Acute) Neuropathic ulcer of toe of right foot (Acute) Osteoarthritis of hands, bilateral (Acute) Rheumatoid arthritis (Acute) Sensory problems with limbs (Acute) Urethral stricture (Acute) Urge and stress incontinence (Acute) Venous insufficiency (chronic) (peripheral) (Acute) Vertigo (Acute) Xerostomia (Acute) Surgical History S/P section S/P foot surgery S/P knee surgery S/P oophorectomy Status post repair of nerve Family History Mother Colorectal cancer Myocardial infarction Sister Diabetes Father Diabetes Grandfather Diabetes Myocardial infarction Other Family history non-contributory Social History Preferred Language: Tuvaluan Communication Ability: Effective Visual Impairment: No Limitations Hearing Ability: Normal Transition Assistant Required: No Beliefs That Will Affect Care: None marital status: Current Living Situation: Spouse current occupational status: employed 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 and A total of 10 systems reviewed and were otherwise negative Physical Exam Vital Signs Vital Signs - 24 hr 08/09/19 14:46 08/09/19 16:15 08/09/19 16:54 Temperature 37.1 C Temperature Source Oral Pulse Rate 89 Pulse Rate [Right Finger] 84 91 H 93 H Respiratory Rate 20 20 20 Respiratory Effort / Characteristics Non-Labored Spontaneous Respiratory Depth Normal Normal Blood Pressure [Right Arm] 157/99 H 124/66 139/63 Blood Pressure Mean [Right Arm] 118 85 88 Blood Pressure Position [Right Arm] Lying Pulse Oximetry 97 93 94 Oxygen Delivery Method Room Air Room Air Room Air Oxygen Flow Rate 08/09/19 18:39 Temperature Temperature Source Pulse Rate Pulse Rate [Right Finger] 84 Respiratory Rate 20 Respiratory Effort / Characteristics Non-Labored Respiratory Depth Normal Blood Pressure [Right Arm] 145/68 H Blood Pressure Mean [Right Arm] 93 Blood Pressure Position [Right Arm] Lying Pulse Oximetry 99 Oxygen Delivery Method Nasal Cannula Oxygen Flow Rate 2 GENERAL: The patient is awake and alert. She is very anxious appearing and appears to be in significant pain. EYES: The conjunctivae are clear. The pupils are round and reactive. EARS, NOSE, MOUTH AND THROAT: The nose is without any evidence of any deformity. Mucous membranes are moist. Tongue is midline. NECK: The neck is nontender and supple. RESPIRATORY: Normal respiratory effort is noted there is no evidence of wheezing rhonchi or rales CARDIOVASCULAR: Regular rate and rhythm noted there no murmurs rubs or gallops normal S1 normal S2. GASTROINTESTINAL: The abdomen is mildly distended. There is tenderness in the right upper quadrant. BACK: No midline tenderness was noted. There was significant right CVA tenderness to palpation and percussion. MUSCULOSKELETAL/EXTREMITIES: There is no evidence of gross deformity full range of motion is noted in the hips and shoulders. SKIN: There is no obvious evidence of any rash. Trace pedal edema was noted bilaterally. NEUROLOGIC: Patient is awake alert and oriented x3 strength is symmetric patellar reflexes are 2+ bilaterally Course Course 1403: Past medical records reviewed. The patient was evaluated in room C05. A complete history and physical exam was performed. During evaluation the patient's discomfort moved from the right flank to the middle of her back. 1614: Upon reevaluation, the patient is resting comfortably. I discussed laboratory and radiographic results with the patient. She verbalized agreement of the treatment plan. The patient will be evaluated for further management and care. 191: I discussed the patient's case with Dr. Tiera Blanchard, [facility] Hospitalist. He requests that I consult urology. He will evaluate the patient for further management and care. 1921: I discussed the patient's case with Dr. Llanes, Urology. Urology will be on consult for the hospitalist's evaluation. Administered Medications Atorvastatin Calcium (Lipitor) 20 mg PO QPM [facility] Stop: 09/08/19 20:59 Last Admin: 08/09/19 22:52 Dose: 20 mg Documented by: [id number] Clopidogrel Bisulfate (Plavix) 75 mg PO QAM [facility] Stop: 09/09/19 08:59 Last Admin: 08/10/19 09:43 Dose: 75 mg Documented by: [id number] Sodium Chloride (Nss 1000ml) 1,000 mls @ 150 mls/hr IV .Q6H40M [facility] Stop: 09/08/19 20:14 Last Infusion: 08/10/19 13:00 Dose: 0 mls/hr Documented by: [id number] Admin: 08/09/19 22:46 Dose: 60 mls/hr Documented by: [id number] Acetaminophen (Ofirmev) 1,000 mg in 100 mls @ 400 mls/hr IV Q8H PRN PRN Reason: Pain or Fever Stop: 08/13/19 03:16 Last Infusion: 08/10/19 04:40 Dose: 0 mls/hr Documented by: [id number] Admin: 08/10/19 03:34 Dose: 400 mls/hr Documented by: [id number] Insulin Aspart (Novolog Flexpen) 0 units SC ACHS [facility] Stop: 09/08/19 20:59 Last Admin: 08/10/19 13:25 Dose: Not Given Documented by: [id number] Cosigned by: [id number] Admin: 08/10/19 07:51 Dose: 2 units Documented by: [id number] Cosigned by: [id number] Admin: 08/09/19 22:52 Dose: 5 units Documented by: [id number] Cosigned by: [id number] Lactobacillus Acidophilus (Floranex Granules/Powder Packet) 1 gm PO TIDM [facility] Stop: 09/09/19 07:59 Last Admin: 08/10/19 13:12 Dose: Not Given Documented by: [id number] Admin: 08/10/19 09:41 Dose: Not Given Documented by: [id number] Miscellaneous (Order Awaiting Action) 1 ea N/A QS [facility] Stop: 09/09/19 00:00 Last Admin: 08/10/19 09:42 Dose: Not Given Documented by: [id number] Admin: 08/10/19 01:08 Dose: Not Given Documented by: [id number] Discontinued Medications Acetaminophen (Tylenol) 650 mg TN NOW STA Stop: 08/10/19 01:30 Last Admin: 08/10/19 01:32 Dose: 650 mg Documented by: [id number] Acetaminophen (Tylenol) Confirm Administered Dose 650 mg .ROUTE .STK-MED ONE Stop: 08/10/19 01:30 Last Admin: 08/10/19 01:32 Dose: Not Given Documented by: [id number] Dextrose (Dextrose 50%) 25 ml IV NOW ONE Stop: 08/09/19 16:51 Last Admin: 08/09/19 17:07 Dose: 25 ml Documented by: [id number] Fentanyl Citrate (Fentanyl Citrate) 50 mcg IV Q15M PRN PRN Reason: Pain Stop: 08/23/19 14:05 Last Admin: 08/09/19 16:53 Dose: 50 mcg Documented by: [id number] Admin: 08/09/19 14:36 Dose: 50 mcg Documented by: [id number] Sodium Chloride (Nss) 500 mls @ 999 mls/hr IV .Q31M VIVI Stop: 08/09/19 14:45 Last Infusion: 08/09/19 15:08 Dose: 0 mls/hr Documented by: [id number] Admin: 08/09/19 14:36 Dose: 999 mls/hr Documented by: [id number] Ceftriaxone Sodium (Rocephin) 2,000 mg in 70 mls @ 140 mls/hr IV NOW STA Stop: 08/09/19 16:43 Last Infusion: 08/09/19 17:47 Dose: 0 mls/hr Documented by: [id number] Admin: 08/09/19 17:09 Dose: 140 mls/hr Documented by: [id number] Iothalamate Meglumine (Cysto-Conray Ii) Confirm Administered Dose 250 ml .ROUTE .STK-MED ONE Stop: 08/10/19 13:11 Last Admin: 08/10/19 14:08 Dose: 20 ml Documented by: [id number] Miscellaneous (Patient's Height And/Or Weight Needed) 1 ea N/A Q2H VIVI Stop: 09/08/19 22:29 Last Admin: 08/10/19 03:01 Dose: Not Given Documented by: [id number] Admin: 08/10/19 03:01 Dose: Not Given Documented by: [id number] Ondansetron HCl (Zofran) 4 mg IV NOW STA Stop: 08/09/19 14:07 Last Admin: 08/09/19 14:36 Dose: 4 mg Documented by: [id number] Perflutren Lipid Microsphere (Definity) 2 ml IV ONCE ONE Stop: 08/10/19 08:29 Last Admin: 08/10/19 08:29 Dose: 2 ml Documented by: [id number] Medical Decision Making Differential Diagnosis Differential diagnosis: Etiologies such as shingles, pyelonephritis/UTI, renal colic, appendicitis, diverticulitis, mesenteric ischemia, torsion, aortic pathology, infections, inflammatory bowel disease, bowel obstruction, PUD, biliary pathology, as well as others were entertained. Medical Records Attestation: I reviewed the patient's medical records. Home Medications Current Medication List: was personally reviewed by me Laboratory Data Attestation: I reviewed the patient's lab results. Result diagrams: 08/10/19 07:52 08/10/19 07:52 Lab Results 08/09/19 08/09/19 08/09/19 Range/Units 14:15 14:15 14:15 WBC 12.42 H (4.8-10.8) K/uL RBC 4.62 (4.2-5.4) M/uL Hgb 13.1 (12.0-16.0) g/dL Hct 40.0 (37-47) % MCV 86.6 (80-100) fL MCH 28.4 (25-34) pg MCHC 32.8 (32-36) g/dL RDW Std Deviation 47.7 H (36.4-46.3) fL RDW Coeff of Ilana 15.1 H (11.5-14.5) % Plt Count 271 (130-400) K/uL MPV 10.0 (7.4-10.4) fL Immature Gran % (Auto) 0.3 % Neut % (Auto) 79.9 % Lymph % (Auto) 10.5 % Hart % (Auto) 8.5 % Eos % (Auto) 0.6 % Baso % (Auto) 0.2 % Immature Gran # (Auto) 0.04 H (0.00-0.02) K/uL Neut # (Auto) 9.92 H (1.4-6.5) K/uL Lymph # (Auto) 1.30 (1.2-3.4) K/uL Hart # (Auto) 1.05 H (0.11-0.59) K/uL Eos # (Auto) 0.08 (0-0.5) K/uL Baso # (Auto) 0.03 (0-0.2) K/uL PT Cancelled INR Cancelled APTT Cancelled PTT Ratio Cancelled Sodium 141 (136-145) mmol/L Potassium (3.5-5.1) mmol/L Chloride 104 (98-107) mmol/L Carbon Dioxide 28 (21-32) mmol/L Anion Gap 9.0 (3-11) BUN 20 H (7-18) mg/dl Creatinine 1.04 (0.6-1.2) mg/dl Est Cr Clr Drug Dosing Not Reportable Est GFR ( Amer) 63.0 Est GFR (Non-Af Amer) 54.4 BUN/Creatinine Ratio 19.2 (10-20) Glucose 75 (70-99) mg/dl POC Glucose (70-99) Estimat Average Glucose mg/dl Hemoglobin A1c (4.5-5.6) % Calcium 10.4 H (8.5-10.1) mg/dl Total Bilirubin 0.4 (0.2-1) mg/dl AST (15-37) U/L ALT 27 (12-78) U/L Alkaline Phosphatase 67 (45-117) U/L Total Protein 7.8 (6.4-8.2) gm/dl Albumin 3.7 (3.4-5.0) gm/dl Globulin 4.1 H (2.5-4.0) gm/dl Albumin/Globulin Ratio 0.9 (0.9-2) Lipase 62 L (73-393) U/L Urine Color Urine Appearance (Clear) Urine pH (4.5-7.5) Ur Specific [place] (1.000-1.030) Urine Protein (Negative) Urine Glucose (UA) (Negative) Urine Ketones (Negative) Urine Blood (Negative) Urine Nitrite (Negative) Urine Bilirubin (Negative) Urine Urobilinogen (Negative) Ur Leukocyte Esterase (Negative) Urine RBC (0-4) /hpf Urine WBC (0-5) /hpf Ur Epithelial Cells (0-5) /lpf Urine Bacteria (Negative) 08/09/19 08/09/19 08/09/19 Range/Units 14:15 14:40 16:05 WBC (4.8-10.8) K/uL RBC (4.2-5.4) M/uL Hgb (12.0-16.0) g/dL Hct (37-47) % MCV (80-100) fL MCH (25-34) pg MCHC (32-36) g/dL RDW Std Deviation (36.4-46.3) fL RDW Coeff of Ilana (11.5-14.5) % Plt Count (130-400) K/uL MPV (7.4-10.4) fL Immature Gran % (Auto) % Neut % (Auto) % Lymph % (Auto) % Hart % (Auto) % Eos % (Auto) % Baso % (Auto) % Immature Gran # (Auto) (0.00-0.02) K/uL Neut # (Auto) (1.4-6.5) K/uL Lymph # (Auto) (1.2-3.4) K/uL Hart # (Auto) (0.11-0.59) K/uL Eos # (Auto) (0-0.5) K/uL Baso # (Auto) (0-0.2) K/uL PT INR APTT PTT Ratio Sodium (136-145) mmol/L Potassium (3.5-5.1) mmol/L Chloride (98-107) mmol/L Carbon Dioxide (21-32) mmol/L Anion Gap (3-11) BUN (7-18) mg/dl Creatinine (0.6-1.2) mg/dl Est Cr Clr Drug Dosing Est GFR ( Amer) Est GFR (Non-Af Amer) BUN/Creatinine Ratio (10-20) Glucose (70-99) mg/dl POC Glucose 75 (70-99) Estimat Average Glucose 134 mg/dl Hemoglobin A1c 6.3 H (4.5-5.6) % Calcium (8.5-10.1) mg/dl Total Bilirubin (0.2-1) mg/dl AST (15-37) U/L ALT (12-78) U/L Alkaline Phosphatase (45-117) U/L Total Protein (6.4-8.2) gm/dl Albumin (3.4-5.0) gm/dl Globulin (2.5-4.0) gm/dl Albumin/Globulin Ratio (0.9-2) Lipase (73-393) U/L Urine Color Yellow Urine Appearance Clear (Clear) Urine pH 6.0 (4.5-7.5) Ur Specific [place] 1.025 (1.000-1.030) Urine Protein Trace H (Negative) Urine Glucose (UA) Negative (Negative) Urine Ketones Negative (Negative) Urine Blood 1+ H (Negative) Urine Nitrite Positive A (Negative) Urine Bilirubin Negative (Negative) Urine Urobilinogen Negative (Negative) Ur Leukocyte Esterase Negative (Negative) Urine RBC 5-10 H (0-4) /hpf Urine WBC 10-30 H (0-5) /hpf Ur Epithelial Cells 20-30 H (0-5) /lpf Urine Bacteria 4+ H (Negative) 08/09/19 08/09/19 Range/Units 16:28 17:54 WBC (4.8-10.8) K/uL RBC (4.2-5.4) M/uL Hgb (12.0-16.0) g/dL Hct (37-47) % MCV (80-100) fL MCH (25-34) pg MCHC (32-36) g/dL RDW Std Deviation (36.4-46.3) fL RDW Coeff of Ilana (11.5-14.5) % Plt Count (130-400) K/uL MPV (7.4-10.4) fL Immature Gran % (Auto) % Neut % (Auto) % Lymph % (Auto) % Hart % (Auto) % Eos % (Auto) % Baso % (Auto) % Immature Gran # (Auto) (0.00-0.02) K/uL Neut # (Auto) (1.4-6.5) K/uL Lymph # (Auto) (1.2-3.4) K/uL Hart # (Auto) (0.11-0.59) K/uL Eos # (Auto) (0-0.5) K/uL Baso # (Auto) (0-0.2) K/uL PT INR APTT PTT Ratio Sodium (136-145) mmol/L Potassium (3.5-5.1) mmol/L Chloride (98-107) mmol/L Carbon Dioxide (21-32) mmol/L Anion Gap (3-11) BUN (7-18) mg/dl Creatinine (0.6-1.2) mg/dl Est Cr Clr Drug Dosing Est GFR ( Amer) Est GFR (Non-Af Amer) BUN/Creatinine Ratio (10-20) Glucose (70-99) mg/dl POC Glucose 74 130 H (70-99) Estimat Average Glucose mg/dl Hemoglobin A1c (4.5-5.6) % Calcium (8.5-10.1) mg/dl Total Bilirubin (0.2-1) mg/dl AST (15-37) U/L ALT (12-78) U/L Alkaline Phosphatase (45-117) U/L Total Protein (6.4-8.2) gm/dl Albumin (3.4-5.0) gm/dl Globulin (2.5-4.0) gm/dl Albumin/Globulin Ratio (0.9-2) Lipase (73-393) U/L Urine Color Urine Appearance (Clear) Urine pH (4.5-7.5) Ur Specific [place] (1.000-1.030) Urine Protein (Negative) Urine Glucose (UA) (Negative) Urine Ketones (Negative) Urine Blood (Negative) Urine Nitrite (Negative) Urine Bilirubin (Negative) Urine Urobilinogen (Negative) Ur Leukocyte Esterase (Negative) Urine RBC (0-4) /hpf Urine WBC (0-5) /hpf Ur Epithelial Cells (0-5) /lpf Urine Bacteria (Negative) Imaging Data Radiologist's Impression: Radiology results as stated below per my review and the radiologist's interpretation: CT OF THE ABDOMEN AND PELVIS WITHOUT CONTRAST CLINICAL HISTORY: Right flank pain. COMPARISON STUDY: CT of the abdomen and pelvis June 18, 2018. TECHNIQUE: Axial images of the abdomen and pelvis were obtained without IV contrast. Images were reviewed in the axial, sagittal, and coronal planes. Automated exposure control was utilized for the study. A dose lowering technique was utilized adhering to the principles of ALARA. FINDINGS: Lung bases are unremarkable. A 5 mm right ureteropelvic junction calculus results in moderate hydronephrosis. No additional urinary calculi identified. There is mild right perinephric and periureteral infiltration. Evaluation of the remainder of the abdomen and pelvis is suboptimal on this unenhanced examination. The liver, spleen, adrenal glands and pancreas are unremarkable. The appendix is normal. There is colonic diverticulosis without evidence for acute diverticulitis. There is no lymphadenopathy or ascites. There are no suspicious osseous lesions. Calcified fibroids are noted. IMPRESSION: 1. 5 mm right ureteropelvic junction calculus which results in moderate right hydronephrosis with perinephric and periureteral infiltration. 2. Colonic diverticulosis without evidence for acute diverticulitis. Electronically signed by: Mj Membreno M.D. 08/09/2019 4:00 PM Blood Pressure Blood Pressure Findings: Elevated blood pressure Blood Pressure Disposition: further management by hospitalist [facility] Narrative The patient is a 69-year-old female who presented to the emergency department with right flank pain. The patient had acute onset of right flank pain. The pain was very severe. Due to the acuity of the pain I felt this was consistent with renal colic. The patient was treated with IV fluids and IV pain medication. She was also given IV antibiotics for presumed urinary tract infection. The patient had a CAT scan which did reveal a large proximal right ureteral calculus. Due to the patient's finding on CAT scan as well as the findings on urinalysis I do feel the patient would be a better candidate for inpatient management. I discussed the patient's laboratory and radiographic studies with her. She was agreeable to this plan. [facility] They will evaluate the patient in the emergency department for further management and disposition. Impression & Plan Kidney stone, Hydronephrosis, Acute UTI Discharge Plan Visit Data *Final* Discharge Date/Time: 08/09/19 21:19 Chief Complaint: Back Injury/Pain Stated Complaint: BACK PAIN ED Provider: Chicho Roberson Discharge Problem: Kidney stone, Hydronephrosis, Acute UTI Patient Disposition: Admitted As Inpatient Discharge Instructions Interventions: ED Discharge Assessment Last Done: 08/09/19 21:19 Discharge Problem: Hydronephrosis Qualifiers: Hydronephrosis type: unspecified Qualified Code(s): N13.30 - Unspecified hydronephrosis The scribe's documentation has been prepared under my direction and personally reviewed by me in its entirety. I confirm that the note above accurately reflects all work, treatment, procedures, and medical decision making performed by me.
[2019-08-09 15:02] LABS: Appearance Urine Clear (Clear); Bilirubin Urine Negative (Negative); Blood Urine 1+ (Negative); Color Urine Yellow; Glucose Urine UA Negative (Negative); Ketones Urine Negative (Negative); Leukocyte Esterase Urine Negative (Negative); Nitrite Urine Positive (Negative); Protein Urine Trace (Negative); Specific Gravity Urine 1.025 (1.000-1.030); Urobilinogen Urine Negative (Negative)
[2019-08-09 15:28] LABS: Epithelial Cell Urine 20-30 /lpf (0-5)
[2019-08-09 15:29] LABS: Bacteria Urine 4+ (Negative)
[2019-08-09 15:31] LABS: Alanine Aminotransferase 27 U/L (12-78); Albumin Globulin Ratio 0.9 (0.9-2); Albumin Level 3.7 gm/dl (3.4-5.0); Alkaline Phosphatase 67 U/L (45-117); BUN Creatinine Ratio 19.2 (10-20); Bilirubin,Total 0.4 mg/dl (0.2-1); Blood Urea Nitrogen 20 mg/dl (7-18); Calcium 10.4 mg/dl (8.5-10.1); Carbon Dioxide 28 mmol/L (21-32); Chloride 104 mmol/L (98-107); Est GFR (Non-African American) 54.4; Globulin 4.1 gm/dl (2.5-4.0); Glucose 75 mg/dl (70-99); Lipase 62 U/L (73-393); Sodium 141 mmol/L (136-145); Total Protein 7.8 gm/dl (6.4-8.2)
--- NOTE | 2019-08-09 16:01 | CT Scan Report ---
CT OF THE ABDOMEN AND PELVIS WITHOUT CONTRAST CLINICAL HISTORY: Right flank pain. COMPARISON STUDY: CT of the abdomen and pelvis June 18, 2018. TECHNIQUE: Axial images of the abdomen and pelvis were obtained without IV contrast. Images were revi ewed in the axial, sagittal, and coronal planes. Automated exposure control was utilized for the gene dy. A dose lowering technique was utilized adhering to the principles of ALARA. FINDINGS: Lung bases are unremarkable. A 5 mm right ureteropelvic junction calculus results in modera te hydronephrosis. No additional urinary calculi identified. There is mild right perinephric and omari ureteral infiltration. Evaluation of the remainder of the abdomen and pelvis is suboptimal on this un enhanced examination. The liver, spleen, adrenal glands and pancreas are unremarkable. The appendix i s normal. There is colonic diverticulosis without evidence for acute diverticulitis. There is no lymp hadenopathy or ascites. There are no suspicious osseous lesions. Calcified fibroids are noted. IMPRESSION: 1. 5 mm right ureteropelvic junction calculus which results in moderate right hydronephrosis with per inephric and periureteral infiltration. 2. Colonic diverticulosis without evidence for acute diverticulitis. Electronically signed by: Mj Membreno M.D. 08/09/2019 4:00 PM
[2019-08-09] MEDS ORDERED: cefTRIAXone SODIUM 2,000 MG/70 ML BAG IV STA (16:14)
[2019-08-09] MEDS ORDERED: DEXTROSE 50% 50 ML SYRINGE IV ONE (16:50)
[2019-08-09] MEDS ORDERED: IPRATROPIUM BROMIDE/ALBUTEROL respimat INH INH PRN (20:05)
[2019-08-09] MEDS ORDERED: GLUCAGON FOR INJ 1 MG VIAL SQ PRN (20:07)
[2019-08-09] MEDS ORDERED: ONDANSETRON INJ 2 MG/ML 2 ML VIAL IV PRN (20:07)
[2019-08-09] MEDS ORDERED: CARBOHYDRATES FOR HYPOGLYCEMIA PO PRN (20:07)
[2019-08-09] MEDS ORDERED: ZOLPIDEM TARTRATE 5 MG TAB PO PRN (20:07)
[2019-08-09] MEDS ORDERED: GLUCOSE 40% GEL 15 GM TUBE PO PRN (20:07)
[2019-08-09] MEDS ORDERED: DEXTROSE 50% 50 ML SYRINGE IV PRN (20:07)
[2019-08-09] MEDS ORDERED: ALUMINUM/MAGNESIUM SUSP 30 ML UDC PO PRN (20:07)
[2019-08-09] MEDS ORDERED: MAGNESIUM HYDROXIDE SUSP 30 ML UDC PO PRN (20:07)
[2019-08-09] MEDS ORDERED: GLUCOSE 10 TABS/TUBE PO PRN (20:07)
[2019-08-09] MEDS ORDERED: POLYETHYLENE (MIRALAX) 17 GM PACK PO PRN (20:07)
[2019-08-09] MEDS ORDERED: MoRPHine SULFATE 2 MG/ML CARP IV PRN (20:12)
--- NOTE | 2019-08-09 20:37 | History & Physical Report ---
Date of Service August 09, 2019 Assessment & Plan (1) UTI (urinary tract infection): Complicated UTI/obstructive uropathy Continue ceftriaxone Urine culture/blood cultures Admit to telemetry (2) Obstructive uropathy: Consult urologist, Dr. Llanes recommended n.p.o. after midnight Continue straining urine CT scan abdomen reviewed, 5 mm right ureteropelvic junction calculus which results in moderate right hydronephrosis with perinephric and periureteral infiltration. (3) Rheumatoid arthritis: Hold methotrexate Patient denies taking any prednisone (4) Hyperlipidemia: Continue atorvastatin (5) Essential (primary) hypertension: Hold losartan hydrochlorothiazide for potential sepsis Restart blood pressure meds as needed (6) Diabetes 1.5, managed as type 2: Hold glipizide and metformin Hold home insulin dose Patient will be n.p.o., keep on sliding scale insulin History of Present Illness Chief Complaint: Abdominal pain and chills Primary Care Provider: Chicho Langley MD 69 years old female with past medical history of diabetes mellitus type 2 on insulin, COPD, neuropathy, sleep apnea noncompliant with CPAP, morbid obesity and essential hypertension 08/09/2019 with abdominal pain, right flank pain associated with nausea and vomiting and chills. Pain started today and woke her up from sleep at 3 AM. Associated with chills vomiting x1 no hematemesis.. In the ED she had a CT abdomen that showed 5 mm right ureteropelvic junction calculus with moderate right hydronephrosis and perinephric and periureteral in filtration. UA was suggestive for UTI. She was giving 1 dose of ceftriaxone, urologist was consulted and recommended n.p.o. from midnight for possible cystoscopy and stent placement in the morning. Patient will be admitted for further evaluation and management. Allergies Allergy/AdvReac Type Severity Reaction Status Date / Time grass pollen-perennial rye, Allergy Intermediate DIFFICULTY Verified 08/09/19 15:11 standar BREATHING mold Allergy Intermediate DIFFICULTY Verified 08/09/19 15:11 BREATHING pollen extracts Allergy Intermediate DIFFICULTY Verified 08/09/19 15:11 BREATHING etodolac Allergy Unknown UNKNOWN Verified 08/09/19 15:11 simvastatin Allergy Unknown "FEELS Verified 08/09/19 15:11 FUNNY" tetanus toxoid, adsorbed Allergy Unknown SWELLING Verified 08/09/19 15:11 house dust Allergy Verified 08/09/19 15:11 pregabalin [From Lyrica] Allergy Verified 08/09/19 15:11 Lodine Allergy Unknown Uncoded 08/09/19 15:11 Home Medications Home Medications Medication Instructions Recorded Confirmed Type aspirin [Aspir-81] 81 mg PO DAILY 06/18/18 08/09/19 History hydrochlorothiazide 25 mg PO DAILY 06/18/18 08/09/19 History metformin 1,000 mg PO BID 06/18/18 08/09/19 History multivitamin 1 tab PO DAILY 06/18/18 08/09/19 History Novolin N NPH U-100 Insulin 25 - 30 units SUBCUT DAILY 10/01/18 08/09/19 History cholecalciferol (vitamin D3) 1,000 unit PO DAILY 10/01/18 08/09/19 History vitamin E 400 unit PO DAILY 10/01/18 08/09/19 History fesoterodine 8 mg tablet,extended 8 mg PO DAILY #90 tab 04/16/19 08/09/19 Rx release 24 hr losartan 50 mg tablet 50 mg PO DAILY 90 Days #90 tab 04/26/19 08/09/19 Rx cyanocobalamin (vitamin B-12) 1,000 mcg PO DAILY tab 05/22/19 08/09/19 History 1,000 mcg tablet folic acid 1 mg tablet 1 mg PO DAILY tab 05/22/19 08/09/19 History glipizide 5 mg tablet 5 mg PO UD tab 05/22/19 08/09/19 History insulin regular human 100 regular 15 units SUBCUT DAILY ml 05/22/19 08/09/19 History human 100 unit/mL injection solution ipratropium 20 mcg-albuterol 100 1 puffs INH Q6H PRN 05/22/19 08/09/19 History mcg/actuation mist for inhalation methotrexate sodium 2.5 mg tablet 5 mg PO WEEKLY tab 05/22/19 08/09/19 History atorvastatin 20 mg tablet 20 mg PO QPM #90 tab 07/30/19 08/09/19 Rx Past Med/Surg History Medical History Acquired claw toe of left foot (Acute) Acquired claw toe of right foot (Acute) Acquired hallux valgus of right foot (Acute) Asthma (Acute) Callus (Acute) Controlled type 2 diabetes mellitus with neurologic complication, with long-term current use of insulin (Acute) Diabetes (Chronic) Diabetes mellitus with diabetic polyneuropathy (Acute) Diabetic nephropathy associated with type 2 diabetes mellitus (Acute) Diabetic peripheral neuropathy associated with type 2 diabetes mellitus (Acute) Dyslipidemia (Acute) Dysuria (Acute) Edema (Acute) Generalized osteoarthritis of multiple sites (Acute) Generalized weakness (Acute) GI bleed (Acute) Hallux valgus (acquired), left foot (Acute) History of diabetic ulcer of foot (Resolved) History of gastrointestinal hemorrhage (Resolved) History of Helicobacter pylori infection (Resolved) Hypertension Long-term use of hydroxychloroquine (Acute) Loss of sensation (Acute) Low back pain (Acute) Neuropathic ulcer of toe of right foot (Acute) Osteoarthritis of hands, bilateral (Acute) Rheumatoid arthritis (Acute) Sensory problems with limbs (Acute) Urethral stricture (Acute) Urge and stress incontinence (Acute) Venous insufficiency (chronic) (peripheral) (Acute) Vertigo (Acute) Xerostomia (Acute) Surgical History S/P section S/P foot surgery S/P knee surgery S/P oophorectomy Status post repair of nerve Family History Mother Colorectal cancer Myocardial infarction Sister Diabetes Father Diabetes Grandfather Diabetes Myocardial infarction Other Family history non-contributory Social History Preferred Language: Bahraini Visual Impairment: No Limitations Hearing Ability: Normal Beliefs That Will Affect Care: None marital status: Current Living Situation: Spouse current occupational status: employed 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 Feels Safe at Home: Yes Smoking Status: Former smoker Second Hand Exposure: No ; Hx Alcohol Use: No Hx Substance Use: No Seatbelt Use: always Review of Systems Review of Systems: Review of system Constitutional: Generalized body ache, chills Eyes: no blurring of vision / no eye pain / no discharge / no redness ENT: no hearing loss / no epistaxis /no swallowing problems Respiratory: no cough / no wheezing / no SOB / no hemoptysis Cardiovascular: no Chest pain / no lower extremity edema / no palpitation Abdomen: Generalized abdominal pain but mainly right flank Musculoskeletal: no joint pain / no muscle pain / no joint swelling Genitourinary: no dysuria / no incontinence / no urinary retention Neurologic: no focal weakness / no numbness/tingling / no ataxia Psychiatric: no depression symptoms / no anxiety / no insomnia Endocrine: no excessive thirst / no excessive urination Hematologic: no abnormal bleeding / no bruising / no LN swelling Skin: No rash / no pallor Physical Exam Physical Exam: Physical examination General obese, appears to be in mild distress HEENT: Atraumatic , normocephalic /no jaundice /no pallor /anicteric /no dry mucous membrane /normal external ear inspection Neck: Supple /no swelling /central trach Heart: S1/S2 normal/regular rate and rhythm/no gallop /no rub /no murmur Lungs: Clear to auscultation bilaterally/normal chest with expansion/no rhonchi/no rales/no wheezing/no use of accessory muscles of respiration Abdomen: Overall abdomen is soft, but the patient does have some right costovertebral angle tenderness to the right middle quadrant. Musculoskeletal: No swelling/no edema/no tenderness/normal range of motion Neuro exam: Awake alert oriented 3/cranial nerves II through XII appear to be intact/sensation intact/moves all extremities/no abnormal movements Psychiatric evaluation: No depressed mood/normal affect Skin: No rash on exposed skin area/no erythema Extremity: Normal pulse/no pitting edema/no clubbing or cyanosis Endocrine/lymphatic: No obvious lymphadenopathy /no lymphedema Results & Data Vital Signs (Past 12 Hours) Vital Signs Temp Pulse Pulse Resp BP BP Pulse Ox 08/09/19 18:39 84 20 145/68 H 99 08/09/19 16:54 37.1 C 93 H 20 139/63 94 08/09/19 16:15 89 91 H 20 124/66 93 08/09/19 14:46 84 20 157/99 H 97 08/09/19 12:51 36.8 C 83 16 170/99 H 96 Code Status & VTE Plan Code Status Full code as per discussion with patient VTE Prophylaxis Plan VTE Prophylaxis will be ordered: Yes PG Care Time/CCT Total # of Minutes Spent Total Time Spent with Patient: 35 minutes total time spent is greater than 50% in coordination of care (as documented) at patient's floor/unit and/or counseling patient/family discussion of care with nursing staff
[2019-08-09] MEDS: SODIUM CHLORIDE 0.9% 1000ML 1,000 ML IV SCH (22:46)
[2019-08-09] MEDS: INSULIN ASPART 100 UNITS/ML 3 ML PEN SC SCH (22:52)
[2019-08-09] MEDS: ATORVASTATIN 20 MG TAB PO SCH (22:52)
[2019-08-09 23:20] LABS: INR 1.1 (0.9-1.1); Partial Thromboplastin Time 26.8 Seconds (21.0-31.0)
[2019-08-10] MEDS: ACETAMINOPHEN 325 MG TAB PO PRN ×2 (01:08→15:43)
[2019-08-10] MEDS ORDERED: ACETAMINOPHEN 650 MG SUPP PR STA (01:29)
[2019-08-10] MEDS ORDERED: ACETAMINOPHEN 650 MG SUPP ONE (01:29)
--- NOTE | 2019-08-10 02:43 | Procedure Note ---
Procedure Note Date of Service August 10, 2019 Stroke alert was called in this patient while in PCU room 242-2. Upon assessment in the ICU room 112, the patient was noted to have poor peripheral access with a 22-gauge IV in her LEFT foot. IV team had tried multiple occasions for peripheral access. At the request of staff and need for better access, I did assess the patient with ultrasound. Large cephalic vein was appreciated in the LEFT upper arm. Discussed this with the patient prior to procedure. She consents for insertion of Endurance catheter. Procedure: Skilled Nursing Indwelling Peripherally Inserted IV Catheter Placement Attending: Dr. Diallo APC: Julio Cesar Angelo PA-C Indication: Need for IV Access, Poor Vascular Access Anesthesia: None Verbal consent was obtained from patient prior to performing the procedure. A time-out was completed verifying correct patient, procedure, site, positioning, and implant(s) or special equipment if applicable. Utilizing bedside ultrasound, vascularity of the LEFT upper extremity was assessed. Vessel size was noted for appropriate catheter selection and skin was marked with gen tle pressure. Patients LEFT upper extremity was prepped and draped in the usual sterile fashion utilizing chlorhexidine. Ultrasound guidance was used to aid needle placement. An 18 g Endurance Catheter was introduced into the LEFT cephalic vein under direct ultrasound guidance. Guide wire was easily deployed without resistance. Catheter was threaded over the guide wire without resistance and the entire apparatus was removed intact. Good venous blood return was noted in the catheter. The IV catheter was easily flushed with sterile saline flush. Sterile clave was attached to the end of the catheter and good blood return was again noted. Tourniquet was released. StatLock device and sterile dressing were applied. The patient tolerated the procedure well. Blood Loss: Minimal Complications: None Procedural Ultrasound Guidance: Procedure Date: 08/10/2019 Indication: Poor Vascular Access Attending: Dr. Diallo APC: Julio Cesar Angelo PA-C Artery/Veins Identified: YES Access confirmed in Vein with ultrasound: YES Complications: NONE Patient tolerated procedure: WELL Coding CPT Codes Tubes, Drains, and Vasc Access - Tubes, Drains, and Vasc Access: [id number] Venipuncture, Age 2/>Req phys skill, (sep proc), Dx/Tx (not rtn) ([id number])
[2019-08-10] MEDS: PATIENT'S HEIGHT AND/OR WEIGHT NEEDED SCH (03:01)
[2019-08-10] MEDS ORDERED: ACETAMINOPHEN 1,000 MG/100 ML VIAL IV PRN (03:17)
--- NOTE | 2019-08-10 05:56 | Hospitalist Consultation ---
Date of Consultation August 10, 2019 Assessment & Plan (1) Altered mental status: Paged by nursing staff at 0125 this morning. Nurse described an acute/abrupt change in patient's mental status. Nurse noted that she had previously been able to walk to the bathroom on her own had been pleasantly conversant, alert and oriented x3. Nurse was attempting to establish an IV line site, when she noted that the patient was acutely dysphasic, eyes were drifting to the right. NIHSS was obtained, and patient scored 15. Score included stuporous level of consciousness, unable to follow commands, bilateral hemianopsia, drift in right leg, aphasia and dysarthria. Stroke alert was called and stat CT head was obtained. It was also noted that patient temperature was elevated at this time. She was administered [place] Tylenol. CT head negative for acute bleed. By the time the patient was assessed by the tele-stroke service, most of her symptoms had resolved. Dr. Ford did note a right leg deficit, however patient reported that this is chronic for her. She recommended we add Plavix to the patient's regimen and work her up for a possible TIA. She also recommended that we consider deferring her urologic procedure today. I will leave this to day team discretion and discussion with the surgeon. History of Present Illness Attending Physician: Walt Greenwood MD Allergies Allergy/AdvReac Type Severity Reaction Status Date / Time grass pollen-perennial rye, Allergy Intermediate DIFFICULTY Verified 08/09/19 15:11 standar BREATHING mold Allergy Intermediate DIFFICULTY Verified 08/09/19 15:11 BREATHING pollen extracts Allergy Intermediate DIFFICULTY Verified 08/09/19 15:11 BREATHING etodolac Allergy Unknown UNKNOWN Verified 08/09/19 15:11 simvastatin Allergy Unknown "FEELS Verified 08/09/19 15:11 FUNNY" tetanus toxoid, adsorbed Allergy Unknown SWELLING Verified 08/09/19 15:11 house dust Allergy Verified 08/09/19 15:11 pregabalin [From Lyrica] Allergy Verified 08/09/19 15:11 Lodine Allergy Unknown Uncoded 08/09/19 15:11 Home Medications Home Medications Medication Instructions Recorded Confirmed Type aspirin [Aspir-81] 81 mg PO DAILY 06/18/18 08/09/19 History hydrochlorothiazide 25 mg PO DAILY 06/18/18 08/09/19 History metformin 1,000 mg PO BID 06/18/18 08/09/19 History multivitamin 1 tab PO DAILY 06/18/18 08/09/19 History Novolin N NPH U-100 Insulin 25 - 30 units SUBCUT DAILY 10/01/18 08/09/19 History cholecalciferol (vitamin D3) 1,000 unit PO DAILY 10/01/18 08/09/19 History vitamin E 400 unit PO DAILY 10/01/18 08/09/19 History fesoterodine 8 mg tablet,extended 8 mg PO DAILY #90 tab 04/16/19 08/09/19 Rx release 24 hr losartan 50 mg tablet 50 mg PO DAILY 90 Days #90 tab 04/26/19 08/09/19 Rx cyanocobalamin (vitamin B-12) 1,000 mcg PO DAILY tab 05/22/19 08/09/19 History 1,000 mcg tablet folic acid 1 mg tablet 1 mg PO DAILY tab 05/22/19 08/09/19 History glipizide 5 mg tablet 5 mg PO UD tab 05/22/19 08/09/19 History insulin regular human 100 regular 15 units SUBCUT DAILY ml 05/22/19 08/09/19 History human 100 unit/mL injection solution ipratropium 20 mcg-albuterol 100 1 puffs INH Q6H PRN 05/22/19 08/09/19 History mcg/actuation mist for inhalation methotrexate sodium 2.5 mg tablet 5 mg PO WEEKLY tab 05/22/19 08/09/19 History atorvastatin 20 mg tablet 20 mg PO QPM #90 tab 07/30/19 08/09/19 Rx Patient History Medical History Acquired claw toe of left foot (Acute) Acquired claw toe of right foot (Acute) Acquired hallux valgus of right foot (Acute) Asthma (Acute) Callus (Acute) Controlled type 2 diabetes mellitus with neurologic complication, with long-term current use of insulin (Acute) Diabetes (Chronic) Diabetes mellitus with diabetic polyneuropathy (Acute) Diabetic nephropathy associated with type 2 diabetes mellitus (Acute) Diabetic peripheral neuropathy associated with type 2 diabetes mellitus (Acute) Dyslipidemia (Acute) Dysuria (Acute) Edema (Acute) Generalized osteoarthritis of multiple sites (Acute) Generalized weakness (Acute) GI bleed (Acute) Hallux valgus (acquired), left foot (Acute) History of diabetic ulcer of foot (Resolved) History of gastrointestinal hemorrhage (Resolved) History of Helicobacter pylori infection (Resolved) Hypertension Long-term use of hydroxychloroquine (Acute) Loss of sensation (Acute) Low back pain (Acute) Neuropathic ulcer of toe of right foot (Acute) Osteoarthritis of hands, bilateral (Acute) Rheumatoid arthritis (Acute) Sensory problems with limbs (Acute) Urethral stricture (Acute) Urge and stress incontinence (Acute) Venous insufficiency (chronic) (peripheral) (Acute) Vertigo (Acute) Xerostomia (Acute) Surgical History S/P section S/P foot surgery S/P knee surgery S/P oophorectomy Status post repair of nerve Family History Mother Colorectal cancer Myocardial infarction Sister Diabetes Father Diabetes Grandfather Diabetes Myocardial infarction Other Family history non-contributory Social History Preferred Language: Uzbek Communication Ability: Effective Visual Impairment: No Limitations Hearing Ability: Normal Sybase Developer Required: No Beliefs That Will Affect Care: None marital status: Current Living Situation: Spouse current occupational status: employed 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 Feels Safe at Home: Yes Smoking Status: Former smoker Second Hand Exposure: No ; Hx Alcohol Use: No Hx Substance Use: No Seatbelt Use: always Results & Data Vital Signs (Past 12 Hours) Vital Signs Temp Pulse Resp BP BP Pulse Ox 08/10/19 03:10 99.7 F H 89 20 125/76 96 08/10/19 02:19 99 H 24 128/70 93 08/10/19 02:09 97 H 22 123/68 93 08/10/19 01:56 102 H 20 127/70 96 08/10/19 01:32 102.9 F H 08/09/19 23:52 100.8 F H 93 H 21 111/72 94 08/09/19 21:55 98.4 F 95 H 28 H 120/83 95 08/09/19 21:11 96 H 18 116/52 L 95 08/09/19 18:39 84 20 145/68 H 99 Resident Activity Tracking Resident Involvement: Resident Care Provided and Soda Column Operator Coverage Note Care Provided: Adult Hospital Medicine
[2019-08-10 06:19] LABS: Estimated Average Glucose 134 mg/dl; Hemoglobin A1C 6.3 % (4.5-5.6)
--- NOTE | 2019-08-10 06:39 | CT Scan Report ---
CT head/brain wo con CLINICAL HISTORY: New onset achalasia COMPARISON STUDY: Head CT dated 12/22/2008, MRI the brain dated 10/05/2018 TECHNIQUE: Axial CT of the brain is performed from the vertex to the skull base. IV contrast was not administered for this examination. A dose lowering technique was utilized adhering to the principles of ALARA. CT DOSE: 691.05 mGy.cm FINDINGS: No intra or extra-axial mass lesions are visualized. There is no CT evidence of acute cortical infarc tion. There is no evidence of midline shift. There is no acute hemorrhage. No calvarial fractures ar e visualized. There are patchy white matter hypodensities likely on a small vessel basis. There is no evidence of pathologic ventricular dilatation. There is no evidence of acute sinusitis IMPRESSION: No acute intracranial findings Electronically signed by: Umesh Julio M.D. 08/10/2019 6:37 AM
--- NOTE | 2019-08-10 07:46 | Urology Consultation ---
Date of Consultation August 10, 2019 Assessment & Plan (1) Kidney stone: 69yo F admitted with right flank pain, diagnosed with 5mm Right UPJ stone, moderate hydronephrosis, febrile illness, r/o TIA due to acute mental status changes while inpatient. UA suspicious for UTI, Tmax 39.4 and trending down. VSS, pt is currently nontoxic. Appreciate neurology's recommendations, however we are concerned she may have early sepsis and intervention is indicated in this settling. Findings reviewed with Dr. Patel. Given her febrile illness in the context of an obstructing right ureteral stone, will proceed with OR for cysto, right retrograde pyelogram and right stent placement. Risks and benefits to be reviewed with patient by Dr. Patel. OR notified. Preoperative CXR and EKG ordered. On ceftriaxone IV which will cover adequately. History of Present Illness Reason for Consultation: stone Requesting Physician: Dr Greenwood Attending Physician: Walt Greenwood MD History of Present Illness 69yo F admitted via [facility] with ongoing right flank pain. Diagnosed with 5mm Right UPJ stone with moderate hydronephrosis, no renal stones. Tmax 39.4C, trending down to 37.6C this AM. UA +nitrite and +4 bacteria, prelim UC&S gram neg bacilli. BP is currently stable, pt does require supplemental O2. Currently on Ceftriaxone IV. Of note, patient experienced acute mental status changes last night approx 0125AM including aphasia, and 'eyes drifting to right'. Pt now appropriate and oriented. Currently undergoing Echo per primary team. She denies any pain. No dysuria, hematuria. States she felt fine until pain came on acutely around 3AM. No preceding events or UTI symptoms. Established with Dr. Shiva marcelino urinary urgency, last evaluated in April 2018. Stable at that time. This is her first stone. Allergies Allergy/AdvReac Type Severity Reaction Status Date / Time grass pollen-perennial rye, Allergy Intermediate DIFFICULTY Verified 08/09/19 15:11 standar BREATHING mold Allergy Intermediate DIFFICULTY Verified 08/09/19 15:11 BREATHING pollen extracts Allergy Intermediate DIFFICULTY Verified 08/09/19 15:11 BREATHING etodolac Allergy Unknown UNKNOWN Verified 08/09/19 15:11 simvastatin Allergy Unknown "FEELS Verified 08/09/19 15:11 FUNNY" tetanus toxoid, adsorbed Allergy Unknown SWELLING Verified 08/09/19 15:11 house dust Allergy Verified 08/09/19 15:11 pregabalin [From Lyrica] Allergy Verified 08/09/19 15:11 Lodine Allergy Unknown Uncoded 08/09/19 15:11 Home Medications Home Medications Medication Instructions Recorded Confirmed Type aspirin [Aspir-81] 81 mg PO DAILY 06/18/18 08/09/19 History hydrochlorothiazide 25 mg PO DAILY 06/18/18 08/09/19 History metformin 1,000 mg PO BID 06/18/18 08/09/19 History multivitamin 1 tab PO DAILY 06/18/18 08/09/19 History Novolin N NPH U-100 Insulin 25 - 30 units SUBCUT DAILY 10/01/18 08/09/19 History cholecalciferol (vitamin D3) 1,000 unit PO DAILY 10/01/18 08/09/19 History vitamin E 400 unit PO DAILY 10/01/18 08/09/19 History fesoterodine 8 mg tablet,extended 8 mg PO DAILY #90 tab 04/16/19 08/09/19 Rx release 24 hr losartan 50 mg tablet 50 mg PO DAILY 90 Days #90 tab 04/26/19 08/09/19 Rx cyanocobalamin (vitamin B-12) 1,000 mcg PO DAILY tab 05/22/19 08/09/19 History 1,000 mcg tablet folic acid 1 mg tablet 1 mg PO DAILY tab 05/22/19 08/09/19 History glipizide 5 mg tablet 5 mg PO UD tab 05/22/19 08/09/19 History insulin regular human 100 regular 15 units SUBCUT DAILY ml 05/22/19 08/09/19 History human 100 unit/mL injection solution ipratropium 20 mcg-albuterol 100 1 puffs INH Q6H PRN 05/22/19 08/09/19 History mcg/actuation mist for inhalation methotrexate sodium 2.5 mg tablet 5 mg PO WEEKLY tab 05/22/19 08/09/19 History atorvastatin 20 mg tablet 20 mg PO QPM #90 tab 07/30/19 08/09/19 Rx Patient History Medical History Acquired claw toe of left foot (Acute) Acquired claw toe of right foot (Acute) Acquired hallux valgus of right foot (Acute) Asthma (Acute) Callus (Acute) Controlled type 2 diabetes mellitus with neurologic complication, with long-term current use of insulin (Acute) Diabetes (Chronic) Diabetes mellitus with diabetic polyneuropathy (Acute) Diabetic nephropathy associated with type 2 diabetes mellitus (Acute) Diabetic peripheral neuropathy associated with type 2 diabetes mellitus (Acute) Dyslipidemia (Acute) Dysuria (Acute) Edema (Acute) Generalized osteoarthritis of multiple sites (Acute) Generalized weakness (Acute) GI bleed (Acute) Hallux valgus (acquired), left foot (Acute) History of diabetic ulcer of foot (Resolved) History of gastrointestinal hemorrhage (Resolved) History of Helicobacter pylori infection (Resolved) Hypertension Long-term use of hydroxychloroquine (Acute) Loss of sensation (Acute) Low back pain (Acute) Neuropathic ulcer of toe of right foot (Acute) Osteoarthritis of hands, bilateral (Acute) Rheumatoid arthritis (Acute) Sensory problems with limbs (Acute) Urethral stricture (Acute) Urge and stress incontinence (Acute) Venous insufficiency (chronic) (peripheral) (Acute) Vertigo (Acute) Xerostomia (Acute) Surgical History S/P section S/P foot surgery S/P knee surgery S/P oophorectomy Status post repair of nerve Family History Mother Colorectal cancer Myocardial infarction Sister Diabetes Father Diabetes Grandfather Diabetes Myocardial infarction Other Family history non-contributory Social History Preferred Language: Slovak Communication Ability: Effective Visual Impairment: No Limitations Hearing Ability: Normal Quality Control Required: No Beliefs That Will Affect Care: None marital status: Current Living Situation: Spouse current occupational status: employed 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 Feels Safe at Home: Yes Smoking Status: Former smoker Second Hand Exposure: No ; Hx Alcohol Use: No Hx Substance Use: No Seatbelt Use: always Review of Systems Review of Systems: All systems reviewed & are unremarkable except as noted in HPI & below Physical Exam Constitutional: no acute distress and not ill appearing Eyes: no nystagmus ENMT: Ears: no hearing impairment Neck: trachea midline Respiratory: no respiratory distress and no cough Cardiovascular: Vessels: no JVD Chest (Breasts): Chest: normal inspection of chest Gastrointestinal (Abdomen): Inspection/Auscultation: abdomen not distended and no abdominal edema Percussion/Palpation: abdomen soft obese Musculoskeletal: Head/Neck/Chest: normocephalic and head atraumatic Skin: no rashes, warm and dry Neurologic: awake; not confused and not obtunded Psychiatric: Orientation: alert and oriented x 3 Eye Contact: good eye contact Affect: no depressed affect Lymphatic: no lymphadenopathy and no lymphedema Results & Data Vital Signs (Past 12 Hours) Vital Signs Temp Pulse Resp BP BP Pulse Ox 08/10/19 03:10 37.6 C H 89 20 125/76 96 08/10/19 02:19 99 H 24 128/70 93 08/10/19 02:09 97 H 22 123/68 93 08/10/19 01:56 102 H 20 127/70 96 08/10/19 01:32 39.4 C H 08/09/19 23:52 38.2 C H 93 H 21 111/72 94 08/09/19 21:55 36.9 C 95 H 28 H 120/83 95 08/09/19 21:11 96 H 18 116/52 L 95 PG Care Time/CCT Total # of Minutes Spent Total Time Spent with Patient: Total time spent is greater than 50% in coordination of care (as documented) at patient's floor/unit and/or counseling patient:
[2019-08-10] MEDS: INSULIN ASPART 100 UNITS/ML 3 ML PEN SC SCH ×4 (07:51→21:23)
[2019-08-10 08:24] LABS: Hematocrit (blood only) 33.7 % (37-47); Mean Corpuscular Hemoglobin 28.6 pg (25-34); Mean Corpuscular Hgb Conc 32.6 g/dL (32-36); Mean Corpuscular Volume 87.8 fL (80-100); Mean Platelet Volume 9.3 fL (7.4-10.4); Platelet Count 212 K/uL (130-400); RDW Coefficient of Variation 15.4 % (11.5-14.5); RDW Standard Deviation 49.3 fL (36.4-46.3); Red Blood Count 3.84 M/uL (4.2-5.4); White Blood Count 10.93 K/uL (4.8-10.8)
[2019-08-10] MEDS ORDERED: PERFLUTREN LIPID MICROSPHERE (DEFINITY) IV ONE (08:28)
[2019-08-10 08:50] LABS: BUN Creatinine Ratio 16.6 (10-20); Calcium 9.4 mg/dl (8.5-10.1); Creatinine Clr Calc Pharmacy 57.7 ml/min; Est GFR (African American) 58.3; Est GFR (Non-African American) 50.3; Magnesium 1.9 mg/dl (1.8-2.4); Phosphorus 4.7 mg/dl (2.5-4.9); Potassium 3.6 mmol/L (3.5-5.1)
--- NOTE | 2019-08-10 09:21 | XRay Report ---
XR chest 2V PA/lateral CLINICAL HISTORY: Preoperative chest COMPARISON STUDY: 09/17/2017 FINDINGS: The heart is enlarged. Interstitial prominence is likely accentuated due to the patient's l arge body habitus. There is no lobar consolidation. There are no significant pleural effusions.[ IMPRESSION: 1. Cardiomegaly 2. No evidence of focal pulmonary consolidation 3. Mild interstitial prominence finding likely secondary to the patient's large body habitus Electronically signed by: Umesh Julio M.D. 08/10/2019 9:20 AM
--- NOTE | 2019-08-10 09:24 | Ultrasound Report ---
BILATERAL CAROTID DOPPLER STUDY HISTORY: Transient ischemic attack. COMPARISON: None. TECHNIQUE: Real-time, grayscale, and color Doppler sonography of the carotid arteries was performed. Imaging reviewed in the transverse and longitudinal planes. All measurements were calculated based on NASCET criteria. FINDINGS: Antegrade flow is seen in the bilateral vertebral arteries. The brachial pressures were not obtained. Mild calcified plaque within the bilateral carotid bifurcations. Scattered bilateral cervical lymph nodes. These measure subcentimeter in short axis diameter. The peak systolic velocity within the right ICA is 114 cm/s. The right systolic ratio is 1.5. The peak systolic velocity within the left ICA is 80 cm/s. The left systolic ratio is 1.0. IMPRESSION: No hemodynamically significant stenosis seen within the carotid arteries. Electronically signed by: Seng Griffith M.D. 08/10/2019 9:23 AM
[2019-08-10] MEDS: LACTOBACILLUS ACIDOPHILUS 1 GM PACK PO SCH ×3 (09:41→17:49)
[2019-08-10] MEDS: CLOPIDOGREL BISULFATE 75 MG TAB PO SCH (09:43)
[2019-08-10] MEDS ORDERED: fentaNYL citrate 100 MCG/2 ML VIAL ONE (13:08)
[2019-08-10] MEDS ORDERED: MIDAZOLAM HCL 1 MG/ML 2ML VIAL ONE (13:08)
[2019-08-10] MEDS ORDERED: PROPOFOL IV EMULSION 10 MG/ML 20 ML VIAL IV ONE (13:08)
[2019-08-10] MEDS ORDERED: LIDOCAINE HCL 2% 2 ML VIAL/AMP(20MG/ML) INFIL ONE (13:08)
[2019-08-10] MEDS ORDERED: IOTHALAMATE MEGLUMINE II 17.2% 250 ML VIAL ONE (13:10)
--- NOTE | 2019-08-10 13:34 | Anesthesiology Consultation ---
Date of Service August 10, 2019 Assessment & Plan Chart Review Chart Review: Acceptable Risk for Surgery Consults Requested none History Surgery Operation Date: 08/10/19 08:20 Proposed Procedures p Cystoscopy, Right Retrograde Pyelogram, Right Ureteral Stent Placement - Tomi Patel MD Height/Weight Height: 5 ft 1 in Weight: 122 kg Allergies Allergy/AdvReac Type Severity Reaction Status Date / Time grass pollen-perennial rye, Allergy Intermediate DIFFICULTY Verified 08/09/19 15:11 standar BREATHING mold Allergy Intermediate DIFFICULTY Verified 08/09/19 15:11 BREATHING pollen extracts Allergy Intermediate DIFFICULTY Verified 08/09/19 15:11 BREATHING etodolac Allergy Unknown UNKNOWN Verified 08/09/19 15:11 simvastatin Allergy Unknown "FEELS Verified 08/09/19 15:11 FUNNY" tetanus toxoid, adsorbed Allergy Unknown SWELLING Verified 08/09/19 15:11 house dust Allergy Verified 08/09/19 15:11 pregabalin [From Lyrica] Allergy Verified 08/09/19 15:11 Lodine Allergy Unknown Uncoded 08/09/19 15:11 Medications Home Medications Medication Instructions Recorded Confirmed Last Taken aspirin [Aspir-81] 81 mg PO DAILY 06/18/18 08/09/19 08/09/19 hydrochlorothiazide 25 mg PO DAILY 06/18/18 08/09/19 08/09/19 metformin 1,000 mg PO BID 06/18/18 08/09/19 08/09/19 multivitamin 1 tab PO DAILY 06/18/18 08/09/19 08/09/19 Novolin N NPH U-100 Insulin 25 - 30 units SUBCUT DAILY 10/01/18 08/09/19 08/09/19 cholecalciferol (vitamin D3) 1,000 unit PO DAILY 10/01/18 08/09/19 08/09/19 vitamin E 400 unit PO DAILY 10/01/18 08/09/19 08/09/19 fesoterodine 8 mg tablet,extended 8 mg PO DAILY #90 tab 04/16/19 08/09/19 08/09/19 release 24 hr losartan 50 mg tablet 50 mg PO DAILY 90 Days #90 tab 04/26/19 08/09/19 08/09/19 cyanocobalamin (vitamin B-12) 1,000 mcg PO DAILY tab 05/22/19 08/09/19 08/09/19 1,000 mcg tablet folic acid 1 mg tablet 1 mg PO DAILY tab 05/22/19 08/09/19 08/09/19 glipizide 5 mg tablet 5 mg PO UD tab 05/22/19 08/09/19 08/09/19 insulin regular human 100 regular 15 units SUBCUT DAILY ml 05/22/19 08/09/19 08/09/19 human 100 unit/mL injection solution ipratropium 20 mcg-albuterol 100 1 puffs INH Q6H PRN 05/22/19 08/09/19 08/09/19 mcg/actuation mist for inhalation methotrexate sodium 2.5 mg tablet 5 mg PO WEEKLY tab 05/22/19 08/09/19 Unknown atorvastatin 20 mg tablet 20 mg PO QPM #90 tab 07/30/19 08/09/19 08/08/19 Active Medications Generic Name Dose Route Start Last Admin Trade Name Freq PRN Reason Stop Dose Admin Atorvastatin Calcium 20 mg 08/09/19 21:00 08/09/19 22:52 Lipitor PO 09/08/19 20:59 20 mg QPM VIVI Administration Clopidogrel Bisulfate 75 mg 08/10/19 09:00 08/10/19 09:43 Plavix PO 09/09/19 08:59 75 mg QAM VIVI Administration Sodium Chloride 1,000 mls @ 150 mls/hr 08/09/19 20:15 08/10/19 13:00 Nss 1000ml IV 09/08/19 20:14 0 mls/hr .Q6H40M VIVI Infusion Acetaminophen 1,000 mg in 100 mls @ 400 mls/hr 08/10/19 03:17 08/10/19 04:40 Ofirmev IV 08/13/19 03:16 Infused Q8H PRN Infusion Pain or Fever Insulin Aspart 0 units 08/09/19 21:00 08/10/19 13:25 Novolog Flexpen SC 09/08/19 20:59 Not Given ACHS VIVI Lactobacillus Acidophilus 1 gm 08/10/19 08:00 08/10/19 13:12 Floranex Granules/Powder Packet PO 09/09/19 07:59 Not Given TIDM VIVI Miscellaneous 1 ea 08/10/19 00:00 08/10/19 09:42 Order Awaiting Action N/A 09/09/19 00:00 Not Given QS VIVI NPO Date Last Intake of Fluids: 08/09/19 Time Last Intake of Fluids: 06:00 Last Intake of Fluids Comment: sip of water today at 1000 with meds Date Last Intake of Solids: 08/09/19 Time Last Intake of Solids: 06:00 Past Medical History Medical History Acquired claw toe of left foot (Acute) Acquired claw toe of right foot (Acute) Acquired hallux valgus of right foot (Acute) Asthma (Acute) Callus (Acute) Controlled type 2 diabetes mellitus with neurologic complication, with long-term current use of insulin (Acute) Diabetes (Chronic) Diabetes mellitus with diabetic polyneuropathy (Acute) Diabetic nephropathy associated with type 2 diabetes mellitus (Acute) Diabetic peripheral neuropathy associated with type 2 diabetes mellitus (Acute) Dyslipidemia (Acute) Dysuria (Acute) Edema (Acute) Generalized osteoarthritis of multiple sites (Acute) Generalized weakness (Acute) GI bleed (Acute) Hallux valgus (acquired), left foot (Acute) History of diabetic ulcer of foot (Resolved) History of gastrointestinal hemorrhage (Resolved) History of Helicobacter pylori infection (Resolved) Hypertension Long-term use of hydroxychloroquine (Acute) Loss of sensation (Acute) Low back pain (Acute) Neuropathic ulcer of toe of right foot (Acute) Osteoarthritis of hands, bilateral (Acute) Rheumatoid arthritis (Acute) Sensory problems with limbs (Acute) Urethral stricture (Acute) Urge and stress incontinence (Acute) Venous insufficiency (chronic) (peripheral) (Acute) Vertigo (Acute) Xerostomia (Acute) Past Family History Family History Mother Colorectal cancer Myocardial infarction Sister Diabetes Father Diabetes Grandfather Diabetes Myocardial infarction Other Family history non-contributory Past Surgical History Surgical History S/P section S/P foot surgery S/P knee surgery S/P oophorectomy Status post repair of nerve Social History Smoking Status: Former smoker Hx Alcohol Use: No Hx Substance Use: No Physical Exam Vital Signs Last Vital Signs Temp 37.3 C 08/10/19 13:21 Pulse 88 08/10/19 13:21 Resp 96 H 08/10/19 13:21 BP 137/65 08/10/19 13:21 Pulse Ox 96 08/10/19 13:21 Testing Laboratory Results 08/10/19 07:52 08/10/19 07:52 PT 11.0 Seconds (9.0-12.0) 08/09/19 22:47 INR 1.1 (0.9-1.1) 08/09/19 22:47 APTT 26.8 Seconds (21.0-31.0) 08/09/19 22:47 Hemoglobin A1c 6.3 % (4.5-5.6) H 08/09/19 14:15 Urine Color Yellow 08/09/19 14:40 Urine Appearance Clear (Clear) 08/09/19 14:40 Urine pH 6.0 (4.5-7.5) 08/09/19 14:40 Ur Specific [place] 1.025 (1.000-1.030) 08/09/19 14:40 Urine Protein Trace (Negative) H 08/09/19 14:40 Urine Glucose (UA) Negative (Negative) 08/09/19 14:40 Urine Ketones Negative (Negative) 08/09/19 14:40 Urine Nitrite Positive (Negative) A 08/09/19 14:40 Ur Leukocyte Esterase Negative (Negative) 08/09/19 14:40 Urine RBC 5-10 /hpf (0-4) H 08/09/19 14:40 Urine WBC 10-30 /hpf (0-5) H 08/09/19 14:40 Ur Epithelial Cells 20-30 /lpf (0-5) H 08/09/19 14:40 08/09/19 14:40 Urine Culture - Preliminary Urine,Clean Catch Gram negative bacilli 08/10/19 08/10/19 11:26 07:27 POC Glucose 147 H 184 H
[2019-08-10] MEDS ORDERED: ATROPINE SULFATE 0.1 MG/ML 10ML SYR IV PRN (13:35)
[2019-08-10] MEDS ORDERED: ePHEDrine sulfate 50 MG/ML AMP IV PRN (13:35)
--- NOTE | 2019-08-10 13:49 | Hospitalist Progress Note ---
Date of Service August 10, 2019 Assessment & Plan (1) Obstructive uropathy: Pus noted to be cleaned out during stent placement to treat the obstructing kidney stone Clinically improving and appears well Continue with antibiotic Rocephin and monitor micro cultures if needing to be changed (2) Altered mental status: Overnight episode with no further signs during the day Neurology was consulted who saw patient Either adverse effect from pain medication vs. from early sepsis (3) Acute UTI: Culture pending, from obstructive stone (4) Diabetes 1.5, managed as type 2: - Insulin sliding scale here (5) Essential (primary) hypertension: - Will hold home diuretuc and ACEi in setting of obstructive infectious uropathy - Monitor hemodynamics and if symptomatic may consider adding Hydralazine PRN (6) Dyslipidemia: Continue with atorvastatin 20mg and home Clopidogrel FEN: Diabetic Diet DVT PPx: Heparin Code: Full Code Supervising Physician Co-Signing Physician Notes I personally examined the patient and verified all douglas points of history and exam, discussed case, and agree with decision making with Dr Dykes. Feeling much better. Happy now that she is eating. A little bit of lower pressure, but nothing else. Vitals noted, in general she is awake and alert pleasant no distress. HEENT normocephalic atraumatic mucous membranes moist. Breathing unlabored no accessory muscle use good effort. Skin shows no rashes no pallor or icterus. Labs and diagnostics noted, updates from urology greatly appreciated, and input greatly appreciated. UTI with stone/sepsis present on admissionimproving greatly after antibiotics, continue supportive care and antibiotics, await cultures. Altered mental statusseems to been a metabolic encephalopathy either related to her sepsis or from pain medicationsafter further review it really seems highly unlikely it was anything cerebrovascular. Continue supportive care. DVT prophylaxisheparin subcu. Otherwise as above. Subjective Nette notes feeling improved this AM. She was in exam bed and on the phone. No current chest pain, dyspnea, nausea, vomiting, subjective fever or chills. PM rounds, no complications or complaints from procedures, happy to be eating dinner. Physical Exam Constitutional: WD/WN, vitals as above cooperative and comfortable Eyes: + anicteric sclerae and EOM intact bilaterally ENMT: external ear and nose normal, oropharynx normal Neck: normal visual inspection and trachea midline Respiratory: normal respiratory effort, lungs clear to auscultation Cardiovascular: RRR, no murmur, no edema Gastrointestinal (Abdomen): Percussion/Palpation: abdomen soft; abdomen nontender, no guarding and abdomen not rigid Musculoskeletal: Head/Neck/Chest: normocephalic and head atraumatic Skin: no rashes, warm and dry Neurologic: moves all extremities and awake; no focal motor deficits Psychiatric: A+Ox3, euthymic affect Results & Data Vital Signs (Past 12 Hours) Vital Signs Temp Pulse Pulse Resp BP BP Pulse Ox 08/10/19 13:21 37.3 C 88 96 H 137/65 96 08/10/19 11:58 37.1 C 91 H 18 139/81 100 08/10/19 09:46 36.6 C 87 18 119/81 98 08/10/19 08:00 80 08/10/19 03:10 37.6 C H 89 20 125/76 96 08/10/19 02:19 99 H 24 128/70 93 08/10/19 02:09 97 H 22 123/68 93 08/10/19 01:56 102 H 20 127/70 96 Resident Activity Tracking Resident Involvement: Resident Care Provided Care Provided: Adult Hospital Medicine
--- NOTE | 2019-08-10 14:22 | Operative Report ---
PG Post Operative Report Pre & Post Diagnosis Operation Date: 08/10/19 08:20 Pre-Op Diagnosis: OBSTRUCTIVE UROPATHY Post-Op Diagnosis: OBSTRUCTIVE UROPATHY I identified the patient and participated in the time-out.: Yes Procedure Operation Date: 08/10/19 08:20 Actual Procedures p Cystoscopy, Right Retrograde Pyelogram, Right Ureteral Stent Placement(Right) - Tomi Patel MD Surgeon Fran Patel MD Document Scanner none Estimated Blood Loss 0 Findings Consistent with Post-Op Diagnosis Specimens none Description of Procedure The patient was identified in the preopertive holding area, appropriate informed consents were reviewed and completed and the patient was transferred to the operative suite. Upon arrival, appropriate antibiotics and anesthesia were administered and the patient was placed in dorsal lithotomy position and prepped and draped in sterile fashion. To begin the case the past 22 Romanian cystoscope with 30 degree lens. Inspection revealed no gross abnormalities of the bladder. The ureteral orifices were in orthotopic position. Urine within the bladder was clear. I cannulated the r ight ureteral orifice with a 5 Romanian open-ended catheter and sensor wire. I advanced the catheter to the presumed area of the kidney without resistance. I then opacified the collecting system identifying a renal positioning of the distal aspect of the catheter. I reposition the wire into the upper pole and placed a 6 Romanian by 24cm double-J ureteral stent. There was a good curl in the kidney as well as the bladder. Of note, there was purulent urine coming out of the catheter immediately upon deployment. I attest to the content of the Intraoperative Record and any orders documented therein. Any exceptions are noted below.
--- NOTE | 2019-08-10 14:28 | Anesthesiology Progress Note ---
Date of Service August 10, 2019 Anesthesia Post Procedure Vital Signs Vital Signs: Temp Pulse Pulse Resp BP BP Pulse Ox 08/10/19 13:21 37.3 C 88 96 H 137/65 96 08/10/19 11:58 37.1 C 91 H 18 139/81 100 08/10/19 09:46 36.6 C 87 18 119/81 98 08/10/19 08:00 80 08/10/19 03:10 37.6 C H 89 20 125/76 96 08/10/19 02:19 99 H 24 128/70 93 08/10/19 02:09 97 H 22 123/68 93 08/10/19 01:56 102 H 20 127/70 96 08/10/19 01:32 39.4 C H 08/09/19 23:52 38.2 C H 93 H 21 111/72 94 08/09/19 21:55 36.9 C 95 H 28 H 120/83 95 08/09/19 21:11 96 H 18 116/52 L 95 08/09/19 18:39 84 20 145/68 H 99 08/09/19 16:54 37.1 C 93 H 20 139/63 94 08/09/19 16:15 89 91 H 20 124/66 93 08/09/19 14:46 84 20 157/99 H 97 Pain Intensity Right Flank: Pain Intensity: 3 Transfer of Care Handoff Completed per policy Notes Mental Status: alert / awake / arousable and participated in evaluation Patient Amnestic to Procedure: Yes Nausea / Vomiting: adequately controlled Pain: adequately controlled Airway Patency, RR, SpO2: stable & adequate BP & HR: stable & adequate Hydration State: stable & adequate Anesthetic Complications: no major complications apparent
--- NOTE | 2019-08-10 15:11 | Fluoroscopy Report ---
FL retrograde includes kub CLINICAL HISTORY: RT RETROGRADE/STENT COMPARISON STUDY: CT of the abdomen and pelvis August 09, 2019. FLUOROSCOPY TIME: 26 seconds. FLUOROSCOPIC IMAGES: 6 FINDINGS: Fluoroscopic images demonstrate a right retrograde exam with ureteral stent insertion. Ther e is mild right collecting system dilatation. IMPRESSION: Fluoroscopy provided for right retrograde exam with ureteral stent insertion. Electronically signed by: Mj Membreno M.D. 08/10/2019 3:10 PM
[2019-08-10] MEDS: SODIUM CHLORIDE 0.9% 1000ML 1,000 ML IV SCH ×2 (15:34→21:22)
[2019-08-10] MEDS: cefTRIAXone SODIUM 2,000 MG in DEXTROSE 5% 50 ML IV SCH (17:45)
--- NOTE | 2019-08-10 19:22 | Neurology Consultation ---
Date of Consultation August 10, 2019 Assessment & Plan (1) Altered mental status: Sandi Dill is a 69 yo woman w/ PMH of DM on insulin, COPD, neuropathy, DELL not on CPAP, morbid obesity, HTN, HLD, RA on methotrexate who p/t [facility] after flank pain and symptoms of UTI, found to have a complicated UTI with obstructed uropathy. # AMS: most likely multifactorial in the setting of urosepsis and medication (fentanyl) use, resolved at this time - no further workup needed - could consider toradol or IV tylenol instead of opiates if she continues to endorse feeling tired/confused from opiate pain meds Thank you for this interesting consult. We will sign off. Please text or call with any questions. History of Present Illness Attending Physician: Marc Mccord, History of Present Illness Sandi Dill is a 69 yo woman w/ PMH of DM on insulin, COPD, neuropathy, DELL not on CPAP, morbid obesity, HTN, HLD, RA on methotrexate who p/t [facility] after flank pain and symptoms of UTI, found to have a complicated UTI with obstructed uropathy. Following admission overnight, there was a stroke code called ~1:25am when the nurse was placing an IV and noticed acute onset of LoC, right gaze preference, aphasia and dysarthria. Per report, NIHSS 15 for above symptoms. She was taken for CTH which showed no hemorrhage or hypodensity, moderate SVID. Telestroke consulted and recommended starting plavix and considering TIA workup. Symptoms resolved by morning. She went for stent placement earlier today and has received both antibiotics/pain relief with no further events of confusion or AMS noted. On examination this afternoon, Sandi reports that she remembers being in the ED until around 11pm yesterday but she does not remember coming up to the floor or the event that is in question. She reports that she was very tired, didn't feel well and thinks that the fentanyl that she got for pain relief "knocked her out" and likely caused this event. She denies having any seizures or syncopal events in the past that were similar. She reports that she is feeling better now that her UTI/kidney stone are being treated but that she is still tired. No signs of confusion on mental status testing this afternoon. She did have part of the TIA workup completed including carotid dopplers that showed no significant stenosis in either ICA. TTE was technically difficult given body habitus but reported normal LV function (no EF given in report). A1c 6.3, LDL 59. Labs at admission were notable for WBC 12.42, Plts 271, INR 1.1, Na 141, Cr 1.04, glucose 203, UA + for UTI. Allergies Allergy/AdvReac Type Severity Reaction Status Date / Time grass pollen-perennial rye, Allergy Intermediate DIFFICULTY Verified 08/09/19 15:11 standar BREATHING mold Allergy Intermediate DIFFICULTY Verified 08/09/19 15:11 BREATHING pollen extracts Allergy Intermediate DIFFICULTY Verified 08/09/19 15:11 BREATHING etodolac Allergy Unknown UNKNOWN Verified 08/09/19 15:11 simvastatin Allergy Unknown "FEELS Verified 08/09/19 15:11 FUNNY" tetanus toxoid, adsorbed Allergy Unknown SWELLING Verified 08/09/19 15:11 house dust Allergy Verified 08/09/19 15:11 pregabalin [From Lyrica] Allergy Verified 08/09/19 15:11 Lodine Allergy Unknown Uncoded 08/09/19 15:11 Home Medications Home Medications Medication Instructions Recorded Confirmed Type aspirin [Aspir-81] 81 mg PO DAILY 06/18/18 08/09/19 History hydrochlorothiazide 25 mg PO DAILY 06/18/18 08/09/19 History metformin 1,000 mg PO BID 06/18/18 08/09/19 History multivitamin 1 tab PO DAILY 06/18/18 08/09/19 History Novolin N NPH U-100 Insulin 25 - 30 units SUBCUT DAILY 10/01/18 08/09/19 History cholecalciferol (vitamin D3) 1,000 unit PO DAILY 10/01/18 08/09/19 History vitamin E 400 unit PO DAILY 10/01/18 08/09/19 History fesoterodine 8 mg tablet,extended 8 mg PO DAILY #90 tab 04/16/19 08/09/19 Rx release 24 hr losartan 50 mg tablet 50 mg PO DAILY 90 Days #90 tab 04/26/19 08/09/19 Rx cyanocobalamin (vitamin B-12) 1,000 mcg PO DAILY tab 05/22/19 08/09/19 History 1,000 mcg tablet folic acid 1 mg tablet 1 mg PO DAILY tab 05/22/19 08/09/19 History glipizide 5 mg tablet 5 mg PO UD tab 05/22/19 08/09/19 History insulin regular human 100 regular 15 units SUBCUT DAILY ml 05/22/19 08/09/19 History human 100 unit/mL injection solution ipratropium 20 mcg-albuterol 100 1 puffs INH Q6H PRN 05/22/19 08/09/19 History mcg/actuation mist for inhalation methotrexate sodium 2.5 mg tablet 5 mg PO WEEKLY tab 05/22/19 08/09/19 History atorvastatin 20 mg tablet 20 mg PO QPM #90 tab 07/30/19 08/09/19 Rx Patient History Medical History Acquired claw toe of left foot (Acute) Acquired claw toe of right foot (Acute) Acquired hallux valgus of right foot (Acute) Asthma (Acute) Callus (Acute) Controlled type 2 diabetes mellitus with neurologic complication, with long-term current use of insulin (Acute) Diabetes (Chronic) Diabetes mellitus with diabetic polyneuropathy (Acute) Diabetic nephropathy associated with type 2 diabetes mellitus (Acute) Diabetic peripheral neuropathy associated with type 2 diabetes mellitus (Acute) Dyslipidemia (Acute) Dysuria (Acute) Edema (Acute) Generalized osteoarthritis of multiple sites (Acute) Generalized weakness (Acute) GI bleed (Acute) Hallux valgus (acquired), left foot (Acute) History of diabetic ulcer of foot (Resolved) History of gastrointestinal hemorrhage (Resolved) History of Helicobacter pylori infection (Resolved) Hypertension Long-term use of hydroxychloroquine (Acute) Loss of sensation (Acute) Low back pain (Acute) Neuropathic ulcer of toe of right foot (Acute) Osteoarthritis of hands, bilateral (Acute) Rheumatoid arthritis (Acute) Sensory problems with limbs (Acute) Urethral stricture (Acute) Urge and stress incontinence (Acute) Venous insufficiency (chronic) (peripheral) (Acute) Vertigo (Acute) Xerostomia (Acute) Surgical History S/P section S/P foot surgery S/P knee surgery S/P oophorectomy Status post repair of nerve Family History Mother Colorectal cancer Myocardial infarction Sister Diabetes Father Diabetes Grandfather Diabetes Myocardial infarction Other Family history non-contributory Social History Preferred Language: Setswana Communication Ability: Effective Visual Impairment: No Limitations Hearing Ability: Normal Dietary Aide Cook Required: No Beliefs That Will Affect Care: None marital status: Current Living Situation: Spouse current occupational status: employed 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 Physical Exam Physical Exam: General Exam: GEN: NAD, lying in bed. HEENT: No conjunctival injection, no rhinorrhea. CV: RRR, no peripheral edema PULM: Nonlabored respirations on room air. Neuro Exam: MS: Awake and Alert. Oriented to person, place, and date. Speech fluent and appropriate without dysarthria or paraphasic errors. Language intact including naming, comprehension, repetition. Cognition and memory grossly intact. Attention intact. No neglect. CN: Visual velásquez full. No extinction to double simultaneous stimuli. No optic disc edema on fundoscopic exam. PERRLA OU. EOMI without nystagmus. Facial sensation intact to LT. Facial muscles full and symmetric. Hearing intact to conversation. Uvula midline with symmetric palatal elevation. Shoulder shrug normal. Tongue midline. MOTOR: Normal bulk and tone. No pronator drift. BUE strength 5/5 at deltoids, biceps, triceps, wrist flexors and extensors, and finger flexors bilaterally. LE strength 5/5 at L iliopsoas, 5-/5 at R iliopsoas, 5/5 hamstrings, quadriceps, tibialis anterior, and gastrocnemius bilaterally. REFLEXES: 1+ at biceps, triceps, brachioradialis, trace patella and absent Achilles bilaterally. Flexor plantar responses bilaterally. SENSORY: Intact to LT without extinction to double simultaneous stimuli. Vibration and temperature intact throughout though diminished in BLEs up to the knees COORDINATION: No dysmetria or ataxia on [id number] bilaterally. Normal [place] bilaterally. GAIT: deferred given fall risk Results & Data Vital Signs (Past 12 Hours) Vital Signs Temp Pulse Pulse Pulse Resp BP Pulse Ox 08/10/19 16:00 85 08/10/19 15:00 36.8 C 85 22 159/64 H 100 08/10/19 14:45 36.8 C 83 20 153/73 H 100 08/10/19 14:35 84 20 152/70 H 100 08/10/19 14:25 85 20 137/83 100 08/10/19 14:17 37.2 C 74 18 135/79 100 08/10/19 13:21 37.3 C 88 96 H 137/65 96 08/10/19 11:58 37.1 C 91 H 18 139/81 100 08/10/19 09:46 36.6 C 87 18 119/81 98 08/10/19 08:00 80 PG Care Time/CCT Total # of Minutes Spent Total Time Spent with Patient: Total time spent is greater than 50% in coordination of care (as documented) at patient's floor/unit and/or counseling patient:
--- NOTE | 2019-08-10 19:23 | Billing Data ---
Date of Service August 10, 2019 Coding Level of Care Code 41869 Subseq Hosp Care Lvl 3
[2019-08-10] MEDS: ATORVASTATIN 20 MG TAB PO SCH (21:23)
[2019-08-11] MEDS: ACETAMINOPHEN 325 MG TAB PO PRN ×3 (02:07→14:36)
[2019-08-11] MEDS: SODIUM CHLORIDE 0.9% 1000ML 1,000 ML IV SCH ×4 (02:07→21:32)
[2019-08-11 08:00] LABS: Hematocrit (blood only) 32.6 % (37-47); Hemoglobin 10.5 g/dL (12.0-16.0); Mean Corpuscular Hemoglobin 28.2 pg (25-34); Mean Corpuscular Hgb Conc 32.2 g/dL (32-36); Mean Corpuscular Volume 87.6 fL (80-100); Mean Platelet Volume 9.5 fL (7.4-10.4); Platelet Count 175 K/uL (130-400); RDW Coefficient of Variation 15.4 % (11.5-14.5); RDW Standard Deviation 49.8 fL (36.4-46.3); Red Blood Count 3.72 M/uL (4.2-5.4); White Blood Count 7.96 K/uL (4.8-10.8)
[2019-08-11 08:36] LABS: Calcium 8.4 mg/dl (8.5-10.1); Creatinine Clr Calc Pharmacy 61.5 ml/min; Est GFR (African American) 67.7; Est GFR (Non-African American) 58.4; Potassium 3.5 mmol/L (3.5-5.1)
[2019-08-11] MEDS: INSULIN ASPART 100 UNITS/ML 3 ML PEN SC SCH ×4 (08:52→20:44)
[2019-08-11] MEDS: LACTOBACILLUS ACIDOPHILUS 1 GM PACK PO SCH ×3 (08:55→17:52)
[2019-08-11] MEDS: CLOPIDOGREL BISULFATE 75 MG TAB PO SCH (09:14)
--- NOTE | 2019-08-11 09:46 | Urology Progress Note ---
Date of Service August 11, 2019 Assessment & Plan (1) Kidney stone: POD#1 s/p r ureteral stent klebsiella - essentially sanchez sensitive in the urine cover with abx x10d will ultimately need a procedure to clear her of stones before we can remove the stent, but this can be handled as an outpt after d/c home Subjective minimal stent related irritation, overall, feels she has improved from preop afebrile overnight (last fever yesterday afternoon) Review of Systems Review of Systems: All systems reviewed & are unremarkable except as noted in HPI & below Physical Exam Physical Exam: AFVSS NAD AAOx3 no resp distress RRR abd soft, nontender Results & Data Vital Signs (Past 12 Hours) Vital Signs Temp Pulse Pulse Resp BP Pulse Ox 08/11/19 08:03 36.8 C 74 19 135/84 95 08/11/19 07:43 80 08/11/19 04:48 36.9 C 82 20 155/79 H 93 08/11/19 01:38 85 08/11/19 00:00 37.5 C 91 H 22 158/72 H 94 PG Care Time/CCT Total # of Minutes Spent Total Time Spent with Patient: Total time spent is greater than 50% in coordination of care (as documented) at patient's floor/unit and/or counseling patient:
--- NOTE | 2019-08-11 11:50 | Hospitalist Progress Note ---
Date of Service August 11, 2019 Assessment & Plan (1) Obstructive uropathy: Pus noted to be cleaned out during stent placement to treat the obstructing kidney stone Clinically improving and appears well/stable, but tired from long day yesterday Continue with antibiotic Rocephin UTI from clean catch 08/09 grew Klebsiella Pneumoniae sensitive to current Rocephin and Indeterminate to Unasyn, Imipenem, Macrobid. 08/10 Urine Culture pending Blood cultures NGTD - PT/OT ordered as nursing concerned about ability to ambulate from acute illness in setting of a BMI of 46. Orders placed. (2) Altered mental status: 08/10 Overnight episode with no further signs during the day Neurology was consulted who saw patient Either adverse effect from pain medication vs. from early sepsis Had no additional episodes reported overnight last night. (3) Acute UTI: As above (4) Diabetes 1.5, managed as type 2: - Insulin sliding scale here (5) Essential (primary) hypertension: - Will hold home diuretuc and ACEi in setting of obstructive infectious uropathy - Monitor hemodynamics and if symptomatic may consider adding Hydralazine PRN (6) Chest pain: Musculoskeletal from pressure from US probe from Echo. It is reproducible on exam and she had benign ECG for new acute cardiac process. (7) Loud snoring: Discussed to follow up with PCP regarding if she could have underlying DELL. (8) Dyslipidemia: Continue with atorvastatin 20mg and home Clopidogrel FEN: Diabetic Diet DVT PPx: Heparin Code: Full Code Supervising Physician Co-Signing Physician Notes I personally examined the patient and verified all douglas points of history and exam, discussed case, and agree with decision making with Dr Dykes. Left-sided chest painbelieves it relates to pressure from getting echocardiogram checked. Stabbing, worse with movement, worse with pushing on it. Otherwise feeling better. Vitals noted, in general she is awake and alert pleasant no distress. HEENT normocephalic atraumatic mucous membranes are moist. Left-sided chest pain reproducible to palpation, intercostal muscles between about ribs 4 and 5 high in tone, tender, decreased range of motionbalanced ligamentous tension, improved. Patient tolerated well. Breathing unlabored no accessory muscle use, no focal neuro deficits. UTI with stone/sepsis present on admissionimproving greatly after antibiotics, cultures show pansensitive bacteria. Continue ceftriaxone, anticipate transition to cefdinir when this time for discharge Chest painmusculoskeletal, OMT as above. Altered mental statusseems to been a metabolic encephalopathy either related to her sepsis or from pain medicationsafter further review it really seems highly unlikely it was anything cerebrovascular. Doing well now DVT prophylaxisheparin subcu. Stable from medical, otherwise as above. Subjective No acute events reported overnight. This AM nursing contacted me about chest pain left sided and noted occurred after verbal argument over phone with spouse. Upon evaluation, she notes pain over area where she had echocardiogram and suspects pain is from pressure of US probe. She endorsed same pain was reproducible on palpation during exam. No worsening shortness of breath. She notes she is not on supplemental oxygen at home. Sandi does note feeling tired. Nursing requested PT/OT milagro as current concern over fall risk if she would try to get up out of bed on own from weakness from illness and body habitus. Nursing reported she had obvious signs of sleep apnea overnight. Sandi notes no prior discussions about this in outpatient setting, from her memory. Encouraged Sandi to discuss this with her PCP for outpatient follow up. Physical Exam Constitutional: WD/WN, vitals as above cooperative and comfortable appears tired Eyes: + anicteric sclerae and EOM intact bilaterally ENMT: external ear and nose normal, oropharynx normal Neck: normal visual inspection and trachea midline Respiratory: normal respiratory effort, lungs clear to auscultation Cardiovascular: RRR, no murmur, no edema Gastrointestinal (Abdomen): Percussion/Palpation: abdomen soft; abdomen nontender, no guarding and abdomen not rigid Musculoskeletal: Head/Neck/Chest: normocephalic and head atraumatic Skin: no rashes, warm and dry Neurologic: moves all extremities and awake; no focal motor deficits Psychiatric: A+Ox3, euthymic affect Results & Data Vital Signs (Past 12 Hours) Vital Signs Temp Pulse Pulse Resp BP Pulse Ox 08/11/19 08:03 36.8 C 74 19 135/84 95 08/11/19 07:43 80 08/11/19 04:48 36.9 C 82 20 155/79 H 93 08/11/19 01:38 85 08/11/19 00:00 37.5 C 91 H 22 158/72 H 94 Resident Activity Tracking Resident Involvement: Resident Care Provided Care Provided: Adult [facility]
[2019-08-11] MEDS: cefTRIAXone SODIUM 2,000 MG in DEXTROSE 5% 50 ML IV SCH (15:56)
--- NOTE | 2019-08-11 17:32 | Billing Data ---
Date of Service August 11, 2019 Coding Level of Care Code 20355 Subseq Hosp Care Lvl 3
--- NOTE | 2019-08-11 17:33 | Hospitalist Progress Note ---
Date of Service August 11, 2019 Results & Data Vital Signs (Past 12 Hours) Vital Signs Temp Pulse Pulse Resp BP Pulse Ox 08/11/19 15:47 97.9 F 82 17 146/80 H 97 08/11/19 15:35 81 08/11/19 11:44 98.1 F 79 20 147/85 H 95 08/11/19 08:03 98.2 F 74 19 135/84 95 08/11/19 07:43 80 PG Care Time/CCT Total # of Minutes Spent Total Time Spent with Patient: Total time spent is greater than 50% in coordination of care (as documented) at patient's floor/unit and/or counseling patient:
[2019-08-11] MEDS: ATORVASTATIN 20 MG TAB PO SCH (20:43)
[2019-08-11] MEDS: HEPARIN SOD 5,000 UNIT/0.5 ML VIAL SQ SCH (20:43)
[2019-08-12] MEDS: ACETAMINOPHEN 325 MG TAB PO PRN (00:23)
[2019-08-12] MEDS: SODIUM CHLORIDE 0.9% 1000ML 1,000 ML IV SCH (04:08)
[2019-08-12 06:25] LABS: Hematocrit (blood only) 31.7 % (37-47); Hemoglobin 10.2 g/dL (12.0-16.0); Mean Corpuscular Hemoglobin 28.6 pg (25-34); Mean Corpuscular Hgb Conc 32.2 g/dL (32-36); Mean Corpuscular Volume 88.8 fL (80-100); Mean Platelet Volume 9.5 fL (7.4-10.4); Platelet Count 185 K/uL (130-400); RDW Coefficient of Variation 15.2 % (11.5-14.5); RDW Standard Deviation 49.5 fL (36.4-46.3); Red Blood Count 3.57 M/uL (4.2-5.4); White Blood Count 7.09 K/uL (4.8-10.8)
[2019-08-12 06:51] LABS: BUN Creatinine Ratio 14.8 (10-20); Calcium 8.2 mg/dl (8.5-10.1); Creatinine Clr Calc Pharmacy 73.5 ml/min; Est GFR (Non-African American) 72.5; Potassium 3.8 mmol/L (3.5-5.1)
[2019-08-12] MEDS: INSULIN ASPART 100 UNITS/ML 3 ML PEN SC SCH ×4 (08:56→20:26)
[2019-08-12] MEDS: CLOPIDOGREL BISULFATE 75 MG TAB PO SCH (08:58)
[2019-08-12] MEDS: LACTOBACILLUS ACIDOPHILUS 1 GM PACK PO SCH ×3 (08:58→17:35)
[2019-08-12] MEDS: HEPARIN SOD 5,000 UNIT/0.5 ML VIAL SQ SCH ×2 (08:59→20:26)
[2019-08-12] MEDS: hydroCHLOROthiazide 25 MG TAB PO SCH (09:22)
--- NOTE | 2019-08-12 10:36 | Urology Progress Note ---
Date of Service August 12, 2019 Assessment & Plan (1) Kidney stone: Kleb uti + stone s/p right ureteral stent on 08/12 progressing appropriately we will plan to arrange for out pt f/u, please call if any new issues during this hospitalization Subjective doing ok from a standpoint no major events overnight tolerating the stent - mild discomfort Physical Exam Constitutional: well developed and well nourished Respiratory: no respiratory distress Cardiovascular: Extremities: no pedal edema Gastrointestinal (Abdomen): Inspection/Auscultation: abdomen normal to inspection Results & Data Vital Signs (Past 12 Hours) Vital Signs Temp Pulse Resp BP Pulse Ox 08/12/19 07:24 37.0 C 80 20 160/81 H 99 08/11/19 22:59 37 C 83 24 165/64 H 97 PG Care Time/CCT Total # of Minutes Spent Total Time Spent with Patient: Total time spent is greater than 50% in coordination of care (as documented) at patient's floor/unit and/or counseling patient:
--- NOTE | 2019-08-12 11:06 | Hospitalist Progress Note ---
Date of Service August 12, 2019 Assessment & Plan (1) Obstructive uropathy: Pus noted to be cleaned out during stent placement to treat the obstructing kidney stone Clinically improving and appears well/stable Will convert from Rocephin to oral Cefdinir 300mg PO BID, will require total of 10 days abx UTI from clean catch 08/09 grew Klebsiella Pneumoniae sensitive to cephalosporins and Indeterminate to Unasyn, Imipenem, Macrobid. 08/10 Urine Culture NGTD Blood cultures NGTD - PT/OT ordered as nursing concerned about ability to ambulate from acute illness in setting of a BMI of 46. Orders placed and will have them work with her for appropriate disposition. (2) Altered mental status: 08/10 Overnight episode with no further signs during the day Neurology was consulted who saw patient Either adverse effect from pain medication vs. from early sepsis Had no additional episodes reported overnight last two nights. (3) Acute UTI: As above (4) Diabetes 1.5, managed as type 2: - Insulin sliding scale here (5) Essential (primary) hypertension: - Will hold home ACEi in setting of obstructive infectious uropathy - Restarted HCTZ since some mild elevated pressures - Monitor hemodynamics and if symptomatic may consider adding Hydralazine PRN (6) Chest pain: Musculoskeletal from pressure from US probe from Echo. mental health tech had to push hard to try to get good imaging because of body habitus. It is reproducible on exam and she had benign ECG for new acute cardiac process. (7) Loud snoring: Discussed to follow up with PCP regarding if she could have underlying DELL. (8) Dyslipidemia: Continue with atorvastatin 20mg and home Clopidogrel FEN: Diabetic Diet DVT PPx: Heparin Code: Full Code Supervising Physician Co-Signing Physician Notes I personally examined the patient and verified all douglas points of history and exam, discussed case, and agree with decision making with Dr Dykes. feeling better overall. out of bed in chair. no sob. does note snoring and fatigue. Vitals noted, in general she is awake and alert pleasant no distress. HEENT normocephalic atraumatic mucous membranes are moist. Breathing unlabored no accessory muscle use, lungs quiet but clear mostly - exceedingly mild faint base rales. no focal neuro deficits. UTI with stone/sepsis present on admissionimproving greatly after antibiotics, cultures show pansensitive bacteria. due to ALBINO's transitioning to PO but keeping on 3rd gen ceph - cefdinir. mild relative hypoxia - strongly suspect atelectasis during the day (quiet exam, faint rales c/w this), probably compounded by DELL at night. incentive spirometry, sleep study as outpt (educated extensively) and serial exams - if daytime hypoxia doesn't improve w increased activity and incentive spirometry, then would have to w/u futher - but since symptoms improving and clinical situation immproving - continue to follow for now. Chest painno complaints of this today Altered mental statusseems to have been a metabolic encephalopathy either related to her sepsis or from pain medicationsafter further review it really seems highly unlikely it was anything cerebrovascular. Doing well now DVT prophylaxisheparin subcu. weakness - hopefully will improve as she gets further removed from being septic. ongoing PT/OT eval and treat disposition - goal is home - if she's failing to progress w PT/OT may need rehab, but this seems unlikely. Subjective Feeling improved this AM. Tolerating eating [place] this AM, notes food would prob be improved if was warmer and is a little cold. No acute events overnight. She is tolerating eating off of supplemental oxygen. No diarrhea, nausea, vomiting. Physical Exam Constitutional: WD/WN, vitals as above cooperative and comfortable Eyes: + anicteric sclerae and EOM intact bilaterally ENMT: external ear and nose normal, oropharynx normal Neck: normal visual inspection and trachea midline Respiratory: normal respiratory effort, lungs clear to auscultation Cardiovascular: RRR, no murmur, no edema Gastrointestinal (Abdomen): Percussion/Palpation: abdomen soft; abdomen nontender, no guarding and abdomen not rigid Musculoskeletal: Head/Neck/Chest: normocephalic and head atraumatic Skin: no rashes, warm and dry Neurologic: moves all extremities and awake; no focal motor deficits Psychiatric: A+Ox3, euthymic affect Results & Data Vital Signs (Past 12 Hours) Vital Signs Temp Pulse Resp BP Pulse Ox 08/12/19 07:24 37.0 C 80 20 160/81 H 99 Resident Activity Tracking Resident Involvement: Resident Care Provided Care Provided: Adult Hospital Medicine
[2019-08-12] MEDS: CEFDINIR 300 MG CAP PO SCH ×2 (14:30→22:08)
--- NOTE | 2019-08-12 17:55 | Billing Data ---
Date of Service August 12, 2019 Coding Level of Care Code 75669 Subseq Hosp Care Lvl 3
[2019-08-12] MEDS ORDERED: EUCERIN CR 120 GM JAR EXT PRN (19:42)
[2019-08-12] MEDS: ATORVASTATIN 20 MG TAB PO SCH (20:27)
[2019-08-13 06:19] LABS: Hematocrit (blood only) 33.5 % (37-47); Mean Corpuscular Hgb Conc 32.8 g/dL (32-36); Mean Corpuscular Volume 85.2 fL (80-100); Mean Platelet Volume 9.4 fL (7.4-10.4); Platelet Count 210 K/uL (130-400); RDW Coefficient of Variation 14.9 % (11.5-14.5); RDW Standard Deviation 47.1 fL (36.4-46.3); Red Blood Count 3.93 M/uL (4.2-5.4); White Blood Count 6.19 K/uL (4.8-10.8)
[2019-08-13 06:54] LABS: BUN Creatinine Ratio 13.4 (10-20); Calcium 8.9 mg/dl (8.5-10.1); Creatinine Clr Calc Pharmacy 60.3 ml/min; Est GFR (African American) 66.1; Potassium 3.7 mmol/L (3.5-5.1)
[2019-08-13] MEDS: LACTOBACILLUS ACIDOPHILUS 1 GM PACK PO SCH ×2 (08:31→12:57)
[2019-08-13] MEDS: CLOPIDOGREL BISULFATE 75 MG TAB PO SCH (08:31)
[2019-08-13] MEDS: hydroCHLOROthiazide 25 MG TAB PO SCH (08:31)
[2019-08-13] MEDS: INSULIN ASPART 100 UNITS/ML 3 ML PEN SC SCH ×2 (08:32→12:48)
[2019-08-13] MEDS: HEPARIN SOD 5,000 UNIT/0.5 ML VIAL SQ SCH (08:34)
[2019-08-13] MEDS: CEFDINIR 300 MG CAP PO SCH (08:35)
--- NOTE | 2019-08-13 14:14 | Discharge Summary ---
Date of Service August 13, 2019 Admission HPI Per Admitting Provider 69 years old female with past medical history of diabetes mellitus type 2 on insulin, COPD, neuropathy, sleep apnea noncompliant with CPAP, morbid obesity and essential hypertension 08/09/2019 with abdominal pain, right flank pain associated with nausea and vomiting and chills. Pain started today and woke her up from sleep at 3 AM. Associated with chills vomiting x1 no hematemesis.. In the ED she had a CT abdomen that showed 5 mm right ureteropelvic junction calculus with moderate right hydronephrosis and perinephric and periureteral infiltration. UA was suggestive for UTI. She was giving 1 dose of ceftriaxone, urologist was consulted and recommended n.p.o. from midnight for possible cystoscopy and stent placement in the morning. Patient will be admitted for further evaluation and management. Admission Exam (Per Admitting) Constitutional Physical examination General obese, appears to be in mild distress HEENT: Atraumatic , normocephalic /no jaundice /no pallor /anicteric /no dry mucous membrane /normal external ear inspection Neck: Supple /no swelling /central trach Heart: S1/S2 normal/regular rate and rhythm/no gallop /no rub /no murmur Lungs: Clear to auscultation bilaterally/normal chest with expansion/no rhonchi/no rales/no wheezing/no use of accessory muscles of respiration Abdomen: Overall abdomen is soft, but the patient does have some right costovertebral angle tenderness to the right middle quadrant. Musculoskeletal: No swelling/no edema/no tenderness/normal range of motion Neuro exam: Awake alert oriented 3/cranial nerves II through XII appear to be intact/sensation intact/moves all extremities/no abnormal movements Psychiatric evaluation: No depressed mood/normal affect Skin: No rash on exposed skin area/no erythema Extremity: Normal pulse/no pitting edema/no clubbing or cyanosis Endocrine/lymphatic: No obvious lymphadenopathy /no lymphedema Discharge Data Consultations 08/09/19 16:19 ED Decision to Admit Stat 08/09/19 20:12 Consult Urology Routine 08/10/19 06:07 Consult Neurology Routine 08/12/19 17:55 Consult [employer] electrical project engineer Routine Procedures Performed Operation Date: 08/10/19 08:20 Actual Procedures p Right Retrograde Pyelogram, Right Ureteral Stent Placement(Right) - Tomi Patel MD s Cystoscopy(Right) - Tomi Patel MD Hospital Course (1) Obstructive uropathy: Sandi is a 69-year-old female with a past medical history of type 2 diabetes, venous insufficiency, neuropathy, hypertension, hyperlipidemia, COPD, morbid obesity, and sleep apnea who presented with 1 day of right flank pain, chills, and vomiting and he was admitted for an obstructive uteropelvic calculus. Obstructive uropathy 2/2 right uteropelvic calculus with right hydronephrosis Sandi presented with 1 day of right flank pain, nausea, vomiting, and chills. CT showed a 5 mm right UPJ calculus with moderate right hydro-and perinephric and omari-ureteral infiltration. UA was suggestive of infection. She was placed on empiric Rocephin, and urology was consulted. She underwent right retrograde pyelogram, cystoscopy, and ureteral stent placement on 08/10/2019 with subsequent improvement in pain. Purulent material was expressed following stent placement. She became altered as noted below, then slowly improved back to her normal baseline. UC showed a Klebsiella infection, she was feeling well and afebrile on day of discharge and was discharged to complete a total 10-day course of antibiotics with cefdinir 300 mg p.o. twice daily with follow-up to her primary care provider and urology. She had no flank pain, dysuria, or urinary retention at time of discharge. Altered mental status Following admission patient became altered and a stroke code was called when nursing appreciated acute onset of right gaze preference, dysarthria, and aphasia. CT head showed no hemorrhage, hypodensity, or signs of stroke. Tele- stroke was consulted and recommended starting Plavix. Her symptoms resolved by morning. Follow-up carotid Dopplers showed no significant stenosis of the internal carotid arteries, echocardiogram was difficult due to body habitus but did not show any abnormalities and LV function. It was ultimately felt that her altered mental status was multifactorial in the setting of urosepsis and narc osis, and no further follow-up was needed at time of hospitalization. Should be followed clinically if her symptoms recur or change. Type 2 diabetes mellitus Prior to admission anti-glycemic agents were held, she was placed on insulin sliding scale with adequate glucose control during admission. Home anti- glycemic's were resumed on discharge without alteration. Hypertension [employer] SILVERIO was held in the setting of hypotension and obstructive uropathy, hydrochlorothiazide was resumed during admission for hypertension and home regimen was resumed on discharge. Chest pain She experienced some chest pain following echocardiogram. Due to her body habitus the surveillance technician had to push very hard to get adequate imaging, her pain was reproducible on exam and had improved/resolved by time of discharge. Low suspicion for acute cardiac process. Loud snoring Her snoring and sleep habits were discussed during admission. It was felt that she may have underlying obstructive sleep apnea, and she will follow-up with her PCP for further polysomnography and potential referral for CPAP. Hyperlipidemia Prior to admission atorvastatin was continued during admission. (2) UTI (urinary tract infection): (3) Essential (primary) hypertension: (4) Diabetes 1.5, managed as type 2: (5) Acute UTI: (6) Hydronephrosis: (7) Kidney stone: (8) Altered mental status: (9) Loud snoring: (10) Venous insufficiency (chronic) (peripheral): (11) Rheumatoid arthritis: (12) Osteoarthritis of hands, bilateral: (13) Diabetic peripheral neuropathy associated with type 2 diabetes mellitus: (14) Hyperlipidemia: (15) Anemia: Supervising Physician Co-Signing Physician Notes Resident Physician Supervision Note: I independently interviewed and examined the patient and verified the douglas history and physical, reviewed labs and image studies, discussed the case with the resident Dr. Polo and agree with the findings and care plan. no pain, hematuria o/e - general - alert, ox3 heart - regular lung - cta, abd - no flank tenderness s/p stent - outpatient urology f/u. continue to finish abx - cefdinir x 10 days. Resident Activity Tracking Resident Involvement: Resident Care Provided Care Provided: Adult Hospital Medicine
--- NOTE | 2019-08-21 08:54 | Coding Query ---
SEPSIS To promote full compliance with coding requirements relating to patient care, physician participation is requested in all cases of toy consultant uncertainty. Please assist us with the question(s) below: In responding to this query, please exercise your independent professional judgement. The fact that a question is asked does not imply that any particular answer is desired or expected. We appreciate your clarification on this issue. Throughout the medical record, you have clearly documented a localized infection and your patient has clinical evidence of a generalized sepsis or severe sepsis. The term urosepsis is a nonspecific entity and is coded as an UTI. If the patient has sepsis, severe sepsis, from an urinary source or some other source, please clarify in your response below. The medical record reflects the following clinical findings: During hospitalization pt experienced altered mental status- stroke ruled out. Discharge summary documents possible urosepsis and/or narcotic as reason for encephalopathy. Please check below, pertaining to the documentation of urosepsis. Thank you . Yonny Green [facility] ____ ( )Bacteremia (Nonspecific laboratory finding of bacteria in the blood) Specify Organism ( ) Present on Admission ( ) Not present on admission ( ) Unable to clinically determine ( ) Septicemia (Systemic disease associated with the presence of pathogenic microorganisms in the blood): Specify Organism ( ) Present on Admission ( ) Not present on admission ( ) Unable to clinically determine ( x) Sepsis Specify Organism Specify Associated Condition/Diagnosis ( x) Present on Admission ( ) Not present on admission ( ) Unable to clinically determine ( ) Severe Sepsis (Sepsis associated with acute organ dysfunction) Specify Organism Specify Associated Condition/Diagnosis ( ) Present on Admission ( ) Not present on admission ( ) Unable to clinically determine ( ) Septic Shock (Severe sepsis with acute circulatory failure, unexplained by other causes) ( ) Present on Admission ( ) Not present on admission ( ) Unable to clinically determine ( ) Other, patient has: MTDD
== END 2019-08-13 13:55 | disposition home or self-care (01) | DRG 853 ==
LOC: ED 12:40 → SUATTDRO 20:10 → 2S 20:10 → 4W 08-11 15:18

== ENCOUNTER 2019-09-08 15:59 | Inpatient (IN) ==
[2019-09-08] MEDS ORDERED: SODIUM CHLORIDE 0.9% 1000ML 1,000 ML IV ONE ×2 (16:10→18:15)
[2019-09-08 16:46] LABS: Appearance Urine Cloudy (Clear); Bacteria Urine Automated 2+ (Negative); Bilirubin Urine Negative (Negative); Blood Urine 2+ (Negative); Color Urine Yellow; Epithelial Cell Urine Auto 0-5 /lpf (0-5); Glucose Urine UA Negative (Negative); Ketones Urine Trace (Negative); Leukocyte Esterase Urine 3+ (Negative); Nitrite Urine Positive (Negative); Protein Urine 2+ (Negative); RBC Urine Automated >30 /hpf (0-4); Specific Gravity Urine 1.018 (1.000-1.030); Urobilinogen Urine Negative (Negative); WBC Urine Automated >30 /hpf (0-5)
[2019-09-08 16:54] LABS: Basophils # (auto) 0.01 K/uL (0-0.2); Basophils % (auto) 0.1 %; Eosinophils # (auto) 0.02 K/uL (0-0.5); Eosinophils % (auto) 0.2 %; Hematocrit (blood only) 32.3 % (37-47); Hemoglobin 10.6 g/dL (12.0-16.0); Immature Granulocytes # (auto) 0.04 K/uL (0.00-0.02); Immature Granulocytes % (auto) 0.4 %; Lymphocytes # (auto) 0.99 K/uL (1.2-3.4); Lymphocytes % (auto) 9.5 %; Mean Corpuscular Hemoglobin 28.1 pg (25-34); Mean Corpuscular Hgb Conc 32.8 g/dL (32-36); Mean Corpuscular Volume 85.7 fL (80-100); Mean Platelet Volume 9.6 fL (7.4-10.4); Monocytes # (auto) 1.14 K/uL (0.11-0.59); Neutrophils % (auto) 78.8 %; Platelet Count 200 K/uL (130-400); RDW Coefficient of Variation 15.8 % (11.5-14.5); Red Blood Count 3.77 M/uL (4.2-5.4)
--- NOTE | 2019-09-08 17:00 | XRay Report ---
XR chest 1V portable CLINICAL HISTORY: SEPSIS COMPARISON STUDY: Chest radiograph August 10, 2019. FINDINGS: Lungs are normal. Cardiomediastinal silhouette is stable. There is no pneumothorax or pleur al effusion. Mild left basilar opacity favors epicardial fat pad and atelectasis. There is no evidenc e for pulmonary edema or pneumonia. IMPRESSION: No acute cardiopulmonary findings. ACT 112: Negative or not required by law. Electronically signed by: Mj Membreno M.D. 09/08/2019 4:59 PM
[2019-09-08 17:05] LABS: INR 1.1 (0.9-1.1); Partial Thromboplastin Time 27.1 Seconds (21.0-31.0); Prothrombin Time 10.9 Seconds (9.0-12.0)
[2019-09-08 17:13] LABS: Albumin Level 3.1 gm/dl (3.4-5.0); BUN Creatinine Ratio 12.8 (10-20); Calcium 8.9 mg/dl (8.5-10.1); Creatinine Clr Calc Pharmacy 60.6 ml/min; Est GFR (African American) 59.6; Est GFR (Non-African American) 51.4; Magnesium 1.7 mg/dl (1.8-2.4); Potassium 3.8 mmol/L (3.5-5.1)
--- NOTE | 2019-09-08 17:15 | CT Scan Report ---
CT OF THE ABDOMEN AND PELVIS WITHOUT CONTRAST CLINICAL HISTORY: fever/chills, 7mm stone/stent R side COMPARISON STUDY: CT of the abdomen and pelvis August 09, 2019. KUB September 04, 2019. TECHNIQUE: Axial images of the abdomen and pelvis were obtained without IV contrast. Images were revi ewed in the axial, sagittal, and coronal planes. Automated exposure control was utilized for the gene dy. A dose lowering technique was utilized adhering to the principles of ALARA. FINDINGS: Lung bases are unremarkable. The 6 mm right-sided calculus is now within the upper pole of the right kidney. A right ureteral stent is appropriately positioned. There are no ureteral calculi o r fragments. There is mild right perinephric infiltration. There is no hydronephrosis. No additional urinary calculi are identified. Evaluation of the remainder of the abdomen and pelvis is suboptimal a s unenhanced exam. The liver, spleen, adrenal glands and pancreas are unremarkable. There is colonic diverticulosis without evidence for acute diverticulitis. There is no evidence for a bowel obstructio n. The appendix is normal. There are no suspicious osseous lesions. IMPRESSION: 1. Right ureteral stent in place. Mild right perinephric infiltration with no hydronephrosis. No uret eral calculi or fragments. 6 mm right-sided calculus now within the upper pole of the right kidney. 2. Colonic diverticulosis without evidence for acute diverticulitis. No bowel obstruction. Normal cornelius endix. ACT 112: Negative or not required by law. Electronically signed by: Mj Membreno M.D. 09/08/2019 5:14 PM
[2019-09-08 17:16] LABS: Albumin Globulin Ratio 0.8 (0.9-2); Bilirubin,Total 0.5 mg/dl (0.2-1); Globulin 3.9 gm/dl (2.5-4.0)
[2019-09-08] MEDS ORDERED: cefTRIAXone SODIUM 2,000 MG/70 ML BAG IV STA (17:41)
--- NOTE | 2019-09-08 18:10 | Emergency Department Note ---
Entered by Kirsten Esqueda acting as a scribe for History of Present Illness General Chief complaint: Illness Stated complaint: NAUSEA, VOMITING, CHILLS, FEVER Time Seen by Provider: 09/08/19 16:06 Source: patient History of Present Illness Onset (ago): day(s) (last night) Location: right (flank) Pain Consistency: + other (episode) Quality: + other (illness) Associated symptoms: + denies other symptoms (new leg swelling), + cough, + fever/chills (chills), + nausea/vomiting, + weakness and + other (hot flashes, right flank pain); no shortness of breath The patient is a 69 year old female w/ PMHx asthma, COPD, diabetes, dyslipidemia, osteoarthritis, GI bleed, hallux valgus left foot, HTN, obesity, rheumatoid arthritis, vertigo, xerostomia, carpal tunnel release, colonoscopy, c section, foot surgery, knee surgery, oophorectomy, ureteral stent placement, and post repair of nerve who presents to the ED w/ CC of an episode of an illness starting last night. The patient states that she has a kidney stone on the right side that she saw Dr. Shannon for a placement of a stent. She states that yesterday she went and saw anesthesia to plan for a cystoscopy on the of this month. She reports that last night she started having hot flashes and chills. She states that she thought it was a fever, but denies ever checking it. She notes that she was also nauseous and dry heaving. The patient complains of a dry cough, weakness, and continuing right flank pain. The patient notes that she did get a flu shot and she is currently on Bactrim. The patient denies feeling short of breath, being on oxygen at home, new leg swelling, and a history of heart failure. Home Medications Home Medications Medication Instructions Recorded Confirmed Type aspirin [Aspir-81] 81 mg PO QAM 06/18/18 09/08/19 History hydrochlorothiazide 25 mg PO QAM 06/18/18 09/08/19 History metformin 1,000 mg PO BIDM 06/18/18 09/08/19 History multivitamin 1 tab PO QAM 06/18/18 09/08/19 History Novolin N NPH U-100 Insulin 25 - 30 units SUBCUT DAILY@2130 10/01/18 09/08/19 History cholecalciferol (vitamin D3) 1,000 unit PO HS 10/01/18 09/08/19 History cyanocobalamin (vitamin B-12) 1,000 mcg PO QAM tab 05/22/19 09/08/19 History 1,000 mcg tablet folic acid 1 mg tablet 1 mg PO QAM tab 05/22/19 09/08/19 History glipizide 5 mg tablet 5 - 10 mg PO UD tab 05/22/19 09/08/19 History insulin regular human 100 unit/mL 15 units SUBCUT QDD ml 05/22/19 09/08/19 History injection solution ipratropium 20 mcg-albuterol 100 1 puffs INH Q6H PRN 05/22/19 09/08/19 History mcg/actuation mist for inhalation methotrexate sodium 2.5 mg tablet 5 mg PO FR@2100 tab 05/22/19 09/08/19 History losartan 50 mg PO HS 08/21/19 09/08/19 History vitamin E 1,000 unit PO HS 08/21/19 09/08/19 History atorvastatin 20 mg PO HS 09/06/19 09/08/19 History hydroxychloroquine [Plaquenil] 200 mg PO BID 09/06/19 09/08/19 History nitrofurantoin 100 mg PO Q12H 5 Days #10 cap 09/07/19 09/08/19 Rx monohydrate/macrocrystals 100 mg capsule Allergies Allergy/AdvReac Type Severity Reaction Status Date / Time grass pollen-perennial rye, Allergy Intermediate DIFFICULTY Verified 09/06/19 08:23 standar BREATHING mold Allergy Intermediate DIFFICULTY Verified 09/06/19 08:23 BREATHING pollen extracts Allergy Intermediate DIFFICULTY Verified 09/06/19 08:23 BREATHING etodolac Allergy Unknown UNKNOWN Verified 09/06/19 08:23 house dust Allergy Unknown Unknown Verified 09/06/19 08:23 pregabalin [From Lyrica] Allergy Unknown MOUTH FELT Verified 09/06/19 08:23 FUNNY simvastatin Allergy Unknown "FEELS Verified 09/06/19 08:23 FUNNY" tetanus toxoid, adsorbed Allergy Unknown SWELLING Verified 09/06/19 08:23 Past Med/Surg History Medical History Asthma Chronic obstructive pulmonary disease Controlled type 2 diabetes mellitus with neurologic complication, with long-term current use of insulin Difficult airway for intubation -Left peritonsillar abscess I&D 12/07/2012: Glidescope intubation, ETT 7.0 -Right hammertoe surgery/PIP arthroplasty 05/31/2012: LMA "an easy"unable to adequately ventilateintubatedDVL grade 1 ETT "in easy." Dyslipidemia Generalized osteoarthritis of multiple sites GI bleed 2013. REQUIRED TRANSFUSIONS. Hallux valgus (acquired), left foot (Acute) Several foot deformities (claw toe, hammertoe); surgical intervention performed, subsequent non-healing wound. History of gastrointestinal hemorrhage (Resolved) Hypertension Long-term use of hydroxychloroquine Low back pain Morbid (severe) obesity due to excess calories Osteoarthritis of hands, bilateral Rheumatoid arthritis Urethral stricture Urge and stress incontinence Venous insufficiency (chronic) (peripheral) Vertigo Xerostomia Surgical History History of carpal tunnel release R/L History of colonoscopy X MULTIPLE S/P section S/P foot surgery S/P knee surgery S/P oophorectomy S/P ureteral stent placement Status post repair of nerve Family History Mother Colorectal cancer Myocardial infarction Sister Diabetes Father Diabetes Grandfather Diabetes Myocardial infarction Other Family history non-contributory Social History Preferred Language: Kosovan Communication Ability: Effective Visual Impairment: No Limitations Hearing Ability: Normal Lighting Fixture Installer Required: No Beliefs That Will Affect Care: None marital status: Current Living Situation: Spouse current occupational status: retired 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 and A total of 10 systems reviewed and were otherwise negative Physical Exam Vital Signs Vital Signs - 24 hr 09/08/19 16:10 09/08/19 16:23 09/08/19 16:24 Temperature 38.8 C H Temperature Source Oral Pulse Rate 97 H Pulse Rate [Apical] Pulse Rate from SpO2 Sensor Pulse Rhythm [Apical] Respiratory Rate 20 Respiratory Effort / Characteristics Respiratory Pattern Blood Pressure 136/64 Blood Pressure [Right Arm] Blood Pressure Mean 88 Blood Pressure Mean [Right Arm] Pulse Oximetry 91 89 L 94 Oxygen Delivery Method Room Air Nasal Cannula Nasal Cannula Oxygen Flow Rate 0 1 Sepsis Recent Fever Within 48 Hours Yes Sepsis New/Unexplained Change in Mental Status No Sepsis Action Taken by Nursing No Action Required Oxygen Flow Rate - Titration 1 Pulse Oximetry Post Tiitration 94 09/08/19 17:29 09/08/19 17:31 09/08/19 17:55 Temperature 36.9 C Temperature Source Oral Pulse Rate Pulse Rate [Apical] 91 H 89 Pulse Rate from SpO2 Sensor Pulse Rhythm [Apical] Regular Respiratory Rate 28 H 16 Respiratory Effort / Characteristics Spontaneous Respiratory Pattern Regular Blood Pressure Blood Pressure [Right Arm] 116/71 131/81 Blood Pressure Mean Blood Pressure Mean [Right Arm] 86 97 Pulse Oximetry 95 93 Oxygen Delivery Method Nasal Cannula Room Air Oxygen Flow Rate 2 Sepsis Recent Fever Within 48 Hours Sepsis New/Unexplained Change in Mental Status Sepsis Action Taken by Nursing Oxygen Flow Rate - Titration Pulse Oximetry Post Tiitration 09/08/19 18:00 09/08/19 18:30 Temperature Temperature Source Pulse Rate 88 86 Pulse Rate [Apical] Pulse Rate from SpO2 Sensor 90 87 Pulse Rhythm [Apical] Respiratory Rate 33 H 29 H Respiratory Effort / Characteristics Respiratory Pattern Blood Pressure 149/80 H 142/76 H Blood Pressure [Right Arm] Blood Pressure Mean 103 90 Blood Pressure Mean [Right Arm] Pulse Oximetry 96 95 Oxygen Delivery Method Nasal Cannula Nasal Cannula Oxygen Flow Rate 2 2 Sepsis Recent Fever Within 48 Hours Sepsis New/Unexplained Change in Mental Status Sepsis Action Taken by Nursing Oxygen Flow Rate - Titration Pulse Oximetry Post Tiitration GENERAL: Mildly ill in appearance. EYE EXAM: Normal conjunctiva. PERRL, no anisocoria and EOM's grossly intact w/o pain. OROPHARYNX: Dry mucous membranes. Grossly normal dentition. NECK: Supple, no nuchal rigidity, no adenopathy, non-tender. No signs of meningismus. LUNGS: Bibasilar crackles. Normal chest wall mechanics. HEART: Tachycardic and regular, no MRG. ABDOMEN: Abdomen soft, non-tender, normo-active bowel sounds, no masses, no rebound or guarding. BACK: Mild flank pain. SKIN: No rashes and no bruising. UPPER EXTREMITIES: Upper extremities are grossly normal. LOWER EXTREMITIES: No pitting edema. No calf pain. NEURO EXAM: A&O x3, cranial nerves II-XII grossly intact, normal speech, moves all 4 extremities on command w/o issue. Course Course 1614: Past medical records reviewed. The patient was evaluated in room B2. A complete history and physical exam was performed. 1616: Orders were placed and the patient was started on a building construction foreman. 1731: I reevaluated the patient and updated her on her test results. I discussed the treatment plan with her. She verbally agrees and understands. 1803: I [facility] the [facility] He will evaluate the patient for further management. Administered Medications Atorvastatin Calcium (Lipitor) 20 mg PO HS [facility] Stop: 10/08/19 20:59 Last Admin: 09/08/19 21:13 Dose: 20 mg Documented by: [id number] Cyanocobalamin (Vitamin B-12) 1,000 mcg PO QAM [facility] Stop: 10/09/19 08:59 Last Admin: 09/09/19 08:14 Dose: Not Given Documented by: [id number] Folic Acid (Folvite) 1 mg PO QAM [facility] Stop: 10/09/19 08:59 Last Admin: 09/09/19 08:14 Dose: Not Given Documented by: [id number] Hydroxychloroquine Sulfate (Plaquenil) 200 mg PO BID [facility] Stop: 10/08/19 20:59 Last Admin: 09/09/19 08:14 Dose: 200 mg Documented by: [id number] Admin: 09/08/19 21:13 Dose: 200 mg Documented by: [id number] Ceftriaxone Sodium 2,000 mg/ (Dextrose) 70 mls @ 100 mls/hr IV DAILY [facility]; Protocol Stop: 09/18/19 08:59 Last Infusion: 09/09/19 09:04 Dose: 0 mls/hr Documented by: [id number] Admin: 09/09/19 08:18 Dose: 100 mls/hr Documented by: [id number] Potassium Chloride/Sodium Chloride (Normal Saline W/20 Meq Kcl) 20 meq in 1,000 mls @ 100 mls/hr IV .Q10H [facility] Stop: 10/08/19 20:14 Last Admin: 09/09/19 08:13 Dose: 100 mls/hr Documented by: [id number] Infusion: 09/09/19 08:13 Dose: 100 mls/hr Documented by: [id number] Infusion: 09/09/19 06:26 Dose: 100 mls/hr Documented by: [id number] Infusion: 09/08/19 22:49 Dose: 100 mls/hr Documented by: [id number] Infusion: 09/08/19 22:15 Dose: 100 mls/hr Documented by: [id number] Infusion: 09/08/19 21:15 Dose: 0 mls/hr Documented by: [id number] Admin: 09/08/19 21:13 Dose: 100 mls/hr Documented by: [id number] Insulin Aspart (Novolog Flexpen) 0 units SC Q6 [facility] Stop: 10/09/19 05:59 Last Admin: 09/09/19 05:39 Dose: 1 units Documented by: [id number] Cosigned by: [id number] Multivitamins (Multivitamin Tab) 1 tab PO QAM [facility] Stop: 10/09/19 08:59 Last Admin: 09/09/19 08:14 Dose: Not Given Documented by: [id number] Vitamin D (Vitamin D3) 1,000 units PO HS [facility] Stop: 10/08/19 20:59 Last Admin: 09/08/19 21:13 Dose: 1,000 units Documented by: [id number] Zolpidem Tartrate (Ambien) 2.5 mg PO HS PRN PRN Reason: Sleep Stop: 10/08/19 21:05 Last Admin: 09/08/19 21:26 Dose: 2.5 mg Documented by: [id number] Discontinued Medications Sodium Chloride (Nss 1000ml) 1,000 mls @ 999 mls/hr IV .Q1H1M ONE Stop: 09/08/19 17:10 Last Infusion: 09/08/19 19:12 Dose: 0 mls/hr Documented by: [id number] Admin: 09/08/19 16:47 Dose: 999 mls/hr Documented by: [id number] Ceftriaxone Sodium (Rocephin) 2,000 mg in 70 mls @ 140 mls/hr IV NOW STA Stop: 09/08/19 18:10 Last Infusion: 09/08/19 19:12 Dose: 0 mls/hr Documented by: [id number] Admin: 09/08/19 17:55 Dose: 140 mls/hr Documented by: [id number] Sodium Chloride (Nss 1000ml) 1,000 mls @ 999 mls/hr IV .Q1H1M ONE Stop: 09/08/19 19:15 Last Infusion: 09/08/19 20:17 Dose: 0 mls/hr Documented by: [id number] Admin: 09/08/19 19:12 Dose: 999 mls/hr Documented by: [id number] Magnesium Sulfate/Dextrose (Magnesium Sulfate / D5w) 1 gm in 100 mls @ 100 mls/hr IV ONE ONE Stop: 09/08/19 21:14 Last Infusion: 09/08/19 22:15 Dose: 0 mls/hr Documented by: [id number] Admin: 09/08/19 21:13 Dose: 100 mls/hr Documented by: [id number] Insulin Aspart (Novolog Flexpen) 0 units SC ACHS [facility]I Stop: 10/08/19 20:59 Last Admin: 09/08/19 21:12 Dose: 4 units Documented by: [id number] Cosigned by: [id number] Trazodone HCl (Desyrel) 50 mg PO NOW ONE Stop: 09/09/19 01:08 Last Admin: 09/09/19 01:20 Dose: 50 mg Documented by: [id number] Medical Decision Making Differential Diagnosis Etiologies such as shingles, pyelonephritis/UTI, renal colic, appendicitis, diverticulitis, mesenteric ischemia, torsion, aortic pathology, infections, inflammatory bowel disease, bowel obstruction, PUD, biliary pathology, as well as others were entertained. Medical Records Attestation: I reviewed the patient's medical records. The patient was seen by Dr. Shannon on September 05. She has a 7 mm right sided obstructing kidney stone and a stent placed. The patient was seen yesterday by anesthesia for a pre-op clearance for a cystoscopy on the . Her urine culture on 08/09/19 showed that she grew out Rocephin sensitive klebsiella. Home Medications Current Medication List: was personally reviewed by me Laboratory Data Attestation: I reviewed the patient's lab results. Result diagrams: 09/09/19 04:55 09/09/19 04:55 Lab Results 01/07/1809/08/19 09/08/19 Range/Units 16:22 16:39 16:39 WBC 10.40 (4.8-10.8) K/uL RBC 3.77 L (4.2-5.4) M/uL Hgb 10.6 L (12.0-16.0) g/dL Hct 32.3 L (37-47) % MCV 85.7 (80-100) fL MCH 28.1 (25-34) pg MCHC 32.8 (32-36) g/dL RDW Std Deviation 49.0 H (36.4-46.3) fL RDW Coeff of Ilana 15.8 H (11.5-14.5) % Plt Count 200 (130-400) K/uL MPV 9.6 (7.4-10.4) fL Immature Gran % (Auto) 0.4 % Neut % (Auto) 78.8 % Lymph % (Auto) 9.5 % [place] % (Auto) 11.0 % Eos % (Auto) 0.2 % Baso % (Auto) 0.1 % Immature Gran # (Auto) 0.04 H (0.00-0.02) K/uL Neut # (Auto) 8.20 H (1.4-6.5) K/uL Lymph # (Auto) 0.99 L (1.2-3.4) K/uL [place]ron # (Auto) 1.14 H (0.11-0.59) K/uL Eos # (Auto) 0.02 (0-0.5) K/uL Baso # (Auto) 0.01 (0-0.2) K/uL PT 10.9 (9.0-12.0) Seconds INR 1.1 (0.9-1.1) APTT 27.1 (21.0-31.0) Seconds PTT Ratio 1.0 Sodium (136-145) mmol/L Potassium (3.5-5.1) mmol/L Chloride (98-107) mmol/L Carbon Dioxide (21-32) mmol/L Anion Gap (3-11) BUN (7-18) mg/dl Creatinine (0.6-1.2) mg/dl Est Cr Clr Drug Dosing ml/min Est GFR ( Amer) Est GFR (Non-Af Amer) BUN/Creatinine Ratio (10-20) Glucose (70-99) mg/dl Lactate (0.4-2.0) mmol/L Calcium (8.5-10.1) mg/dl Magnesium (1.8-2.4) mg/dl Total Bilirubin (0.2-1) mg/dl AST (15-37) U/L ALT (12-78) U/L Alkaline Phosphatase (45-117) U/L Total Protein (6.4-8.2) gm/dl Albumin (3.4-5.0) gm/dl Globulin (2.5-4.0) gm/dl Albumin/Globulin Ratio (0.9-2) Urine Color Yellow Urine Appearance Cloudy A (Clear) Urine pH 7.0 (4.5-7.5) Ur Specific [place] 1.018 (1.000-1.030) Urine Protein 2+ H (Negative) Urine Glucose (UA) Negative (Negative) Urine Ketones Trace H (Negative) Urine Blood 2+ H (Negative) Urine Nitrite Positive A (Negative) Urine Bilirubin Negative (Negative) Urine Urobilinogen Negative (Negative) Ur Leukocyte Esterase 3+ H (Negative) Urine WBC (Auto) >30 H (0-5) /hpf Urine RBC (Auto) >30 H (0-4) /hpf U Hyaline Cast (Auto) 1-5 (0-5) /lpf U Epithel Cells (Auto) 0-5 (0-5) /lpf Urine Bacteria (Auto) 2+ H (Negative) 09/08/19 09/08/19 Range/Units 16:39 16:39 WBC (4.8-10.8) K/uL RBC (4.2-5.4) M/uL Hgb (12.0-16.0) g/dL Hct (37-47) % MCV (80-100) fL MCH (25-34) pg MCHC (32-36) g/dL RDW Std Deviation (36.4-46.3) fL RDW Coeff of Ilana (11.5-14.5) % Plt Count (130-400) K/uL MPV (7.4-10.4) fL Immature Gran % (Auto) % Neut % (Auto) % Lymph % (Auto) % Catron % (Auto) % Eos % (Auto) % Baso % (Auto) % Immature Gran # (Auto) (0.00-0.02) K/uL Neut # (Auto) (1.4-6.5) K/uL Lymph # (Auto) (1.2-3.4) K/uL [place] # (Auto) (0.11-0.59) K/uL Eos # (Auto) (0-0.5) K/uL Baso # (Auto) (0-0.2) K/uL PT (9.0-12.0) Seconds INR (0.9-1.1) APTT (21.0-31.0) Seconds PTT Ratio Sodium 135 L (136-145) mmol/L Potassium 3.8 (3.5-5.1) mmol/L Chloride 100 (98-107) mmol/L Carbon Dioxide 28 (21-32) mmol/L Anion Gap 7.0 (3-11) BUN 14 (7-18) mg/dl Creatinine 1.09 (0.6-1.2) mg/dl Est Cr Clr Drug Dosing 60.6 ml/min Est GFR ( Amer) 59.6 Est GFR (Non-Af Amer) 51.4 BUN/Creatinine Ratio 12.8 (10-20) Glucose 139 H (70-99) mg/dl Lactate 2.2 H* (0.4-2.0) mmol/L Calcium 8.9 (8.5-10.1) mg/dl Magnesium 1.7 L (1.8-2.4) mg/dl Total Bilirubin 0.5 (0.2-1) mg/dl AST 14 L (15-37) U/L ALT 24 (12-78) U/L Alkaline Phosphatase 61 (45-117) U/L Total Protein 7.0 (6.4-8.2) gm/dl Albumin 3.1 L (3.4-5.0) gm/dl Globulin 3.9 (2.5-4.0) gm/dl Albumin/Globulin Ratio 0.8 L (0.9-2) Urine Color Urine Appearance (Clear) Urine pH (4.5-7.5) Ur Specific [place] (1.000-1.030) Urine Protein (Negative) Urine Glucose (UA) (Negative) Urine Ketones (Negative) Urine Blood (Negative) Urine Nitrite (Negative) Urine Bilirubin (Negative) Urine Urobilinogen (Negative) Ur Leukocyte Esterase (Negative) Urine WBC (Auto) (0-5) /hpf Urine RBC (Auto) (0-4) /hpf U Hyaline Cast (Auto) (0-5) /lpf U Epithel Cells (Auto) (0-5) /lpf Urine Bacteria (Auto) (Negative) Imaging Data Radiologist's Impression: Radiology results as stated below per my review and the radiologist's interpretation: XR chest 1V portable CLINICAL HISTORY: SEPSIS COMPARISON STUDY: Chest radiograph August 10, 2019. FINDINGS: Lungs are normal. Cardiomediastinal silhouette is stable. There is no pneumothorax or pleural effusion. Mild left basilar opacity favors epicardial fat pad and atelectasis. There is no evidence for pulmonary edema or pneumonia. IMPRESSION: No acute cardiopulmonary findings. ACT 112: Negative or not required by law. Electronically signed by: Mj Membreno M.D. 09/08/2019 4:[address] OF THE ABDOMEN AND PELVIS WITHOUT CONTRAST CLINICAL HISTORY: fever/chills, 7mm stone/stent R side COMPARISON STUDY: CT of the abdomen and pelvis August 09, 2019. KUB September 04, 2019. TECHNIQUE: Axial images of the abdomen and pelvis were obtained without IV contrast. Images were reviewed in the axial, sagittal, and coronal planes. Automated exposure control was utilized for the study. A dose lowering technique was utilized adhering to the principles of ALARA. FINDINGS: Lung bases are unremarkable. The 6 mm right-sided calculus is now within the upper pole of the right kidney. A right ureteral stent is appropri ately positioned. There are no ureteral calculi or fragments. There is mild right perinephric infiltration. There is no hydronephrosis. No additional urinary calculi are identified. Evaluation of the remainder of the abdomen and pelvis is suboptimal as unenhanced exam. The liver, spleen, adrenal glands and pancreas are unremarkable. There is colonic diverticulosis without evidence for acute diverticulitis. There is no evidence for a bowel obstruction. The appendix is normal. There are no suspicious osseous lesions. IMPRESSION: 1. Right ureteral stent in place. Mild right perinephric infiltration with no hydronephrosis. No ureteral calculi or fragments. 6 mm right-sided calculus now within the upper pole of the right kidney. 2. Colonic diverticulosis without evidence for acute diverticulitis. No bowel obstruction. Normal appendix. ACT 112: Negative or not required by law. Electronically signed by: Mj Membreno M.D. 09/08/2019 5:14 PM ECG Data Attestation: I personally reviewed and interpreted this ECG as follows: Indication: + vomiting Rate (beats per minute): 92 Rhythm: + normal sinus ECG Intervals/blocks: + Normal QRS, + Normal NC and + Normal QT-c ECG [place]: + Normal ECG Findings: no PACs and no PVCs Blood Pressure Blood Pressure Findings: Normal blood pressure Blood Pressure Disposition: did not require urgent referral MDM Narrative The patient is a 69 year old female w/ PMHx asthma, COPD, diabetes, dyslipidemia, osteoarthritis, GI bleed, hallux valgus left foot, HTN, obesity, rheumatoid arthritis, vertigo, xerostomia, carpal tunnel release, colonoscopy, c section, foot surgery, knee surgery, oophorectomy, ureteral stent placement, and post repair of nerve who presents to the ED w/ CC of an episode of an illness starting last night. Patient was seen and evaluated the bedside. The patient does present with concern for increasing weakness does appear to be mildly hypoxic on room air. Patient was placed on 1 2 L. The patient does have bibasilar crackles may be related more to restrictive lung disease secondary to body habitus and or weakness in general and poor inspiratory effort. Patient did have a chest x-ray which is unremarkable. CT the abdomen pelvis was completed given the patient's recent stent placement. CT does show that she does have a little bit of perinephric infiltration which may be normal in the setting of a recent stent placement; however, given the patient's reported chills and the fact that she is approximately 2 to 3 weeks out past her stent placement and the fact that she is on immunosuppressant therapy may benefit from inpatient treatment. The patient was requiring some supplemental oxygen. Patient does not have any evidence of renal abscess. I did review the patient's last urine cultures and saw virtually pansensitive Klebsiella which was sensitive to Rocephin. Lactate was 2.2. This was ordered in addition to IV fluids. I did speak with the on-call hospitalist who agreed to further evaluate treat the patient. Patient was subsequently made to the medicine service. Impression & Plan Hypoxia, UTI (urinary tract infection), Kidney stone, Flank pain, Fever Discharge Plan Visit Data *Final* Discharge Date/Time: 09/08/19 19:33 Chief Complaint: Illness Stated Complaint: NAUSEA, VOMITING, CHILLS, FEVER ED Provider: Lester Styles Discharge Problem: Hypoxia, UTI (urinary tract infection), Kidney stone, Flank pain, Fever Patient Disposition: Admitted As Inpatient Discharge Instructions Interventions: ED Discharge Assessment Last Done: 09/08/19 19:33 Discharge Problem: UTI (urinary tract infection) Qualifiers: Urinary tract infection type: site unspecified Hematuria presence: with hematuria Qualified Code(s): N39.0 - Urinary tract infection, site not specified Fever Qualifiers: Fever type: unspecified Qualified Code(s): R50.9 - Fever, unspecified The scribe's documentation has been prepared under my direction and personally reviewed by me in its entirety. I confirm that the note above accurately reflects all work, treatment, procedures, and medical decision making performed by me.
--- NOTE | 2019-09-08 18:56 | History & Physical Report ---
Date of Service September 08, 2019 Assessment & Plan (1) S/P ureteral stent placement: Status post right ureteral stent placement with right UVJ stone and urinary tract infection- Had a tentative OR schedule for 09/13/2019 right cystoscopy/ureteral nephrostomy/retrograde pyelogram/laser extraction of stone and stent catheter exchange. 08/09/19 urinary tract infection with Klebsiella which is sensitive to ceftriaxone, will continue ceftriaxone 2 g IV daily. Placed on NSS + KCl 20 mEq at 100 mils per hour. Carroll catheter Follow urine culture and sensitivity. NPO after midnight for possible procedure. Consult urology Dr. Shannon. Present on Admission?: Yes (2) UTI (urinary tract infection): See above Present on Admission?: Yes (3) Kidney stone: See above Present on Admission?: Yes (4) Hyperlipidemia: Continue atorvastatin 20 mg at bedtime Present on Admission?: Yes (5) COPD (chronic obstructive pulmonary disease): Continue with the usual inhalers. (6) Diabetes 1.5, managed as type 2: Hold Humulin N and R, glipizide and metformin Placed on Accu-Cheks before meals and at bedtime with Humalog coverage per scale. Present on Admission?: Yes (7) Benign essential hypertension: Hold HCTZ, aspirin and losartan. Present on Admission?: Yes (8) Rheumatoid arthritis: Continue hydroxychloroquine. Takes methotrexate 5 mg on Fridays, which should be held due to present infection Present on Admission?: Yes History of Present Illness Chief Complaint: The patient presents to the emergency department with 2 days of worsening nausea, vomiting, chills and fever. Primary Care Provider: Chicho Langley MD The patient is a 69-year-old female with a past medical history including kidney stones, urinary tract infection, acute posthemorrhagic anemia, lower GI bleed, vertebrobasilar insufficiency, hyperlipidemia, hypertension, COPD, diabetes mellitus, diabetic foot ulcer, RA, generalized weakness, diabetic peripheral neuropathy and asthma. She was most recently admitted from 08/09- 08/13/2019 with a right UVJ stone, UTI and stent placement. She was recently seen by urology and anesthesiology in the outpatient setting, and has an upcoming OR appointment scheduled for 09/13/2019 for a right cystoscopy/ureteral nephrostomy, retrograde pyelogram, laser/extraction of stone and stent catheter exchange. In the interim, the patient has gotten new symptoms of nausea, vomiting, chills and fever, and presented to the emergency department for assessment. Allergies Allergy/AdvReac Type Severity Reaction Status Date / Time grass pollen-perennial rye, Allergy Intermediate DIFFICULTY Verified 09/06/19 08:23 standar BREATHING mold Allergy Intermediate DIFFICULTY Verified 09/06/19 08:23 BREATHING pollen extracts Allergy Intermediate DIFFICULTY Verified 09/06/19 08:23 BREATHING etodolac Allergy Unknown UNKNOWN Verified 09/06/19 08:23 house dust Allergy Unknown Unknown Verified 09/06/19 08:23 pregabalin [From Lyrica] Allergy Unknown MOUTH FELT Verified 09/06/19 08:23 FUNNY simvastatin Allergy Unknown "FEELS Verified 09/06/19 08:23 FUNNY" tetanus toxoid, adsorbed Allergy Unknown SWELLING Verified 09/06/19 08:23 Home Medications Home Medications Medication Instructions Recorded Confirmed Type aspirin [Aspir-81] 81 mg PO QAM 06/18/18 09/08/19 History hydrochlorothiazide 25 mg PO QAM 06/18/18 09/08/19 History metformin 1,000 mg PO BIDM 06/18/18 09/08/19 History multivitamin 1 tab PO QAM 06/18/18 09/08/19 History Novolin N NPH U-100 Insulin 25 - 30 units SUBCUT DAILY@2130 10/01/18 09/08/19 History cholecalciferol (vitamin D3) 1,000 unit PO HS 10/01/18 09/08/19 History cyanocobalamin (vitamin B-12) 1,000 mcg PO QAM tab 05/22/19 09/08/19 History 1,000 mcg tablet folic acid 1 mg tablet 1 mg PO QAM tab 05/22/19 09/08/19 History glipizide 5 mg tablet 5 - 10 mg PO UD tab 05/22/19 09/08/19 History insulin regular human 100 unit/mL 15 units SUBCUT QDD ml 05/22/19 09/08/19 History injection solution ipratropium 20 mcg-albuterol 100 1 puffs INH Q6H PRN 05/22/19 09/08/19 History mcg/actuation mist for inhalation methotrexate sodium 2.5 mg tablet 5 mg PO FR@2100 tab 05/22/19 09/08/19 History losartan 50 mg PO HS 08/21/19 09/08/19 History vitamin E 1,000 unit PO HS 08/21/19 09/08/19 History atorvastatin 20 mg PO HS 09/06/19 09/08/19 History hydroxychloroquine [Plaquenil] 200 mg PO BID 09/06/19 09/08/19 History nitrofurantoin 100 mg PO Q12H 5 Days #10 cap 09/07/19 09/08/19 Rx monohydrate/macrocrystals 100 mg capsule Past Med/Surg History Medical History Asthma Chronic obstructive pulmonary disease Controlled type 2 diabetes mellitus with neurologic complication, with long-term current use of insulin Difficult airway for intubation -Left peritonsillar abscess I&D 12/07/2012: Glidescope intubation, ETT 7.0 -Right hammertoe surgery/PIP arthroplasty 05/31/2012: LMA "an easy"unable to adequately ventilateintubatedDVL grade 1 ETT "in easy." Dyslipidemia Generalized osteoarthritis of multiple sites GI bleed 2013. REQUIRED TRANSFUSIONS. Hallux valgus (acquired), left foot (Acute) Several foot deformities (claw toe, hammertoe); surgical intervention performed, subsequent non-healing wound. History of gastrointestinal hemorrhage (Resolved) Hypertension Long-term use of hydroxychloroquine Low back pain Morbid (severe) obesity due to excess calories Osteoarthritis of hands, bilateral Rheumatoid arthritis Urethral stricture Urge and stress incontinence Venous insufficiency (chronic) (peripheral) Vertigo Xerostomia Surgical History History of carpal tunnel release R/L History of colonoscopy X MULTIPLE S/P section S/P foot surgery S/P knee surgery S/P oophorectomy S/P ureteral stent placement Status post repair of nerve Family History Mother Colorectal cancer Myocardial infarction Sister Diabetes Father Diabetes Grandfather Diabetes Myocardial infarction Other Family history non-contributory Social History Preferred Language: [place] Communication Ability: Effective Visual Impairment: No Limitations Hearing Ability: Normal 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 Required: No Beliefs That Will Affect Care: None marital status: Current Living Situation: Spouse current occupational status: retired 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 Other Information That Helps Us Care for You: No Feels Safe at Home: Yes Safety Concerns: Feels Safe At This Time Smoking Status: Former smoker Tobacco Type: cigarettes ; Do You Dip or Chew Tobacco: No ; Second Hand Exposure: No ; Tobacco Cessation Education Requested by Patient: No Hx Alcohol Use: No Hx Substance Use: No Seatbelt Use: always Review of Systems Review of Systems: The patient denies chest pain, palpitations, shortness of breath, dyspnea on exertion, cough, lower extremity swelling, sore throat, diarrhea , constipation, blood in urine or stool, lightheadedness, dizziness, headache, memory loss, loss of consciousness, rash, abnormal bruising or bleeding, imbalance, focal or generalized weakness, numbness or tingling in arms or legs, generalized arthralgias or myalgias, neck pain, or night sweats. The review of systems is otherwise negative other than for that already noted above, and at least 10 systems have been reviewed. Physical Exam Physical Exam: The patient is awake, alert and oriented 3, well developed and well nourished, normocephalic and atraumatic, lying in bed and in no acute distress. HEENT--PERRL, EOMI, mucous membranes and oropharynx dry. Neck--supple. No JVD. No bruits. Thyroid normal, trachea midline, no adenopathy. Heart--normal S1 and S2. No murmurs, rubs or gallops. Lungs--clear bilaterally, no respiratory distress, no accessory muscle use. Abdomen--normal bowel sounds and soft. Tender right flank area. Nondistended. Extremities--no cyanosis or clubbing. No edema. There are good distal pulses b/l. Dermatologic--normal skin turgor, normal color, no abnormal lymph nodes, no rash. Neurologic--cranial nerves II through XII grossly intact. Rheumatologic--normal range of motion. Psychiatric--normal affect. Results & Data Vital Signs (Past 12 Hours) Vital Signs Temp Pulse Pulse Resp BP BP Pulse Ox 09/08/19 17:55 89 16 131/81 93 09/08/19 17:31 98.4 F 09/08/19 17:29 91 H 28 H 116/71 95 09/08/19 16:24 94 09/08/19 16:23 89 L 09/08/19 16:10 101.8 F H 97 H 20 136/64 91 Code Status & VTE Plan Code Status Full code VTE Prophylaxis Plan VTE Prophylaxis will be ordered: Yes PG Care Time/CCT Total # of Minutes Spent Total Time Spent with Patient: Total time spent is greater than 50% in coordination of care (as documented) at patient's floor/unit and/or counseling patient: (1) UTI (urinary tract infection) Hematuria presence: with hematuria Urinary tract infection type: site unspecified Qualified Code(s): N39.0 - Urinary tract infection, site not specified; R31.9 - Hematuria, unspecified
[2019-09-08] MEDS ORDERED: GLUCOSE 40% GEL 15 GM TUBE PO PRN (19:44)
[2019-09-08] MEDS ORDERED: GLUCAGON FOR INJ 1 MG VIAL SQ PRN (19:44)
[2019-09-08] MEDS ORDERED: IPRATROPIUM BROMIDE/ALBUTEROL respimat INH INH PRN (19:44)
[2019-09-08] MEDS ORDERED: ONDANSETRON INJ 2 MG/ML 2 ML VIAL IV PRN (19:44)
[2019-09-08] MEDS ORDERED: CARBOHYDRATES FOR HYPOGLYCEMIA PO PRN (19:44)
[2019-09-08] MEDS ORDERED: GLUCOSE 10 TABS/TUBE PO PRN (19:44)
[2019-09-08] MEDS ORDERED: DEXTROSE 50% 50 ML SYRINGE IV PRN (19:44)
[2019-09-08] MEDS ORDERED: MAGNESIUM SULFATE / D5W 1 GM/100 ML BAG IV ONE (20:15)
[2019-09-08] MEDS ORDERED: INSULIN ASPART 100 UNITS/ML 3 ML PEN SC SCH (21:00)
[2019-09-08] MEDS: ATORVASTATIN 20 MG TAB PO SCH (21:13)
[2019-09-08] MEDS: CHOLECALCIFEROL 1,000 UNITS TAB PO SCH (21:13)
[2019-09-08] MEDS: NSS + 20MEQ KCL 20 MEQ/1,000 ML BAG IV SCH (21:13)
[2019-09-08] MEDS: HYDROXYCHLOROQUINE SULFATE 200 MG TAB PO SCH (21:13)
[2019-09-08] MEDS: ZOLPIDEM TARTRATE 5 MG TAB PO PRN (21:26)
[2019-09-09] MEDS ORDERED: TRAZODONE HCL 50 MG TAB PO ONE (01:07)
[2019-09-09] MEDS ORDERED: Nursing to Pharmacy Communication ONE ×2 (02:33→10:55)
[2019-09-09 05:48] LABS: Basophils # (auto) 0.03 K/uL (0-0.2); Basophils % (auto) 0.4 %; Eosinophils # (auto) 0.08 K/uL (0-0.5); Hematocrit (blood only) 31.6 % (37-47); Hemoglobin 10.2 g/dL (12.0-16.0); Immature Granulocytes # (auto) 0.02 K/uL (0.00-0.02); Immature Granulocytes % (auto) 0.2 %; Lymphocytes # (auto) 1.02 K/uL (1.2-3.4); Lymphocytes % (auto) 12.5 %; Mean Corpuscular Hemoglobin 28.1 pg (25-34); Mean Corpuscular Hgb Conc 32.3 g/dL (32-36); Mean Corpuscular Volume 87.1 fL (80-100); Mean Platelet Volume 9.7 fL (7.4-10.4); Monocytes # (auto) 1.35 K/uL (0.11-0.59); Monocytes % (auto) 16.5 %; Neutrophils # (auto) 5.66 K/uL (1.4-6.5); Neutrophils % (auto) 69.4 %; Platelet Count 189 K/uL (130-400); RDW Coefficient of Variation 15.9 % (11.5-14.5); RDW Standard Deviation 50.5 fL (36.4-46.3); Red Blood Count 3.63 M/uL (4.2-5.4); White Blood Count 8.16 K/uL (4.8-10.8)
[2019-09-09 05:58] LABS: INR 1.1 (0.9-1.1); Partial Thromboplastin Time 27.6 Seconds (21.0-31.0)
[2019-09-09] MEDS ORDERED: INSULIN ASPART 100 UNITS/ML 3 ML PEN SC SCH (06:00)
--- NOTE | 2019-09-09 06:07 | Electrocardiogram Report ---
Test Reason : Blood Pressure : / mmHG Vent. Rate : 092 BPM Atrial Rate : 092 BPM P-R Int : 172 ms QRS Dur : 096 ms QT Int : 376 ms P-R-T Axes : 038 -14 046 degrees QTc Int : 464 ms Normal sinus rhythm with sinus arrhythmia Low voltage QRS Inferior infarct Possible Anterior infarct Abnormal ECG When compared with ECG of 21-AUG-2019 11:03, No significant change was found Confirmed by Haseeb Jaime ([id number]) on 09/09/2019 6:06:50 AM Referred By: ED Confirmed By:Haseeb Jaime
[2019-09-09 06:16] LABS: Albumin Level 2.7 gm/dl (3.4-5.0); BUN Creatinine Ratio 13.1 (10-20); Calcium 8.5 mg/dl (8.5-10.1); Est GFR (African American) 75.1; Est GFR (Non-African American) 64.8
[2019-09-09 06:19] LABS: Albumin Globulin Ratio 0.8 (0.9-2); Bilirubin,Total 0.4 mg/dl (0.2-1); Globulin 3.6 gm/dl (2.5-4.0); Total Protein 6.3 gm/dl (6.4-8.2)
[2019-09-09] MEDS: NSS + 20MEQ KCL 20 MEQ/1,000 ML BAG IV SCH ×2 (08:13→18:41)
[2019-09-09] MEDS: FOLIC ACID 1 MG TAB PO SCH (08:14)
[2019-09-09] MEDS: HYDROXYCHLOROQUINE SULFATE 200 MG TAB PO SCH ×2 (08:14→20:03)
[2019-09-09] MEDS: MULTIVITAMIN TAB PO SCH (08:14)
[2019-09-09] MEDS: CYANOCOBALAMIN 500 MCG TABLET (VITAMIN B-12) PO SCH (08:14)
[2019-09-09] MEDS: cefTRIAXone SODIUM 2,000 MG in DEXTROSE 5% 50 ML IV SCH (08:18)
--- NOTE | 2019-09-09 08:53 | Urology Consultation ---
Date of Consultation September 09, 2019 Assessment & Plan (1) S/P ureteral stent placement: Patient is much more comfortable with IV hydration and IV antibiotics. Continues to have episodes at this concert. No severe episodes. Discussed different options. Discussed management. Patient did have a fever on presentation. Has not gone back full new culture yet. Patient does seem to be clinically improving. Will likely need to have stone treated sooner rather than later. Made plan to do this this admission. Will consider different options. For time being we will continue to monitor closely. If patient continues to improve clinically may be able to go for stone treatment starting tomorrow. Discussed risks with acute UTI and instrumentation especially under pressure which is necessary for ureteroscopy. Will await culture results. Likely Ureteroscopy with laser lithotripsy tomorrow if patient will tolerate. (2) Kidney stone: See above History of Present Illness Attending Physician: Sree Llanes MD History of Present Illness Patient with history of stone with UTI had stent placed approximately 3 weeks ago. Was set to go to the OR this coming week. Patient has had worsening pain and discomfort. Worsening urgency and frequency. Has become considerably more worried and concerned. Pain in the flank and back going into waves. Patient presented acutely ill to the ER was admitted with IV antibiotics and close monitoring. Patient has subsequently improved with hydration. Continues to have discomfort and burning and irritation. Is currently tolerating medications. Is n.p.o. but will start diet later today. Allergies Allergy/AdvReac Type Severity Reaction Status Date / Time grass pollen-perennial rye, Allergy Intermediate DIFFICULTY Verified 09/06/19 08:23 standar BREATHING mold Allergy Intermediate DIFFICULTY Verified 09/06/19 08:23 BREATHING pollen extracts Allergy Intermediate DIFFICULTY Verified 09/06/19 08:23 BREATHING etodolac Allergy Unknown UNKNOWN Verified 09/06/19 08:23 house dust Allergy Unknown Unknown Verified 09/06/19 08:23 pregabalin [From Lyrica] Allergy Unknown MOUTH FELT Verified 09/06/19 08:23 FUNNY simvastatin Allergy Unknown "FEELS Verified 09/06/19 08:23 FUNNY" tetanus toxoid, adsorbed Allergy Unknown SWELLING Verified 09/06/19 08:23 Home Medications Home Medications Medication Instructions Recorded Confirmed Type aspirin [Aspir-81] 81 mg PO QAM 06/18/18 09/08/19 History hydrochlorothiazide 25 mg PO QAM 06/18/18 09/08/19 History metformin 1,000 mg PO BIDM 06/18/18 09/08/19 History multivitamin 1 tab PO QAM 06/18/18 09/08/19 History Novolin N NPH U-100 Insulin 25 - 30 units SUBCUT DAILY@2130 10/01/18 09/08/19 History cholecalciferol (vitamin D3) 1,000 unit PO HS 10/01/18 09/08/19 History cyanocobalamin (vitamin B-12) 1,000 mcg PO QAM tab 05/22/19 09/08/19 History 1,000 mcg tablet folic acid 1 mg tablet 1 mg PO QAM tab 05/22/19 09/08/19 History glipizide 5 mg tablet 5 - 10 mg PO UD tab 05/22/19 09/08/19 History insulin regular human 100 unit/mL 15 units SUBCUT QDD ml 05/22/19 09/08/19 History injection solution ipratropium 20 mcg-albuterol 100 1 puffs INH Q6H PRN 05/22/19 09/08/19 History mcg/actuation mist for inhalation methotrexate sodium 2.5 mg tablet 5 mg PO FR@2100 tab 05/22/19 09/08/19 History losartan 50 mg PO HS 08/21/19 09/08/19 History vitamin E 1,000 unit PO HS 08/21/19 09/08/19 History atorvastatin 20 mg PO HS 09/06/19 09/08/19 History hydroxychloroquine [Plaquenil] 200 mg PO BID 09/06/19 09/08/19 History nitrofurantoin 100 mg PO Q12H 5 Days #10 cap 09/07/19 09/08/19 Rx monohydrate/macrocrystals 100 mg capsule Patient History Medical History Asthma Chronic obstructive pulmonary disease Controlled type 2 diabetes mellitus with neurologic complication, with long-term current use of insulin Difficult airway for intubation -Left peritonsillar abscess I&D 12/07/2012: Glidescope intubation, ETT 7.0 -Right hammertoe surgery/PIP arthroplasty 05/31/2012: LMA "an easy"unable to adequately ventilateintubatedDVL grade 1 ETT "in easy." Dyslipidemia Generalized osteoarthritis of multiple sites GI bleed 2013. REQUIRED TRANSFUSIONS. Hallux valgus (acquired), left foot (Acute) Several foot deformities (claw toe, hammertoe); surgical intervention performed, subsequent non-healing wound. History of gastrointestinal hemorrhage (Resolved) Hypertension Long-term use of hydroxychloroquine Low back pain Morbid (severe) obesity due to excess calories Osteoarthritis of hands, bilateral Rheumatoid arthritis Urethral stricture Urge and stress incontinence Venous insufficiency (chronic) (peripheral) Vertigo Xerostomia Surgical History History of carpal tunnel release R/L History of colonoscopy X MULTIPLE S/P section S/P foot surgery S/P knee surgery S/P oophorectomy S/P ureteral stent placement Status post repair of nerve Family History Mother Colorectal cancer Myocardial infarction Sister Diabetes Father Diabetes Grandfather Diabetes Myocardial infarction Other Family history non-contributory Social History Preferred Language: Stateless Communication Ability: Effective Visual Impairment: No Limitations Hearing Ability: Normal Mud 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 Required: No Beliefs That Will Affect Care: None marital status: Current Living Situation: Spouse current occupational status: retired 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 HEENT: Normocephalic Atraumatic. Inspection normal. Cranial Nerves 2-12 Grossly intact. Normal inspection of face. Normal inspection of neck. Psychologic: Anxious affect. Respiratory: Nonlabored. No use of accessory muscles. No tachypnea or dyspnea. Cardiovascular: No tachycardia Skin: [place] and Dry. No rashes or visible lesions. Extremities/Lymphatics: Moderate edema Abdomen: Soft Non-distended. No rebound or guarding. Obese Results & Data Vital Signs (Past 12 Hours) Vital Signs Temp Pulse Pulse Resp BP BP Pulse Ox 09/09/19 07:39 37.6 C H 82 20 116/74 95 09/08/19 22:41 37 C 82 20 118/78 96 PG Care Time/CCT Total # of Minutes Spent Total Time Spent with Patient: Total time spent is greater than 50% in coordination of care (as documented) at patient's floor/unit and/or counseling patient:
--- NOTE | 2019-09-09 12:09 | Hospitalist Progress Note ---
Date of Service September 09, 2019 Assessment & Plan (1) S/P ureteral stent placement: - Status post right ureteral stent placement with right UVJ stone on 08/10/19. - Presented with urinary symptoms; has right cystoscopy/ureteral nephrostomy/retrograde pyelogram/laser extraction of stone and stent catheter exchange scheduled on 09/13 but may need to be completed at earlier date. - Continue garnica catheter care. - NPO after midnight for possible procedure. - Urology following, appreciate input. (2) UTI (urinary tract infection): - Low grade fever noted, will monitor. Lactic acid level 2.2 on admission, improved to 1.5. No leukocytosis. - Previous UTI in Jul 2019, +Klebsiella pneumoniae. - UC collected on admission >3 colonies, will repeat - may not be accurate as pt. received IV abx. BC also pending. - Continue IV Ceftriaxone for empiric coverage. - IV fluids at 100 cc/hr. (3) Kidney stone: - CT A/P showed 6 mm right calculus within upper pole of right kidney. - Plan for urological procedure during this admission. (4) Hypoxia: - Has been requiring 2L via NC; on room air at home. - CXR negative on admission. - Encourage IS q1hr WA. - Will continue to wean oxygen as tolerated. (5) Hyperlipidemia: - Continue atorvastatin 20 mg qhs. (6) COPD (chronic obstructive pulmonary disease): - No acute flare noted but has been requiring oxygen. - Continue Albuterol q6hr prn. (7) Diabetes 1.5, managed as type 2: - A1C was 6.3 in Jul 2019. - Hold home Glipizide and Metformin. - SSI coverage - BG well controlled. - Carb consistent diet. (8) CKD stage 3 secondary to diabetes: - Creatinine is currently at baseline, will monitor. - On IV fluids at 100 cc/hr. - Renally dose all meds. (9) Benign essential hypertension: - Holding home HCTZ and Losartan during operative period. (10) Rheumatoid arthritis: - Continue hydroxychloroquine. - On methotrexate qFri, will hold med at this time due to acute infection. (11) Anemia: - Hgb baseline ~10-11, likely related to recent procedures with acute blood loss. - Continue to trend CBC frequently, consider iron studies as MCV is slightly low. (12) DVT prophylaxis: - SCDs; holding pharmacologic ppx for procedure. Dispo: Med/surg; plan for urology procedure possibly on Tuesday. Subjective Pt. has garnica, good urine output. Denies abd pain, N/V. No intervention by urology today, possibly on Tuesday. Review of Systems Review of Systems: All systems reviewed & are unremarkable except as noted in HPI & below Constitutional: + fatigue and + weakness; no fever, no chills and no anorexia Respiratory: no cough, no dyspnea and no dyspnea on exertion Cardiovascular: no chest pain, no palpitations and no edema Gastrointestinal: no abdominal pain, no nausea, no vomiting, no constipation and no diarrhea/loose stools Genitourinary: no difficulty urinating, no hematuria and no flank pain Musculoskeletal: no back pain and no joint pain Integumentary: no non-healing lesions Physical Exam Physical Exam: General: Resting comfortably HEENT: NC/AT; PERRLA with EOMI; [place] conjunctiva, MMM. No erythema of posterior pharynx Neck: Supple and nontender Cardiac: RRR Lungs: CTA bilaterally Abdomen: Bowel normoactive X 4; Nontender to palpation Extremities: Warm. No edema present Neuro: No focal weakness Skin: No rash Results & Data Vital Signs (Past 12 Hours) Vital Signs Temp Pulse Resp BP Pulse Ox 09/09/19 07:39 37.6 C H 82 20 116/74 95 Laboratory Results 09/09/19 09/09/19 09/09/19 Range/Units 05:36 04:55 04:55 WBC (4.8-10.8) K/uL RBC (4.2-5.4) M/uL Hgb (12.0-16.0) g/dL Hct (37-47) % MCV (80-100) fL MCH (25-34) pg MCHC (32-36) g/dL RDW Std Deviation (36.4-46.3) fL RDW Coeff of Ilana (11.5-14.5) % Plt Count (130-400) K/uL MPV (7.4-10.4) fL Immature Gran % (Auto) % Neut % (Auto) % Lymph % (Auto) % Swain % (Auto) % Eos % (Auto) % Baso % (Auto) % Immature Gran # (Auto) (0.00-0.02) K/uL Neut # (Auto) (1.4-6.5) K/uL Lymph # (Auto) (1.2-3.4) K/uL Swain # (Auto) (0.11-0.59) K/uL Eos # (Auto) (0-0.5) K/uL Baso # (Auto) (0-0.2) K/uL PT 11.0 (9.0-12.0) Seconds INR 1.1 (0.9-1.1) APTT 27.6 (21.0-31.0) Seconds PTT Ratio 1.0 Sodium 137 (136-145) mmol/L Potassium 4.0 (3.5-5.1) mmol/L Chloride 105 (98-107) mmol/L Carbon Dioxide 29 (21-32) mmol/L Anion Gap 3.0 (3-11) BUN 12 (7-18) mg/dl Creatinine 0.90 (0.6-1.2) mg/dl Est Cr Clr Drug Dosing 73.0 ml/min Est GFR ( Amer) 75.1 Est GFR (Non-Af Amer) 64.8 BUN/Creatinine Ratio 13.1 (10-20) Glucose 138 H (70-99) mg/dl POC Glucose 160 H (70-99) Lactate (0.4-2.0) mmol/L Calcium 8.5 (8.5-10.1) mg/dl Magnesium (1.8-2.4) mg/dl Total Bilirubin 0.4 (0.2-1) mg/dl AST 11 L (15-37) U/L ALT 19 (12-78) U/L Alkaline Phosphatase 56 (45-117) U/L Total Protein 6.3 L (6.4-8.2) gm/dl Albumin 2.7 L (3.4-5.0) gm/dl Globulin 3.6 (2.5-4.0) gm/dl Albumin/Globulin Ratio 0.8 L (0.9-2) Urine Color Urine Appearance (Clear) Urine pH (4.5-7.5) Ur Specific [place] (1.000-1.030) Urine Protein (Negative) Urine Glucose (UA) (Negative) Urine Ketones (Negative) Urine Blood (Negative) Urine Nitrite (Negative) Urine Bilirubin (Negative) Urine Urobilinogen (Negative) Ur Leukocyte Esterase (Negative) Urine WBC (Auto) (0-5) /hpf Urine RBC (Auto) (0-4) /hpf U Hyaline Cast (Auto) (0-5) /lpf U Epithel Cells (Auto) (0-5) /lpf Urine Bacteria (Auto) (Negative) 09/09/19 09/08/19 09/08/19 Range/Units 04:55 20:30 20:02 WBC 8.16 (4.8-10.8) K/uL RBC 3.63 L (4.2-5.4) M/uL Hgb 10.2 L (12.0-16.0) g/dL Hct 31.6 L (37-47) % MCV 87.1 (80-100) fL MCH 28.1 (25-34) pg MCHC 32.3 (32-36) g/dL RDW Std Deviation 50.5 H (36.4-46.3) fL RDW Coeff of Ilana 15.9 H (11.5-14.5) % Plt Count 189 (130-400) K/uL MPV 9.7 (7.4-10.4) fL Immature Gran % (Auto) 0.2 % Neut % (Auto) 69.4 % Lymph % (Auto) 12.5 % Swain % (Auto) 16.5 % Eos % (Auto) 1.0 % Baso % (Auto) 0.4 % Immature Gran # (Auto) 0.02 (0.00-0.02) K/uL Neut # (Auto) 5.66 (1.4-6.5) K/uL Lymph # (Auto) 1.02 L (1.2-3.4) K/uL Swain # (Auto) 1.35 H (0.11-0.59) K/uL Eos # (Auto) 0.08 (0-0.5) K/uL Baso # (Auto) 0.03 (0-0.2) K/uL PT (9.0-12.0) Seconds INR (0.9-1.1) APTT (21.0-31.0) Seconds PTT Ratio Sodium (136-145) mmol/L Potassium (3.5-5.1) mmol/L Chloride (98-107) mmol/L Carbon Dioxide (21-32) mmol/L Anion Gap (3-11) BUN (7-18) mg/dl Creatinine (0.6-1.2) mg/dl Est Cr Clr Drug Dosing ml/min Est GFR ( Amer) Est GFR (Non-Af Amer) BUN/Creatinine Ratio (10-20) Glucose (70-99) mg/dl POC Glucose 131 H (70-99) Lactate (0.4-2.0) mmol/L Calcium (8.5-10.1) mg/dl Magnesium 1.8 (1.8-2.4) mg/dl Total Bilirubin (0.2-1) mg/dl AST (15-37) U/L ALT (12-78) U/L Alkaline Phosphatase (45-117) U/L Total Protein (6.4-8.2) gm/dl Albumin (3.4-5.0) gm/dl Globulin (2.5-4.0) gm/dl Albumin/Globulin Ratio (0.9-2) Urine Color Urine Appearance (Clear) Urine pH (4.5-7.5) Ur Specific [place] (1.000-1.030) Urine Protein (Negative) Urine Glucose (UA) (Negative) Urine Ketones (Negative) Urine Blood (Negative) Urine Nitrite (Negative) Urine Bilirubin (Negative) Urine Urobilinogen (Negative) Ur Leukocyte Esterase (Negative) Urine WBC (Auto) (0-5) /hpf Urine RBC (Auto) (0-4) /hpf U Hyaline Cast (Auto) (0-5) /lpf U Epithel Cells (Auto) (0-5) /lpf Urine Bacteria (Auto) (Negative) 09/08/19 09/08/19 09/08/19 Range/Units 18:53 16:39 16:39 WBC (4.8-10.8) K/uL RBC (4.2-5.4) M/uL Hgb (12.0-16.0) g/dL Hct (37-47) % MCV (80-100) fL MCH (25-34) pg MCHC (32-36) g/dL RDW Std Deviation (36.4-46.3) fL RDW Coeff of Ilana (11.5-14.5) % Plt Count (130-400) K/uL MPV (7.4-10.4) fL Immature Gran % (Auto) % Neut % (Auto) % Lymph % (Auto) % Swain % (Auto) % Eos % (Auto) % Baso % (Auto) % Immature Gran # (Auto) (0.00-0.02) K/uL Neut # (Auto) (1.4-6.5) K/uL Lymph # (Auto) (1.2-3.4) K/uL Swain # (Auto) (0.11-0.59) K/uL Eos # (Auto) (0-0.5) K/uL Baso # (Auto) (0-0.2) K/uL PT (9.0-12.0) Seconds INR (0.9-1.1) APTT (21.0-31.0) Seconds PTT Ratio Sodium 135 L (136-145) mmol/L Potassium 3.8 (3.5-5.1) mmol/L Chloride 100 (98-107) mmol/L Carbon Dioxide 28 (21-32) mmol/L Anion Gap 7.0 (3-11) BUN 14 (7-18) mg/dl Creatinine 1.09 (0.6-1.2) mg/dl Est Cr Clr Drug Dosing 60.6 ml/min Est GFR ( Amer) 59.6 Est GFR (Non-Af Amer) 51.4 BUN/Creatinine Ratio 12.8 (10-20) Glucose 139 H (70-99) mg/dl POC Glucose (70-99) Lactate 1.5 2.2 H* (0.4-2.0) mmol/L Calcium 8.9 (8.5-10.1) mg/dl Magnesium 1.7 L (1.8-2.4) mg/dl Total Bilirubin 0.5 (0.2-1) mg/dl AST 14 L (15-37) U/L ALT 24 (12-78) U/L Alkaline Phosphatase 61 (45-117) U/L Total Protein 7.0 (6.4-8.2) gm/dl Albumin 3.1 L (3.4-5.0) gm/dl Globulin 3.9 (2.5-4.0) gm/dl Albumin/Globulin Ratio 0.8 L (0.9-2) Urine Color Urine Appearance (Clear) Urine pH (4.5-7.5) Ur Specific [place] (1.000-1.030) Urine Protein (Negative) Urine Glucose (UA) (Negative) Urine Ketones (Negative) Urine Blood (Negative) Urine Nitrite (Negative) Urine Bilirubin (Negative) Urine Urobilinogen (Negative) Ur Leukocyte Esterase (Negative) Urine WBC (Auto) (0-5) /hpf Urine RBC (Auto) (0-4) /hpf U Hyaline Cast (Auto) (0-5) /lpf U Epithel Cells (Auto) (0-5) /lpf Urine Bacteria (Auto) (Negative) 09/08/19 09/08/19 09/08/19 Range/Units 16:39 16:39 16:22 WBC 10.40 (4.8-10.8) K/uL RBC 3.77 L (4.2-5.4) M/uL Hgb 10.6 L (12.0-16.0) g/dL Hct 32.3 L (37-47) % MCV 85.7 (80-100) fL MCH 28.1 (25-34) pg MCHC 32.8 (32-36) g/dL RDW Std Deviation 49.0 H (36.4-46.3) fL RDW Coeff of Ilana 15.8 H (11.5-14.5) % Plt Count 200 (130-400) K/uL MPV 9.6 (7.4-10.4) fL Immature Gran % (Auto) 0.4 % Neut % (Auto) 78.8 % Lymph % (Auto) 9.5 % Swain % (Auto) 11.0 % Eos % (Auto) 0.2 % Baso % (Auto) 0.1 % Immature Gran # (Auto) 0.04 H (0.00-0.02) K/uL Neut # (Auto) 8.20 H (1.4-6.5) K/uL Lymph # (Auto) 0.99 L (1.2-3.4) K/uL Swain # (Auto) 1.14 H (0.11-0.59) K/uL Eos # (Auto) 0.02 (0-0.5) K/uL Baso # (Auto) 0.01 (0-0.2) K/uL PT 10.9 (9.0-12.0) Seconds INR 1.1 (0.9-1.1) APTT 27.1 (21.0-31.0) Seconds PTT Ratio 1.0 Sodium (136-145) mmol/L Potassium (3.5-5.1) mmol/L Chloride (98-107) mmol/L Carbon Dioxide (21-32) mmol/L Anion Gap (3-11) BUN (7-18) mg/dl Creatinine (0.6-1.2) mg/dl Est Cr Clr Drug Dosing ml/min Est GFR ( Amer) Est GFR (Non-Af Amer) BUN/Creatinine Ratio (10-20) Glucose (70-99) mg/dl POC Glucose (70-99) Lactate (0.4-2.0) mmol/L Calcium (8.5-10.1) mg/dl Magnesium (1.8-2.4) mg/dl Total Bilirubin (0.2-1) mg/dl AST (15-37) U/L ALT (12-78) U/L Alkaline Phosphatase (45-117) U/L Total Protein (6.4-8.2) gm/dl Albumin (3.4-5.0) gm/dl Globulin (2.5-4.0) gm/dl Albumin/Globulin Ratio (0.9-2) Urine Color Yellow Urine Appearance Cloudy A (Clear) Urine pH 7.0 (4.5-7.5) Ur Specific [place] 1.018 (1.000-1.030) Urine Protein 2+ H (Negative) Urine Glucose (UA) Negative (Negative) Urine Ketones Trace H (Negative) Urine Blood 2+ H (Negative) Urine Nitrite Positive A (Negative) Urine Bilirubin Negative (Negative) Urine Urobilinogen Negative (Negative) Ur Leukocyte Esterase 3+ H (Negative) Urine WBC (Auto) >30 H (0-5) /hpf Urine RBC (Auto) >30 H (0-4) /hpf U Hyaline Cast (Auto) 1-5 (0-5) /lpf U Epithel Cells (Auto) 0-5 (0-5) /lpf Urine Bacteria (Auto) 2+ H (Negative) PG Care Time/CCT Total # of Minutes Spent Total Time Spent with Patient: Total time spent is greater than 50% in coordination of care (as documented) at patient's floor/unit and/or counseling patient: (1) UTI (urinary tract infection) Hematuria presence: with hematuria Urinary tract infection type: site unspecified Qualified Code(s): N39.0 - Urinary tract infection, site not specified; R31.9 - Hematuria, unspecified
[2019-09-09] MEDS: INSULIN ASPART 100 UNITS/ML 3 ML PEN SC SCH ×3 (12:51→21:03)
[2019-09-09] MEDS: CHOLECALCIFEROL 1,000 UNITS TAB PO SCH (20:04)
[2019-09-09] MEDS: ATORVASTATIN 20 MG TAB PO SCH (20:04)
[2019-09-09] MEDS: ACETAMINOPHEN 325 MG TAB PO PRN (21:37)
[2019-09-10] MEDS ORDERED: Nursing to Pharmacy Communication ONE ×2 (01:54→11:50)
[2019-09-10] MEDS: NSS + 20MEQ KCL 20 MEQ/1,000 ML BAG IV SCH (04:19)
[2019-09-10] MEDS ORDERED: INSULIN ASPART 100 UNITS/ML 3 ML PEN SC SCH (06:00)
[2019-09-10 06:23] LABS: Basophils # (auto) 0.04 K/uL (0-0.2); Basophils % (auto) 0.6 %; Eosinophils # (auto) 0.38 K/uL (0-0.5); Eosinophils % (auto) 5.8 %; Hematocrit (blood only) 32.1 % (37-47); Hemoglobin 10.1 g/dL (12.0-16.0); Immature Granulocytes # (auto) 0.02 K/uL (0.00-0.02); Immature Granulocytes % (auto) 0.3 %; Lymphocytes % (auto) 21.2 %; Mean Corpuscular Hemoglobin 27.9 pg (25-34); Mean Corpuscular Hgb Conc 31.5 g/dL (32-36); Mean Corpuscular Volume 88.7 fL (80-100); Mean Platelet Volume 9.4 fL (7.4-10.4); Monocytes % (auto) 19.7 %; Neutrophils # (auto) 3.46 K/uL (1.4-6.5); Neutrophils % (auto) 52.4 %; Platelet Count 170 K/uL (130-400); RDW Coefficient of Variation 15.8 % (11.5-14.5); RDW Standard Deviation 52.1 fL (36.4-46.3); Red Blood Count 3.62 M/uL (4.2-5.4)
[2019-09-10 07:01] LABS: Albumin Level 2.5 gm/dl (3.4-5.0); BUN Creatinine Ratio 14.3 (10-20); Calcium 8.4 mg/dl (8.5-10.1); Creatinine Clr Calc Pharmacy 76.4 ml/min; Est GFR (African American) 79.3; Est GFR (Non-African American) 68.4; Potassium 4.2 mmol/L (3.5-5.1)
[2019-09-10 07:04] LABS: Albumin Globulin Ratio 0.7 (0.9-2); Bilirubin,Total 0.2 mg/dl (0.2-1); Globulin 3.8 gm/dl (2.5-4.0); Total Protein 6.3 gm/dl (6.4-8.2)
--- NOTE | 2019-09-10 07:10 | History & Physical Bridge Note ---
Date of Service September 10, 2019 History & Physical Bridge Note I have examined the patient, reviewed the History & Physical and in the interval since the performance of the History & Physical I have noted the following changes of clinical significance: no changes noted
[2019-09-10] MEDS ORDERED: MEPERIDINE HCL 25 MG/ML CARP IV PRN (07:19)
[2019-09-10] MEDS ORDERED: ATROPINE SULFATE 0.1 MG/ML 10ML SYR IV PRN (07:19)
[2019-09-10] MEDS ORDERED: fentaNYL citrate 100 MCG/2 ML VIAL IV PRN (07:19)
[2019-09-10] MEDS ORDERED: PHENYLEPHRINE 100MCG/ML 5ML SYR IV PRN (07:19)
[2019-09-10] MEDS ORDERED: IOTHALAMATE MEGLUMINE II 17.2% 250 ML VIAL ONE (07:19)
[2019-09-10] MEDS ORDERED: HYDROmorphone INJ 1 MG/ML SYRINGE IV PRN (07:19)
[2019-09-10] MEDS ORDERED: ONDANSETRON INJ 2 MG/ML 2 ML VIAL IV PRN (07:19)
[2019-09-10] MEDS ORDERED: ePHEDrine sulfate 50 MG/ML AMP IV PRN (07:19)
[2019-09-10] MEDS ORDERED: LABETALOL HCL IV 5 MG/ML 20ML IV PRN (07:19)
[2019-09-10] MEDS ORDERED: fentaNYL citrate 100 MCG/2 ML VIAL ONE (07:24)
[2019-09-10] MEDS ORDERED: LIDOCAINE HCL 2% 2 ML VIAL/AMP(20MG/ML) INFIL ONE (07:24)
[2019-09-10] MEDS ORDERED: PROPOFOL IV EMULSION 10 MG/ML 20 ML VIAL IV ONE (07:24)
[2019-09-10] MEDS ORDERED: ONDANSETRON INJ 2 MG/ML 2 ML VIAL ONE (07:25)
--- NOTE | 2019-09-10 07:33 | Anesthesiology Consultation ---
Date of Service September 10, 2019 Assessment & Plan (1) Encounter for pre-operative examination: Chart Review Chart Review: Acceptable Risk for Surgery and Patient NOT seen in Pre Admission Testing Consults Requested none History Surgery Operation Date: 09/10/19 07:15 Proposed Procedures p Cystoscopy, Right Ureteroscopy, Laser Lithotripsy With Basket Stone Extraction, Stent Exchange - Dashawn Shannon, DO Height/Weight Height: 5 ft 2 in Weight: 123.6 kg Allergies Allergy/AdvReac Type Severity Reaction Status Date / Time grass pollen-perennial rye, Allergy Intermediate DIFFICULTY Verified 09/06/19 08:23 standar BREATHING mold Allergy Intermediate DIFFICULTY Verified 09/06/19 08:23 BREATHING pollen extracts Allergy Intermediate DIFFICULTY Verified 09/06/19 08:23 BREATHING etodolac Allergy Unknown UNKNOWN Verified 09/06/19 08:23 house dust Allergy Unknown Unknown Verified 09/06/19 08:23 pregabalin [From Lyrica] Allergy Unknown MOUTH FELT Verified 09/06/19 08:23 FUNNY simvastatin Allergy Unknown "FEELS Verified 09/06/19 08:23 FUNNY" tetanus toxoid, adsorbed Allergy Unknown SWELLING Verified 09/06/19 08:23 Medications Home Medications Medication Instructions Recorded Confirmed Last Taken aspirin [Aspir-81] 81 mg PO QAM 06/18/18 09/08/19 08/21/19 hydrochlorothiazide 25 mg PO QAM 06/18/18 09/08/19 08/21/19 metformin 1,000 mg PO BIDM 06/18/18 09/08/19 08/21/19 multivitamin 1 tab PO QAM 06/18/18 09/08/19 08/21/19 Novolin N NPH U-100 Insulin 25 - 30 units SUBCUT DAILY@2130 10/01/18 09/08/19 08/20/19 21:30 25 units cholecalciferol (vitamin D3) 1,000 unit PO HS 10/01/18 09/08/19 08/20/19 cyanocobalamin (vitamin B-12) 1,000 mcg PO QAM tab 05/22/19 09/08/19 08/21/19 1,000 mcg tablet folic acid 1 mg tablet 1 mg PO QAM tab 05/22/19 09/08/19 08/21/19 glipizide 5 mg tablet 5 - 10 mg PO UD tab 0909/08/19 08/21/19 10 mg insulin regular human 100 unit/mL 15 units SUBCUT QDD ml 05/22/19 09/08/19 08/20/19 injection solution ipratropium 20 mcg-albuterol 100 1 puffs INH Q6H PRN 05/22/19 09/08/19 08/09/19 mcg/actuation mist for inhalation methotrexate sodium 2.5 mg tablet 5 mg PO FR@2100 tab 05/22/19 09/08/19 08/17/19 losartan 50 mg PO HS 08/21/19 09/08/19 08/21/19 vitamin E 1,000 unit PO HS 08/21/19 09/08/19 08/20/19 atorvastatin 20 mg PO HS 09/06/19 09/08/19 Unknown hydroxychloroquine [Plaquenil] 200 mg PO BID 09/06/19 09/08/19 Unknown nitrofurantoin 100 mg PO Q12H 5 Days #10 cap 09/07/19 09/08/19 Unknown monohydrate/macrocrystals 100 mg capsule Active Medications Generic Name Dose Route Start Last Admin Trade Name Freq PRN Reason Stop Dose Admin Acetaminophen 650 mg 09/09/19 20:22 09/09/19 21:37 Tylenol PO 10/09/19 20:21 650 mg Q4H PRN Administration Pain Atorvastatin Calcium 20 mg 09/08/19 21:00 09/09/19 20:04 Lipitor PO 10/08/19 20:59 20 mg HS VIVI Administration Cyanocobalamin 1,000 mcg 09/09/19 09:00 09/09/19 08:14 Vitamin B-12 PO 10/09/19 08:59 Not Given QAM VIVI Folic Acid 1 mg 09/09/19 09:00 09/09/19 08:14 Folvite PO 10/09/19 08:59 Not Given QAM VIVI Hydroxychloroquine Sulfate 200 mg 09/08/19 21:00 09/09/19 20:03 Plaquenil PO 10/08/19 20:59 200 mg BID VIVI Administration Ceftriaxone Sodium 2,000 mg/ 70 mls @ 100 mls/hr 09/09/19 09:00 09/09/19 09:04 Dextrose IV 09/18/19 08:59 Infused DAILY [facility] Infusion Protocol Potassium Chloride/Sodium Chloride 20 meq in 1,000 mls @ 100 mls/hr 09/08/19 20:15 09/10/19 04:19 Normal Saline W/20 Meq Kcl IV 10/08/19 20:14 100 mls/hr .Q10H VIVI Administration Insulin Aspart 0 units 09/10/19 06:00 09/10/19 05:29 Novolog Flexpen SC 10/10/19 05:59 Not Given Q6 VIVI Multivitamins 1 tab 09/09/19 09:00 09/09/19 08:14 Multivitamin Tab PO 10/09/19 08:59 Not Given QAM VIVI Vitamin D 1,000 units 09/08/19 21:00 09/09/19 20:04 Vitamin D3 PO 10/08/19 20:59 1,000 units HS VIVI Administration Zolpidem Tartrate 2.5 mg 09/08/19 21:06 09/08/19 21:26 Ambien PO 10/08/19 21:05 2.5 mg HS PRN Administration Sleep NPO Date Last Intake of Fluids: 09/10/19 Time Last Intake of Fluids: 00:00 Last Intake of Fluids Comment: NPO since midnight. Allowed sips and chips. Date Last Intake of Solids: 09/09/19 Past Medical History Medical History Asthma Chronic obstructive pulmonary disease Controlled type 2 diabetes mellitus with neurologic complication, with long-term current use of insulin Difficult airway for intubation -Left peritonsillar abscess I&D 12/07/2012: Glidescope intubation, ETT 7.0 -Right hammertoe surgery/PIP arthroplasty 05/31/2012: LMA "an easy"unable to adequately ventilateintubatedDVL grade 1 ETT "in easy." Dyslipidemia Generalized osteoarthritis of multiple sites GI bleed 2013. REQUIRED TRANSFUSIONS. Hallux valgus (acquired), left foot (Acute) Several foot deformities (claw toe, hammertoe); surgical intervention performed, subsequent non-healing wound. History of gastrointestinal hemorrhage (Resolved) Long-term use of hydroxychloroquine Low back pain Morbid (severe) obesity due to excess calories Osteoarthritis of hands, bilateral Rheumatoid arthritis Urethral stricture Urge and stress incontinence Venous insufficiency (chronic) (peripheral) Vertigo Xerostomia Past Family History Family History Mother Colorectal cancer Myocardial infarction Sister Diabetes Father Diabetes Grandfather Diabetes Myocardial infarction Other Family history non-contributory Past Surgical History Surgical History History of carpal tunnel release R/L History of colonoscopy X MULTIPLE S/P section S/P foot surgery S/P knee surgery S/P oophorectomy S/P ureteral stent placement Status post repair of nerve Social History Smoking Status: Former smoker tobacco type: cigarettes Do You Dip or Chew Tobacco: No Hx Alcohol Use: No Alcohol type: hard liquor alcohol intake frequency: holidays/special occasions only Hx Substance Use: No substance use type: does not use Physical Exam Vital Signs Last Vital Signs Temp 36.5 C 09/10/19 07:28 Pulse 74 09/10/19 07:28 Resp 14 09/10/19 07:28 BP 110/70 09/10/19 07:28 Pulse Ox 92 09/10/19 07:28 Testing Laboratory Results 09/10/19 05:54 09/10/19 05:54 PT 11.0 Seconds (9.0-12.0) 09/09/19 04:55 INR 1.1 (0.9-1.1) 09/09/19 04:55 APTT 27.6 Seconds (21.0-31.0) 09/09/19 04:55 Urine Color Yellow 09/08/19 16:22 Urine Appearance Cloudy (Clear) A 09/08/19 16:22 Urine pH 7.0 (4.5-7.5) 09/08/19 16:22 Ur Specific [place] 1.018 (1.000-1.030) 09/08/19 16:22 Urine Protein 2+ (Negative) H 09/08/19 16:22 Urine Glucose (UA) Negative (Negative) 09/08/19 16:22 Urine Ketones Trace (Negative) H 09/08/19 16:22 Urine Nitrite Positive (Negative) A 09/08/19 16:22 Ur Leukocyte Esterase 3+ (Negative) H 09/08/19 16:22 Urine WBC (Auto) >30 /hpf (0-5) H 09/08/19 16:22 Urine RBC (Auto) >30 /hpf (0-4) H 09/08/19 16:22 U Hyaline Cast (Auto) 1-5 /lpf (0-5) 09/08/19 16:22 U Epithel Cells (Auto) 0-5 /lpf (0-5) 09/08/19 16:22 Urine Bacteria (Auto) 2+ (Negative) H 09/08/19 16:22 09/09/19 09:00 Urine Culture - Final Urine,Indwelling Cath Three types or organisms present, all moderate counts probable skin norman. No further identifications or sensitivities to follow. 09/08/19 16:39 Aerobic Blood Culture - Preliminary Blood No growth in Aerobic bottle after 24 hours. Anaerobic Blood Culture - Preliminary No growth in Anaerobic bottle after 24 hours. 09/08/19 16:39 Aerobic Blood Culture - Preliminary Blood No growth in Aerobic bottle after 24 hours. Anaerobic Blood Culture - Preliminary No growth in Anaerobic bottle after 24 hours. 09/08/19 16:27 Urine Culture - Final Urine,Straight Cath More than three types of organisms present, all high counts. Repeat collection recommended. No further identifications or sensitivities to follow. 09/10/19 09/09/19 05:24 20:52 POC Glucose 149 H 223 H Electrocardiogram Date: 09/08/19 SR with sinus arrhythmia, rate 92, inferior infarct, possible anterior infarct Chest X-Ray Date: 09/08/19 R chest 1V portable CLINICAL HISTORY: SEPSIS COMPARISON STUDY: Chest radiograph August 10, 2019. FINDINGS: Lungs are normal. Cardiomediastinal silhouette is stable. There is no pneumothorax or pleural effusion. Mild left basilar opacity favors epicardial fat pad and atelectasis. There is no evidence for pulmonary edema or pneumonia. IMPRESSION: No acute cardiopulmonary findings. ACT 112: Negative or not required by law. Electronically signed by: Mj Membreno M.D. 09/08/2019 4:59 PM Dictated: 09/08/19 1657 Echocardiogram Date: 08/10/19 LV Function: normal Other Findings: + diastolic dysfunction (grade 1) poor quality study, unable to determine regional wall motion abnormalities
--- NOTE | 2019-09-10 09:04 | Operative Report ---
PG Post Operative Report Pre & Post Diagnosis Operation Date: 09/10/19 07:15 Pre-Op Diagnosis: Ureteral Stone Post-Op Diagnosis: Ureteral Stone I identified the patient and participated in the time-out.: Yes Procedure Operation Date: 09/10/19 07:15 <No data on this case meets the specified criteria> Cystoscopy with right ureterscopy, stent exchange, retrograde pyelogram, laser lithotripsy, and stone basket extraction. Surgeon Dashawn Shannon, II, DO Registration Officer None Estimated Blood Loss 1 Findings Consistent with Post-Op Diagnosis Stone destroyed to dust and small fragments and larger fragments removed. Specimens Stone Fragments Drains 6 Fr x 22 Anesthesia Type General Complications none Disposition Disposition: Recovery Room Indications Patient with bothersome stones. Risks and benefits discussed at length. Description of Procedure Patient was consented and brought back to the operating room. Patient was placed under anesthesia in the supine position and moved to the dorsal lithotomy position. Patient was prepped and draped in the regular sterile fashion. A time out was completed identifying the correct patient and procedure. A 30degree Cystoscope was placed into the bladder and the entire bladder was examined. The UO's were identified. The stent was grasped and partially removed. A wire was placed. The UO was cannulized with a catheter over the wire and a retrograde pyelogram was completed. A wire was then placed. A ureteral access sheath and second safety wire was placed. The flexible ureteroscope was taken into the ureter. The entire ureter and renal pelvis were examined. The stones were identified. A laser fiber was selected and the stones were pulverized to dust and small fragments. Larger fragments were grasped and removed and sent for analysis. The entire area was once again examined. No residual large fragments or areas of concern were noted. The scope was slowly removed with the wire left in place. Contrast was placed through the scope for a pyelogram to assist in stent placement. The entire ureter was examined as the scope was slowly removed. No obstructions or other areas of concern were noted. With the wire in place, a 6 Fr Double J stent was placed. It was confirmed with fluoroscopy. With the stent in place, the bladder was emptied. The scope was removed. The patient was cleaned, aroused from anesthesia, and transferred to the pacu in stable condition having tolerated the procedure well with no complications. I was present and participated in all aspects of the procedure. The patient will be monitored in the PACU until transferred. I attest to the content of the Intraoperative Record and any orders documented therein. Any exceptions are noted below.
--- NOTE | 2019-09-10 09:31 | Anesthesiology Progress Note ---
Date of Service September 10, 2019 Anesthesia Post Procedure Vital Signs Vital Signs: Temp Pulse Pulse Resp BP BP Pulse Ox 09/10/19 09:20 78 18 134/85 98 09/10/19 09:14 36.8 C 78 18 140/82 99 09/10/19 07:45 36.8 C 78 20 156/73 H 95 09/10/19 07:28 36.5 C 74 14 110/70 92 09/09/19 23:20 36.8 C 80 18 125/90 96 09/09/19 15:29 37 C 89 20 154/82 H 94 Pain Intensity Abdomen: Pain Intensity: 2 Other: Pain Intensity: 2 Transfer of Care Handoff Completed per policy Notes Mental Status: alert / awake / arousable Patient Amnestic to Procedure: Yes Nausea / Vomiting: adequately controlled Pain: adequately controlled Airway Patency, RR, SpO2: stable & adequate BP & HR: stable & adequate Hydration State: stable & adequate Anesthetic Complications: no major complications apparent and Pt Satisfied with anesthetic care
--- NOTE | 2019-09-10 09:55 | Fluoroscopy Report ---
FL retrograde includes kub CLINICAL HISTORY: 69 years-old Female presenting with RETROGRADE. TECHNIQUE: 7 fluoroscopic image(s) recorded as part of an intraoperative procedure. COMPARISON: CT from 09/08/2019. FINDINGS/IMPRESSION: There has been placement of a guidewire, advanced to the level of the right renal pelvis. The prior r ight ureteral stent was removed. The right urinary collecting system was subsequently opacified with contrast and noted to be mildly dilated. Finally, a new right ureteral stent was placed. Please see surgical report for further details. Fluoroscopy dosage (mGy): 33.66. Fluoroscopy time: 44.3 seconds. Number or time of high level fluoroscopy (HLF), digital spot, or digital subtraction images: 0. ACT 112: Negative or not required by law. Electronically signed by: Alfonso Proctor M.D. 09/10/2019 9:53 AM
[2019-09-10] MEDS: cefTRIAXone SODIUM 2,000 MG in DEXTROSE 5% 50 ML IV SCH (10:15)
[2019-09-10] MEDS: ACETAMINOPHEN 325 MG TAB PO PRN ×2 (10:54→15:39)
[2019-09-10] MEDS: FOLIC ACID 1 MG TAB PO SCH (10:55)
[2019-09-10] MEDS: CYANOCOBALAMIN 500 MCG TABLET (VITAMIN B-12) PO SCH (10:56)
[2019-09-10] MEDS: MULTIVITAMIN TAB PO SCH (10:56)
[2019-09-10] MEDS: HYDROXYCHLOROQUINE SULFATE 200 MG TAB PO SCH ×2 (10:56→20:53)
[2019-09-10] MEDS: INSULIN ASPART 100 UNITS/ML 3 ML PEN SC SCH ×3 (13:10→21:54)
[2019-09-10] MEDS ORDERED: KETOROLAC TROMETHAMINE 15 MG/ML VIAL IV PRN (13:30)
[2019-09-10] MEDS ORDERED: OXYCODONE HCL IR 5 MG TAB (IMMEDIATE RELEASE) PO PRN (13:30)
[2019-09-10] MEDS ORDERED: MoRPHine SULFATE 2 MG/ML CARP IV PRN (13:41)
--- NOTE | 2019-09-10 15:44 | Hospitalist Progress Note ---
Date of Service September 10, 2019 Assessment & Plan (1) S/P ureteral stent placement: - Status post right ureteral stent placement with right UVJ stone on 08/10/19. - S/p cystoscopy with right ureterscopy, stent exchange, retrograde pyelogram, laser lithotripsy, and stone basket extraction this morning. - Urology following, appreciate input. - Toradol, Oxycodone and Morphine prn pain. (2) UTI (urinary tract infection): - Lactic acid level 2.2 on admission, improved to 1.5. No leukocytosis. Has been intermittently febrile, increased to 38.1 this afternoon post op. - Previous UTI in Jul 2019, +Klebsiella pneumoniae. - UC collected on admission >3 colonies, repeat culture was negative. BC negative (prelim) - Continue IV Ceftriaxone for empiric coverage. (3) Kidney stone: - CT A/P showed 6 mm right calculus within upper pole of right kidney. - S/p lithotripsy this morning with urology. (4) Hypoxia: - Has been requiring 4L post op - will continue to wean as tolerated. - CXR negative on admission; will need repeat imaging if no improvement. - Encourage IS q1hr WA - atelectasis may be contributing to hypoxia and low grade fevers. (5) Hyperlipidemia: - Continue atorvastatin 20 mg qhs. (6) COPD (chronic obstructive pulmonary disease): - No acute flare noted but has been requiring oxygen. - Continue Albuterol q6hr prn. (7) Diabetes 1.5, managed as type 2: - A1C was 6.3 in Jul 2019. - Hold home Glipizide and Metformin. - SSI coverage. - Carb consistent diet. (8) CKD stage 3 secondary to diabetes: - Creatinine currently at baseline. - Renally dose all meds. (9) Benign essential hypertension: - Hold home HCTZ and Losartan during operative period. (10) Rheumatoid arthritis: - Continue hydroxychloroquine. - On methotrexate qFri, will hold med at this time due to acute infection. (11) Anemia: - Hgb baseline ~10-11, likely related to recent procedures with acute blood loss. - Continue to trend CBC frequently, consider iron studies as MCV is slightly low. (12) DVT prophylaxis: - SCDs; hold pharmacologic ppx for procedure. Dispo: Med/surg; discharge pending improvement in fevers and pain control. Supervising Physician Co-Signing Physician Notes I have seen and examined patient with Anastasiya Lockhart PA-C and agree with the assessment and plan.In the afternoon pt was shivering and her BP 104 /67 with low grade fever. Possible a new infection or worsening of the old one? Checked blood cultures x 2, Influenza A&B, started Zosyn and continued Ceftriaxone for the broader coverage. Continue close monitoring. My exam: General: Shivering, A&O x 3, stated that she is very cold. HEENT: PERRLA with EOMI; Neck: Supple and nontender Cardiac: RRR , No G/R/M Lungs: CTA bilaterally Abdomen:Obese, Bowel normoactive X 4; Nontender to palpation Extremities: Warm. No edema present Neuro: No focal weakness Skin: No rash Subjective Pt. is status post urology procedure today. She feels well post op, does have right flank pain. Is on 4L via NC -- on room air at home. Denies chest pain or SOB. Carroll was removed this morning, c/o burning with urination. Review of Systems Review of Systems: All systems reviewed & are unremarkable except as noted in HPI & below Constitutional: + fatigue and + weakness; no fever, no chills and no anorexia Respiratory: no cough, no dyspnea and no dyspnea on exertion Cardiovascular: no chest pain, no palpitations and no edema Gastrointestinal: no abdominal pain, no nausea, no vomiting and no constipation Genitourinary: + dysuria, + urinary incontinence (Chronic ) and + flank pain (Right flank pain); no difficulty urinating, no decreased urination and no hematuria Musculoskeletal: no back pain and no joint pain Integumentary: no non-healing lesions Physical Exam Physical Exam: General: Resting comfortably HEENT: NC/AT; PERRLA with EOMI; Cale conjunctiva, MMM. No erythema of posterior pharynx Neck: Supple and nontender Cardiac: RRR Lungs: CTA bilaterally Abdomen: Bowel normoactive X 4; Nontender to palpation Extremities: Warm. No edema present Neuro: No focal weakness Skin: No rash Results & Data Vital Signs (Past 12 Hours) Vital Signs Temp Pulse Pulse Pulse Resp BP BP 09/10/19 15:18 38.1 C H 106 H 16 109/64 09/10/19 13:00 37.5 C 89 14 122/75 09/10/19 12:00 36.7 C 95 H 16 130/70 09/10/19 11:00 37.3 C 105 H 16 137/84 09/10/19 10:30 37.8 C H 118 H 118 H 16 145/74 H 09/10/19 10:00 36.8 C 72 16 142/71 H 09/10/19 09:50 36.8 C 71 18 137/91 09/10/19 09:40 74 18 140/89 09/10/19 09:30 76 18 137/92 09/10/19 09:20 78 18 134/85 09/10/19 09:14 36.8 C 78 18 140/82 09/10/19 07:45 36.8 C 78 20 156/73 H 09/10/19 07:28 36.5 C 74 14 110/70 Pulse Ox 09/10/19 15:18 93 09/10/19 13:00 94 09/10/19 12:00 96 09/10/19 11:00 97 09/10/19 10:30 97 09/10/19 10:00 92 09/10/19 09:50 100 09/10/19 09:40 99 09/10/19 09:30 100 09/10/19 09:20 98 09/10/19 09:14 99 09/10/19 07:45 95 09/10/19 07:28 92 Laboratory Results 09/10/19 09/10/19 09/10/19 Range/Units Unknown 11:52 09:29 WBC (4.8-10.8) K/uL RBC (4.2-5.4) M/uL Hgb (12.0-16.0) g/dL Hct (37-47) % MCV (80-100) fL MCH (25-34) pg MCHC (32-36) g/dL RDW Std Deviation (36.4-46.3) fL RDW Coeff of Ilana (11.5-14.5) % Plt Count (130-400) K/uL MPV (7.4-10.4) fL Immature Gran % (Auto) % Neut % (Auto) % Lymph % (Auto) % Stanley % (Auto) % Eos % (Auto) % Baso % (Auto) % Immature Gran # (Auto) (0.00-0.02) K/uL Neut # (Auto) (1.4-6.5) K/uL Lymph # (Auto) (1.2-3.4) K/uL Stanley # (Auto) (0.11-0.59) K/uL Eos # (Auto) (0-0.5) K/uL Baso # (Auto) (0-0.2) K/uL Sodium (136-145) mmol/L Potassium (3.5-5.1) mmol/L Chloride (98-107) mmol/L Carbon Dioxide (21-32) mmol/L Anion Gap (3-11) BUN (7-18) mg/dl Creatinine (0.6-1.2) mg/dl Est Cr Clr Drug Dosing ml/min Est GFR ( Amer) Est GFR (Non-Af Amer) BUN/Creatinine Ratio (10-20) Glucose (70-99) mg/dl POC Glucose 189 H 161 H (70-99) Calcium (8.5-10.1) mg/dl Total Bilirubin (0.2-1) mg/dl AST (15-37) U/L ALT (12-78) U/L Alkaline Phosphatase (45-117) U/L Total Protein (6.4-8.2) gm/dl Albumin (3.4-5.0) gm/dl Globulin (2.5-4.0) gm/dl Albumin/Globulin Ratio (0.9-2) Stone Source Pending Stone Weight Pending Stone Composition Pending Stone Composition 2 Pending Major Stone Nidus Pending 09/10/19 09/10/19 09/10/19 Range/Units 05:54 05:54 05:24 WBC 6.60 (4.8-10.8) K/uL RBC 3.62 L (4.2-5.4) M/uL Hgb 10.1 L (12.0-16.0) g/dL Hct 32.1 L (37-47) % MCV 88.7 (80-100) fL MCH 27.9 (25-34) pg MCHC 31.5 L (32-36) g/dL RDW Std Deviation 52.1 H (36.4-46.3) fL RDW Coeff of Ilana 15.8 H (11.5-14.5) % Plt Count 170 (130-400) K/uL MPV 9.4 (7.4-10.4) fL Immature Gran % (Auto) 0.3 % Neut % (Auto) 52.4 % Lymph % (Auto) 21.2 % Stanley % (Auto) 19.7 % Eos % (Auto) 5.8 % Baso % (Auto) 0.6 % Immature Gran # (Auto) 0.02 (0.00-0.02) K/uL Neut # (Auto) 3.46 (1.4-6.5) K/uL Lymph # (Auto) 1.40 (1.2-3.4) K/uL Stanley # (Auto) 1.30 H (0.11-0.59) K/uL Eos # (Auto) 0.38 (0-0.5) K/uL Baso # (Auto) 0.04 (0-0.2) K/uL Sodium 142 (136-145) mmol/L Potassium 4.2 (3.5-5.1) mmol/L Chloride 111 H (98-107) mmol/L Carbon Dioxide 28 (21-32) mmol/L Anion Gap 3.0 (3-11) BUN 12 (7-18) mg/dl Creatinine 0.86 (0.6-1.2) mg/dl Est Cr Clr Drug Dosing 76.4 ml/min Est GFR ( Amer) 79.3 Est GFR (Non-Af Amer) 68.4 BUN/Creatinine Ratio 14.3 (10-20) Glucose 152 H (70-99) mg/dl POC Glucose 149 H (70-99) Calcium 8.4 L (8.5-10.1) mg/dl Total Bilirubin 0.2 (0.2-1) mg/dl AST 11 L (15-37) U/L ALT 20 (12-78) U/L Alkaline Phosphatase 56 (45-117) U/L Total Protein 6.3 L (6.4-8.2) gm/dl Albumin 2.5 L (3.4-5.0) gm/dl Globulin 3.8 (2.5-4.0) gm/dl Albumin/Globulin Ratio 0.7 L (0.9-2) Stone Source Stone Weight Stone Composition Stone Composition 2 Major Stone Nidus 01/12/20 01/12/20 Range/Units 20:52 17:19 WBC (4.8-10.8) K/uL RBC (4.2-5.4) M/uL Hgb (12.0-16.0) g/dL Hct (37-47) % MCV (80-100) fL MCH (25-34) pg MCHC (32-36) g/dL RDW Std Deviation (36.4-46.3) fL RDW Coeff of Ilana (11.5-14.5) % Plt Count (130-400) K/uL MPV (7.4-10.4) fL Immature Gran % (Auto) % Neut % (Auto) % Lymph % (Auto) % Stanley % (Auto) % Eos % (Auto) % Baso % (Auto) % Immature Gran # (Auto) (0.00-0.02) K/uL Neut # (Auto) (1.4-6.5) K/uL Lymph # (Auto) (1.2-3.4) K/uL Stanley # (Auto) (0.11-0.59) K/uL Eos # (Auto) (0-0.5) K/uL Baso # (Auto) (0-0.2) K/uL Sodium (136-145) mmol/L Potassium (3.5-5.1) mmol/L Chloride (98-107) mmol/L Carbon Dioxide (21-32) mmol/L Anion Gap (3-11) BUN (7-18) mg/dl Creatinine (0.6-1.2) mg/dl Est Cr Clr Drug Dosing ml/min Est GFR ( Amer) Est GFR (Non-Af Amer) BUN/Creatinine Ratio (10-20) Glucose (70-99) mg/dl POC Glucose 223 H 189 H (70-99) Calcium (8.5-10.1) mg/dl Total Bilirubin (0.2-1) mg/dl AST (15-37) U/L ALT (12-78) U/L Alkaline Phosphatase (45-117) U/L Total Protein (6.4-8.2) gm/dl Albumin (3.4-5.0) gm/dl Globulin (2.5-4.0) gm/dl Albumin/Globulin Ratio (0.9-2) Stone Source Stone Weight Stone Composition Stone Composition 2 Major Stone Nidus PG Care Time/CCT Total # of Minutes Spent Total Time Spent with Patient: Total time spent is greater than 50% in coordination of care (as documented) at patient's floor/unit and/or counseling patient: (1) UTI (urinary tract infection) Hematuria presence: with hematuria Urinary tract infection type: site unspecified Qualified Code(s): N39.0 - Urinary tract infection, site not specified; R31.9 - Hematuria, unspecified
[2019-09-10] MEDS ORDERED: PIPERACILL/TAZOBAC CONSULT ACTIVE PRN (16:12)
[2019-09-10] MEDS ORDERED: PIPERACILLIN/TAZOBACTAM 4.5 GM in DEXTROSE 5% 100 ML IV ONE (17:00)
[2019-09-10] MEDS: SODIUM CHLORIDE 0.9% 1000ML 1,000 ML IV SCH (18:05)
[2019-09-10] MEDS ORDERED: ACETAMINOPHEN 1,000 MG/100 ML VIAL IV STA (18:21)
[2019-09-10 20:01] LABS: Influenza A virus by PCR Neg for Influ A (Neg); Influenza B virus by PCR Neg for Influ B (Neg)
[2019-09-10] MEDS: ATORVASTATIN 20 MG TAB PO SCH (20:53)
[2019-09-10] MEDS: CHOLECALCIFEROL 1,000 UNITS TAB PO SCH (20:54)
[2019-09-10] MEDS: PIPERACILLIN/TAZOBACTAM 4.5 GM in DEXTROSE 5% 100 ML IV SCH (22:48)
[2019-09-11] MEDS: ZOLPIDEM TARTRATE 5 MG TAB PO PRN (00:47)
[2019-09-11] MEDS: SODIUM CHLORIDE 0.9% 1000ML 1,000 ML IV SCH ×2 (05:44→14:08)
[2019-09-11] MEDS: PIPERACILLIN/TAZOBACTAM 4.5 GM in DEXTROSE 5% 100 ML IV SCH ×3 (05:48→21:14)
[2019-09-11 07:36] LABS: Basophils # (auto) 0.01 K/uL (0-0.2); Basophils % (auto) 0.2 %; Eosinophils # (auto) 0.05 K/uL (0-0.5); Hematocrit (blood only) 27.7 % (37-47); Hemoglobin 8.9 g/dL (12.0-16.0); Immature Granulocytes # (auto) 0.01 K/uL (0.00-0.02); Immature Granulocytes % (auto) 0.2 %; Lymphocytes # (auto) 0.55 K/uL (1.2-3.4); Mean Corpuscular Hemoglobin 27.8 pg (25-34); Mean Corpuscular Hgb Conc 32.1 g/dL (32-36); Mean Corpuscular Volume 86.6 fL (80-100); Mean Platelet Volume 9.5 fL (7.4-10.4); Monocytes # (auto) 0.53 K/uL (0.11-0.59); Monocytes % (auto) 10.6 %; Neutrophils # (auto) 3.85 K/uL (1.4-6.5); Platelet Count 142 K/uL (130-400); RDW Coefficient of Variation 15.8 % (11.5-14.5); RDW Standard Deviation 50.7 fL (36.4-46.3)
--- NOTE | 2019-09-11 07:40 | Anesthesiology Progress Note ---
Date of Service September 11, 2019 Anesthesia Post Procedure Vital Signs Vital Signs: Temp Pulse Pulse Pulse Resp BP BP 09/11/19 02:49 37.7 C H 88 16 107/66 09/10/19 23:25 37.1 C 96 H 17 113/72 09/10/19 20:10 37.1 C 84 16 92/60 L 09/10/19 18:19 39.2 C H 96 H 20 104/67 09/10/19 16:39 39.2 C H 103 H 26 H 99/64 L 09/10/19 15:18 38.1 C H 106 H 16 109/64 09/10/19 13:00 37.5 C 89 14 122/75 09/10/19 12:00 36.7 C 95 H 16 130/70 09/10/19 11:00 37.3 C 105 H 16 137/84 09/10/19 10:30 37.8 C H 118 H 118 H 16 145/74 H 09/10/19 10:00 36.8 C 72 16 142/71 H 09/10/19 09:50 36.8 C 71 18 137/91 09/10/19 09:40 74 18 140/89 09/10/19 09:30 76 18 137/92 09/10/19 09:20 78 18 134/85 09/10/19 09:14 36.8 C 78 18 140/82 09/10/19 07:45 36.8 C 78 20 156/73 H Pulse Ox 09/11/19 02:49 94 09/10/19 23:25 92 09/10/19 20:10 91 09/10/19 18:19 94 09/10/19 16:39 96 09/10/19 15:18 93 09/10/19 13:00 94 09/10/19 12:00 96 09/10/19 11:00 97 09/10/19 10:30 97 09/10/19 10:00 92 09/10/19 09:50 100 09/10/19 09:40 99 09/10/19 09:30 100 09/10/19 09:20 98 09/10/19 09:14 99 09/10/19 07:45 95 Pain Intensity Abdomen: Pain Intensity: 2 Other: Pain Intensity: 7 Notes Mental Status: alert / awake / arousable and participated in evaluation Patient Amnestic to Procedure: Yes Nausea / Vomiting: adequately controlled Pain: adequately controlled Airway Patency, RR, SpO2: stable & adequate BP & HR: stable & adequate Hydration State: stable & adequate Anesthetic Complications: no major complications apparent and Pt Satisfied with anesthetic care
[2019-09-11] MEDS: ACETAMINOPHEN 325 MG TAB PO PRN ×2 (07:55→16:54)
[2019-09-11 08:06] LABS: Albumin Level 2.3 gm/dl (3.4-5.0); BUN Creatinine Ratio 13.1 (10-20); Calcium 8.2 mg/dl (8.5-10.1); Creatinine Clr Calc Pharmacy 66.4 ml/min; Est GFR (African American) 66.9; Est GFR (Non-African American) 57.7; Potassium 3.9 mmol/L (3.5-5.1)
[2019-09-11 08:09] LABS: Albumin Globulin Ratio 0.7 (0.9-2); Bilirubin,Total 0.4 mg/dl (0.2-1); Globulin 3.5 gm/dl (2.5-4.0); Total Protein 5.8 gm/dl (6.4-8.2)
--- NOTE | 2019-09-11 09:11 | Urology Progress Note ---
Date of Service September 11, 2019 Assessment & Plan (1) Kidney stone: 69yo F POD #1 s/p cysto, URS, laser lithotripsy, stent exchange Nontoxic appearing today. Spiked fever yesterday, BCx pending. Repeat CXR Overall doing well from perspective, some urgency. Will arrange for qshift bladder scans x24 hours. Straight cath for PVR >400cc. Outpatient appointments already arranged. Thank you for allowing us to participate in the acute care of Mrs. Acuña. Please reconsult us with additional questions, concerns or changes in patient status. Subjective Pt is sitting up in chair, eating breakfast this AM. States she is feeling well, no issues today besides urinary frequency. Denies hematuria, dysuria. Tolerated procedure well yesterday, see op note for details. Tolerating PO In chart review, pt had episode of fevers yesterday, TMax 39.2 at 1600 yesterday post procedure. WBC wnl UC&S with moderate contamination BCx pending. Repeating CXR, some concern for respiratory cause. Review of Systems Review of Systems: All systems reviewed & are unremarkable except as noted in HPI & below Physical Exam Physical Exam: A&Ox3 Resp rate reg, supplemental O2 intact abd soft, obese, nontender Results & Data Vital Signs (Past 12 Hours) Vital Signs Temp Pulse Pulse Resp BP Pulse Ox 09/11/19 07:18 36.8 C 83 16 105/67 94 09/11/19 02:49 37.7 C H 88 16 107/66 94 09/10/19 23:25 37.1 C 96 H 17 113/72 92 PG Care Time/CCT Total # of Minutes Spent Total Time Spent with Patient: Total time spent is greater than 50% in coordination of care (as documented) at patient's floor/unit and/or counseling patient:
[2019-09-11] MEDS: CYANOCOBALAMIN 500 MCG TABLET (VITAMIN B-12) PO SCH (09:59)
[2019-09-11] MEDS: FOLIC ACID 1 MG TAB PO SCH (09:59)
[2019-09-11] MEDS: MULTIVITAMIN TAB PO SCH (09:59)
[2019-09-11] MEDS: HYDROXYCHLOROQUINE SULFATE 200 MG TAB PO SCH ×2 (09:59→21:16)
[2019-09-11] MEDS: INSULIN ASPART 100 UNITS/ML 3 ML PEN SC SCH ×4 (10:01→21:19)
--- NOTE | 2019-09-11 10:01 | XRay Report ---
XR chest 2V PA/lateral CLINICAL HISTORY: 69 years-old Female presenting with hypoxia, rule out PNA vs. pulm edema. TECHNIQUE: AP and lateral views of the chest were obtained. COMPARISON: 09/08/2019. FINDINGS: Body habitus and AP technique degrades evaluation of the limiting diagnostic sensitivity the exam. Borderline prominence of the cardiac silhouette as on prior exam. Mild prominence of the hannah. No foc al opacity. No large effusion or pneumothorax. Degenerative changes of the thoracic spine. Upper abdo men normal. IMPRESSION: Body habitus and AP technique degrades evaluation of the limiting diagnostic sensitivity the exam. If there is continuing clinical concern beyond the findings of this report, chest CT should be consider ed. 1. Prominence of the hannah most likely vascular. No other evidence of acute cardiopulmonary disease. ACT 112: Negative or not required by law. Electronically signed by: Alfonso Proctor M.D. 09/11/2019 10:00 AM
[2019-09-11] MEDS: NSS + 20MEQ KCL 20 MEQ/1,000 ML BAG IV SCH (10:51)
--- NOTE | 2019-09-11 14:32 | Hospitalist Progress Note ---
Date of Service September 11, 2019 Assessment & Plan (1) S/P ureteral stent placement: - Status post right ureteral stent placement with right UVJ stone on 08/10/19. - S/p cystoscopy with right ureterscopy, stent exchange, retrograde pyelogram, laser lithotripsy, and stone basket extraction on 09/10/19. - Urology following, appreciate input. - Toradol, Oxycodone and Morphine prn pain. (2) Fever: - Febrile on 09/10; also had mild hypotension with tachycardia. Lactic acid level was WNL. - UC x 2 negative; BC neg (prelim) - CXR neg for pulmonary source. - Influenza was negative. - Broadened abx coverage to Zosyn IV. - Continue IV fluids at 80 cc/hr. - Tylenol prn fevers/pain. (3) UTI (urinary tract infection): - Previous UTI in Jul 2019, +Klebsiella pneumoniae. - UC collected on admission >3 colonies, repeat culture was negative. BC negative (prelim) - Converted Ceftriaxone to Zosyn on 09/10/19. (4) Kidney stone: - CT A/P showed 6 mm right calculus within upper pole of right kidney. - S/p lithotripsy by urology on 09/10. (5) Hypoxia: - Has been requiring 2-3L via NC post op. She was weaned to room air this afternoon but dropped to 86%, required replacement of 1L via NC. - CXR negative on admission; repeat imaging was also negative. - Encourage IS q1hr WA - atelectasis is likely contributing to hypoxia. (6) Hyperlipidemia: - Continue atorvastatin 20 mg qhs. (7) COPD (chronic obstructive pulmonary disease): - No acute flare noted but has been requiring oxygen. - Continue Albuterol q6hr prn. (8) Diabetes 1.5, managed as type 2: - A1C was 6.3 in Jul 2019. - Hold home Glipizide and Metformin. - SSI coverage. - Carb consistent diet. (9) CKD stage 3 secondary to diabetes: - Creatinine currently at baseline. - Renally dose all meds. (10) Benign essential hypertension: - Holding home HCTZ and Losartan during operative period & in setting of possible infection/hypotension. (11) Rheumatoid arthritis: - Continue hydroxychloroquine. - On methotrexate qFri, will hold med at this time due to acute infection. (12) Anemia: - Hgb baseline ~10-11, likely related to recent procedures with acute blood loss. - Continue to trend CBC - is trending down, likely dilutional related to IV fluids. (13) DVT prophylaxis: - SCDs; hold pharmacologic ppx due to recent procedure. Dispo: Med/surg; discharge pending improvement in fevers. Supervising Physician Co-Signing Physician Notes I have seen and examined patient with Anastasiya Lockhart PA-C and agree with assessment and plan. Subjective Pt. has been afebrile >12 hours. She was weaned to room air this afternoon but dropped to 86% again, required 1L via NC. She denies chills, chest pain, SOB, N/V, flank pain. Influenza negative, CXR negative. BC neg (prelim), UC negative. BP has been stable after increasing IV fluids to 125 cc/hr. Review of Systems Review of Systems: All systems reviewed & are unremarkable except as noted in HPI & below Constitutional: + fever, + fatigue and + weakness; no chills and no anorexia Respiratory: no cough, no dyspnea and no dyspnea on exertion Cardiovascular: no chest pain, no palpitations and no edema Gastrointestinal: no abdominal pain, no nausea and no constipation Genitourinary: no dysuria, no difficulty urinating, no hematuria and no flank pain Musculoskeletal: no back pain and no joint pain Integumentary: no non-healing lesions Physical Exam Physical Exam: General: Resting comfortably HEENT: NC/AT; PERRLA with EOMI; [place] conjunctiva, MMM. No erythema of posterior pharynx Neck: Supple and nontender Cardiac: RRR Lungs: CTA bilaterally Abdomen: Bowel normoactive X 4; Nontender to palpation Extremities: Warm. No edema present Neuro: No focal weakness Skin: No rash Results & Data Vital Signs (Past 12 Hours) Vital Signs Temp Pulse Pulse Resp BP Pulse Ox 09/11/19 14:02 89 93 09/11/19 13:44 86 L 09/11/19 11:34 92 09/11/19 10:26 94 09/11/19 07:18 36.8 C 83 16 105/67 94 09/11/19 02:49 37.7 C H 88 16 107/66 94 Laboratory Results 09/11/19 09/11/19 09/11/19 Range/Units 11:46 07:54 06:42 WBC (4.8-10.8) K/uL RBC (4.2-5.4) M/uL Hgb (12.0-16.0) g/dL Hct (37-47) % MCV (80-100) fL MCH (25-34) pg MCHC (32-36) g/dL RDW Std Deviation (36.4-46.3) fL RDW Coeff of Ilana (11.5-14.5) % Plt Count (130-400) K/uL MPV (7.4-10.4) fL Immature Gran % (Auto) % Neut % (Auto) % Lymph % (Auto) % [place] % (Auto) % Eos % (Auto) % Baso % (Auto) % Immature Gran # (Auto) (0.00-0.02) K/uL Neut # (Auto) (1.4-6.5) K/uL Lymph # (Auto) (1.2-3.4) K/uL [place]on # (Auto) (0.11-0.59) K/uL Eos # (Auto) (0-0.5) K/uL Baso # (Auto) (0-0.2) K/uL Sodium 136 (136-145) mmol/L Potassium 3.9 (3.5-5.1) mmol/L Chloride 105 (98-107) mmol/L Carbon Dioxide 25 (21-32) mmol/L Anion Gap 6.0 (3-11) BUN 13 (7-18) mg/dl Creatinine 0.99 (0.6-1.2) mg/dl Est Cr Clr Drug Dosing 66.4 ml/min Est GFR ( Amer) 66.9 Est GFR (Non-Af Amer) 57.7 BUN/Creatinine Ratio 13.1 (10-20) Glucose 139 H (70-99) mg/dl POC Glucose 188 H 149 H (70-99) mg/dl Lactate (0.4-2.0) mmol/L Calcium 8.2 L (8.5-10.1) mg/dl Total Bilirubin 0.4 (0.2-1) mg/dl AST 20 (15-37) U/L ALT 27 (12-78) U/L Alkaline Phosphatase 63 (45-117) U/L Total Protein 5.8 L (6.4-8.2) gm/dl Albumin 2.3 L (3.4-5.0) gm/dl Globulin 3.5 (2.5-4.0) gm/dl Albumin/Globulin Ratio 0.7 L (0.9-2) Influenza Type A (PCR) (Neg) Influenza Type B (PCR) (Neg) 09/11/19 09/10/19 09/10/19 Range/Units 06:42 21:07 19:01 WBC 5.00 (4.8-10.8) K/uL RBC 3.20 L (4.2-5.4) M/uL Hgb 8.9 L (12.0-16.0) g/dL Hct 27.7 L (37-47) % MCV 86.6 (80-100) fL MCH 27.8 (25-34) pg MCHC 32.1 (32-36) g/dL RDW Std Deviation 50.7 H (36.4-46.3) fL RDW Coeff of Ilana 15.8 H (11.5-14.5) % Plt Count 142 (130-400) K/uL MPV 9.5 (7.4-10.4) fL Immature Gran % (Auto) 0.2 % Neut % (Auto) 77.0 % Lymph % (Auto) 11.0 % [place] % (Auto) 10.6 % Eos % (Auto) 1.0 % Baso % (Auto) 0.2 % Immature Gran # (Auto) 0.01 (0.00-0.02) K/uL Neut # (Auto) 3.85 (1.4-6.5) K/uL Lymph # (Auto) 0.55 L (1.2-3.4) K/uL [place]on # (Auto) 0.53 (0.11-0.59) K/uL Eos # (Auto) 0.05 (0-0.5) K/uL Baso # (Auto) 0.01 (0-0.2) K/uL Sodium (136-145) mmol/L Potassium (3.5-5.1) mmol/L Chloride (98-107) mmol/L Carbon Dioxide (21-32) mmol/L Anion Gap (3-11) BUN (7-18) mg/dl Creatinine (0.6-1.2) mg/dl Est Cr Clr Drug Dosing ml/min Est GFR ( Amer) Est GFR (Non-Af Amer) BUN/Creatinine Ratio (10-20) Glucose (70-99) mg/dl POC Glucose 228 H (70-99) mg/dl Lactate (0.4-2.0) mmol/L Calcium (8.5-10.1) mg/dl Total Bilirubin (0.2-1) mg/dl AST (15-37) U/L ALT (12-78) U/L Alkaline Phosphatase (45-117) U/L Total Protein (6.4-8.2) gm/dl Albumin (3.4-5.0) gm/dl Globulin (2.5-4.0) gm/dl Albumin/Globulin Ratio (0.9-2) Influenza Type A (PCR) Neg for Influ A (Neg) Influenza Type B (PCR) Neg for Influ B (Neg) 09/10/19 09/10/19 09/10/19 Range/Units 17:51 17:00 16:07 WBC (4.8-10.8) K/uL RBC (4.2-5.4) M/uL Hgb (12.0-16.0) g/dL Hct (37-47) % MCV (80-100) fL MCH (25-34) pg MCHC (32-36) g/dL RDW Std Deviation (36.4-46.3) fL RDW Coeff of Ilana (11.5-14.5) % Plt Count (130-400) K/uL MPV (7.4-10.4) fL Immature Gran % (Auto) % Neut % (Auto) % Lymph % (Auto) % [place] % (Auto) % Eos % (Auto) % Baso % (Auto) % Immature Gran # (Auto) (0.00-0.02) K/uL Neut # (Auto) (1.4-6.5) K/uL Lymph # (Auto) (1.2-3.4) K/uL [place] # (Auto) (0.11-0.59) K/uL Eos # (Auto) (0-0.5) K/uL Baso # (Auto) (0-0.2) K/uL Sodium (136-145) mmol/L Potassium (3.5-5.1) mmol/L Chloride (98-107) mmol/L Carbon Dioxide (21-32) mmol/L Anion Gap (3-11) BUN (7-18) mg/dl Creatinine (0.6-1.2) mg/dl Est Cr Clr Drug Dosing ml/min Est GFR ( Amer) Est GFR (Non-Af Amer) BUN/Creatinine Ratio (10-20) Glucose (70-99) mg/dl POC Glucose 218 H 174 H (70-99) mg/dl Lactate 1.5 (0.4-2.0) mmol/L Calcium (8.5-10.1) mg/dl Total Bilirubin (0.2-1) mg/dl AST (15-37) U/L ALT (12-78) U/L Alkaline Phosphatase (45-117) U/L Total Protein (6.4-8.2) gm/dl Albumin (3.4-5.0) gm/dl Globulin (2.5-4.0) gm/dl Albumin/Globulin Ratio (0.9-2) Influenza Type A (PCR) (Neg) Influenza Type B (PCR) (Neg) PG Care Time/CCT Total # of Minutes Spent Total Time Spent with Patient: Total time spent is greater than 50% in coordination of care (as documented) at patient's floor/unit and/or counseling patient: (1) UTI (urinary tract infection) Hematuria presence: with hematuria Urinary tract infection type: site unspecified Qualified Code(s): N39.0 - Urinary tract infection, site not specified; R31.9 - Hematuria, unspecified (2) Fever Fever type: unspecified Qualified Code(s): R50.9 - Fever, unspecified
[2019-09-11] MEDS: CHOLECALCIFEROL 1,000 UNITS TAB PO SCH (21:16)
[2019-09-11] MEDS: ATORVASTATIN 20 MG TAB PO SCH (21:16)
[2019-09-12] MEDS: SODIUM CHLORIDE 0.9% 1000ML 1,000 ML IV SCH ×2 (03:38→23:12)
[2019-09-12] MEDS: PIPERACILLIN/TAZOBACTAM 4.5 GM in DEXTROSE 5% 100 ML IV SCH ×2 (04:58→13:13)
[2019-09-12 06:06] LABS: Hemoglobin 9.3 g/dL (12.0-16.0); Mean Corpuscular Hemoglobin 28.6 pg (25-34); Mean Corpuscular Hgb Conc 33.2 g/dL (32-36); Mean Corpuscular Volume 86.2 fL (80-100); Mean Platelet Volume 9.6 fL (7.4-10.4); Platelet Count 143 K/uL (130-400); RDW Coefficient of Variation 15.8 % (11.5-14.5); RDW Standard Deviation 50.3 fL (36.4-46.3); Red Blood Count 3.25 M/uL (4.2-5.4); White Blood Count 5.02 K/uL (4.8-10.8)
[2019-09-12 06:32] LABS: BUN Creatinine Ratio 12.3 (10-20); Creatinine Clr Calc Pharmacy 65.7 ml/min; Est GFR (African American) 66.1; Potassium 3.8 mmol/L (3.5-5.1)
[2019-09-12] MEDS: FOLIC ACID 1 MG TAB PO SCH (08:35)
[2019-09-12] MEDS: CYANOCOBALAMIN 500 MCG TABLET (VITAMIN B-12) PO SCH (08:35)
[2019-09-12] MEDS: HYDROXYCHLOROQUINE SULFATE 200 MG TAB PO SCH ×2 (08:35→20:55)
[2019-09-12] MEDS: MULTIVITAMIN TAB PO SCH (08:35)
[2019-09-12] MEDS: INSULIN ASPART 100 UNITS/ML 3 ML PEN SC SCH ×4 (09:23→20:57)
--- NOTE | 2019-09-12 11:58 | CT Scan Report ---
CT chest wo con CT DOSE: 726.10 mGycm CLINICAL HISTORY: 69 years-old Female with Hypoxia, rule out pulm edema vs. PNA. Acute hypoxia TECHNIQUE: Multiaxial CT images of the chest were performed without contrast. A dose lowering techni que was utilized adhering to the principles of ALARA. COMPARISON: Chest radiographs 09/11/2019, CT abdomen and pelvis 09/08/2019, CTA of the chest 04/23/2011 FINDINGS: Unremarkable thyroid. No adenopathy. Heart is mildly enlarged. No pericardial effusion. Coronary edison rial calcifications are noted. Calcified plaque of the thoracic aorta without aneurysm. Mild descendi ng thoracic aortic tortuosity. The pulmonary artery is dilated with the main segment measuring 3.5 cm transversely. This accounts for the hilar prominence described on comparison chest radiograph. There is no pneumothorax or pleural effusion. There are a few benign-appearing thin-walled cysts of t he bilateral lungs. Diffuse mild patchy bilateral groundglass opacities are noted. Minimal subsegment al atelectasis/scarring of the inferior segment lingula. No focal airspace consolidation typical for pneumonia. Mosaic attenuation suggest air-trapping. No intralobular septal thickening. Central airway s appear patent. Hepatomegaly with hepatic steatosis. No evidence of cirrhosis or ascites. Mild generalized pancreatic atrophy. The soft tissues appear unremarkable. Degenerative changes of the shoulders and spine. No a cute fracture identified. IMPRESSION: 1. Cardiomegaly is noted in conjunction with mild diffuse patchy bilateral groundglass opacities with air trapping is suggestive of atelectasis or an atypical infectious or inflammatory pneumonitis. Dev eloping pulmonary edema is considered less likely. 2. No pleural effusion or adenopathy. 3. Dilated pulmonary artery suggests pulmonary arterial hypertension. 4. Coronary arterial calcifications. 5. Hepatomegaly with hepatic steatosis. ACT 112: Negative or not required by law. Electronically signed by: Dakota Hartman M.D. 09/12/2019 11:56 AM
--- NOTE | 2019-09-12 12:42 | Urology Progress Note ---
Date of Service September 12, 2019 Assessment & Plan (1) Kidney stone: 69yo F POD #3 s/p cysto, URS, laser lithotripsy, stent exchange Dislodged stent. Removed at bedside by myself without complication. Pt understands she may experience some flank discomfort today, will improve gradually. Outpatient appointments already arranged. Thank you for allowing us to participate in the acute care of Mrs. Acuña. Please reconsult us with additional questions, concerns or changes in patient status. Subjective I received report from nursing staff that pt's tethered stent string appeared much longer than prior. Pt does not believe stent was pulled. Denies flank or suprapubic change. On examination, stent was dislodged with tip visible outside of body. Continues to work on respiratory issues. Review of Systems Review of Systems: All systems reviewed & are unremarkable except as noted in HPI & below Physical Exam Physical Exam: A&Ox3 REsp rate labored when lying ureteral stent tip in visible outside urethra PG Care Time/CCT Total # of Minutes Spent Total Time Spent with Patient: Total time spent is greater than 50% in coordination of care (as documented) at patient's floor/unit and/or counseling patient:
--- NOTE | 2019-09-12 17:51 | Hospitalist Progress Note ---
Date of Service September 12, 2019 Assessment & Plan (1) S/P ureteral stent placement: - Status post right ureteral stent placement with right UVJ stone on 08/10/19. - S/p cystoscopy with right ureterscopy, stent exchange, retrograde pyelogram, laser lithotripsy, and stone basket extraction on 09/10/19. - Urology following, appreciate input. - Stent was dislodged, removed at bedside by urology today. Will monitor. (2) Fever: - Febrile on 09/10; also had mild hypotension with tachycardia. Lactic acid level was WNL. Has been afebrile >36 hours, hemodynamically stable. - UC x 2 negative; BC negative. - CXR neg for pulmonary source; CT chest also negative for PNA. - Influenza was negative. - Broadened abx coverage to Zosyn IV; will d/c abx today due to lack of source. (3) UTI (urinary tract infection): - Previous UTI in Jul 2019, +Klebsiella pneumoniae. - UC collected on admission >3 colonies, repeat culture was negative. BC negative (prelim) - D/c abx as noted above. (4) Kidney stone: - CT A/P showed 6 mm right calculus within upper pole of right kidney. - S/p lithotripsy by urology on 09/10. (5) Hypoxia: - Has been requiring oxygen -- possibly related to pulm edema. - CT chest this morning showed pulm edema, also has had ~3 kg weight gain. - Will give Lasix 40 mg IV and monitor volume status overnight. - Continue to wean oxygen -- did not meet requirements for oxygen during 2 step with RT this afternoon but desats at rest. - Encourage IS q1hr WA - atelectasis is likely contributing to hypoxia. (6) Hyperlipidemia: - Continue atorvastatin 20 mg qhs. (7) COPD (chronic obstructive pulmonary disease): - No acute flare noted but has been requiring oxygen. - Continue Albuterol q6hr prn. (8) Diabetes 1.5, managed as type 2: - A1C was 6.3 in Jul 2019. - Hold home Glipizide and Metformin. - SSI coverage. - Carb consistent diet. (9) CKD stage 3 secondary to diabetes: - Creatinine currently at baseline. - Renally dose all meds. (10) Benign essential hypertension: - Holding home HCTZ and Losartan during operative period & in setting of possible infection/hypotension. Can likely resume meds at discharge. (11) Rheumatoid arthritis: - Continue hydroxychloroquine. - On methotrexate qFri, will hold med at this time. (12) Anemia: - Hgb baseline ~10-11, likely related to recent procedures with acute blood loss. - Continue to trend CBC - is below baseline, related to recent procedures. (13) DVT prophylaxis: - SCDs; start Heparin q12hr. Dispo: Med/surg; discharge likely tomorrow pending improvement in hypoxia. Supervising Physician Co-Signing Physician Notes Attending Attestation & Progress Note: Pt seen/examined, chart reviewed, care plan d/w PA Anastasiya Angel. I agree w/ the douglas components of her documentation except - patient with 2+ edema of both legs. Pt states she slept in chair last pm because of breathing being poor. Also with CORRIGAN towards end of her walks today. Exam - gen - obese, NAD neck - likely mild JVD heart - RRR, s1 s2 lungs - mild b/l basilar rales abd - obese soft NT ext - 2+ edema b/l A/P: 1. recent ureteral stent exchange, laser litho, and basket extraction of stone on 09/10/2019. Stent dislodged post-op; removed by urology today. 2. volume overload - likely iatrogenic. This is likely cause of orthopnea, CORRIGAN, and low O2 sats. Lasix 40mg IV x 1 and re-eval tomorrow. 3. morbid obesity - BMI nearly 50. Tavon Mcgrath MD Subjective Pt. feels well today overall but continues to require oxygen. She was weaned to room air and desatted to 84%. Has gained ~3kg -- hypoxia likely related to pulm edema. Will give Lasix 40 mg IV and monitor overnight. Review of Systems Review of Systems: All systems reviewed & are unremarkable except as noted in HPI & below Constitutional: no fever, no chills, no fatigue, no weakness and no anorexia Respiratory: no cough, no dyspnea, no dyspnea on exertion and no wheezing Cardiovascular: + edema; no chest pain and no palpitations Gastrointestinal: no abdominal pain, no nausea and no constipation Genitourinary: no difficulty urinating and no flank pain Musculoskeletal: no back pain and no joint pain Integumentary: no non-healing lesions Physical Exam Physical Exam: General: Resting comfortably HEENT: NC/AT; PERRLA with EOMI; [place] conjunctiva, MMM. No erythema of posterior pharynx Neck: Supple and nontender Cardiac: RRR Lungs: CTA bilaterally Abdomen: Bowel normoactive X 4; Nontender to palpation Extremities: Warm. No edema present Neuro: No focal weakness Skin: No rash Results & Data Vital Signs (Past 12 Hours) Vital Signs Pulse Pulse Pulse Resp Resp Resp Resp 09/12/19 14:05 107 H 87 81 22 20 18 09/12/19 14:02 16 Pulse Ox Pulse Ox Pulse Ox Pulse Ox 09/12/19 14:05 93 93 94 09/12/19 14:02 88 L Laboratory Results 09/12/19 09/12/19 09/12/19 Range/Units 17:30 11:56 07:59 WBC (4.8-10.8) K/uL RBC (4.2-5.4) M/uL Hgb (12.0-16.0) g/dL Hct (37-47) % MCV (80-100) fL MCH (25-34) pg MCHC (32-36) g/dL RDW Std Deviation (36.4-46.3) fL RDW Coeff of Ilana (11.5-14.5) % Plt Count (130-400) K/uL MPV (7.4-10.4) fL Sodium (136-145) mmol/L Potassium (3.5-5.1) mmol/L Chloride (98-107) mmol/L Carbon Dioxide (21-32) mmol/L Anion Gap (3-11) BUN (7-18) mg/dl Creatinine (0.6-1.2) mg/dl Est Cr Clr Drug Dosing ml/min Est GFR ( Amer) Est GFR (Non-Af Amer) BUN/Creatinine Ratio (10-20) Glucose (70-99) mg/dl POC Glucose 146 H 208 H 198 H (70-99) mg/dl Calcium (8.5-10.1) mg/dl 09/12/19 09/12/19 09/12/19 Range/Units 06:58 05:37 05:37 WBC 5.02 (4.8-10.8) K/uL RBC 3.25 L (4.2-5.4) M/uL Hgb 9.3 L (12.0-16.0) g/dL Hct 28.0 L (37-47) % MCV 86.2 (80-100) fL MCH 28.6 (25-34) pg MCHC 33.2 (32-36) g/dL RDW Std Deviation 50.3 H (36.4-46.3) fL RDW Coeff of Ilana 15.8 H (11.5-14.5) % Plt Count 143 (130-400) K/uL MPV 9.6 (7.4-10.4) fL Sodium 138 (136-145) mmol/L Potassium 3.8 (3.5-5.1) mmol/L Chloride 109 H (98-107) mmol/L Carbon Dioxide 27 (21-32) mmol/L Anion Gap 2.0 L (3-11) BUN 12 (7-18) mg/dl Creatinine 1.00 (0.6-1.2) mg/dl Est Cr Clr Drug Dosing 65.7 ml/min Est GFR ( Amer) 66.1 Est GFR (Non-Af Amer) 57.0 BUN/Creatinine Ratio 12.3 (10-20) Glucose 167 H (70-99) mg/dl POC Glucose 184 H (70-99) mg/dl Calcium 8.0 L (8.5-10.1) mg/dl 09/11/19 Range/Units 20:31 WBC (4.8-10.8) K/uL RBC (4.2-5.4) M/uL Hgb (12.0-16.0) g/dL Hct (37-47) % MCV (80-100) fL MCH (25-34) pg MCHC (32-36) g/dL RDW Std Deviation (36.4-46.3) fL RDW Coeff of Ilana (11.5-14.5) % Plt Count (130-400) K/uL MPV (7.4-10.4) fL Sodium (136-145) mmol/L Potassium (3.5-5.1) mmol/L Chloride (98-107) mmol/L Carbon Dioxide (21-32) mmol/L Anion Gap (3-11) BUN (7-18) mg/dl Creatinine (0.6-1.2) mg/dl Est Cr Clr Drug Dosing ml/min Est GFR ( Amer) Est GFR (Non-Af Amer) BUN/Creatinine Ratio (10-20) Glucose (70-99) mg/dl POC Glucose 212 H (70-99) mg/dl Calcium (8.5-10.1) mg/dl PG Care Time/CCT Total # of Minutes Spent Total Time Spent with Patient: Total time spent is greater than 50% in coordination of care (as documented) at patient's floor/unit and/or counseling patient: (1) UTI (urinary tract infection) Hematuria presence: with hematuria Urinary tract infection type: site unspecified Qualified Code(s): N39.0 - Urinary tract infection, site not specified; R31.9 - Hematuria, unspecified (2) Fever Fever type: unspecified Qualified Code(s): R50.9 - Fever, unspecified
[2019-09-12] MEDS ORDERED: FUROSEMIDE 40 MG in SYRINGE 0 ML IV ONE (18:15)
[2019-09-12] MEDS: CHOLECALCIFEROL 1,000 UNITS TAB PO SCH (20:55)
[2019-09-12] MEDS: ATORVASTATIN 20 MG TAB PO SCH (20:55)
[2019-09-12] MEDS: HEPARIN SOD 5,000 UNIT/0.5 ML VIAL SQ SCH (20:58)
[2019-09-12] MEDS: ACETAMINOPHEN 325 MG TAB PO PRN (23:28)
[2019-09-13 05:59] LABS: Hematocrit (blood only) 29.9 % (37-47); Hemoglobin 9.6 g/dL (12.0-16.0); Mean Corpuscular Hemoglobin 27.5 pg (25-34); Mean Corpuscular Hgb Conc 32.1 g/dL (32-36); Mean Corpuscular Volume 85.7 fL (80-100); Mean Platelet Volume 9.6 fL (7.4-10.4); Platelet Count 199 K/uL (130-400); RDW Coefficient of Variation 15.7 % (11.5-14.5); RDW Standard Deviation 48.7 fL (36.4-46.3); Red Blood Count 3.49 M/uL (4.2-5.4); White Blood Count 5.87 K/uL (4.8-10.8)
[2019-09-13 06:34] LABS: Calcium 8.9 mg/dl (8.5-10.1); Creatinine Clr Calc Pharmacy 70.7 ml/min; Est GFR (African American) 72.2; Est GFR (Non-African American) 62.3; Potassium 3.5 mmol/L (3.5-5.1)
[2019-09-13] MEDS: MULTIVITAMIN TAB PO SCH (08:54)
[2019-09-13] MEDS: HYDROXYCHLOROQUINE SULFATE 200 MG TAB PO SCH (08:54)
[2019-09-13] MEDS: FOLIC ACID 1 MG TAB PO SCH (08:54)
[2019-09-13] MEDS: CYANOCOBALAMIN 500 MCG TABLET (VITAMIN B-12) PO SCH (08:54)
[2019-09-13] MEDS: HEPARIN SOD 5,000 UNIT/0.5 ML VIAL SQ SCH (08:57)
[2019-09-13] MEDS: INSULIN ASPART 100 UNITS/ML 3 ML PEN SC SCH ×2 (09:00→13:06)
--- NOTE | 2019-09-13 15:19 | Discharge Summary ---
Date of Service September 13, 2019 Admission HPI Per Admitting Provider The patient is a 69-year-old female with a past medical history including kidney stones, urinary tract infection, acute posthemorrhagic anemia, lower GI bleed, vertebrobasilar insufficiency, hyperlipidemia, hypertension, COPD, diabetes mellitus, diabetic foot ulcer, RA, generalized weakness, diabetic peripheral neuropathy and asthma. She was most recently admitted from 08/09-08/13/2019 with a right UVJ stone, UTI and stent placement. She was recently seen by urology and anesthesiology in the outpatient setting, and has an upcoming OR appointment scheduled for 09/13/2019 for a right cystoscopy/ureteral nephrostomy, retrograde pyelogram, laser/extraction of stone and stent catheter exchange. In the interim, the patient has gotten new symptoms of nausea, vomiting, chills and fever, and presented to the emergency department for assessment. Principal Diagnosis Nephrolithiasis S/P Stent and Removal; S/P Lithotripsy Discharge Exam Constitutional well developed and well nourished; no acute distress and not ill appearing Eyes + anicteric sclerae ENMT Ears: no hearing impairment Neck trachea midline Respiratory normal respiratory effort, lungs clear to auscultation Auscultation: + diminished lung sounds (bases b/l) Cardiovascular Rate/Rhythm: regular rate and regular rhythm Extremities: + edema (b/l lower extremities R > L) Gastrointestinal (Abdomen) Inspection/Auscultation: normal bowel sounds Percussion/Palpation: abdomen soft; abdomen nontender Musculoskeletal Head/Neck/Chest: normocephalic and head atraumatic Skin no rashes, warm and dry Neurologic moves all extremities Psychiatric A+Ox3, euthymic affect Discharge Data Allergies Allergy/AdvReac Type Severity Reaction Status Date / Time grass pollen-perennial rye, Allergy Intermediate DIFFICULTY Verified 09/17/19 11:50 standar BREATHING mold Allergy Intermediate DIFFICULTY Verified 09/17/19 11:50 BREATHING pollen extracts Allergy Intermediate DIFFICULTY Verified 09/17/19 11:50 BREATHING etodolac Allergy Unknown UNKNOWN Verified 09/17/19 11:50 house dust Allergy Unknown Unknown Verified 09/17/19 11:50 pregabalin [From Lyrica] Allergy Unknown eyes- Verified 09/17/19 11:50 blurred vision simvastatin Allergy Unknown "FEELS Verified 09/17/19 11:50 FUNNY" tetanus toxoid, adsorbed Allergy Unknown SWELLING Verified 09/17/19 11:50 Consultations 09/08/19 17:37 ED Decision to Admit Stat 09/08/19 19:44 Consult Case Management - Discharge Planning Routine Consult Urology Routine Procedures Performed Operation Date: 09/10/19 07:15 Actual Procedures p Cystoscopy with Right Ureterscopy, Retrograde Pyelogram, Laser Lithotripsy, and Stone Basket Extraction(Right) - Dashawn Shannon DO s Stent Exchange(Right) - Dashawn Shannon DO Ordered Studies 09/08/19 16:10 CT abd pelvis wo con Stat 09/10/19 07:21 FL retrograde includes kub Routine 09/12/19 09:09 CT chest wo con Routine Hospital Course (1) Kidney stone: - CT with 6 mm R calculus within upper pole of R kidney and now S/P lithotripsy on 09/10 - S/P R ureteral stent on 08/10 had stent exchange on 09/10 - stent spontaneously migrated out and was pulled at bedside on 07/13 by urology - [facility] [place] - can F/U as needed as outpatient (2) S/P ureteral stent placement: (3) Fever: - Febrile on 09/10; also had mild hypotension with tachycardia. Lactic acid level was WNL. Has been afebrile since and hemodynamically stable. - UC x 2 negative; BC negative. - CXR neg for pulmonary source; CT chest also negative for PNA. - Influenza was negative. - Broadened abx coverage to Zosyn IV initially but Abx D/Cd currently due to no source - possibly atelectasis-induced post-operatively? (4) UTI (urinary tract infection): - Previous UTI in Jul 2019, +Klebsiella pneumoniae. - UC collected on admission >3 colonies, repeat culture was negative. BC negative - D/C abx as noted above. (5) Hypoxia: - Has required supplemental O2 during admission - possibly some pulm edema induced vs hypoventilation syndrome - given her diagnosis of COPD possibly high 80s is not unusual for her - She did diurese with Lasix x 1 dose on 07/13 and was weaned off supplemental O2. Will do Lasix 20 mg x 3 days while holding her HCTZ then can resume this as previously prescribed - Her HCTZ was held during admission which may have played a role however she states she has had chronic issues with swelling and fluid retention so maybe not helping drastically. Lower extremities seem to be chronic venous related as well - Did not meet requirements for O2 on two step (6) Hyperlipidemia: - Continue atorvastatin 20 mg daily (7) COPD (chronic obstructive pulmonary disease): - No acute exacerbation appreciated - Continue Albuterol PRN (8) Diabetes 1.5, managed as type 2: - A1C was 6.3 in Jul 2019. - Resume home regimen (9) CKD stage 3 secondary to diabetes: - Creatinine currently at baseline; STABLE (10) Benign essential hypertension: - Resume HCTZ (after completing Lasix) and Losartan (11) Rheumatoid arthritis: - Continue hydroxychloroquine. - On methotrexate weekly (12) Anemia: - Hgb baseline ~10-11, likely related to recent procedures with acute blood loss. (13) Volume overload: (14) Morbid obesity with BMI of 45.0-49.9, adult: Total Time Total Time Spent Total Time Spent (In Minutes): Greater than 30 minutes Discharge Plan Discharge Items Patient Disposition: Home - Self-Care Reason For Visit: COMPLICATED UTI, URETERAL STENT PRESENT Discharge Diagnosis: UTI, Ureter Stent exchange Condition on Discharge: Fair Goals: You have been hospitalized for an acute medical problem. During your stay at [facility], we have made an effort to correct the problem that brought you to the hospital while keeping you as comfortable as possible. Medications were used to bring your condition under control and your discharge instructions will include directions for any medications you should take after leaving the hospital. Please make sure you see your Primary Care Provider as part of your follow up plan. Activity: As commented below Exercise/Sports: Gradually increase as tolerated Non-emergency contact: Primary Care Provider and Urologist Call non-emergency contact if: you have any medication questions, your symptoms worsen and you have a fever Follow-up/Referrals: Chicho Langley MD [Primary Care Provider] - 09/17/19 12:30 pm (Please, follow up at Dr. Langley's office with his associate, Veronica Whittington PA-C, on TuesdaySeptember 17 at 12:30 pm. *If you need to change this appointment, call their office at [phone].) Dashanw Shannon DO [Physician] - 09/26/19 9:15 am (Please, follow up at [facility] Urology Office with Dr. Shannon on TuesdaySeptember 26 at 9:15 am. *The office is located at [address] in [place]. If you need to change this appointment, call the office at [phone]. ) Diet: Carb Consistent or DM2 and Heart Healthy Addtl Attending Provider Instructions: 1. Status post ureter stent exchange and lithotripsy * Please follow up with urology as scheduled in the outpatient clinic as needed. You had your stent removed while in the hospital. * Be mindful that with a stent and now removal you may get some mild blood in the urine. If this becomes frequent please discuss with your Urologist 2. Fevers * Infectious work up has been negative during this admission; antibiotics were initially used and are now discontinued. * Please call your primary care provider if you develop fever >101 degrees Farhenheit as an outpatient. 3. Hypoxia (Lower Oxygen Level) * Oxygen level has been intermittently low during this admission but you did not qualify for home oxygen. This may be from some extra water on the body or possibly from taking shallow breaths. Thankfully your numbers are doing a lot better now * Please monitor for increased shortness of breath at home; contact your PCP if you develop chest pain, hypoxia, lightheadedness, etc following discharge. * Will use Lasix 20 mg for 3 days to try and pull a little extra water off of you. You can discuss with your family doctor about possibly using water pills as needed for water/weight gain * HOLD YOUR HYDROCHLOROTHIAZIDE (THIS IS A BLOOD PRESSURE/WATER PILL) FOR THE 3 DAYS THAT YOU TAKE THE LASIX. HOPEFULLY THE LASIX WILL WORK A LITTLE BETTER PULLING OFF THE EXTRA FLUID. AFTER THE 3 DAYS RESUME YOUR HYDROCHLOROTHIAZIDE PREVIOUSLY PRESCRIBED 4. Please follow up with PCP to discuss this hospital admission. Pending Studies at Discharge: Yes Studies:: Blood cultures negative (prelim) Stand-Alone Forms: [employer] [facility] [employer] Medications and DC Order Prescriptions: Continued cyanocobalamin (vitamin B-12) 1,000 mcg tablet 1,000 mcg PO QAM RF: 0 Combivent Respimat 20-100 mcg/actuation mist 1 puffs INH Q6H PRN (Reason: Shortness Of Breath) RF: 0 methotrexate sodium 2.5 mg tablet 5 mg PO FR@2100 RF: 0 multivitamin Tablet 1 tab PO QAM RF: 0 aspirin [Aspir-81] 81 mg Tablet,Delayed Release (Dr/Ec) 81 mg PO QAM RF: 0 metformin 1,000 mg tablet 1,000 mg PO BIDM RF: 0 hydrochlorothiazide 25 mg tablet 25 mg PO QAM RF: 0 glipizide 5 mg tablet 5 - 10 mg PO UD RF: 0 vitamin E 1,000 unit Capsule 1,000 unit PO HS RF: 0 losartan 50 mg tablet 50 mg PO HS RF: 0 hydroxychloroquine [Plaquenil] 200 mg Tablet 200 mg PO BID RF: 0 atorvastatin 20 mg tablet 20 mg PO HS RF: 0 Novolin N NPH U-100 Insulin 100 unit/mL Suspension 25 - 30 units subcut DAILY@213 RF: 0 cholecalciferol (vitamin D3) 1,000 unit Tablet 1,000 unit PO HS RF: 0 folic acid 1 mg tablet 1 mg PO QAM RF: 0 Novolin R Regular U-100 Insuln 100 unit/mL solution 15 units SUBCUT QDD RF: 0 Discontinued nitrofurantoin monohyd/m-cryst [Macrobid] 100 mg capsule 100 mg PO Q12H 5 Days Qty: 10 RF: 0 No Action meclizine 25 mg tablet 25 mg PO TID PRN (Reason: dizziness) Qty: 90 RF: 3 Discharge Orders: Discharge Order (Routine); Ordered 09/13/19 Ordered By: Opal Pierre/Other Patient Handouts: Surgery Prevent DVT After, Diabetes Director Of Patient Safety Complications, Diabetes Healthy Meals Admission Data Admit Date/Time: 09/08/19 18:38 Attending Provider: Tavon Mcgrath Admit Provider: Pablo Guerrero Primary Care Provider: Chicho Langley Other Providers: Dashawn Shannon Other Interventions: Discharge Summary Assessment (RN) Last Done: 09/13/19 11:52 DC Date/Time DO NOT enter until pt leaves facility: 09/13/19 13:23 Supervising Physician Co-Signing Physician Notes Attending Attestation & Discharge Note: Pt seen/examined, chart reviewed, care plan d/w JESSICA Marvin. I agree w/ the douglas components of her discharge documentation. 69yo female with right-sided ureteral stent placed for UVJ stone in 07/2019. Was scheduled to have lithotripsy on 09/13 however developed fever, chills, nausea and emesis. Thus admitted for such. Work-up for fever was unremarkable. Blood/urine cx's remained negative during this stay. On 09/10/19 Dr Shannon from urology performed cystoscopy, ureteral stent exchange, and laser litho w/ basket extraction of stone. Had some fever post-operatively along with mild hypoxia. CT chest with groundglass opacities - felt to represent pulmonary edema. Received IV diuresis for such. Hypoxia resolved with diuresis and pulmonary symptoms improved. She will take a short course of lasix post-d/c. No bacterial source of infection was found during this stay despite the recent history of fevers. Exact cause was not fully certain. Exam - gen - obese, NAD neck - JVD resolved heart - RRR, s1 s2 lungs - bibasilar rales nearly resolved, good air movement abd - obese soft NT ext - 1+ edema b/l A/P: 1. recent right-sided ureteral stent exchange, laser litho, and basket extraction of stone on 09/10/2019. Stent dislodged post-op; removed by urology prior to discharge. 2. volume overload - likely iatrogenic. This was likely cause of orthopnea, CORRIGAN, and low O2 sats. Lasix IV with improved exam, symptoms. O2 sats wnl at time of discharge. 3. morbid obesity - BMI nearly 50. 4. recent SIRS - etiology uncertain. Never found bacterial source while here. Tavon Mcgrath MD
[2019-09-13 15:44] LABS: Component 2 DNR
--- NOTE | 2019-09-18 07:01 | Coding Query ---
CODING QUERY To promote full compliance with coding requirements relating to patient care, provider participation is requested in all cases of commodity supervisor uncertainty. Please assist us with the question(s) below: Coding Question(s): 1. The Discharge Summary documents Pulmonary Edema. Please specify below, in your clinical opinion, regarding Pulmonary Edema. ( x ) Acute Pulmonary Edema ( ) Chronic Pulmonary Edema ( ) Other Pulmonary Edema: Please Specify 2. UTI is documented with previous UTI in Jul 2019. Please clarify below, in your clinical opinion, regarding UTI. ( ) UTI was treated during this admission ( x ) History of UTI with no Acute UTI treated during this admission ( ) Other: Please Specify Physician's Response(s): Thank you Farhana Mendoza Principal Diagnosis: "that condition established after study, to be chiefly responsible for occasioning the admission of the patient to the hospital for care." Co-Existing Principal Diagnosis: "when two or more diagnoses equally meet the criteria for principal diagnosis as determined by the circumstances of admission, diagnostic work up, and/or therapy provided, and the Alphabetic Index, Tabular List, or another coding guideline does not provide sequencing direction, any one of the diagnoses may be sequenced first." "When the physician has documented what appears to be a current diagnosis in the body of the record, but has not included the diagnosis in the final diagnostic statement, the physician should be asked whether the diagnosis should be added." ([facility] 2 QTR90. p3-4) [email or web address]
== END 2019-09-13 13:23 | disposition home or self-care (01) | DRG 659 ==
LOC: ED 15:59 → 3W 18:38 → SUATTDRO 18:38 → 3W 19:33

== ENCOUNTER 2024-01-16 10:39 | Observation (INO) ==
--- NOTE | 2024-01-16 10:44 | Emergency Department Note ---
Impression & Plan Hypoxia, Acute exacerbation of chronic obstructive pulmonary disease, Back pain ED Provider Note NAME: LAZARO HYMAN AGE: 73 SEX: F : 1950 ARRIVES VIA: Ambulance INFORMANT: Patient, , triage note, EMS report ED PROVIDER(S): Lester Styles MD CHIEF COMPLAINT: Hip pain, low back pain MEDICAL DECISION MAKING: Patient presents due to concern for right-sided low back and hip pain. IV was established and blood work obtained along with a CT of the abdomen pelvis. Patient did receive IV morphine. Blood work shows a normal white count H&H and platelet count. The patient's kidney function is unremarkable. After the pain medication the patient's blood pressure did improve. Patient's urinalysis shows the possibility of infection. Patient does not have any obvious blood. Patient's chest x-ray shows prominence of the right hannah. Patient CT of the abdomen pelvis shows gallstones noted cholecystitis. No evidence of fracture or obstructive stone. Upon reassessment the patient did have improvement. The patient was noted to be hypoxic likely secondary the patient's narcotic medication. Patient was taken off and did well. Reassessment the patient did have some associated hypoxia at 86-87%. The patient was placed on 2 L. Reviewed the patient's history notes that the patient does have history of asthma COPD. On CT patient's lungs noted to have bronchial wall thickening. The patient states that she did use to take Pulmicort but it was very expensive and that she had repeat pulmonary function test which showed that she no longer had any lung issues. Given her history the patient was ordered albuterol nebs, steroids and magnesium. I discussed with the patient that there after we discussed close outpatient follow-up versus admission depending on her oxygen and ambulation. Patient is comfortable with plan of care. Upon subsequent reassessment assessments I did consider escalation of care and given that the patient does not feel significantly improved and still has saturations in the low 90s do not think it unreasonable for inpatient treatment at this time. Antibiotics deferred to inpatient team. I did speak with NERISSA Laguna PA-C and Dr. Joseph. Critical Care: I have personally spent 35 minutes of critical care time in direct management of this patient. This includes bedside care, interpretation of diagnostic studies, and testing, discussion with consultants, patient, and family members, and other require inpatient management activities. This 35 minutes is in excess of all separately billable procedures. Discussion w/ other healthcare providers: Patient MARIA R Laguna and Dr. Joseph Prior /Outside records reviewed: None Differential diagnosis: Fracture, sprain, strain, subluxation, dislocation, contusion, ligamentous injury, kidney stone, UTI, urethritis, orchitis, pneumonia neurovascular, as well as other etiologies were considered. Diagnostics, as interpreted by me: ECG: Normal sinus rhythm, rate of 68, normal intervals, left axis deviation no ST elevations Q-wave noted anteriorly. Cardiac monitoring: An order was placed for continuous cardiac monitoring. The monitor shows a rate of 65 with sinus rhythm. Patient was placed on pulse oximetry Medical decision rules: None Imaging studies: I informally interpreted the patient's chest x-ray without obvious pneumonia or pneumothorax with formal report to follow. HPI: Patient presents due to concern for right hip and back pain. Patient states that she has had discomfort ongoing since Tuesday fairly constant and will radiate to her right hip. The patient does suffer from chronic shortness of breath may be a bit worse today. Patient denies any chest pains or nausea. Patient states that she was getting dressed this morning when she had worsening pain and discomfort. Patient did not take her morning medications. She did not take anything for pain this morning but had been taking some ibuprofen over the weekend which mildly improved her symptoms. The patient denies any falls or trauma. Patient denies any weakness in the lower extremities. She does have chronic right lower extremity greater than left lower extremity edema. Patient does not know what she takes all of her medications for but knows that she did not take any of her morning medications today. She denies any dysuria or hematuria. Patient also has some associated cough that feels wet but not coughing anything up. Former smoker let smoking about 15 years ago. PAST MEDICAL HISTORY: See Below PAST SURGICAL HISTORY: See Below SOCIAL HISTORY: See Below HOME MEDICATIONS: See Below ALLERGIES: See Below VITALS: See Below PHYSICAL EXAMINATION: GENERAL: NAD, non-toxic. EYE EXAM: Normal conjunctiva. PERRL, no anisocoria and EOM's grossly intact w/o pain. OROPHARYNX: Moist mucus membranes, grossly normal dentition. NECK: Trachea midline, no stridor. Supple, no nuchal rigidity, no adenopathy, non-tender. No signs of meningismus. FROM of the neck with good chin to chest and neck extension. LUNGS: Diminished breath sounds throughout. Normal chest wall mechanics. HEART: NSR, no MRG. ABDOMEN: Abdomen soft, non-tender, no masses, no rebound or guarding. BACK: No CVA TTP. Right-sided low back pain SKIN: No rashes and no bruising. No overlying skin changes to the lower back. Wearing glasses. UPPER EXTREMITIES: Upper extremities are grossly normal. LOWER EXTREMITIES: Grossly normal, no edema. Pain worsened with straight leg raise but not radiating down the leg. Right greater than left lower extremity edema without calf pain or erythema. NEURO EXAM: A&O x3, cranial nerves II-XII grossly intact, normal speech, moves all 4 extremities. Past Med/Surg History Problem List (Updated 01/17/24 @ 07:33 by Lester Styles MD) Back pain (Acute) Acute exacerbation of chronic obstructive pulmonary disease (Acute) Hypoxia (Acute) Abnormal laboratory test COPD exacerbation Left shoulder pain Chronic idiopathic urticaria Edema Anxiety Incontinence Callus of toe (Acute) Chronic venous insufficiency Vertebral basilar insufficiency (Acute) Hyperlipidemia (Chronic) Benign essential hypertension (Chronic) COPD (chronic obstructive pulmonary disease) Asthma Controlled type 2 diabetes mellitus with neurologic complication, with long-term current use of insulin (Chronic) Diabetic nephropathy associated with type 2 diabetes mellitus (Chronic) Diabetic peripheral neuropathy associated with type 2 diabetes mellitus (Acute) Generalized osteoarthritis of multiple sites Generalized weakness (Acute) Low back pain Osteoarthritis of hands, bilateral Urethral stricture Urge and stress incontinence Xerostomia Nephrolithiasis Venous (peripheral) insufficiency Left shoulder tendinitis Dizziness Echocardiogram abnormal Unable to specify wall motion abnormality due to limited visualization August 10, 2019 Allergy Benign paroxysmal positional vertigo Loss of protective sensation of skin of foot Vitamin D deficiency Bilateral lower extremity edema Medical History Toxic effect of cyanoacrylate Pain of left breast Left elbow pain Diabetic foot ulcer Hyperpigmentation of skin Pre-syncope Vulvar itching CKD stage 3 secondary to diabetes Hypoxia Difficult airway for intubation -Left peritonsillar abscess I&D 12/07/2012: Glidescope intubation, ETT 7.0 -Right hammertoe surgery/PIP arthroplasty 05/31/2012: LMA "an easy"unable to adequately ventilateintubatedDVL grade 1 ETT "in easy." Morbid (severe) obesity due to excess calories Chronic obstructive pulmonary disease Essential (primary) hypertension UTI (urinary tract infection) History of Helicobacter pylori infection History of diabetic ulcer of foot Rheumatoid arthritis Edema Hallux valgus (acquired), left foot Several foot deformities (claw toe, hammertoe); surgical intervention performed, subsequent non-healing wound. Lower GI bleed (07/31/14) Acute post-hemorrhagic anemia (07/31/14) Surgical History History of colonoscopy X MULTIPLE History of carpal tunnel release R/L S/P ureteral stent placement Status post repair of nerve S/P oophorectomy S/P knee surgery S/P foot surgery S/P section Family History Mother Colorectal cancer Myocardial infarction Sister Diabetes Hypertension Father Diabetes Grandfather Diabetes Myocardial infarction Other Family history non-contributory Denies family history of Ovarian cancer Prostate cancer Breast cancer Lung cancer Stroke Social History Smoking Status: Never smoker Tobacco Type: Cigarettes Second Hand Exposure: Yes; Do You Dip or Chew Tobacco: No; Hx Alcohol Use: No Hx Substance Use: No Preferred Language: Romansh Communication Ability: Effective Visual Impairment: No Limitations Hearing Ability: Normal Recreation Engineer Required: No Beliefs That Will Affect Care: None marital status: Current Living Situation: Alone current occupational status: retired 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 Other Information That Helps Us Care for You: No Feels Safe at Home: Yes Safety Concerns: Feels Safe At This Time Childhood Exposure to Second-Hand Smoke: Yes Dental Care, Regularly: No Physical Activity Frequency: Does not Exercise Seatbelt Use: always Sunscreen Use: Yes Assistive Devices: Cane, Denture - Upper, Glasses, Scooter/Electric Scooter, Walker and Wheelchair Assistive Devices Comment: cane inside house, partial upper denture Allergies Allergies Allergy/AdvReac Type Severity Reaction Status Date / Time grass pollen-perennial rye, Allergy Severe DIFFICULTY Verified 01/16/24 14:37 standar BREATHING mold Allergy Severe DIFFICULTY Verified 01/16/24 14:37 BREATHING tetanus toxoid, adsorbed Allergy Intermediate SWELLING Verified 01/16/24 14:37 etodolac Allergy Unknown UNKNOWN Verified 01/16/24 14:37 house dust Allergy Unknown Unknown Verified 01/16/24 14:37 pollen extracts Allergy Unknown DIFFICULTY Verified 01/16/24 14:37 BREATHING gabapentin AdvReac Intermediate Muscle Pain Verified 01/16/24 14:37 pregabalin [From Lyrica] AdvReac Intermediate eyes- Verified 01/16/24 14:37 blurred vision simvastatin AdvReac Intermediate "FEELS Verified 01/16/24 14:37 FUNNY" Home Meds Home Medications Medication Instructions Recorded Confirmed multivitamin 1 tab PO QAM 06/18/18 01/16/24 cholecalciferol (vitamin D3) 25 1,000 unit PO HS 10/01/18 01/16/24 mcg (1,000 unit) tablet vitamin E 670 mg (1,000 unit) 1,000 unit PO HS 08/21/19 01/16/24 capsule cyanocobalamin (vitamin B-12) 1,000 mcg PO QAM 03/13/21 01/16/24 1,000 mcg tablet aspirin 81 mg tablet,delayed 81 mg PO DAILY 02/13/23 01/16/24 release insulin NPH isoph U-100 human 100 20 unit subcut HS 02/24/23 01/16/24 unit/mL (3 mL) subcutaneous pen (Novolin N FlexPen) empagliflozin 10 mg tablet 10 mg PO DAILY 12/12/23 01/16/24 (Jardiance) insulin aspart U-100 100 unit/mL 12 - 14 unit subcut BID 01/16/24 01/16/24 (3 mL) subcutaneous pen (Novolog FlexPen U-100 Insulin aspart) Previous Rx's Medication Instructions Recorded flash glucose scanning reader #1 ea 09/10/22 (FreeStyle Jaleel 2 Interior) FreeStyle Jaleel 2 Sensor (flash #1 ea 12/15/22 glucose sensor) meclizine 25 mg tablet 25 mg PO BID PRN dizziness #60 tabs 02/15/23 atorvastatin 20 mg tablet 20 mg PO HS #90 tabs 07/13/23 blood sugar diagnostic (OneTouch #100 ea 07/13/23 Ultra Test strips) miscellaneous medical supply #1 ea 07/18/23 pen needle, diabetic 32 gauge x #400 ea 08/15/23" (BD Ultra-Fine Yaima Pen Needle) hydroxyzine HCl 25 mg tablet 50 mg (2 x 25 mg) PO QPM #60 tabs 09/27/23 triamcinolone acetonide 0.1 % 1 applic topical BID #80 grams 10/03/23 topical ointment amlodipine 5 mg tablet 5 mg PO DAILY #90 tabs 12/06/23 clobetasol 0.05 % topical cream 1 applic topical BID 2 weeks #15 12/12/23 grams metformin 1,000 mg tablet 1,000 mg PO BID 90 days #180 tabs 01/09/24 conjugated estrogens 0.625 mg/gram 0.3125 mg vaginal DAILY #30 grams 01/10/24 vaginal cream (Premarin) Results & Data (ED) Vital Signs Vital Signs - 24 hr 01/16/24 10:51 01/16/24 10:59 01/16/24 11:08 Temperature 36.9 C Temperature Source Temporal Artery Scan Pulse Rate 76 69 Pulse Rate [Apical] Respiratory Rate 23 Respiratory Effort / Characteristics Non-Labored Spontaneous Respiratory Depth Normal Blood Pressure 163/82 H Blood Pressure [Left Arm] Blood Pressure Mean 109 Blood Pressure Mean [Left Arm] Pulse Oximetry 93 88 L Oxygen Delivery Method Room Air Room Air Oxygen Flow Rate Sepsis Recent Fever Within 48 Hours No Sepsis New/Unexplained Change in Mental Status N/A Sepsis Action Taken by Nursing No Action Required Oxygen Flow Rate - Titration Pulse Oximetry Post Tiitration 01/16/24 11:09 01/16/24 11:44 01/16/24 12:08 Temperature Temperature Source Pulse Rate Pulse Rate [Apical] 69 75 Respiratory Rate 22 21 Respiratory Effort / Characteristics Respiratory Depth Blood Pressure Blood Pressure [Left Arm] 160/86 H Blood Pressure Mean Blood Pressure Mean [Left Arm] 110 Pulse Oximetry 95 96 93 Oxygen Delivery Method Nasal Cannula Nasal Cannula Room Air Oxygen Flow Rate 2 2 Sepsis Recent Fever Within 48 Hours Sepsis New/Unexplained Change in Mental Status Sepsis Action Taken by Nursing Oxygen Flow Rate - Titration Pulse Oximetry Post Tiitration 01/16/24 13:23 01/16/24 13:37 01/16/24 15:00 Temperature Temperature Source Pulse Rate Pulse Rate [Apical] 68 Respiratory Rate 18 Respiratory Effort / Characteristics Respiratory Depth Blood Pressure Blood Pressure [Left Arm] 168/86 H 184/76 H Blood Pressure Mean Blood Pressure Mean [Left Arm] 113 112 Pulse Oximetry 86 L 96 93 Oxygen Delivery Method Nasal Cannula Nasal Cannula Nasal Cannula Oxygen Flow Rate 0 2 2 Sepsis Recent Fever Within 48 Hours Sepsis New/Unexplained Change in Mental Status Sepsis Action Taken by Nursing Oxygen Flow Rate - Titration 2 Pulse Oximetry Post Tiitration 92 Home Medications Current Medication List: was personally reviewed by me Laboratory Data Attestation: I reviewed the patient's lab results. 01/17/24 06:08 01/17/24 06:08 Lab Results 01/16/24 01/16/24 01/16/24 Range/Units 12:07 12:24 12:25 WBC 6.95 (4.8-10.8) K/ul RBC 4.87 (4.20-5.40) M/uL Hgb 13.2 (12.0-16.0) g/dl POC Hgb 13.9 (12.0-16.0) g/dl Hct 41.4 (37.0-47.0) % POC Hct 41 (37-47) % MCV 85.0 (80.0-100.0) fL MCH 27.1 (25.0-34.0) pg MCHC 31.9 L (32.0-36.0) g/dL RDW Std Deviation 45.6 (36.4-46.3) fL RDW Coeff of Ilana 14.9 H (11.5-14.5) % Plt Count 241 (130-400) K/uL MPV 10.0 (9.4-12.4) fL Immature Gran % (Auto) 0.3 % Neut % (Auto) 61.9 % Lymph % (Auto) 23.7 % Jessamine % (Auto) 10.5 % Eos % (Auto) 2.7 % Baso % (Auto) 0.9 % Neut # (Auto) 4.30 (1.40-6.50) K/uL Lymph # (Auto) 1.65 (1.20-3.40) K/uL Jessamine # (Auto) 0.73 H (0.11-0.59) K/uL Eos # (Auto) 0.19 (0.00-0.50) K/uL Baso # (Auto) 0.06 (0.00-0.20) K/uL Immature Gran # (Auto) 0.02 (0.01-0.20) K/uL POC Sodium 140 (135-144) mmol/L Sodium 140 (136-145) mmol/L POC Potassium 4.7 (3.3-5.0) mmol/L Potassium 4.6 (3.5-5.1) mmol/L POC Chloride 105 (101-112) mmol/L Chloride 106 (98-107) mmol/L Carbon Dioxide 28 (21-32) mmol/L POC Total CO2 26 (24-31) mmol/L Anion Gap 6 (3-11) POC Anion Gap 15.0 L (16-25) mmol/L POC BUN 17 (7-18) mg/dl BUN 16 (6-23) mg/dl Creatinine 0.82 (0.6-1.2) mg/dl POC Creatinine 0.8 (0.6-1.3) mg/dl Est Cr Clr Drug Dosing 74.9 ml/min Est GFR ( Amer) 81.7 ml/min Est GFR (Non-Af Amer) 70.5 ml/min BUN/Creatinine Ratio 19.5 (10-20) Glucose 132 H (70-99(Fasting)) mg/dl POC Glucose (other) 135 H (70-99) mg/dl Calcium 9.3 (8.6-10.3) mg/dl POC Ioniz Calcium Tavon 1.10 L (1.12-1.32) mmol/l Total Bilirubin 0.4 (0.2-1.0) mg/dl AST 13 (13-39) U/L ALT 11 (7-52) U/L Alkaline Phosphatase 73 (34-104) U/L Troponin I High Sens 4.0 (0-14) pg/ml Total Protein 7.0 (6.0-8.3) gm/dl Albumin 3.9 (3.4-5.0) gm/dl Globulin 3.1 (2.5-4.0) gm/dl Albumin/Globulin Ratio 1.3 (0.9-2) Lipase 11 (11-82) U/L Procalcitonin 0.02 (0-0.5) ng/ml Urine Color Yellow Urine Appearance Clear (Clear) Urine pH 7.0 (4.5-7.5) Ur Specific Sterling 1.021 (1.000-1.030) Urine Protein Negative (Negative) Urine Glucose (UA) 3+ H (Negative) Urine Ketones Negative (Negative) Urine Blood Negative (Negative) Urine Nitrite Negative (Negative) Urine Bilirubin Negative (Negative) Urine Urobilinogen Negative (Negative) Ur Leukocyte Esterase Trace H (Negative) Urine WBC (Auto) 21-50 H (0-5) /hpf Urine RBC (Auto) 0-2 (0-2) /hpf U Hyaline Cast (Auto) 0-2 (0-2) /lpf U Epithel Cells (Auto) 0-2 (0-2) /hpf Urine Bacteria (Auto) 1+ H (None Seen) Adenovirus (PCR) (NotDetected) B. pertussis DNA (PCR) (NotDetected) B.parapertussis DNA PCR (NotDetected) C. pneumoniae DNA (PCR) (NotDetected) Coronavirus OC43 (PCR) (NotDetected) Coronavirus HKU1 (PCR) (NotDetected) Coronavirus 229E (PCR) (NotDetected) SARS-CoV-2 (PCR) (NotDetected) Coronavirus NL63 (PCR) (NotDetected) Human Metapneumovir PCR (NotDetected) Influenza Type A (PCR) (NotDetected) Influenza Type B (PCR) (NotDetected) M. pneumoniae (PCR) (NotDetected) Parainfluenza 1 (PCR) (NotDetected) Parainfluenza 2 (PCR) (NotDetected) Parainfluenza 3 (PCR) (NotDetected) Parainfluenza 4 (PCR) (NotDetected) RSV (PCR) (NotDetected) Entero/Rhino (PCR) (NotDetected) 01/16/24 Range/Units 13:04 WBC (4.8-10.8) K/ul RBC (4.20-5.40) M/uL Hgb (12.0-16.0) g/dl POC Hgb (12.0-16.0) g/dl Hct (37.0-47.0) % POC Hct (37-47) % MCV (80.0-100.0) fL MCH (25.0-34.0) pg MCHC (32.0-36.0) g/dL RDW Std Deviation (36.4-46.3) fL RDW Coeff of Ilana (11.5-14.5) % Plt Count (130-400) K/uL MPV (9.4-12.4) fL Immature Gran % (Auto) % Neut % (Auto) % Lymph % (Auto) % Jessamine % (Auto) % Eos % (Auto) % Baso % (Auto) % Neut # (Auto) (1.40-6.50) K/uL Lymph # (Auto) (1.20-3.40) K/uL Jessamine # (Auto) (0.11-0.59) K/uL Eos # (Auto) (0.00-0.50) K/uL Baso # (Auto) (0.00-0.20) K/uL Immature Gran # (Auto) (0.01-0.20) K/uL POC Sodium (135-144) mmol/L Sodium (136-145) mmol/L POC Potassium (3.3-5.0) mmol/L Potassium (3.5-5.1) mmol/L POC Chloride (101-112) mmol/L Chloride (98-107) mmol/L Carbon Dioxide (21-32) mmol/L POC Total CO2 (24-31) mmol/L Anion Gap (3-11) POC Anion Gap (16-25) mmol/L POC BUN (7-18) mg/dl BUN (6-23) mg/dl Creatinine (0.6-1.2) mg/dl POC Creatinine (0.6-1.3) mg/dl Est Cr Clr Drug Dosing ml/min Est GFR ( Amer) ml/min Est GFR (Non-Af Amer) ml/min BUN/Creatinine Ratio (10-20) Glucose (70-99(Fasting)) mg/dl POC Glucose (other) (70-99) mg/dl Calcium (8.6-10.3) mg/dl POC Ioniz Calcium Tavon (1.12-1.32) mmol/l Total Bilirubin (0.2-1.0) mg/dl AST (13-39) U/L ALT (7-52) U/L Alkaline Phosphatase (34-104) U/L Troponin I High Sens (0-14) pg/ml Total Protein (6.0-8.3) gm/dl Albumin (3.4-5.0) gm/dl Globulin (2.5-4.0) gm/dl Albumin/Globulin Ratio (0.9-2) Lipase (11-82) U/L Procalcitonin (0-0.5) ng/ml Urine Color Urine Appearance (Clear) Urine pH (4.5-7.5) Ur Specific Sterling (1.000-1.030) Urine Protein (Negative) Urine Glucose (UA) (Negative) Urine Ketones (Negative) Urine Blood (Negative) Urine Nitrite (Negative) Urine Bilirubin (Negative) Urine Urobilinogen (Negative) Ur Leukocyte Esterase (Negative) Urine WBC (Auto) (0-5) /hpf Urine RBC (Auto) (0-2) /hpf U Hyaline Cast (Auto) (0-2) /lpf U Epithel Cells (Auto) (0-2) /hpf Urine Bacteria (Auto) (None Seen) Adenovirus (PCR) Not Detected (NotDetected) B. pertussis DNA (PCR) Not Detected (NotDetected) B.parapertussis DNA PCR Not Detected (NotDetected) C. pneumoniae DNA (PCR) Not Detected (NotDetected) Coronavirus OC43 (PCR) Not Detected (NotDetected) Coronavirus HKU1 (PCR) Not Detected (NotDetected) Coronavirus 229E (PCR) Not Detected (NotDetected) SARS-CoV-2 (PCR) Not Detected (NotDetected) Coronavirus NL63 (PCR) Not Detected (NotDetected) Human Metapneumovir PCR Not Detected (NotDetected) Influenza Type A (PCR) Not Detected (NotDetected) Influenza Type B (PCR) Not Detected (NotDetected) M. pneumoniae (PCR) Not Detected (NotDetected) Parainfluenza 1 (PCR) Not Detected (NotDetected) Parainfluenza 2 (PCR) Not Detected (NotDetected) Parainfluenza 3 (PCR) Not Detected (NotDetected) Parainfluenza 4 (PCR) Not Detected (NotDetected) RSV (PCR) Not Detected (NotDetected) Entero/Rhino (PCR) Not Detected (NotDetected) Administered Medications Albuterol (Albut/Ipratrop 3mg/0.5mg Neb 3 Ml Vial) 3 ml INH Q6R VIVI Stop: 02/15/24 18:59 Last Admin: 01/17/24 07:09 Dose: Not Given Documented By: Admin: 01/17/24 00:08 Dose: 3 ml Documented By: Admin: 01/16/24 19:45 Dose: Not Given Documented By: FLO Atorvastatin Calcium (Atorvastatin 20 Mg Tab) 20 mg PO HS VIVI Stop: 02/15/24 20:59 Last Admin: 01/16/24 21:06 Dose: 20 mg Documented By: ANN Budesonide (Budesonide 0.5 Mg/2 Ml Vial (Pulmicort)) 0.5 mg NEB BIDR VIVI Stop: 02/15/24 18:59 Last Admin: 01/17/24 07:09 Dose: 0.5 mg Documented By: Admin: 01/16/24 19:44 Dose: 0.5 mg Documented By: FLO Enoxaparin Sodium (Enoxaparin Inj 40 Mg/0.4 Ml Syr) 40 mg SQ Q24H VIVI Stop: 02/15/24 20:59 Last Admin: 01/16/24 21:06 Dose: 40 mg Documented By: ANN Formoterol Fumarate (Formoterol 20 Mcg/2 Ml Vial) 20 mcg NEB BIDR VIVI Stop: 02/15/24 18:59 Last Admin: 01/17/24 07:09 Dose: 20 mcg Documented By: Admin: 01/16/24 19:44 Dose: 20 mcg Documented By: FLO Hydroxyzine HCl (Hydroxyzine Hcl 25 Mg Tab) 50 mg PO QPM VIVI Stop: 02/15/24 20:59 Last Admin: 01/16/24 21:07 Dose: 50 mg Documented By: ANN Ceftriaxone Sodium (Rocephin) 2,000 mg in 50 mls @ 100 mls/hr IV Q24H VIVI Stop: 01/26/24 22:44 Last Infusion: 01/17/24 00:56 Dose: Infused Documented By: Admin: 01/16/24 23:14 Dose: 100 mls/hr Documented By: ANN Insulin Aspart (Insulin Aspart Per Unit Charge) 0 units SC ACHS VIVI Stop: 02/15/24 17:41 Last Admin: 01/16/24 21:07 Dose: 3 units Documented By: ANN Co-signed By: BOGDAN Admin: 01/16/24 18:40 Dose: 6 units Documented By: EDSON Co-signed By: JERMAINE Insulin Glargine (Lantus Per Unit Charge) 7 units SQ BID VIVI Stop: 02/15/24 20:59 Last Admin: 01/16/24 21:07 Dose: 7 units Documented By: ANN Co-signed By: BOGDAN Ketorolac Tromethamine (Ketorolac Tromethamine 15 Mg/Ml Vial) 15 mg IV Q6H PRN PRN Reason: Pain Stop: 01/21/24 15:55 Last Admin: 01/16/24 22:35 Dose: 15 mg Documented By: ANN Discontinued Medications Albuterol (Albuterol 0.083% Nebu Soln 3 Ml Vial) 2.5 mg NEB NOW STA; Protocol Stop: 01/16/24 13:30 Last Admin: 01/16/24 13:49 Dose: 2.5 mg Documented By: LASHON Magnesium Sulfate/Dextrose (Magnesium Sulfate / D5w) 1 gm in 100 mls @ 200 mls/hr IV NOW STA Stop: 01/16/24 14:00 Last Infusion: 01/16/24 14:22 Dose: Infused Documented By: Admin: 01/16/24 13:51 Dose: 200 mls/hr Documented By: LASHON Insulin Aspart (Insulin Aspart Per Unit Charge) 0 units SC 0200 ONE Stop: 01/17/24 02:01 Last Admin: 01/17/24 01:58 Dose: 4 units Documented By: ANN Co-signed By: BOGDAN Ioversol (Optiray 320 100ml) 89 ml IV ONCE ONE Stop: 01/16/24 12:37 Last Admin: 01/16/24 12:37 Dose: 89 ml Documented By: HELEN Methylprednisolone (Methylprednisolone 125 Mg/2 Ml Vial) 60 mg IV NOW STA Stop: 01/16/24 13:30 Last Admin: 01/16/24 13:49 Dose: 60 mg Documented By: LASHON Morphine Sulfate (Morphine Sulfate 4 Mg/Ml 1 Ml Carp\\Vial) 4 mg IV NOW STA Stop: 01/16/24 10:59 Last Admin: 01/16/24 11:08 Dose: 4 mg Documented By: LASHON Imaging Data Radiologist's Impression: Chest X-Ray 01/16/24 10:58 XR chest 1V portable HISTORY: Shortness of breath. COMPARISON: Chest 02/15/2023. FINDINGS: No focal lung consolidations to suggest a pneumonia. No evidence for pulmonary edema. The cardiac silhouette is normal in size. No acute fractures. Right hilar prominence has progressed. This may be due to AP portable technique. IMPRESSION: 1. No acute process within the chest. 2. Right hilar prominence which appears to have progressed in the interval. However, this could be due to the AP portable technique. Consider follow-up nonemergent PA and lateral views of the chest for further evaluation. ACT 112: Negative or not required by law. Electronically signed by: Seng Griffith M.D. 01/16/2024 11:23 AM Abdomen/Pelvis CT 01/16/24 10:59 CT abd pelvis IV con only CLINICAL HISTORY: R sided lower back pain TECHNIQUE: Helical axial images of the abdomen and pelvis were obtained and displayed. Automated dose lowering techniques and/or adjustment according to patient size were utilized for this exam. This exam was performed with intravenous contrast. CT DOSE: 1352.6 mGy.cm COMPARISON: Comparison is made to CT abdomen pelvis 09/08/2019 FINDINGS: Lower chest: Bronchial wall thickening mosaic attenuation are seen. Liver: Unremarkable. No focal lesions are seen. Gallbladder and biliary tree: Cholelithiasis is seen without evidence of cholecystitis. No intra- or extrahepatic biliary ductal dilation. Pancreas: Fatty replacement of the pancreas is seen. Spleen: Unremarkable. Adrenals: Unremarkable. Kidneys and ureters: Bilateral pelviectasis. Bladder: Unremarkable. Reproductive organs: Incidental note is made of calcified fibroid. Bowel: Diverticulosis is seen without diverticulitis. The appendix is normal. Lymph nodes Retroperitoneal: Subcentimeter lymph nodes are noted. Pelvic: Subcentimeter lymph nodes are noted. Mesenteric: Unremarkable. Peritoneum: Normal. Vessels: Unremarkable. Abdominal wall: Unremarkable. Bones: Degenerative changes in the visualized spine. IMPRESSION: 1. No acute abnormality to explain right lower back pain. In particular no evidence of acute fracture or obstructive stone. 2. Cholelithiasis without cholecystitis. ACT 112: Negative or not required by law. Electronically signed by: Arjun Hyde M.D. 01/16/2024 1:04 PM Discharge Plan Visit Data Chief Complaint: Abdominal Pain ED Provider: Lester Styles Discharge Problem: Hypoxia, Acute exacerbation of chronic obstructive pulmonary disease, Back pain Patient Disposition: Admitted As Inpatient Discharge Instructions Interventions: ED Discharge Assessment Last Done: 01/16/24 17:18 Discharge Problem: Back pain Qualifiers: Back pain location: low back pain Chronicity: acute Back pain laterality: right Sciatica presence: without sciatica Qualified Code(s): M54.50 - Low back pain, unspecified
[2024-01-16] MEDS: MoRPHine SULFATE 4 MG/ML 1 ML CARP\\VIAL IV STA (11:08)
--- NOTE | 2024-01-16 11:26 | XRay Report ---
XR chest 1V portable HISTORY: Shortness of breath. COMPARISON: Chest 02/15/2023. FINDINGS: No focal lung consolidations to suggest a pneumonia. No evidence for pulmonary edema. The c ardiac silhouette is normal in size. No acute fractures. Right hilar prominence has progressed. This may be due to AP portable technique. IMPRESSION: 1. No acute process within the chest. 2. Right hilar prominence which appears to have progressed in the interval. However, this could be du e to the AP portable technique. Consider follow-up nonemergent PA and lateral views of the chest for further evaluation. ACT 112: Negative or not required by law. Electronically signed by: Seng Griffith M.D. 01/16/2024 11:23 AM
[2024-01-16 12:17] LABS: Appearance Urine Clear (Clear); Bacteria Urine Automated 1+ (None Seen); Bilirubin Urine Negative (Negative); Blood Urine Negative (Negative); Cast Urine Automated 0-2 /lpf (0-2); Color Urine Yellow; Epithelial Cell Urine Auto 0-2 /hpf (0-2); Glucose Urine UA 3+ (Negative); Ketones Urine Negative (Negative); Leukocyte Esterase Urine Trace (Negative); Nitrite Urine Negative (Negative); Protein Urine Negative (Negative); RBC Urine Automated 0-2 /hpf (0-2); Specific Gravity Urine 1.021 (1.000-1.030); Urobilinogen Urine Negative (Negative); WBC Urine Automated 21-50 /hpf (0-5)
[2024-01-16] MEDS: OPTIRAY 320 100ml IV ONE (12:37)
[2024-01-16 12:38] LABS: iSTAT Creatinine 0.8 mg/dl (0.6-1.3); iSTAT Hemoglobin 13.9 g/dl (12.0-16.0); iSTAT Ionized Calcium 1.1 mmol/l (1.12-1.32); iSTAT Potassium 4.7 mmol/L (3.3-5.0)
[2024-01-16 12:42] LABS: Basophils # (auto) 0.06 K/uL (0.00-0.20); Basophils % (auto) 0.9 %; Eosinophils # (auto) 0.19 K/uL (0.00-0.50); Eosinophils % (auto) 2.7 %; Hematocrit (blood only) 41.4 % (37.0-47.0); Hemoglobin 13.2 g/dl (12.0-16.0); Immature Granulocytes # (auto) 0.02 K/uL (0.01-0.20); Immature Granulocytes % (auto) 0.3 %; Lymphocytes # (auto) 1.65 K/uL (1.20-3.40); Lymphocytes % (auto) 23.7 %; Mean Corpuscular Hemoglobin 27.1 pg (25.0-34.0); Mean Corpuscular Hgb Conc 31.9 g/dL (32.0-36.0); Monocytes # (auto) 0.73 K/uL (0.11-0.59); Monocytes % (auto) 10.5 %; Neutrophils % (auto) 61.9 %; Platelet Count 241 K/uL (130-400); RDW Coefficient of Variation 14.9 % (11.5-14.5); RDW Standard Deviation 45.6 fL (36.4-46.3); Red Blood Count 4.87 M/uL (4.20-5.40); White Blood Count 6.95 K/ul (4.8-10.8)
[2024-01-16 12:57] LABS: Albumin Globulin Ratio 1.3 (0.9-2); Albumin Level 3.9 gm/dl (3.4-5.0); BUN Creatinine Ratio 19.5 (10-20); Bilirubin,Total 0.4 mg/dl (0.2-1.0); Calcium 9.3 mg/dl (8.6-10.3); Creatinine Clr Calc Pharmacy 74.9 ml/min; Est GFR (African American) 81.7 ml/min; Est GFR (Non-African American) 70.5 ml/min; Globulin 3.1 gm/dl (2.5-4.0); Potassium 4.6 mmol/L (3.5-5.1)
--- NOTE | 2024-01-16 13:05 | CT Scan Report ---
CT abd pelvis IV con only CLINICAL HISTORY: R sided lower back pain TECHNIQUE: Helical axial images of the abdomen and pelvis were obtained and displayed. Automated dose lowering techniques and/or adjustment according to patient size were utilized for this exam. This e xam was performed with intravenous contrast. CT DOSE: 1352.6 mGy.cm COMPARISON: Comparison is made to CT abdomen pelvis 09/08/2019 FINDINGS: Lower chest: Bronchial wall thickening mosaic attenuation are seen. Liver: Unremarkable. No focal lesions are seen. Gallbladder and biliary tree: Cholelithiasis is seen without evidence of cholecystitis. No intra- or extrahepatic biliary ductal dilation. Pancreas: Fatty replacement of the pancreas is seen. Spleen: Unremarkable. Adrenals: Unremarkable. Kidneys and ureters: Bilateral pelviectasis. Bladder: Unremarkable. Reproductive organs: Incidental note is made of calcified fibroid. Bowel: Diverticulosis is seen without diverticulitis. The appendix is normal. Lymph nodes Retroperitoneal: Subcentimeter lymph nodes are noted. Pelvic: Subcentimeter lymph nodes are noted. Mesenteric: Unremarkable. Peritoneum: Normal. Vessels: Unremarkable. Abdominal wall: Unremarkable. Bones: Degenerative changes in the visualized spine. IMPRESSION: 1. No acute abnormality to explain right lower back pain. In particular no evidence of acute fractur e or obstructive stone. 2. Cholelithiasis without cholecystitis. ACT 112: Negative or not required by law. Electronically signed by: Arjun Hyde M.D. 01/16/2024 1:04 PM
[2024-01-16] MEDS: ALBUTEROL 0.083% NEBU SOLN 3 ML VIAL NEB STA (13:49)
[2024-01-16] MEDS: methylPREDNISolone 125 MG/2 ML VIAL IV STA (13:49)
[2024-01-16] MEDS: MAGNESIUM SULFATE / D5W 1 GM/100 ML BAG IV STA (13:51)
--- NOTE | 2024-01-16 14:42 | History & Physical Report ---
Date of Service January 16, 2024 Assessment & Plan (1) Hypoxia: Plan: 86-88% on RA at rest in the ED May be secondary to patient's underlying COPD Patient does not have a pulse ox at home Provide supplemental oxygen as needed to maintain SpO2 89-92% A.m. CBC, BMP, mag (2) COPD exacerbation: Plan: Conversationally dyspneic; patient denies SOB at rest, but does note ongoing CORRIGAN Patient reports that she stopped taking her Symbicort a couple months ago as it was too expensive; not currently on any inhalers at home DuoNeb 3 mL Q6R Solu-Medrol 40 mg IV QAM Pulmicort and Performist nebs BID Flutter valve, incentive spirometry (3) Controlled type 2 diabetes mellitus with neurologic complication, with long- term current use of insulin: Plan: Last A1c at 6.8% on 12/14/2023 Glucose 135 on admission Hold metformin, empagliflozin Lantus BID SSI with target BSG range 110-140mg/dL T2DM diet BSG ACHS Adjust regimen as needed Pharmacy glycemic consult given steroid use (4) Abnormal laboratory test: Plan: UA positive Clinically, patient denies burning with urination, dysuria, or suprapubic tenderness She did have a cystoscopy on 12/[address] Shannon for urinary incontinence No leukocytosis; afebrile Negative procalcitonin Will defer antibiotics for now Follow UCx (5) Low back pain: Plan: Patient's initial complaint on arrival was right hip and lower back pain which began on Friday 01/12 She denies any recent falls, injuries, or trauma to the abdomen or pelvis A/P CT without acute fracture or nephrolithiasis Acetaminophen as needed for pain Toradol 15 mg IV q6h as needed for breakthrough pain (6) Urge and stress incontinence: Plan: Noted Plan Disposition: Obs - Admit to [facility] Full code T2DM diet VTE PPx: Lovenox 40 mg SQ q24h History of Present Illness Chief Complaint: Right hip/flank pain, CORRIGAN Primary Care Provider: Ingrid Ordoñez MD Sandi is a 73-year-old female with PMH of COPD, T2DM, urge and stress incontinence, and asthma. She presented for right hip pain radiating through her abdomen/lower back that began on Friday 01/12. Patient denies any recent injuries or falls to the right abdomen or pelvis. She woke up on Tuesday morning, and notes she had a constant 5/10 stabbing pain in her right side. She has been taking ibuprofen (4 tablets daily) to assist with the pain. This pain is new for her; no past experiences with pain in this location. Then today, patient was out developed pain in her left breast radiating up to her shoulder that lasted 2 minutes. She described it as a dull pain that she rates 3/10 at its worst. No prior history of [place]. Patient did not take anything for the pain, but decided to come to the ED. Patient did not take any of her regular morning medications; she has not had any of her regular insulin today. No recent change in medications. Patient ambulates with a cane at baseline. No sick contacts. No supplemental oxygen at home. Patient does not own a a pulse ox or know her regular oxygen saturation. No CPAP at night. Of note, patient was previously on Symbicort, but stopped taking it a couple months ago as she reported it was too expensive. She is not currently on any inhalers for her COPD. She denies smoking, tobacco use, and alcohol use. Patient does note that she had a cystoscopy with Dr. Shannon 1 week ago for her bladder. She denies any UTI symptoms at this time (such as changes in urinary habits, burning with urination, dysuria, or suprapubic tenderness). Patient is hypertensive at 168/86 at time of admission; SpO2 96% on 2L NC. 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 Patient denies fever, chills, nightsweats, dizziness, SAGASTUME, new changes in vision, chest pain, chest palpitations, chest pressure, pleuritic CP, SOB, hemoptysis, abdominal pain, N/V/D, change in urinary/bowel habits, burning with urination, blood in the urine or stool, or saddle anesthesia. Allergies Allergy/AdvReac Type Severity Reaction Status Date / Time grass pollen-perennial rye, Allergy Severe DIFFICULTY Verified 01/27/24 09:23 standar BREATHING mold Allergy Severe DIFFICULTY Verified 01/27/24 09:23 BREATHING tetanus toxoid, adsorbed Allergy Intermediate SWELLING Verified 01/27/24 09:23 etodolac Allergy Unknown UNKNOWN Verified 01/27/24 09:23 house dust Allergy Unknown Unknown Verified 01/27/24 09:23 pollen extracts Allergy Unknown DIFFICULTY Verified 01/27/24 09:23 BREATHING gabapentin AdvReac Intermediate Muscle Pain Verified 01/27/24 09:23 pregabalin [From Lyrica] AdvReac Intermediate eyes- Verified 01/27/24 09:23 blurred vision simvastatin AdvReac Intermediate "FEELS Verified 01/27/24 09:23 FUNNY" Home Medications Medication Instructions Recorded Confirmed Type multivitamin 1 tab PO QAM 06/18/18 01/27/24 History cholecalciferol (vitamin D3) 25 1,000 unit PO HS 10/01/18 01/27/24 History mcg (1,000 unit) tablet vitamin E 670 mg (1,000 unit) 1,000 unit PO HS 08/21/19 01/27/24 History capsule cyanocobalamin (vitamin B-12) 1,000 mcg PO QAM 03/13/21 01/27/24 History 1,000 mcg tablet flash glucose scanning reader #1 ea 09/10/22 01/27/24 Rx (FreeStyle Jaleel 2 Waldron) FreeStyle Jaleel 2 Sensor (flash #1 ea 12/15/22 01/27/24 Rx glucose sensor) aspirin 81 mg tablet,delayed 81 mg PO DAILY 02/13/23 01/27/24 History release meclizine 25 mg tablet 25 mg PO BID PRN dizziness #60 tabs 02/15/23 01/27/24 Rx insulin NPH isoph U-100 human 100 20 unit subcut HS 02/24/23 01/27/24 History unit/mL (3 mL) subcutaneous pen (Novolin N FlexPen) atorvastatin 20 mg tablet 20 mg PO HS #90 tabs 07/13/23 01/27/24 Rx miscellaneous medical supply #1 ea 07/18/23 01/27/24 Rx pen needle, diabetic 32 gauge x #400 ea 08/15/23 01/27/24 Rx 5/32" (BD Ultra-Fine Yaima Pen Needle) hydroxyzine HCl 25 mg tablet 50 mg (2 x 25 mg) PO QPM #60 tabs 09/27/23 01/27/24 Rx triamcinolone acetonide 0.1 % 1 applic topical BID #80 grams 10/03/23 01/27/24 Rx topical ointment amlodipine 5 mg tablet 5 mg PO DAILY #90 tabs 12/06/23 01/27/24 Rx clobetasol 0.05 % topical cream 1 applic topical BID 2 weeks #15 12/12/23 01/27/24 Rx grams empagliflozin 10 mg tablet 10 mg PO DAILY 12/12/23 01/27/24 History (Jardiance) conjugated estrogens 0.625 mg/gram 0.3125 mg vaginal DAILY #30 grams 01/10/24 01/27/24 Rx vaginal cream (Premarin) insulin aspart U-100 100 unit/mL 12 - 14 unit subcut BID 01/16/24 01/27/24 History (3 mL) subcutaneous pen (Novolog FlexPen U-100 Insulin aspart) albuterol sulfate 90 mcg/actuation 2 inh inhalation Q4H PRN shortness 01/19/24 01/27/24 Rx aerosol inhaler of breath or wheezing or cough #6.7 grams fluticasone 250 mcg-salmeterol 50 1 inh inhalation BID #60 ea 01/19/24 01/27/24 Rx mcg/dose blistr powdr for inhalation (Kinza Inhub) furosemide 20 mg tablet 20 mg PO QAM PRN swelling of 01/19/24 01/27/24 Rx legs/feet #15 tabs losartan 25 mg tablet 25 mg PO QAM #30 tabs 01/19/24 01/27/24 Rx prednisone 10 mg tablet 10 mg PO DIRECTED #15 tabs 01/19/24 01/27/24 Rx blood sugar diagnostic (OneTouch #100 ea 01/29/24 01/29/24 Rx Ultra Test strips) metformin 1,000 mg tablet 1,000 mg PO BID 90 days #180 tabs 01/29/24 01/29/24 Rx Past Med/Surg History Problem List (Updated 01/18/24 @ 10:49 by Tavon Mcgrath MD) Morbid obesity with BMI of 45.0-49.9, adult UTI (urinary tract infection) Back pain (Acute) Acute exacerbation of chronic obstructive pulmonary disease (Acute) Hypoxia (Acute) Abnormal laboratory test COPD exacerbation Left shoulder pain Chronic idiopathic urticaria Edema Anxiety Incontinence Callus of toe (Acute) Chronic venous insufficiency Vertebral basilar insufficiency (Acute) Hyperlipidemia (Chronic) Benign essential hypertension (Chronic) COPD (chronic obstructive pulmonary disease) Asthma Controlled type 2 diabetes mellitus with neurologic complication, with long-term current use of insulin (Chronic) Diabetic nephropathy associated with type 2 diabetes mellitus (Chronic) Diabetic peripheral neuropathy associated with type 2 diabetes mellitus (Acute) Generalized osteoarthritis of multiple sites Generalized weakness (Acute) Low back pain Osteoarthritis of hands, bilateral Urethral stricture Urge and stress incontinence Xerostomia Nephrolithiasis Venous (peripheral) insufficiency Left shoulder tendinitis Dizziness Echocardiogram abnormal Unable to specify wall motion abnormality due to limited visualization August 10, 2019 Allergy Benign paroxysmal positional vertigo Loss of protective sensation of skin of foot Vitamin D deficiency Bilateral lower extremity edema Medical History Toxic effect of cyanoacrylate Pain of left breast Left elbow pain Diabetic foot ulcer Hyperpigmentation of skin Pre-syncope Vulvar itching CKD stage 3 secondary to diabetes Hypoxia Difficult airway for intubation -Left peritonsillar abscess I&D 12/07/2012: Glidescope intubation, ETT 7.0 -Right hammertoe surgery/PIP arthroplasty 05/31/2012: LMA "an easy"unable to adequately ventilateintubatedDVL grade 1 ETT "in easy." Morbid (severe) obesity due to excess calories Chronic obstructive pulmonary disease Essential (primary) hypertension UTI (urinary tract infection) History of Helicobacter pylori infection History of diabetic ulcer of foot Rheumatoid arthritis Edema Hallux valgus (acquired), left foot Several foot deformities (claw toe, hammertoe); surgical intervention performed, subsequent non-healing wound. Lower GI bleed (07/31/14) Acute post-hemorrhagic anemia (07/31/14) Surgical History History of colonoscopy X MULTIPLE History of carpal tunnel release R/L S/P ureteral stent placement Status post repair of nerve S/P oophorectomy S/P knee surgery S/P foot surgery S/P section Family History Mother Colorectal cancer Myocardial infarction Sister Diabetes Hypertension Father Diabetes Grandfather Diabetes Myocardial infarction Other Family history non-contributory Denies family history of Ovarian cancer Prostate cancer Breast cancer Lung cancer Stroke Social History Smoking Status: Never smoker Tobacco Type: Cigarettes Second Hand Exposure: Yes; Do You Dip or Chew Tobacco: No; Hx Alcohol Use: No Hx Substance Use: No Preferred Language: Ukrainian Communication Ability: Effective Visual Impairment: No Limitations Hearing Ability: Normal Alum Operator Required: No Beliefs That Will Affect Care: None marital status: Current Living Situation: Alone current occupational status: retired 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 Feels Safe at Home: Yes Childhood Exposure to Second-Hand Smoke: Yes Dental Care, Regularly: No Physical Activity Frequency: Does not Exercise Seatbelt Use: always Sunscreen Use: Yes Assistive Devices: Cane, Scooter/Electric Scooter, Walker and Wheelchair Review of Systems Review of Systems: See HPI above Physical Exam Physical Exam: General: no acute distress; non-toxic appearing; well-nourished; cooperative; 88-89% SpO2 on RA HEENT: normocephalic, atraumatic; no scleral icterus; PERRLA w/ EOMs intact; moist mucus membrane; vision and hearing grossly intact Neck: supple; no lymphadenopathy; trachea midline Skin: warm, dry without signs of tenting; no cyanosis; no rashes, bruising, lesions, or erythema noted CV: chest wall NTP; RRR; S1/S2 normal; no murmurs/rubs/gallops; pulses intact and symmetric at radial, DP, and PT Lungs: Conversationally dyspneic; symmetrical chest wall expansion; diminished breath sounds across all lung velásquez w/o adventitious sounds; no wheezing ABD: Soft, NTP; BS present; no rebound/guarding; no distention MSK: no tics or fasciculations; +2 pitting edema noted in the LEs b/l, nonerythematous : Negative suprapubic tenderness Back: Right lower hip and flank are TTP; positive straight leg test on the right side Neuro: A&Ox3; normal mood and affect; fluent speech; no focal deficits; sensation grossly intact in the LEs b/l Results & Data Results & Data Vital Signs (Past 12 Hours) Vital Signs Temp Pulse Pulse Resp BP BP Pulse Ox 01/16/24 13:37 68 18 168/86 H 96 01/16/24 13:23 86 L 01/16/24 12:08 75 21 93 01/16/24 11:44 69 22 160/86 H 96 01/16/24 11:09 95 01/16/24 11:08 88 L 01/16/24 10:59 36.9 C 69 23 163/82 H 93 01/16/24 10:51 76 O2 Del Method O2 Flow Rate 01/16/24 13:37 Nasal Cannula 2 01/16/24 13:23 Nasal Cannula 0 01/16/24 12:08 Room Air 01/16/24 11:44 Nasal Cannula 2 01/16/24 11:09 Nasal Cannula 2 01/16/24 11:08 Room Air 01/16/24 10:59 Room Air 01/16/24 10:51 Laboratory Results Abnormal lab results 01/16/24 01/16/24 01/16/24 Range/Units 12:07 12:24 12:25 MCHC 31.9 L (32.0-36.0) g/dL RDW Coeff of Ilana 14.9 H (11.5-14.5) % Treasure # (Auto) 0.73 H (0.11-0.59) K/uL POC Anion Gap 15.0 L (16-25) mmol/L Glucose 132 H (70-99(Fasting)) mg/dl POC Glucose (other) 135 H (70-99) mg/dl POC Ioniz Calcium Tavon 1.10 L (1.12-1.32) mmol/l Urine Glucose (UA) 3+ H (Negative) Ur Leukocyte Esterase Trace H (Negative) Urine WBC (Auto) 21-50 H (0-5) /hpf Urine Bacteria (Auto) 1+ H (None Seen) Diagnostic Findings Chest X-Ray 01/16/24 10:58 XR chest 1V portable HISTORY: Shortness of breath. COMPARISON: Chest 02/15/2023. FINDINGS: No focal lung consolidations to suggest a pneumonia. No evidence for pulmonary edema. The cardiac silhouette is normal in size. No acute fractures. Right hilar prominence has progressed. This may be due to AP portable technique. IMPRESSION: 1. No acute process within the chest. 2. Right hilar prominence which appears to have progressed in the interval. However, this could be due to the AP portable technique. Consider follow-up nonemergent PA and lateral views of the chest for further evaluation. ACT 112: Negative or not required by law. Electronically signed by: Seng Griffith M.D. 01/16/2024 11:23 AM Abdomen/Pelvis CT 01/16/24 10:59 CT abd pelvis IV con only CLINICAL HISTORY: R sided lower back pain TECHNIQUE: Helical axial images of the abdomen and pelvis were obtained and displayed. Automated dose lowering techniques and/or adjustment according to patient size were utilized for this exam. This exam was performed with intravenous contrast. CT DOSE: 1352.6 mGy.cm COMPARISON: Comparison is made to CT abdomen pelvis 09/08/2019 FINDINGS: Lower chest: Bronchial wall thickening mosaic attenuation are seen. Liver: Unremarkable. No focal lesions are seen. Gallbladder and biliary tree: Cholelithiasis is seen without evidence of cholecystitis. No intra- or extrahepatic biliary ductal dilation. Pancreas: Fatty replacement of the pancreas is seen. Spleen: Unremarkable. Adrenals: Unremarkable. Kidneys and ureters: Bilateral pelviectasis. Bladder: Unremarkable. Reproductive organs: Incidental note is made of calcified fibroid. Bowel: Diverticulosis is seen without diverticulitis. The appendix is normal. Lymph nodes Retroperitoneal: Subcentimeter lymph nodes are noted. Pelvic: Subcentimeter lymph nodes are noted. Mesenteric: Unremarkable. Peritoneum: Normal. Vessels: Unremarkable. Abdominal wall: Unremarkable. Bones: Degenerative changes in the visualized spine. IMPRESSION: 1. No acute abnormality to explain right lower back pain. In particular no evidence of acute fracture or obstructive stone. 2. Cholelithiasis without cholecystitis. ACT 112: Negative or not required by law. Electronically signed by: Arjun Hyde M.D. 01/16/2024 1:04 PM ECG Additional Comments: ECG revealed NSR with sinus arrhythmia at 68 bpm; QTc 427 Code Status & VTE Plan Code Status Full code VTE Prophylaxis Plan VTE Prophylaxis will be ordered: Yes Supervising Physician Co-Signing Physician Notes I personally saw and examined the patient. I independently reviewed the labs, EKG, imaging, problem list, medication list, past medical history and family history. I verified all douglas points and agree with Seng Laguna PA-C with the following exceptions and/or additions: 73 year old female presents to the ER with shortness of breath and right sided lower back pain O/E A&Ox3, HS RRR, no murmurs, reduced breath sounds throughout, no wheezing, Abdo SNT A/P COPD exacerbation - Solu-Medrol 40mg IV, Duoneb q6h, formoterol/budesonide neb BID PG Care Time/CCT Total # of Minutes Spent Total Time Spent with Patient: Total time spent is greater than 50% in coordination of care (as documented) at patient's floor/unit and/or counseling patient: Coding [place] [address] INT INP/OBS CARE 3/75MIN Patient Type Established Medical Decision Making High Complexity Diagnoses Hypoxia R09.02 COPD exacerbation J44.1 Controlled type 2 diabetes mellitus with neurologic complication, with long-term current use of insulin E11.49; Z79.4 Abnormal laboratory test R89.9 Low back pain M54.5 Urge and stress incontinence N39.46
[2024-01-16 15:09] LABS: Adenovirus PCR Not Detected (NotDetected); Bordetella parapertussis PCR Not Detected (NotDetected); Bordetella pertussis PCR Not Detected (NotDetected); Chlamydia pneumoniae PCR Not Detected (NotDetected); Coronavirus 229E PCR Not Detected (NotDetected); Coronavirus CoV-2 (COVID19)PCR Not Detected (NotDetected); Coronavirus HKU1 PCR Not Detected (NotDetected); Coronavirus NL63 PCR Not Detected (NotDetected); Coronavirus OC43PCR Not Detected (NotDetected); Human Metapneumovirus PCR Not Detected (NotDetected); Influenza A PCR Not Detected (NotDetected); Influenza B PCR Not Detected (NotDetected); Mycoplasma pneumoniae PCR Not Detected (NotDetected); Parainfluenza Virus 1 PCR Not Detected (NotDetected); Parainfluenza Virus 2 PCR Not Detected (NotDetected); Parainfluenza Virus 3 PCR Not Detected (NotDetected); Parainfluenza Virus 4 PCR Not Detected (NotDetected); Respiratory Syncytial VirusPCR Not Detected (NotDetected); Rhinovirus/Enterovirus PCR Not Detected (NotDetected)
[2024-01-16] MEDS ORDERED: CARBOHYDRATES FOR HYPOGLYCEMIA PO PRN (17:42)
[2024-01-16] MEDS ORDERED: GLUCAGON FOR INJ 1 MG VIAL SQ PRN (17:42)
[2024-01-16] MEDS ORDERED: DEXTROSE 50% 50 ML SYRINGE IV PRN (17:42)
[2024-01-16] MEDS ORDERED: ACETAMINOPHEN 325 MG TAB PO PRN (17:42)
[2024-01-16] MEDS ORDERED: GLUCOSE 40% GEL 15 GM TUBE PO PRN (17:42)
[2024-01-16] MEDS ORDERED: MECLIZINE HCL 25 MG TAB PO PRN (17:42)
[2024-01-16] MEDS ORDERED: GLUCOSE 10 TAB/TUBE PO PRN (17:42)
[2024-01-16] MEDS ORDERED: PNEUMOCOCCAL VACCINE (PCV20) 20-VAL CONJ-DIP CRM/PF 0.5 ML SYR IM ONE (18:02)
[2024-01-16] MEDS: INSULIN ASPART PER UNIT CHARGE SC SCH (18:40)
[2024-01-16] MEDS: BUDESONIDE 0.5 MG/2 ML VIAL (PULMICORT) NEB SCH (19:44)
[2024-01-16] MEDS: FORMOTEROL 20 MCG/2 ML VIAL NEB SCH (19:44)
[2024-01-16] MEDS: ALBUT/IPRATROP 3MG/0.5MG NEB 3 ML VIAL INH SCH (19:45)
[2024-01-16] MEDS ORDERED: TRIAMCINOLONE ACET 0.1% OINT 15 GM TUBE TOP SCH (21:00)
[2024-01-16] MEDS: ENOXAPARIN INJ 40 MG/0.4 ML SYR SQ SCH (21:06)
[2024-01-16] MEDS: ATORVASTATIN 20 MG TAB PO SCH (21:06)
[2024-01-16] MEDS: hydrOXYzine HCl 25 MG TAB PO SCH (21:07)
[2024-01-16] MEDS: LANTUS PER UNIT CHARGE SQ SCH (21:07)
[2024-01-16] MEDS: KETOROLAC TROMETHAMINE 15 MG/ML VIAL IV PRN (22:35)
[2024-01-16] MEDS: cefTRIAXone SODIUM 2,000 MG/50 ML BAG IV SCH (23:14)
[2024-01-17] MEDS: INSULIN ASPART PER UNIT CHARGE SC ONE (01:58)
[2024-01-17] MEDS ORDERED: PHARMACY GLYCEMIC MGMT CONSULT PRN (06:00)
[2024-01-17 07:02] LABS: Basophils # (auto) 0.05 K/uL (0.00-0.20); Basophils % (auto) 0.5 %; Eosinophils # (auto) 0.01 K/uL (0.00-0.50); Eosinophils % (auto) 0.1 %; Hematocrit (blood only) 39.4 % (37.0-47.0); Hemoglobin 12.6 g/dl (12.0-16.0); Immature Granulocytes # (auto) 0.04 K/uL (0.01-0.20); Immature Granulocytes % (auto) 0.4 %; Lymphocytes # (auto) 1.21 K/uL (1.20-3.40); Lymphocytes % (auto) 13.1 %; Mean Corpuscular Hemoglobin 26.9 pg (25.0-34.0); Mean Corpuscular Volume 84.2 fL (80.0-100.0); Mean Platelet Volume 10.3 fL (9.4-12.4); Monocytes # (auto) 1.06 K/uL (0.11-0.59); Monocytes % (auto) 11.5 %; Neutrophils # (auto) 6.85 K/uL (1.40-6.50); Neutrophils % (auto) 74.4 %; Platelet Count 257 K/uL (130-400); RDW Coefficient of Variation 14.6 % (11.5-14.5); RDW Standard Deviation 44.3 fL (36.4-46.3); Red Blood Count 4.68 M/uL (4.20-5.40); White Blood Count 9.22 K/ul (4.8-10.8)
[2024-01-17 07:23] LABS: BUN Creatinine Ratio 25.5 (10-20); Calcium 9.5 mg/dl (8.6-10.3); Creatinine Clr Calc Pharmacy 62.9 ml/min; Est GFR (African American) 65.9 ml/min; Est GFR (Non-African American) 56.8 ml/min; Magnesium 1.9 mg/dl (1.7-2.4); Potassium 4.6 mmol/L (3.5-5.1)
[2024-01-17] MEDS: methylPREDNISolone 40 MG in SYRINGE 0 ML IV SCH (08:10)
[2024-01-17] MEDS: ASPIRIN 81 MG ECTAB PO SCH (08:10)
[2024-01-17] MEDS: amLODIPine BESYLATE 5 MG TAB PO SCH (08:10)
[2024-01-17] MEDS: INSULIN HUMAN NPH SC SCH (09:53)
--- NOTE | 2024-01-17 14:33 | Pharmacy Report ---
Pharmacy Glycemic Short Note 2 - Date of Service January 17, 2024 - Glycemic Short BSG Results (Last 24 hours): 01/16/24 01/16/24 01/17/24 17:42 20:22 01:51 Glucose POC Glucose 229 H 268 H 308 H* 01/17/24 01/17/24 01/17/24 06:08 07:59 11:08 Glucose 227 H POC Glucose 229 H 311 H* 01/17/24 12:08 Glucose POC Glucose 251 H OUTPATIENT ANTIDIABETIC REGIMEN: * NPH 20 units SQ qHS * Novolog 12-14 units SQ before breakfast and lunch only * Empagliflozin 10mg PO daily * Metformin 1gm PO BID * HbA1c: 6.8% (12/14/23) ASSESSMENT: * Ms Acuña is a 73yo diabetic F admitted with hypoxia/?COPD exac. * She received 60mg IV SoluMedrol x1 dose yesterday and is now ordered 40mg IV SoluMedrol daily. Pt appears to have steroid-induced hyperglycemia as a result. * Pt maintained on NPH during admission, with additional dose added in the morning to cover BSGs while on steroids, in an effort to ease transition to home regimen on discharge. * Pharmacy will continue to follow and adjust regimen as indicated. PLAN FOR INPATIENT GLYCEMIC CONTROL: * Hold outpatient oral diabetes medications * Basal insulin * NPH 15 units SQ BID * Bolus insulin * NovoLog per scale ACHS or Q6hrs while NPO * Goal Range: Low 110 mg/dL - High 140 mg/dL * Correction Factor: 20 mg/dL/unit * Nutritional / Prandial insulin per carb ratio of 1 unit per 8 grams CHO consumed
--- NOTE | 2024-01-17 15:43 | Electrocardiogram Report ---
Test Reason : Blood Pressure : / mmHG Vent. Rate : 068 BPM Atrial Rate : 068 BPM P-R Int : 180 ms QRS Dur : 084 ms QT Int : 402 ms P-R-T Axes : 036 -24 057 degrees QTc Int : 427 ms Normal sinus rhythm with sinus arrhythmia Low voltage QRS Cannot rule out Inferior infarct , age undetermined Cannot rule out Anterior infarct , age undetermined Abnormal ECG When compared with ECG of 13-FEB-2023 00:32, Premature atrial complexes are no longer Present Minimal criteria for Anterior infarct are now Present Nonspecific T wave abnormality no longer evident in Lateral leads Confirmed by Chicho Grady ([id number]) on 01/17/2024 3:43:25 PM Referred By: REFERRED SELF Confirmed By:Chicho Grady
--- NOTE | 2024-01-17 16:04 | Electrocardiogram Report ---
Test Reason : Blood Pressure : / mmHG Vent. Rate : 064 BPM Atrial Rate : 064 BPM P-R Int : 178 ms QRS Dur : 096 ms QT Int : 456 ms P-R-T Axes : 056 002 050 degrees QTc Int : 470 ms Normal sinus rhythm with sinus arrhythmia Low voltage QRS Possible Inferior infarct (cited on or before 31-JUL-2014) Cannot rule out Anterior infarct (cited on or before 31-JUL-2014) Abnormal ECG When compared with ECG of 16-JAN-2024 10:46, (unconfirmed) No significant change was found Confirmed by Chicho Grady ([id number]) on 01/17/2024 4:04:17 PM Referred By: REFERRED SELF Confirmed By:Chicho Grady
[2024-01-17] MEDS: LIDOCAINE 5% 1 PATCH TD SCH (16:31)
[2024-01-17] MEDS: FUROSEMIDE 20 MG TAB PO ONE (16:31)
--- NOTE | 2024-01-17 18:01 | Hospitalist Progress Note ---
Date of Service January 17, 2024 Assessment & Plan (1) Hypoxia: Plan: mild wheezes on exam today but NOT hypoxic at this time carries dx of COPD but is not on controller agents; last pulmonary function test several years ago was normal and w/o obstruction previously followed by Dr Alberts but she has not seen him in some time wheezing 2nd to bronchitis/COPD flare? wheezing 2nd to pulmonary edema? trial of lasix 20mg po x 1 cont steroids but stop IV solumedrol; change to PO prednisone 40mg daily starting in am repeat cxr 2-view tomorrow due to abnormal chest x-ray (portable AP) does carry dx of rheumatoid arthritis and could she have mild ILD from such?? she would need CT chest high-res non-con for characterization (2) COPD exacerbation: Plan: see #1 above wean steroids cont bronchodilators repeat 2-view cxr; consider chest CT if needed (3) Controlled type 2 diabetes mellitus with neurologic complication, with long- term current use of insulin: Plan: Last A1c at 6.8% on 12/14/2023 Hold metformin, empagliflozin Pharmacy glycemic consult appreciated uncontrolled BSGs are due to the steroids (4) Low back pain: Plan: Patient's initial complaint on arrival was right hip and lower back pain which began on Friday 01/12 She denies any recent falls, injuries, or trauma to the abdomen or pelvis A/P CT without acute fracture or nephrolithiasis suspect paraspinal lumbar back pain will repeat lumbar spine films while here heating pad steroids should help last MRI of lspine several years ago showed mild DJD at L3-L5 only (5) Urge and stress incontinence: Plan: sees 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 and started on premarin cream daily by urology recently (6) UTI (urinary tract infection): Plan: 2nd GNR cont rocephin await culture I do not think her back pain is from UTI or pyelonephritis (7) Morbid obesity with BMI of 45.0-49.9, adult: Plan: BMI 47.7 Plan Fleeting left-sided chest discomfort -- troponin was 4 at time of ER presentation has not recurred low threshold to check CT chest VTE PPx: Lovenox 40 mg SQ q24h Admission and Anticipated Discharge Date Admission Date: January 16, 2024 Subjective still having some mild CORRIGAN as well as right-sided low back pain no dyspnea at rest no cough tele overnight wnl appetite is good yesterday had some mild, fleeting "twinges" of discomfort over the left lower chest - have not recurred requests a recliner chair to sleep in tonight Review of Systems Review of Systems: gen - no fevers or chills cv - no substernal chest pain pulm - no cough or sputum; mild wheezing neuro - denies radicular pain of legs Physical Exam Physical Exam: gen - sitting in chair, NAD, morbidly obese neck - no obvious JVD mouth - MMM heart - RRR, s1 s2, no murmur lungs - mild end-exp wheezes b/l, no definitive rales, no increased work of breathing abd - soft NT ND BS+ back - no tenderness along the spine (l-spine or t-spine) to palpation; mild paraspinal pain on right ext - 1+ edema b/l, pulses 2+ b/l Results & Data Results & Data Vital Signs (Past 12 Hours) Vital Signs Temp Pulse Pulse Pulse Resp BP Pulse Ox 01/17/24 15:52 75 01/17/24 15:36 37.1 C 89 18 157/79 H 98 01/17/24 11:48 73 18 90 01/17/24 11:20 36.6 C 59 L 18 154/76 H 93 01/17/24 09:23 01/17/24 07:38 36.8 C 67 16 122/72 100 01/17/24 07:19 63 01/17/24 07:12 64 16 98 O2 Del Method O2 Flow Rate 01/17/24 15:52 01/17/24 15:36 Room Air 01/17/24 11:48 Room Air 01/17/24 11:20 Room Air 01/17/24 09:23 Room Air 01/17/24 07:38 Room Air 01/17/24 07:19 01/17/24 07:12 Nasal Cannula 2 Laboratory Results Laboratory Results - last 48 hr 01/16/24 01/16/24 01/16/24 12:07 12:24 12:25 WBC 6.95 RBC 4.87 Hgb 13.2 POC Hgb 13.9 Hct 41.4 POC Hct 41 MCV 85.0 MCH 27.1 MCHC 31.9 L RDW Std Deviation 45.6 RDW Coeff of Ilana 14.9 H Plt Count 241 MPV 10.0 Immature Gran % (Auto) 0.3 Neut % (Auto) 61.9 Lymph % (Auto) 23.7 Snyder % (Auto) 10.5 Eos % (Auto) 2.7 Baso % (Auto) 0.9 Neut # (Auto) 4.30 Lymph # (Auto) 1.65 Snyder # (Auto) 0.73 H Eos # (Auto) 0.19 Baso # (Auto) 0.06 Immature Gran # (Auto) 0.02 POC Sodium 140 Sodium 140 POC Potassium 4.7 Potassium 4.6 POC Chloride 105 Chloride 106 Carbon Dioxide 28 POC Total CO2 26 Anion Gap 6 POC Anion Gap 15.0 L POC BUN 17 BUN 16 Creatinine 0.82 POC Creatinine 0.8 Est Cr Clr Drug Dosing 74.9 Est GFR ( Amer) 81.7 Est GFR (Non-Af Amer) 70.5 BUN/Creatinine Ratio 19.5 Glucose 132 H POC Glucose POC Glucose (other) 135 H Calcium 9.3 POC Ioniz Calcium Tavon 1.10 L Magnesium Total Bilirubin 0.4 AST 13 ALT 11 Alkaline Phosphatase 73 Troponin I High Sens 4.0 Total Protein 7.0 Albumin 3.9 Globulin 3.1 Albumin/Globulin Ratio 1.3 Lipase 11 Procalcitonin 0.02 Urine Color Yellow Urine Appearance Clear Urine pH 7.0 Ur Specific [place] 1.021 Urine Protein Negative Urine Glucose (UA) 3+ H Urine Ketones Negative Urine Blood Negative Urine Nitrite Negative Urine Bilirubin Negative Urine Urobilinogen Negative Ur Leukocyte Esterase Trace H Urine WBC (Auto) 21-50 H Urine RBC (Auto) 0-2 U Hyaline Cast (Auto) 0-2 U Epithel Cells (Auto) 0-2 Urine Bacteria (Auto) 1+ H Adenovirus (PCR) B. pertussis DNA (PCR) B.parapertussis DNA PCR C. pneumoniae DNA (PCR) Coronavirus OC43 (PCR) Coronavirus HKU1 (PCR) Coronavirus 229E (PCR) SARS-CoV-2 (PCR) Coronavirus NL63 (PCR) Human Metapneumovir PCR Influenza Type A (PCR) Influenza Type B (PCR) M. pneumoniae (PCR) Parainfluenza 1 (PCR) Parainfluenza 2 (PCR) Parainfluenza 3 (PCR) Parainfluenza 4 (PCR) RSV (PCR) Entero/Rhino (PCR) 01/16/24 01/16/24 01/16/24 13:04 17:42 20:22 WBC RBC Hgb POC Hgb Hct POC Hct MCV MCH MCHC RDW Std Deviation RDW Coeff of Ilana Plt Count MPV Immature Gran % (Auto) Neut % (Auto) Lymph % (Auto) Snyder % (Auto) Eos % (Auto) Baso % (Auto) Neut # (Auto) Lymph # (Auto) Snyder # (Auto) Eos # (Auto) Baso # (Auto) Immature Gran # (Auto) POC Sodium Sodium POC Potassium Potassium POC Chloride Chloride Carbon Dioxide POC Total CO2 Anion Gap POC Anion Gap POC BUN BUN Creatinine POC Creatinine Est Cr Clr Drug Dosing Est GFR ( Amer) Est GFR (Non-Af Amer) BUN/Creatinine Ratio Glucose POC Glucose 229 H 268 H POC Glucose (other) Calcium POC Ioniz Calcium Tavon Magnesium Total Bilirubin AST ALT Alkaline Phosphatase Troponin I High Sens Total Protein Albumin Globulin Albumin/Globulin Ratio Lipase Procalcitonin Urine Color Urine Appearance Urine pH Ur Specific [place] Urine Protein Urine Glucose (UA) Urine Ketones Urine Blood Urine Nitrite Urine Bilirubin Urine Urobilinogen Ur Leukocyte Esterase Urine WBC (Auto) Urine RBC (Auto) U Hyaline Cast (Auto) U Epithel Cells (Auto) Urine Bacteria (Auto) Adenovirus (PCR) Not Detected B. pertussis DNA (PCR) Not Detected B.parapertussis DNA PCR Not Detected C. pneumoniae DNA (PCR) Not Detected Coronavirus OC43 (PCR) Not Detected Coronavirus HKU1 (PCR) Not Detected Coronavirus 229E (PCR) Not Detected SARS-CoV-2 (PCR) Not Detected Coronavirus NL63 (PCR) Not Detected Human Metapneumovir PCR Not Detected Influenza Type A (PCR) Not Detected Influenza Type B (PCR) Not Detected M. pneumoniae (PCR) Not Detected Parainfluenza 1 (PCR) Not Detected Parainfluenza 2 (PCR) Not Detected Parainfluenza 3 (PCR) Not Detected Parainfluenza 4 (PCR) Not Detected RSV (PCR) Not Detected Entero/Rhino (PCR) Not Detected 01/17/24 01/17/24 01/17/24 01:51 06:08 07:59 WBC 9.22 RBC 4.68 Hgb 12.6 POC Hgb Hct 39.4 POC Hct MCV 84.2 MCH 26.9 MCHC 32.0 RDW Std Deviation 44.3 RDW Coeff of Ilana 14.6 H Plt Count 257 MPV 10.3 Immature Gran % (Auto) 0.4 Neut % (Auto) 74.4 Lymph % (Auto) 13.1 Snyder % (Auto) 11.5 Eos % (Auto) 0.1 Baso % (Auto) 0.5 Neut # (Auto) 6.85 H Lymph # (Auto) 1.21 Snyder # (Auto) 1.06 H Eos # (Auto) 0.01 Baso # (Auto) 0.05 Immature Gran # (Auto) 0.04 POC Sodium Sodium 138 POC Potassium Potassium 4.6 POC Chloride Chloride 103 Carbon Dioxide 26 POC Total CO2 Anion Gap 9 POC Anion Gap POC BUN BUN 25 H Creatinine 0.98 POC Creatinine Est Cr Clr Drug Dosing 62.9 Est GFR ( Amer) 65.9 Est GFR (Non-Af Amer) 56.8 BUN/Creatinine Ratio 25.5 H Glucose 227 H POC Glucose 308 H* 229 H POC Glucose (other) Calcium 9.5 POC Ioniz Calcium Tavon Magnesium 1.9 Total Bilirubin AST ALT Alkaline Phosphatase Troponin I High Sens Total Protein Albumin Globulin Albumin/Globulin Ratio Lipase Procalcitonin Urine Color Urine Appearance Urine pH Ur Specific [place] Urine Protein Urine Glucose (UA) Urine Ketones Urine Blood Urine Nitrite Urine Bilirubin Urine Urobilinogen Ur Leukocyte Esterase Urine WBC (Auto) Urine RBC (Auto) U Hyaline Cast (Auto) U Epithel Cells (Auto) Urine Bacteria (Auto) Adenovirus (PCR) B. pertussis DNA (PCR) B.parapertussis DNA PCR C. pneumoniae DNA (PCR) Coronavirus OC43 (PCR) Coronavirus HKU1 (PCR) Coronavirus 229E (PCR) SARS-CoV-2 (PCR) Coronavirus NL63 (PCR) Human Metapneumovir PCR Influenza Type A (PCR) Influenza Type B (PCR) M. pneumoniae (PCR) Parainfluenza 1 (PCR) Parainfluenza 2 (PCR) Parainfluenza 3 (PCR) Parainfluenza 4 (PCR) RSV (PCR) Entero/Rhino (PCR) 01/17/24 01/17/24 01/17/24 11:08 12:08 17:02 WBC RBC Hgb POC Hgb Hct POC Hct MCV MCH MCHC RDW Std Deviation RDW Coeff of Ilana Plt Count MPV Immature Gran % (Auto) Neut % (Auto) Lymph % (Auto) Snyder % (Auto) Eos % (Auto) Baso % (Auto) Neut # (Auto) Lymph # (Auto) Snyder # (Auto) Eos # (Auto) Baso # (Auto) Immature Gran # (Auto) POC Sodium Sodium POC Potassium Potassium POC Chloride Chloride Carbon Dioxide POC Total CO2 Anion Gap POC Anion Gap POC BUN BUN Creatinine POC Creatinine Est Cr Clr Drug Dosing Est GFR ( Amer) Est GFR (Non-Af Amer) BUN/Creatinine Ratio Glucose POC Glucose 311 H* 251 H 230 H POC Glucose (other) Calcium POC Ioniz Calcium Tavon Magnesium Total Bilirubin AST ALT Alkaline Phosphatase Troponin I High Sens Total Protein Albumin Globulin Albumin/Globulin Ratio Lipase Procalcitonin Urine Color Urine Appearance Urine pH Ur Specific [place] Urine Protein Urine Glucose (UA) Urine Ketones Urine Blood Urine Nitrite Urine Bilirubin Urine Urobilinogen Ur Leukocyte Esterase Urine WBC (Auto) Urine RBC (Auto) U Hyaline Cast (Auto) U Epithel Cells (Auto) Urine Bacteria (Auto) Adenovirus (PCR) B. pertussis DNA (PCR) B.parapertussis DNA PCR C. pneumoniae DNA (PCR) Coronavirus OC43 (PCR) Coronavirus HKU1 (PCR) Coronavirus 229E (PCR) SARS-CoV-2 (PCR) Coronavirus NL63 (PCR) Human Metapneumovir PCR Influenza Type A (PCR) Influenza Type B (PCR) M. pneumoniae (PCR) Parainfluenza 1 (PCR) Parainfluenza 2 (PCR) Parainfluenza 3 (PCR) Parainfluenza 4 (PCR) RSV (PCR) Entero/Rhino (PCR) PG Care Time/CCT Total # of Minutes Spent Total Time Spent with Patient: Total time spent is greater than 50% in coordination of care (as documented) at patient's floor/unit and/or counseling patient: Coding Level of Care Code 46543 SUB INP/OBS CARE 2/35MIN Diagnoses Hypoxia R09.02 COPD exacerbation J44.1 Controlled type 2 diabetes mellitus with neurologic complication, with long-term current use of insulin E11.49; Z79.4 Low back pain M54.5 Urge and stress incontinence N39.46 UTI (urinary tract infection) N39.0 Morbid obesity with BMI of 45.0-49.9, adult E66.01; Z68.42
[2024-01-18 07:56] LABS: BUN Creatinine Ratio 24.8 (10-20); Calcium 9.3 mg/dl (8.6-10.3); Creatinine Clr Calc Pharmacy 51.6 ml/min; Est GFR (African American) 53.2 ml/min; Est GFR (Non-African American) 45.9 ml/min
[2024-01-18] MEDS: predniSONE 20 MG TAB PO SCH (08:12)
--- NOTE | 2024-01-18 12:22 | XRay Report ---
XR chest 2V PA/lateral CLINICAL HISTORY: abnormal AP chest x-ray, dyspnea TECHNIQUE: 2 views of the chest were obtained. Comparison: Comparison is made to chest radiograph 01/16/2024 FINDINGS: No lines and tubes are seen. The cardiomediastinal silhouette is normal. The lungs are clear. No evid ence of pleural effusion or pneumothorax. IMPRESSION: No acute chest disease. ACT 112: Negative or not required by law. Electronically signed by: Arjun Hyde M.D. 01/18/2024 12:21 PM
--- NOTE | 2024-01-18 13:08 | XRay Report ---
XR lumbar spine 2-3V CLINICAL HISTORY: R sided low back pain COMPARISON STUDY: Lumbar spine radiographs March 28, 2017. Lumbar spine MRI December 17, 2016. CT of the abdomen and pelvis January 16, 2024. FINDINGS: Lumbar spine vertebral body heights are maintained. There is no lumbar spine fracture. No o sseous lesions are identified. Moderate facet arthrosis several levels within the lower lumbar spine is present. There is mild to moderate multilevel disc space narrowing and osteophytosis. IMPRESSION: 1. No lumbar spine fractures. 2. Mild to moderate multilevel degenerative changes within the lumbar spine. ACT 112: Negative or not required by law. Electronically signed by: Mj Membreno M.D. 01/18/2024 1:06 PM
[2024-01-18] MEDS: OPTIRAY 320 125ml IV ONE (17:21)
--- NOTE | 2024-01-18 18:00 | CT Scan Report ---
CT ANGIOGRAPHY OF THE CHEST, PULMONARY EMBOLUS PROTOCOL CLINICAL HISTORY: recent chest pain, hypoxia, dyspnea w/ exertion COMPARISON STUDY: Chest CT September 12, 2019. Chest radiograph performed earlier today. TECHNIQUE: Following IV administration of 116 mL of Optiray, helical axial images of the chest were o btained utilizing the pulmonary embolus protocol. Maximal intensity projections and sagittal and cor onal reformats were viewed on an independent 3D workstation. IV contrast was administered without co mplication. Automated exposure control was utilized for the study. A dose lowering technique was ut ilized adhering to the principles of ALARA. CT DOSE: 921.26 mGy.cm FINDINGS: No pulmonary emboli are identified. Mild dilatation of the central pulmonary arteries is s imilar to CT of September 12, 2019. There is no thoracic aortic dissection. No thoracic lymphadenopathy is present. There is no pericardial effusion. Size of the heart is at the upper limits of normal. Mo derate coronary calcium. No pneumothorax or pleural effusion is present. No consolidation is identifi ed. Mild groundglass opacities with mosaic attenuation are present. The appearance is similar to prio r CT. IMPRESSION: 1. No pulmonary emboli identified. 2. Mild ground glass opacities with mosaic attenuation, similar to prior CT. The findings favor air t rapping. 3. Mild dilatation of the central pulmonary arteries which raises the possibility of pulmonary arteri al hypertension. 4. Moderate coronary artery calcification. ACT 112: Negative or not required by law. Electronically signed by: Mj Membreno M.D. 01/18/2024 5:57 PM
--- NOTE | 2024-01-18 20:28 | Hospitalist Progress Note ---
Date of Service January 18, 2024 Assessment & Plan (1) Hypoxia: Plan: suspect 2nd to obstructive lung disease based on her history as well as CTA findings (air trapping) no PE on CTA no pneumonia no obvious pulm edema no ILD findings (has h/o rheumatoid arthritis) enlarged PAs suggesting pulmonary HTN was seen carries dx of COPD but is not on controller agents; last pulmonary function test several years ago was normal and w/o obstruction but normal PFTs does not fully rule out obstructive lung disease previously followed by Dr Alberts but she has not seen him in some time gave lasix 20mg po x 1 yesterday and she did diurese but her creatinine increased overnight with such further, CTA chest w/o volume overload thus, will not diurese any further cont steroids in the form of PO prednisone 40mg daily cont bronchodilators add flutter valve add incentive spirometer add mucinex 1200mg BID check echo for PA pressures re-eval tomorrow, may need 2-step (2) COPD exacerbation: Plan: see #1 above cont steroids cont bronchodilators (3) Controlled type 2 diabetes mellitus with neurologic complication, with long- term current use of insulin: Plan: Last A1c at 6.8% on 12/14/2023 Hold metformin, empagliflozin; latter should be held at d/c due to UTI Pharmacy glycemic consult appreciated uncontrolled BSGs are due to the steroids (4) Low back pain: Plan: Patient's initial complaint on arrival was right hip and lower back pain which began on Friday 01/12 She denies any recent falls, injuries, or trauma to the abdomen or pelvis A/P CT without acute fracture or nephrolithiasis suspect paraspinal lumbar back pain lumbar spine films with DJD but no compression fx's, etc heating pad steroids should help last MRI of lspine several years ago showed mild DJD at L3-L5 only (5) Urge and stress incontinence: Plan: sees [facility] [place] for such 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 and started on premarin cream daily by urology recently (6) UTI (urinary tract infection): Plan: 2nd klebsiella stop rocephin (had received 2 doses of such) switch to cipro 500mg BID x 5 days I do not think her back pain is from UTI or pyelonephritis (7) Morbid obesity with BMI of 45.0-49.9, adult: Plan: BMI 47.7 Plan Fleeting left-sided chest discomfort -- troponin was 4 at time of ER presentation has not recurred CTA chest NEGATIVE for PE VTE PPx: Lovenox 40 mg SQ q24h change observation status to full admission status due to #1 and ongoing pulmonary symptoms re-eval tomorrow Admission and Anticipated Discharge Date Admission Date: January 16, 2024 Subjective patient sitting in chair comfortably right low back pain is improved eating well still with dyspnea and some cough dyspnea is primarily with walking I had the staff walk patient in hallway - sats dropped to about 88% on the walk and she had some conversational dyspnea Review of Systems Review of Systems: gen - no fevers or chills cv - no chest pain ; edema improved s/p lasix yesterday pulm - no dyspnea at rest GI - no abd pain or N/V Physical Exam Physical Exam: gen - sitting in chair, NAD, morbidly obese, occasional cough neck - no obvious JVD mouth - MMM heart - RRR, s1 s2, no murmur lungs - no wheezes today; mild, faint, dry rales bases; no increased work of breathing abd - soft NT ND BS+ ext - <1+ edema b/l (improved), pulses 2+ b/l Results & Data Results & Data Vital Signs (Past 12 Hours) Vital Signs Temp Pulse Pulse Resp BP Pulse Ox O2 Del Method 01/18/24 20:13 84 18 95 Room Air 01/18/24 20:03 36.4 C L 73 20 167/71 H 96 Room Air 01/18/24 19:23 Room Air 01/18/24 16:06 79 01/18/24 15:02 36.6 C 71 18 163/81 H 95 Room Air 01/18/24 13:32 71 92 Room Air 01/18/24 10:59 36.5 C 73 15 147/78 H 92 Room Air 01/18/24 10:45 Room Air Laboratory Results Laboratory Results - last 24 hr 01/18/24 01/18/24 01/18/24 06:47 08:04 12:19 Sodium 140 Potassium 4.0 Chloride 105 Carbon Dioxide 27 Anion Gap 8 BUN 29 H Creatinine 1.17 Est Cr Clr Drug Dosing 51.6 Est GFR ( Amer) 53.2 Est GFR (Non-Af Amer) 45.9 BUN/Creatinine Ratio 24.8 H Glucose 152 H POC Glucose 158 H 190 H Calcium 9.3 01/18/24 01/18/24 17:43 20:32 Sodium Potassium Chloride Carbon Dioxide Anion Gap BUN Creatinine Est Cr Clr Drug Dosing Est GFR ( Amer) Est GFR (Non-Af Amer) BUN/Creatinine Ratio Glucose POC Glucose 225 H 202 H Calcium Diagnostic Findings Chest X-Ray 01/18/24 10:30 XR chest 2V PA/lateral CLINICAL HISTORY: abnormal AP chest x-ray, dyspnea TECHNIQUE: 2 views of the chest were obtained. Comparison: Comparison is made to chest radiograph 01/16/2024 FINDINGS: No lines and tubes are seen. The cardiomediastinal silhouette is normal. The lungs are clear. No evidence of pleural effusion or pneumothorax. IMPRESSION: No acute chest disease. ACT 112: Negative or not required by law. Electronically signed by: Arjun Hyde M.D. 01/18/2024 12:21 PM Lumbar Spine X-Ray 01/18/24 10:37 XR lumbar spine 2-3V CLINICAL HISTORY: R sided low back pain COMPARISON STUDY: Lumbar spine radiographs March 28, 2017. Lumbar spine MRI December 17, 2016. CT of the abdomen and pelvis January 16, 2024. FINDINGS: Lumbar spine vertebral body heights are maintained. There is no lumbar spine fracture. No osseous lesions are identified. Moderate facet arthrosis several levels within the lower lumbar spine is present. There is mild to moderate multilevel disc space narrowing and osteophytosis. IMPRESSION: 1. No lumbar spine fractures. 2. Mild to moderate multilevel degenerative changes within the lumbar spine. ACT 112: Negative or not required by law. Electronically signed by: Mj Membreno M.D. 01/18/2024 1:06 PM Chest CTA 01/18/24 15:12 CT ANGIOGRAPHY OF THE CHEST, PULMONARY EMBOLUS PROTOCOL CLINICAL HISTORY: recent chest pain, hypoxia, dyspnea w/ exertion COMPARISON STUDY: Chest CT September 12, 2019. Chest radiograph performed earlier today. TECHNIQUE: Following IV administration of 116 mL of Optiray, helical axial images of the chest were obtained utilizing the pulmonary embolus protocol. Maximal intensity projections and sagittal and coronal reformats were viewed on an independent 3D workstation. IV contrast was administered without complication. Automated exposure control was utilized for the study. A dose lowering technique was utilized adhering to the principles of ALARA. CT DOSE: 921.26 mGy.cm FINDINGS: No pulmonary emboli are identified. Mild dilatation of the central pulmonary arteries is similar to CT of September 12, 2019. There is no thoracic aortic dissection. No thoracic lymphadenopathy is present. There is no pericardial effusion. Size of the heart is at the upper limits of normal. Moderate coronary calcium. No pneumothorax or pleural effusion is present. No consolidation is identified. Mild groundglass opacities with mosaic attenuation are present. The appearance is similar to prior CT. IMPRESSION: 1. No pulmonary emboli identified. 2. Mild ground glass opacities with mosaic attenuation, similar to prior CT. The findings favor air trapping. 3. Mild dilatation of the central pulmonary arteries which raises the possi bility of pulmonary arterial hypertension. 4. Moderate coronary artery calcification. ACT 112: Negative or not required by law. Electronically signed by: Mj Membreno M.D. 01/18/2024 5:57 PM PG Care Time/CCT Total # of Minutes Spent Total Time Spent with Patient: Total time spent is greater than 50% in coordination of care (as documented) at patient's floor/unit and/or counseling patient: Coding Level of Care Code 12864 SUB INP/OBS CARE 3/50MIN Diagnoses Hypoxia R09.02 COPD exacerbation J44.1 Controlled type 2 diabetes mellitus with neurologic complication, with long-term current use of insulin E11.49; Z79.4 Low back pain M54.5 Urge and stress incontinence N39.46 UTI (urinary tract infection) N39.0 Morbid obesity with BMI of 45.0-49.9, adult E66.01; Z68.42
[2024-01-18] MEDS: CIPROFLOXACIN 500 MG TAB PO SCH (21:23)
[2024-01-18] MEDS: MELATONIN 3 MG TAB PO SCH (21:24)
[2024-01-18] MEDS: guaiFENesin 600 MG TABCR PO SCH (21:24)
[2024-01-19 07:29] LABS: BUN Creatinine Ratio 29.8 (10-20); Calcium 9.2 mg/dl (8.6-10.3); Creatinine Clr Calc Pharmacy 63.9 ml/min; Est GFR (African American) 69.3 ml/min; Est GFR (Non-African American) 59.8 ml/min; Potassium 3.9 mmol/L (3.5-5.1)
[2024-01-19] MEDS: LOSARTAN POTASSIUM 25 MG TAB PO SCH (08:40)
[2024-01-19] MEDS: FUROSEMIDE 20 MG TAB PO SCH (10:00)
[2024-01-19] MEDS: POTASSIUM CHLORIDE 10 MEQ TABCR PO STA (10:02)
--- NOTE | 2024-01-19 10:37 | Pharmacy Report ---
Pharmacy Glycemic Short Note 2 - Date of Service January 19, 2024 - Glycemic Short BSG Results (Last 24 hours): 01/18/24 01/18/24 01/18/24 12:19 17:43 20:32 Glucose POC Glucose 190 H 225 H 202 H 01/19/24 01/19/24 06:02 08:19 Glucose 119 H POC Glucose 160 H OUTPATIENT ANTIDIABETIC REGIMEN: * NPH 20 units SQ qHS * Novolog 12-14 units SQ before breakfast and lunch only * Empagliflozin 10mg PO daily * Metformin 1gm PO BID * HbA1c: 6.8% (12/14/23) ASSESSMENT: 01/18 * Patient received 66 units of insulin yesterday, 30 units basal, fasting blood sugars at goal but blood sugar rising throughout the day, likely due to prednisone (on 40mg PO Daily). Tighten CR at this time. * IV ceftriaxone changed to PO Cipro. 01/16 * Ms Acuña is a 73yo diabetic F admitted with hypoxia/?COPD exac. * She received 60mg IV SoluMedrol x1 dose yesterday and is now ordered 40mg IV SoluMedrol daily. Pt appears to have steroid-induced hyperglycemia as a result. * Pt maintained on NPH during admission, with additional dose added in the morning to cover BSGs while on steroids, in an effort to ease transition to home regimen on discharge. * Pharmacy will continue to follow and adjust regimen as indicated. PLAN FOR INPATIENT GLYCEMIC CONTROL: * Hold outpatient oral diabetes medications * Basal insulin * NPH 15 units SQ BID with meals * Bolus insulin * NovoLog per scale ACHS or Q6hrs while NPO * Goal Range: Low 110 mg/dL - High 140 mg/dL * Correction Factor: 20 mg/dL/unit * Nutritional / Prandial insulin per carb ratio of 1 unit per 6 grams CHO consumed
[2024-01-19 11:13] VITALS: TEMP 97.7
--- NOTE | 2024-01-19 13:05 | XCELERA ---
[id number]
[2024-01-19 13:15] VITALS: PULSE 77; RESP 18; O2SAT 92
[2024-01-19 14:19] VITALS: BP 157/79
--- NOTE | 2024-01-19 14:24 | Discharge Summary ---
Date of Service date of admission - January 16, 2024 date of discharge - January 19, 2024 Admission HPI Per Admitting Provider Ms Acuña is a 73-year-old female with PMH of COPD, T2DM, urge and stress incontinence, and asthma. She presented for right hip pain radiating through her abdomen/lower back that began on Friday 01/12. Patient denies any recent injuries or falls to the right abdomen or pelvis. She woke up on Tuesday morning, and notes she had a constant 5/10 stabbing pain in her right side. She has been taking ibuprofen (4 tablets daily) to assist with the pain. This pain is new for her; no past experiences with pain in this location. Then today, patient was out developed pain in her left breast radiating up to her shoulder that lasted 2 minutes. She described it as a dull pain that she rates 3/10 at its worst. No prior history of TN. Patient did not take anything for the pain, but decided to come to the ED. Patient did not take any of her regular morning medications; she has not had any of her regular insulin today. No recent change in medications. Patient ambulates with a cane at baseline. No sick contacts. No supplemental oxygen at home. Patient does not own a a pulse ox or know her regular oxygen saturation. No CPAP at night. Of note, patient was previously on Symbicort, but stopped taking it a couple months ago as she reported it was too expensive. She is not currently on any inhalers for her COPD. She denies smoking, tobacco use, and alcohol use. Patient does note that she had a cystoscopy with Dr. Shannon 1 week ago for her bladder. She denies any UTI symptoms at this time (such as changes in urinary habits, burning with urination, dysuria, or suprapubic tenderness). Patient is hypertensive at 168/86 at time of admission; SpO2 96% on 2L NC. 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 Patient denies fever, chills, nightsweats, dizziness, SAGASTUME, new changes in vision, chest pain, chest palpitations, chest pressure, pleuritic CP, SOB, hemoptysis, abdominal pain, N/V/D, change in urinary/bowel habits, burning with urination, blood in the urine or stool, or saddle anesthesia. Principal Diagnosis 1. urinary tract infection - resolved 2. shortness of breath - likely due to underlying asthma/COPD - follow-up with Dr Anam romeo 3. right sided back pain - likely muscle strain and/or mild DJD of lumbar spine 4. type 2 diabetes 5. high blood pressure 6. morbid obesity BMI 47 Discharge Exam gen - sitting in chair, NAD, morbidly obese, comfortable neck - no obvious JVD mouth - MMM heart - RRR, s1 s2, no murmur lungs - no wheezes; mild, faint, dry rales bases; no increased work of breathing abd - soft NT ND BS+ ext - 1+ edema b/l, pulses 2+ b/l Discharge Data Allergies Allergy/AdvReac Type Severity Reaction Status Date / Time grass pollen-perennial rye, Allergy Severe DIFFICULTY Verified 01/16/24 14:37 standar BREATHING mold Allergy Severe DIFFICULTY Verified 01/16/24 14:37 BREATHING tetanus toxoid, adsorbed Allergy Intermediate SWELLING Verified 01/16/24 14:37 etodolac Allergy Unknown UNKNOWN Verified 01/16/24 14:37 house dust Allergy Unknown Unknown Verified 01/16/24 14:37 pollen extracts Allergy Unknown DIFFICULTY Verified 01/16/24 14:37 BREATHING gabapentin AdvReac Intermediate Muscle Pain Verified 01/16/24 14:37 pregabalin [From Lyrica] AdvReac Intermediate eyes- Verified 01/16/24 14:37 blurred vision simvastatin AdvReac Intermediate "FEELS Verified 01/16/24 14:37 FUNNY" Consultations PT, OT Procedures Performed Echocardiogram - EF 55-60%; mild mitral regurgitation; normal LV wall motion; normal RV function. 2-step ambulatory O2 test - no need for home O2 Ordered Studies Chest X-Ray 01/16/24 10:58 XR chest 1V portable HISTORY: Shortness of breath. COMPARISON: Chest 02/15/2023. FINDINGS: No focal lung consolidations to suggest a pneumonia. No evidence for pulmonary edema. The cardiac silhouette is normal in size. No acute fractures. Right hilar prominence has progressed. This may be due to AP portable technique. IMPRESSION: 1. No acute process within the chest. 2. Right hilar prominence which appears to have progressed in the interval. However, this could be due to the AP portable technique. Consider follow-up nonemergent PA and lateral views of the chest for further evaluation. ACT 112: Negative or not required by law. Electronically signed by: Seng Griffith M.D. 01/16/2024 11:23 AM Abdomen/Pelvis CT 01/16/24 10:59 CT abd pelvis IV con only CLINICAL HISTORY: R sided lower back pain TECHNIQUE: Helical axial images of the abdomen and pelvis were obtained and displayed. Automated dose lowering techniques and/or adjustment according to patient size were utilized for this exam. This exam was performed with intravenous contrast. CT DOSE: 1352.6 mGy.cm COMPARISON: Comparison is made to CT abdomen pelvis 09/08/2019 FINDINGS: Lower chest: Bronchial wall thickening mosaic attenuation are seen. Liver: Unremarkable. No focal lesions are seen. Gallbladder and biliary tree: Cholelithiasis is seen without evidence of cholecystitis. No intra- or extrahepatic biliary ductal dilation. Pancreas: Fatty replacement of the pancreas is seen. Spleen: Unremarkable. Adrenals: Unremarkable. Kidneys and ureters: Bilateral pelviectasis. Bladder: Unremarkable. Reproductive organs: Incidental note is made of calcified fibroid. Bowel: Diverticulosis is seen without diverticulitis. The appendix is normal. Lymph nodes Retroperitoneal: Subcentimeter lymph nodes are noted. Pelvic: Subcentimeter lymph nodes are noted. Mesenteric: Unremarkable. Peritoneum: Normal. Vessels: Unremarkable. Abdominal wall: Unremarkable. Bones: Degenerative changes in the visualized spine. IMPRESSION: 1. No acute abnormality to explain right lower back pain. In particular no evidence of acute fracture or obstructive stone. 2. Cholelithiasis without cholecystitis. ACT 112: Negative or not required by law. Electronically signed by: Arjun Hyde M.D. 01/16/2024 1:04 PM Chest X-Ray 01/18/24 10:30 XR chest 2V PA/lateral CLINICAL HISTORY: abnormal AP chest x-ray, dyspnea TECHNIQUE: 2 views of the chest were obtained. Comparison: Comparison is made to chest radiograph 01/16/2024 FINDINGS: No lines and tubes are seen. The cardiomediastinal silhouette is normal. The lungs are clear. No evidence of pleural effusion or pneumothorax. IMPRESSION: No acute chest disease. ACT 112: Negative or not required by law. Electronically signed by: Arjun Hyde M.D. 01/18/2024 12:21 PM Lumbar Spine X-Ray 01/18/24 10:37 XR lumbar spine 2-3V CLINICAL HISTORY: R sided low back pain COMPARISON STUDY: Lumbar spine radiographs March 28, 2017. Lumbar spine MRI December 17, 2016. CT of the abdomen and pelvis January 16, 2024. FINDINGS: Lumbar spine vertebral body heights are maintained. There is no lumbar spine fracture. No osseous lesions are identified. Moderate facet arthrosis several levels within the lower lumbar spine is present. There is mild to moderate multilevel disc space narrowing and osteophytosis. IMPRESSION: 1. No lumbar spine fractures. 2. Mild to moderate multilevel degenerative changes within the lumbar spine. ACT 112: Negative or not required by law. Electronically signed by: Mj Membreno M.D. 01/18/2024 1:06 PM Chest CTA 01/18/24 15:12 CT ANGIOGRAPHY OF THE CHEST, PULMONARY EMBOLUS PROTOCOL CLINICAL HISTORY: recent chest pain, hypoxia, dyspnea w/ exertion COMPARISON STUDY: Chest CT September 12, 2019. Chest radiograph performed earlier today. TECHNIQUE: Following IV administration of 116 mL of Optiray, helical axial images of the chest were obtained utilizing the pulmonary embolus protocol. Maximal intensity projections and sagittal and coronal reformats were viewed on an independent 3D workstation. IV contrast was administered without complication. Automated exposure control was utilized for the study. A dose lowering technique was utilized adhering to the principles of ALARA. CT DOSE: 921.26 mGy.cm FINDINGS: No pulmonary emboli are identified. Mild dilatation of the central pulmonary arteries is similar to CT of September 12, 2019. There is no thoracic aortic dissection. No thoracic lymphadenopathy is present. There is no pericardial effusion. Size of the heart is at the upper limits of normal. Moderate coronary calcium. No pneumothorax or pleural effusion is present. No consolidation is identified. Mild groundglass opacities with mosaic attenuation are present. The appearance is similar to prior CT. IMPRESSION: 1. No pulmonary emboli identified. 2. Mild ground glass opacities with mosaic attenuation, similar to prior CT. The findings favor air trapping. 3. Mild dilatation of the central pulmonary arteries which raises the possibility of pulmonary arterial hypertension. 4. Moderate coronary artery calcification. ACT 112: Negative or not required by law. Electronically signed by: Mj Membreno M.D. 01/18/2024 5:57 PM Hospital Course (1) UTI (urinary tract infection): 2nd klebsiella IV rocephin x 2 doses, then switched to cipro PO 500mg BID x 5 days to complete her course back pain was unlikely from her UTI (2) Low back pain: Patient's initial complaint on ER arrival was right hip and right lower back pain which began on Tuesday01/13/24 She denied any recent falls, injuries, or trauma to the abdomen or pelvis CT abd/pelvis without acute fracture or nephrolithiasis lumbar spine films showed DJD but no compression fractures last MRI of lumbar spine several years ago showed mild DJD at L3-L5 only suspect she had muscular paraspinal lumbar back pain prednisone for COPD should help with discomfort can use heating pad prn (3) Hypoxia: patient had low-normal O2 sats in room air intermittently while hospitalized along with wheezing on examination she reported cough and dyspnea on exertion recently as well suspect 2nd to obstructive lung disease based on her history as well as CTA findings (air trapping) no PE on CTA no pneumonia no obvious pulmonary edema no ILD findings despite h/o rheumatoid arthritis enlarged pulmonary arteries were seen on CTA chest suggesting pulmonary HTN but echo did not confirm such carries dx of COPD; last pulmonary function test several years ago was normal and w/o obstruction but normal PFTs do not fully rule out asthma/obstructive lung disease she was on symbicort in the past but stopped taking it due to cost previously followed by Dr Anam Alberts but she has not seen him in some time she received steroids while here for her pulmonary symptoms, and will complete a taper of prednisone after discharge cont bronchodilators cont flutter valve cont mucinex 1200mg BID prn recommended a controller agent -- due to cost we investigated several options; Wixela 1 puff BID was recommended, and a good Rx coupon was given to her for the Wixela 2-step O2 test did NOT show need for home O2 recommend f/u with Dr Alberts soon after discharge for COPD/asthma management (4) COPD exacerbation: see above cont steroid taper cont bronchodilators (5) Controlled type 2 diabetes mellitus with neurologic complication, with long- term current use of insulin: Last A1c at 6.8% on 12/14/2023 Held metformin and empagliflozin during the stay; latter should be held at d/c due to UTI She did have uncontrolled BSGs while here due to steroids but her glycemic control did improve over time At discharge she was told to HOLD her metformin due to recent IV contrast for her CTA chest she will return to [facility] to have her BMP checked in 1-2 days; if creatinine is stable the metformin can be resumed empagliflozin was stopped due to UTI and her recent urinary tract issues (6) Urge and stress incontinence: sees [facility] for such 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 and started on premarin cream daily by urology for this (7) Morbid obesity with BMI of 45.0-49.9, adult: BMI 47.7 (8) Benign essential hypertension: patient was on amlodipine 5mg daily for HTN but her BPs were often high during the stay thus, given her type 2 diabetes, an ARB was added -- losartan 25mg daily (9) Edema: lasix 20mg prn was prescribed for such she did receive several doses of lasix while hospitalized although it helped her lower extremity edema it had no impact on her respiratory symptoms thus, I do not think she had decompensated CHF/pulmonary edema further, CTA chest did not show pulmonary edema Total Time Total Time Spent Total Time Spent (In Minutes): 45 Discharge Plan Discharge Items Patient Disposition: Home - Self-Care Reason For Visit: Back pain, urinary tract infection Discharge Diagnosis: 1. urinary tract infection - improving 2. shortness of breath - likely due to underlying asthma/COPD - follow-up with Dr Alberts needed 3. right sided back pain - likely muscle strain and/or mild arthritis of lumbar spine 4. diabetes 5. high blood pressure Activity: As commented below Activity Comment: gradually increase activities over the next 7-10 days as tolerated Non-emergency contact: Primary Care Provider and Inside Sales Consultant Call non-emergency contact if: you have any medication questions and your symptoms worsen Follow-up/Referrals: Anam Alberts MD [Physician] - 04/10/24 9:00 am Ingrid Ordoñez MD [Primary Care Provider] - 01/24/24 8:30 am (With Shonna Recinos Pa-C) Diet: Carb Consistent or DM2 and Heart Healthy Addtl Attending Provider Instructions: Mrs Acuña, Regan were hospitalized due to variety of issues including low back pain, urinary tract infection (UTI), and shortness of breath. The low back pain was likely due to either a muscle strain and/or arthritis of your back. Your UTI was treated with IV/oral antibiotics. CT scan of the abdomen and pelvis did not show any kidney stones. Incidentally you have gallstones in your gall bladder but the gall bladder did not appear sick. Due to ongoing shortness of breath we performed CT scan of your lungs. This did NOT show blood clots, pneumonia, tumor, or fluid build-up. There were some findings that suggested that your asthma/COPD is active. Thus, the asthma/COPD is the likely cause of your recent shortness of breath. Due to prednisone use for the asthma/COPD/breathing your blood sugars were running a bit higher than usual. You should expect your sugars to run high until your prednisone course is complete. Recommendations - 1. for UTI - ciprofloxacin 500mg twice daily x 4 days, first dose tonight; most common side effect - diarrhea 2. for back pain - * [id number] meds as follows -- * tylenol 1000mg every 6 hours as needed, maximum 3000mg in 24 hours * voltaren gel - 4 grams rubbed into the painful spot(s) every 6 hours as desired/needed * salonpas patches - use as directed * heating pad or ice if desired 3. for your breathing / asthma / COPD - * prednisone course - start TOMORROW, 01/19; take with food; again the prednisone will make your blood sugars higher than usual * albuterol via spacer device - 2 puffs every 4 hours as needed for cough/wheeze/shortness of breath; see handout on spacer device * Wixela Diskus - 1 puff twice daily every day; rinse mouth with water after each use; this is your "controller" agent for your lungs * flutter valve - use several times per day especially over the next week or so * I ly checked the cost of numerous inhalers for you. The best we found was using Good Rx coupons at [employer] for the Wixela and albuterol inhalers. You can ly check them at [employer] but if the cost is cheaper at [facility] simply fill those 2 prescriptions at a [facility]. 4. for swelling of legs - * furosemide 20mg as needed only; if you do take it the best time to take is the morning 5. for high blood pressure - * losartan 25mg once daily; start 01/20/24 6. Due to IV contrast used for your CT scan yesterday you will need a repeat blood test on 01/20/24. This can be done at any [facility] lab. If the blood work looks good you can resume your metformin at that time. In the meantime hold the metformin. We will let you know by phone about the blood work. 7. For now please HOLD your Jardiance as it is contraindicated in those who have problems with UTIs. Talk to your family doctor about whether to resume it in the future. 8. Watch your diet and your blood sugars carefully over the next week due to prednisone use. If you are having high sugars consistently over 200 please let your family doctor know. Follow-up - see separate section Return to [facility] if - * you have fevers over 100 degrees * you have worsening shortness of breath or chest pains * you develop severe diarrhea * your back pain worsens * any other concerns It was our pleasure to care for you! -Dr Mcgrath Pending Studies at Discharge: No Stand-Alone Forms: My [facility], Smoking Cessation Medications and DC Order Prescriptions: New losartan 25 mg Tablet 25 mg PO QAM Qty: 30 2RF Rx Instructions: for high blood pressure furosemide 20 mg Tablet 20 mg PO QAM PRN (Reason: swelling of legs/feet) Qty: 15 0RF prednisone 10 mg tablet 10 mg PO DIRECTED Qty: 15 0RF Rx Instructions: start 01/19, take w/ food. 3 tabs PO QD x 3 days; 2 tabs PO QD x 2 days; 1 tab PO QD x 2 days. fluticasone propion-salmeterol [Wixela Inhub] 250-50 mcg/dose blister with device 1 inh inhalation BID Qty: 60 2RF Rx Instructions: rinse mouth with water after each use albuterol sulfate 90 mcg/actuation HFA aerosol inhaler 2 inh inhalation Q4H PRN (Reason: shortness of breath or wheezing or cough ) Qty: 6.7 2RF Rx Instructions: use with plastic spacer device Continued (DME) FreeStyle Jaleel 2 [place] Misc See Rx Instructions .Route Qty: 1 0RF Rx Instructions: As directed (DME) FreeStyle Jaleel 2 Sensor Kit See Rx Instructions .Route Qty: 1 0RF Rx Instructions: change every 14 days (DME) pen needle, diabetic [BD Ultra-Fine Yaima Pen Needle] 32 gauge x 5/32" needle See Rx Instructions .Route Qty: 400 3RF Rx Instructions: Inject insulin four times daily amlodipine 5 mg tablet 5 mg PO DAILY Qty: 90 3RF triamcinolone acetonide 0.1 % ointment 1 applic topical BID Qty: 80 2RF cyanocobalamin (vitamin B-12) 1,000 mcg tablet 1,000 mcg PO QAM Novolin N FlexPen 100 unit/mL (3 mL) insulin pen 20 unit subcut HS clobetasol 0.05 % cream 1 applic topical BID 14 Days Qty: 15 0RF atorvastatin 20 mg tablet 20 mg PO HS Qty: 90 3RF (DME) OneTouch Ultra Test Strip See Rx Instructions .Route Qty: 100 3RF Rx Instructions: Use to monitor blood sugars once daily (DME) miscellaneous medical supply Misc See Rx Instructions .Route Qty: 1 0RF Rx Instructions: Compression Stockings, knee high, 15-0 mm/hg meclizine 25 mg tablet 25 mg PO BID PRN (Reason: dizziness) Qty: 60 1RF Premarin 0.625 mg/gram cream 0.3125 mg vaginal DAILY Qty: 30 11RF Rx Instructions: 2-4 x per week. multivitamin Tablet 1 tab PO QAM vitamin E 1,000 unit Capsule 1,000 unit PO HS cholecalciferol (vitamin D3) 1,000 unit Tablet 1,000 unit PO HS aspirin 81 mg Tablet,Delayed Release (Dr/Ec) 81 mg PO DAILY insulin aspart U-100 [Novolog FlexPen U-100 Insulin] 100 unit/mL (3 mL) insulin pen 12 - 14 unit subcut BID Rx Instructions: Inject 12 to 14 units before you eat breakfast and lunch Held hydroxyzine HCl 25 mg tablet 50 mg PO QPM Qty: 60 5RF Hold Instructions: please hold until your cipro antibiotic course is complete metformin 1,000 mg tablet 1,000 mg PO BID 90 Days Qty: 180 3RF Hold Instructions: you will need a repeat blood test on Tuesday, 01/19. if blood work is normal you can resume your metformin at that time. Jardiance 10 mg tablet 10 mg PO DAILY Hold Instructions: please talk to your family doctor about risks vs benefits of resuming this medicine; hold in the meantime. Discharge Orders: Discharge Order (Routine); Ordered 01/19/24 Ordered By: Tavon Pierre/Other Patient Handouts: Using an Inhaler with a Spacer Admission Data Admit Date/Time: 01/18/24 20:26 Attending Provider: Tavon Mcgrath Admit Provider: Tavon Joseph Primary Care Provider: Ingrid Ordoñez V. Other Providers: Tavon Joseph Other Interventions: Discharge Summary Assessment (RN) Last Done: 01/19/24 14:17 Coding Level of Care Code 46242 INP/OBS DISCH >30 MIN Diagnoses UTI (urinary tract infection) N39.0 Low back pain M54.5 Hypoxia R09.02 COPD exacerbation J44.1 Controlled type 2 diabetes mellitus with neurologic complication, with long-term current use of insulin E11.49; Z79.4 Urge and stress incontinence N39.46 Morbid obesity with BMI of 45.0-49.9, adult E66.01; Z68.42 Benign essential hypertension I10 Edema R60.9
== END 2024-01-19 15:37 | disposition home or self-care (01) | DRG 191 ==
LOC: 2N 10:39 → ED 10:39 → SUATTDRO 15:40 → 2N 17:18

== ENCOUNTER 2025-06-14 09:41 | Observation (INO) ==
--- NOTE | 2025-06-14 09:57 | Emergency Department Note ---
Impression & Plan Hypoxia, Fall, Ambulatory dysfunction ED Provider Note NAME: LAZARO HYMAN AGE: 75 SEX: F : 1950 ARRIVES VIA: Ambulance INFORMANT: Patient ED PROVIDER(S): Marc Jennings DO CHIEF COMPLAINT: Fall HPI: Patient is a 75-year-old female with a past medical history of morbid obesity, anxiety, asthma, COPD, diabetes who did not sleep well last night. She got up and was walking and lost her balance and fell. She did hit her head. No head or neck pain. She admits to faint pain in her left rib when she moved at home but does not notice it now. No belly pain. She admits to pain in her hips which is mild but does have pain in her right wrist only with movement of the wrist. She also admits to pain in the left knee and left ankle. She has been unable to walk since then. She lives at home with her . No chest pain or shortness of breath preceding or following this incident. She is not dizzy or lightheaded. ADDITIONAL HISTORY OBTAINED: Per HPI Chronic Medical/Social Conditions Affecting Care: Per HPI PAST MEDICAL HISTORY:See Below PAST SURGICAL HISTORY:See Below FAMILY HISTORY:See Below SOCIAL HISTORY:See Below HOME MEDICATIONS:See Below ALLERGIES:See Below VITALS:See Below PHYSICAL EXAMINATION: GENERAL: alert, well appearing, well nourished, no distress, non-toxic HEAD: normal cephalic, small abrasion to the left forehead EYE EXAM: normal conjunctiva, PERRL and EOM's grossly intact OROPHARYNX: no exudate, no erythema, lips, buccal mucosa, and tongue normal and mucous membranes are moist EARS: TMs clear b/l NECK: supple, no nuchal rigidity, no adenopathy, non-tender CHEST: stable to compression anteriorly and posteriorly no tenderness on palpation of the entire chest LUNGS: clear to auscultation. Normal chest wall mechanics HEART: no murmurs, S1 normal and S2 normal ABDOMEN: abdomen soft, non-tender, normo-active bowel sounds, no masses, no rebound or guarding. PELVIS: stable to compression anteriorly and posteriorly BACK: Back is symmetrical on inspection and there is no deformity, no midline tenderness, no CVA tenderness. UPPER EXTREMITIES: full active and passive range of motion of all joints without tenderness to palpation with the exception of the right wrist which she only has some slight tenderness over the lateral aspect with movement. No bruising or swelling. Skin is intact. Radial pulse 2 out of 4. LOWER EXTREMITIES: No tenderness on palpation of the entire right lower extremity. Tenderness on palpation of the left knee but otherwise no tenderness throughout the left femur. No tenderness at the left tib-fib proximally or throughout the mid garcia. Tenderness over the medial lateral malleolus. Redness over the dorsal aspect of the garcia which patient notes has been present for years. NEURO EXAM: Normal sensorium, cranial nerves II-XII grossly intact, normal speech, no gross weakness of arms, no gross weakness of legs. GCS: 15. MEDICAL DECISION MAKING: Patient is a 75-year-old female who presents ER following a fall. She denies any complaints prior to the fall. Following this she complains of left ankle pain, knee pain, right wrist pain. She did hit her head. She was also found to be hypoxic and was placed on 3 L nasal cannula. IV was established and blood work is obtained. Labs show no significant leukocytosis or anemia. INR unremarkable. BMP is fairly unremarkable. Lactate was slightly elevated at 2.3. LFTs bilirubin was unremarkable. Troponin negative. Lipase and Pro-Evens normal. CT of the head cervical spine chest abdomen pelvis showed no acute pathology. X-rays of the wrist, knee and foot and ankle showed no acute fractures. Patient was updated bedside. She remained on 2 L nasal cannula throughout her stay in ER. Consults/Care Managements Discussions: Per [facility] Triage Nursing notes reviewed. Limited review of prior medical records performed Vital Signs: reviewed and remarkable for HTN Differential diagnosis: Differential diagnoses include major intracranial, cervical, spinal, thoracic, abdominal, pelvic and neurologic injury. Fracture, contusion, sprain, strain, laceration, abrasions included as well. ER treatment provided: See below Diagnostics interpreted by me include EKG and cardiac monitoring as listed below: -Cardiac Monitoring: An order was placed for continuous cardiac monitoring. The monitor shows a rate of 80 with sinus rhythm. -ECG: none -Laboratory studies:Interpreted by me as stated above in MDM and shown below. Imaging studies: Xrays: As interpreted by me: X-ray left ankle and foot showed no acute fracture or dislocation X-ray of the left knee shows no acute fracture or dislocation X-ray of the right wrist shows no acute fracture CTs show: CT trauma scan as described above Procedures:none Critical Care: I have personally spent 33 minutes of critical care time in the direct management of this patient. This includes bedside care, interpretation of diagnostic studies, and testing, discussion with consultants, patient, and family members, and other required patient management activities. This 33 minutes is in excess of all separately billable procedures. Past Med/Surg History Problem List (Updated 06/14/25 @ 16:32 by Marc Jennings DO) Ambulatory dysfunction (Acute) Fall (Acute) Hypoxia (Acute) Ambulatory dysfunction Hypertensive urgency Acute hypoxic respiratory failure Abnormal mammogram of both breasts Abnormality of right breast on screening mammogram Dermatophytosis, groin Renal cyst (Chronic) Urethral caruncle (Chronic) Health care maintenance (Chronic) Morbid obesity with BMI of 45.0-49.9, adult Chronic idiopathic urticaria Anxiety Incontinence (Chronic) Callus of toe (Acute) Chronic venous insufficiency Vertebral basilar insufficiency (Acute) Hyperlipidemia (Chronic) Benign essential hypertension (Chronic) COPD (chronic obstructive pulmonary disease) Asthma Controlled type 2 diabetes mellitus with neurologic complication, with long-term current use of insulin (Chronic) Diabetic nephropathy associated with type 2 diabetes mellitus (Chronic) Diabetic peripheral neuropathy associated with type 2 diabetes mellitus (Acute) Generalized osteoarthritis of multiple sites Generalized weakness (Acute) Low back pain Osteoarthritis of hands, bilateral Urethral stricture Urge and stress incontinence Xerostomia Nephrolithiasis (Chronic) Dizziness Echocardiogram abnormal Unable to specify wall motion abnormality due to limited visualization August 10, 2019 Allergy Loss of protective sensation of skin of foot Vitamin D deficiency Bilateral lower extremity edema Medical History Vaginal itching Back pain Acute exacerbation of chronic obstructive pulmonary disease Hypoxia Abnormal laboratory test COPD exacerbation Left shoulder pain Benign paroxysmal positional vertigo Edema Left shoulder tendinitis Venous (peripheral) insufficiency Toxic effect of cyanoacrylate Pain of left breast Left elbow pain Diabetic foot ulcer Hyperpigmentation of skin Pre-syncope Vulvar itching CKD stage 3 secondary to diabetes Hypoxia Difficult airway for intubation -Left peritonsillar abscess I&D 12/07/2012: Glidescope intubation, ETT 7.0 -Right hammertoe surgery/PIP arthroplasty 05/31/2012: LMA "an easy"unable to adequately ventilateintubatedDVL grade 1 ETT "in easy." Morbid (severe) obesity due to excess calories Chronic obstructive pulmonary disease Essential (primary) hypertension History of Helicobacter pylori infection History of diabetic ulcer of foot Rheumatoid arthritis Edema Hallux valgus (acquired), left foot Several foot deformities (claw toe, hammertoe); surgical intervention performed, subsequent non-healing wound. Lower GI bleed (07/31/14) Acute post-hemorrhagic anemia (07/31/14) Surgical History History of colonoscopy X MULTIPLE History of carpal tunnel release R/L S/P ureteral stent placement Status post repair of nerve S/P oophorectomy S/P knee surgery S/P foot surgery S/P section Family History (Updated 06/14/25 @ 14:50 by Cory Navarrete MD, PhD) Mother , at 92 years of age from natural causes. Colorectal cancer Myocardial infarction Sister Diabetes Hypertension Father , at 86 years of age from natural causes. Diabetes Grandfather Diabetes Myocardial infarction Other Family history non-contributory Denies family history of Ovarian cancer Prostate cancer Breast cancer Lung cancer Stroke Social History (Updated 06/14/25 @ 14:52 by Cory Navarrete MD, PhD) Smoking Status: Former smoker Tobacco Type: Cigarettes Age Started Using Tobacco: 15; Age Quit Using Tobacco: 39; packs per day: 0.25; Second Hand Exposure: Yes; Do You Dip or Chew Tobacco: No; Hx Alcohol Use: No Hx Substance Use: No Preferred Language: Irish Communication Ability: Effective Visual Impairment: No Limitations Hearing Ability: Normal Lockstitch Cup Setter Required: No Beliefs That Will Affect Care: None marital status: Current Living Situation: Alone current occupational status: retired 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 How many Children do You have: 2 How many Children do You have Comment: 2 sons (aged 54 years, 55 years) both alive and well. Feels Safe at Home: Yes Childhood Exposure to Second-Hand Smoke: Yes Dental Care, Regularly: No Physical Activity Frequency: Does not Exercise Seatbelt Use: always Sunscreen Use: Yes Assistive Devices: Cane, Scooter/Electric Scooter, Walker and Wheelchair Allergies Allergies Allergy/AdvReac Type Severity Reaction Status Date / Time grass pollen-perennial rye, Allergy Severe DIFFICULTY Verified 12/28/24 13:57 standar BREATHING mold Allergy Severe DIFFICULTY Verified 12/28/24 13:57 BREATHING tetanus toxoid, adsorbed Allergy Intermediate SWELLING Verified 12/28/24 13:57 etodolac Allergy Unknown UNKNOWN Verified 12/28/24 13:57 house dust Allergy Unknown Unknown Verified 12/28/24 13:57 pollen extracts Allergy Unknown DIFFICULTY Verified 12/28/24 13:57 BREATHING clobetasol Allergy rash Verified 12/28/24 13:57 gabapentin AdvReac Intermediate Muscle Pain Verified 12/28/24 13:57 pregabalin [From Lyrica] AdvReac Intermediate eyes- Verified 12/28/24 13:57 blurred vision simvastatin AdvReac Intermediate "FEELS Verified 12/28/24 13:57 FUNNY" Home Meds Home Medications Medication Instructions Recorded Confirmed multivitamin 1 tab PO QAM 06/18/18 06/14/25 cholecalciferol (vitamin D3) 25 1,000 unit PO HS 10/01/18 06/14/25 mcg (1,000 unit) tablet vitamin E 670 mg (1,000 unit) 1,000 unit PO HS 08/21/19 06/14/25 capsule cyanocobalamin (vitamin B-12) 1,000 mcg PO QAM 03/13/21 06/14/25 1,000 mcg tablet aspirin 81 mg tablet,delayed 81 mg PO DAILY 02/13/23 06/14/25 release loteprednol etabonate 0.5 % eye 1 drp ophthalmic (eye) QID 06/14/25 06/14/25 drops,suspension Previous Rx's Medication Instructions Recorded flash glucose scanning reader #1 ea 09/10/22 (FreeStyle Jaleel 2 [place]) FreeStyle Jaleel 2 Sensor (flash #1 ea 12/15/22 glucose sensor) miscellaneous medical supply #1 ea 07/18/23 furosemide 20 mg tablet 20 mg PO QAM PRN swelling of 01/19/24 legs/feet #15 tabs triamcinolone acetonide 0.1 % 1 applic topical BID #80 grams 06/21/24 topical ointment atorvastatin 20 mg tablet 20 mg PO HS #90 tabs 07/16/24 clobetasol 0.05 % topical cream 1 applic topical BID 2 weeks #15 07/19/24 grams pen needle, diabetic 32 gauge x #400 ea 10/15/24" (BD Ultra-Fine Yaima Pen Needle) Novolog FlexPen U-100 Insulin 100 12 - 14 unit (0.12 - 0.14 mL) 11/16/24 unit/mL (3 mL) subcutaneous subcut BID #15 mL (insulin aspart U-100) amlodipine 5 mg tablet 5 mg PO DAILY #90 tabs 12/16/24 meclizine 25 mg tablet 25 mg PO BID PRN dizziness #60 tabs 12/28/24 nystatin 100,000 unit/gram topical 1 applic topical TID #60 grams 12/28/24 powder nystatin 100,000 unit/gram topical 1 applic topical DAILY #30 grams 02/13/25 ointment hydrochlorothiazide 12.5 mg tablet 12.5 mg PO DAILY #90 tabs 02/19/25 metformin 1,000 mg tablet 1,000 mg PO BID 90 days #180 tabs 03/19/25 losartan 25 mg tablet 25 mg PO QAM #90 tabs 04/12/25 gabapentin 100 mg capsule 100 mg PO HS #90 caps 05/07/25 tirzepatide 10 mg/0.5 mL 10 mg (0.5 mL) subcut Q7D #2 mL 05/27/25 subcutaneous pen injector ([place]) blood sugar diagnostic (OneTouch #300 ea 06/10/25 Ultra Test strips) blood-glucose meter (OneTouch #1 ea 06/10/25 Ultra2 Meter) sulfamethoxazole 800 1 tab PO BID 7 days #14 tabs 06/10/25 mg-trimethoprim 160 mg tablet (Bactrim DS) Results & Data (ED) Vital Signs Vital Signs - 24 hr 06/14/25 09:48 06/14/25 10:00 06/14/25 10:00 Temperature 36.7 C Temperature Source Oral Pulse Rate 83 80 Pulse Rate [Right Finger] Pulse Rate from SpO2 Sensor Respiratory Rate 20 Respiratory Effort / Characteristics Non-Labored Spontaneous Respiratory Depth Normal Respiratory Pattern Regular Blood Pressure 146/106 H 129/81 Blood Pressure [Right Arm] Blood Pressure Mean 119 102 Blood Pressure Mean [Right Arm] Pulse Oximetry 96 Oxygen Delivery Method Room Air Oxygen Flow Rate Sepsis Recent Fever Within 48 Hours No Sepsis New/Unexplained Change in Mental Status N/A Sepsis Action Taken by Nursing No Action Required Oxygen Flow Rate - Titration Pulse Oximetry Post Tiitration 06/14/25 10:12 06/14/25 11:00 06/14/25 11:00 Temperature Temperature Source Pulse Rate 82 Pulse Rate [Right Finger] Pulse Rate from SpO2 Sensor 82 Respiratory Rate 25 H Respiratory Effort / Characteristics Respiratory Depth Respiratory Pattern Blood Pressure 176/103 H 176/103 H Blood Pressure [Right Arm] Blood Pressure Mean 127 127 Blood Pressure Mean [Right Arm] Pulse Oximetry 90 Oxygen Delivery Method Oxygen Flow Rate Sepsis Recent Fever Within 48 Hours Sepsis New/Unexplained Change in Mental Status Sepsis Action Taken by Nursing Oxygen Flow Rate - Titration Pulse Oximetry Post Tiitration 06/14/25 11:00 06/14/25 11:09 06/14/25 11:10 Temperature Temperature Source Pulse Rate 79 Pulse Rate [Right Finger] Pulse Rate from SpO2 Sensor 78 Respiratory Rate 13 Respiratory Effort / Characteristics Respiratory Depth Respiratory Pattern Blood Pressure 176/103 H Blood Pressure [Right Arm] Blood Pressure Mean 127 Blood Pressure Mean [Right Arm] Pulse Oximetry 94 87 L Oxygen Delivery Method Room Air Oxygen Flow Rate Sepsis Recent Fever Within 48 Hours Sepsis New/Unexplained Change in Mental Status Sepsis Action Taken by Nursing Oxygen Flow Rate - Titration 3 Pulse Oximetry Post Tiitration 98 06/14/25 11:13 06/14/25 11:13 06/14/25 11:15 Temperature Temperature Source Pulse Rate 80 96 H Pulse Rate [Right Finger] 80 Pulse Rate from SpO2 Sensor 94 H Respiratory Rate 18 18 24 Respiratory Effort / Characteristics Respiratory Depth Respiratory Pattern Blood Pressure Blood Pressure [Right Arm] 176/103 H Blood Pressure Mean Blood Pressure Mean [Right Arm] 127 Pulse Oximetry 97 97 96 Oxygen Delivery Method Nasal Cannula Nasal Cannula Oxygen Flow Rate 3 3 Sepsis Recent Fever Within 48 Hours Sepsis New/Unexplained Change in Mental Status Sepsis Action Taken by Nursing Oxygen Flow Rate - Titration Pulse Oximetry Post Tiitration 06/14/25 11:21 06/14/25 11:24 06/14/25 11:30 Temperature Temperature Source Pulse Rate 93 H 83 Pulse Rate [Right Finger] Pulse Rate from SpO2 Sensor 86 85 Respiratory Rate 25 H 24 Respiratory Effort / Characteristics Respiratory Depth Respiratory Pattern Blood Pressure 201/121 H Blood Pressure [Right Arm] Blood Pressure Mean 130 Blood Pressure Mean [Right Arm] Pulse Oximetry 97 97 Oxygen Delivery Method Oxygen Flow Rate Sepsis Recent Fever Within 48 Hours Sepsis New/Unexplained Change in Mental Status Sepsis Action Taken by Nursing Oxygen Flow Rate - Titration Pulse Oximetry Post Tiitration 06/14/25 11:30 06/14/25 11:30 06/14/25 11:33 Temperature Temperature Source Pulse Rate 84 Pulse Rate [Right Finger] Pulse Rate from SpO2 Sensor Respiratory Rate 19 Respiratory Effort / Characteristics Respiratory Depth Respiratory Pattern Blood Pressure 201/121 H 201/121 H Blood Pressure [Right Arm] Blood Pressure Mean 130 130 Blood Pressure Mean [Right Arm] Pulse Oximetry Oxygen Delivery Method Oxygen Flow Rate Sepsis Recent Fever Within 48 Hours Sepsis New/Unexplained Change in Mental Status Sepsis Action Taken by Nursing Oxygen Flow Rate - Titration Pulse Oximetry Post Tiitration 06/14/25 11:54 06/14/25 12:00 06/14/25 12:03 Temperature Temperature Source Pulse Rate 84 92 H Pulse Rate [Right Finger] Pulse Rate from SpO2 Sensor 85 94 H Respiratory Rate 18 21 Respiratory Effort / Characteristics Respiratory Depth Respiratory Pattern Blood Pressure 144/80 H Blood Pressure [Right Arm] Blood Pressure Mean 106 Blood Pressure Mean [Right Arm] Pulse Oximetry 99 95 Oxygen Delivery Method Oxygen Flow Rate Sepsis Recent Fever Within 48 Hours Sepsis New/Unexplained Change in Mental Status Sepsis Action Taken by Nursing Oxygen Flow Rate - Titration Pulse Oximetry Post Tiitration 06/14/25 12:27 06/14/25 12:30 06/14/25 12:36 Temperature Temperature Source Pulse Rate 77 78 Pulse Rate [Right Finger] Pulse Rate from SpO2 Sensor 80 Respiratory Rate 19 20 Respiratory Effort / Characteristics Respiratory Depth Respiratory Pattern Blood Pressure 161/77 H Blood Pressure [Right Arm] Blood Pressure Mean 106 Blood Pressure Mean [Right Arm] Pulse Oximetry 97 Oxygen Delivery Method Oxygen Flow Rate Sepsis Recent Fever Within 48 Hours Sepsis New/Unexplained Change in Mental Status Sepsis Action Taken by Nursing Oxygen Flow Rate - Titration Pulse Oximetry Post Tiitration 06/14/25 12:42 06/14/25 12:48 06/14/25 13:00 Temperature Temperature Source Pulse Rate 81 79 Pulse Rate [Right Finger] Pulse Rate from SpO2 Sensor Respiratory Rate 21 19 Respiratory Effort / Characteristics Respiratory Depth Respiratory Pattern Blood Pressure 147/93 H Blood Pressure [Right Arm] Blood Pressure Mean 108 Blood Pressure Mean [Right Arm] Pulse Oximetry Oxygen Delivery Method Oxygen Flow Rate Sepsis Recent Fever Within 48 Hours Sepsis New/Unexplained Change in Mental Status Sepsis Action Taken by Nursing Oxygen Flow Rate - Titration Pulse Oximetry Post Tiitration 06/14/25 13:00 06/14/25 13:00 06/14/25 13:09 Temperature Temperature Source Pulse Rate 86 Pulse Rate [Right Finger] Pulse Rate from SpO2 Sensor 80 Respiratory Rate 21 Respiratory Effort / Characteristics Respiratory Depth Respiratory Pattern Blood Pressure 147/93 H 147/93 H Blood Pressure [Right Arm] Blood Pressure Mean 108 108 Blood Pressure Mean [Right Arm] Pulse Oximetry 98 Oxygen Delivery Method Oxygen Flow Rate Sepsis Recent Fever Within 48 Hours Sepsis New/Unexplained Change in Mental Status Sepsis Action Taken by Nursing Oxygen Flow Rate - Titration Pulse Oximetry Post Tiitration 06/14/25 13:15 06/14/25 13:21 06/14/25 13:30 Temperature Temperature Source Pulse Rate 80 84 96 H Pulse Rate [Right Finger] Pulse Rate from SpO2 Sensor 80 83 94 H Respiratory Rate 23 15 18 Respiratory Effort / Characteristics Respiratory Depth Respiratory Pattern Blood Pressure Blood Pressure [Right Arm] Blood Pressure Mean Blood Pressure Mean [Right Arm] Pulse Oximetry 97 93 98 Oxygen Delivery Method Oxygen Flow Rate Sepsis Recent Fever Within 48 Hours Sepsis New/Unexplained Change in Mental Status Sepsis Action Taken by Nursing Oxygen Flow Rate - Titration Pulse Oximetry Post Tiitration 06/14/25 13:30 Temperature Temperature Source Pulse Rate Pulse Rate [Right Finger] Pulse Rate from SpO2 Sensor Respiratory Rate Respiratory Effort / Characteristics Respiratory Depth Respiratory Pattern Blood Pressure 171/108 H Blood Pressure [Right Arm] Blood Pressure Mean 120 Blood Pressure Mean [Right Arm] Pulse Oximetry Oxygen Delivery Method Oxygen Flow Rate Sepsis Recent Fever Within 48 Hours Sepsis New/Unexplained Change in Mental Status Sepsis Action Taken by Nursing Oxygen Flow Rate - Titration Pulse Oximetry Post Tiitration Laboratory Data 06/14/25 09:57 06/14/25 09:57 Lab Results 06/14/25 06/14/25 Range/Units 09:57 14:25 WBC 10.97 H (4.8-10.8) K/ul RBC 4.42 (4.20-5.40) M/uL Hgb 12.6 (12.0-16.0) g/dl Hct 38.0 (37.0-47.0) % MCV 86.0 (80.0-100.0) fL MCH 28.5 (25.0-34.0) pg MCHC 33.2 (32.0-36.0) g/dL RDW Std Deviation 43.4 (36.4-46.3) fL RDW Coeff of Ilana 14.0 (11.5-14.5) % Plt Count 243 (130-400) K/uL MPV 9.9 (9.4-12.4) fL Immature Gran % (Auto) 0.3 % Neut % (Auto) 73.4 % Lymph % (Auto) 13.9 % [place] % (Auto) 11.5 % Eos % (Auto) 0.5 % Baso % (Auto) 0.4 % Neut # (Auto) 8.06 H (1.40-6.50) K/uL Lymph # (Auto) 1.52 (1.20-3.40) K/uL [place] # (Auto) 1.26 H (0.11-0.59) K/uL Eos # (Auto) 0.06 (0.00-0.50) K/uL Baso # (Auto) 0.04 (0.00-0.20) K/uL Immature Gran # (Auto) 0.03 (0.01-0.20) K/uL PT 10.9 (9.0-12.0) Seconds INR 1.0 (0.9-1.1) Sodium 137 (136-145) mmol/L Potassium 4.7 (3.5-5.1) mmol/L Chloride 101 (98-107) mmol/L Carbon Dioxide 29 (21-32) mmol/L Anion Gap 7 (3-11) BUN 20 (6-23) mg/dl Creatinine 1.00 (0.6-1.2) mg/dl Est Cr Clr Drug Dosing 56.4 ml/min eGFR 58.39 BUN/Creatinine Ratio 20.0 (10-20) Glucose 148 H (70-99(Fasting)) mg/dl Lactate 2.3 H* (0.4-2.0) mmol/L Calcium 9.4 (8.6-10.3) mg/dl Phosphorus 3.2 (2.5-4.9) mg/dl Magnesium 1.6 L (1.7-2.4) mg/dl Total Bilirubin 0.5 (0.2-1.0) mg/dl AST 11 L (13-39) U/L ALT 11 (7-52) U/L Alkaline Phosphatase 60 (34-104) U/L Total Creatine Kinase 32 (26-192) U/L Troponin I High Sens 3.0 (0-14) pg/ml Total Protein 7.1 (6.0-8.3) gm/dl Albumin 3.7 (3.4-5.0) gm/dl Globulin 3.4 (2.5-4.0) gm/dl Albumin/Globulin Ratio 1.1 (0.9-2) Lipase 14 (11-82) U/L Procalcitonin 0.05 (0-0.5) ng/ml TSH 0.880 (0.300-4.500) uIu/ml Administered Medications Acetaminophen (Acetaminophen 325 Mg Tab) 650 mg PO Q6H PRN PRN Reason: pain 1-10;SAGASTUME/T>100.4 degrees F Stop: 07/14/25 12:34 Last Admin: 06/14/25 15:33 Dose: 650 mg Documented By: imani Amlodipine Besylate (Amlodipine Besylate 5 Mg Tab) 5 mg PO QAM PENDING SALE TO [facility] Stop: 07/14/25 14:44 Last Admin: 06/14/25 15:33 Dose: 5 mg Documented By: imani Trimethoprim/Sulfamethoxazole (Sulfamethoxazole/Trimethoprim Ds 800/160mg Tab) 1 tab PO Q12 PENDING SALE TO [facility] Stop: 06/15/25 21:01 Last Admin: 06/14/25 15:33 Dose: 1 tab Documented By: imani Discontinued Medications Ioversol (Optiray 320 100ml) 93 ml IV ONCE ONE Stop: 06/14/25 11:47 Last Admin: 06/14/25 11:47 Dose: 93 ml Documented By: EDK Imaging Data Radiologist's Impression: Ankle X-Ray 06/14/25 09:52 XR ankle LT min 3V routine CLINICAL HISTORY: l ankle pain COMPARISON: None. FINDINGS: There are chronic calcifications adjacent to the malleolus consistent with a sequela of old injury. No acute fracture or dislocation seen. There are mild degenerative changes. There are moderate calcaneal spurs. There is a tiny exostosis at the dorsal neck of the talus. IMPRESSION: No acute fracture seen. ACT 112: Negative or not required by law. Electronically signed by: Timothy Goins M.D. 06/14/2025 12:[address] 06/14/25 09:52 CT cervical spine wo con CT DOSE: 1180.07 mGy.cm CLINICAL HISTORY: fall. COMPARISON: None TECHNIQUE: Multiple axial CT images of the cervical spine were obtained without contrast. A dose lowering technique was utilized adhering to the principles of ALARA. FINDINGS: There is diffuse degenerative disc disease, severe at the mid and lower cervical spine. There are a few Schmorl's nodes at the lower cervical spine, largest at C4-5 causing mild chronic-appearing height loss at the superior endplate of the C5 vertebral body. No acute fracture or subluxation seen. IMPRESSION: No acute cervical spine fracture seen. ACT 112: Negative or not required by law. The above report was generated using voice recognition software. It may contain grammatical, syntax or spelling errors. Electronically signed by: Timothy Goins M.D. 06/14/2025 10:59 AM Foot X-Ray 06/14/25 09:52 XR foot LT min 3V routine CLINICAL HISTORY: l foot COMPARISON: None FINDINGS: No acute fracture or dislocation seen at the left. There are mild scattered degenerative changes without erosions. IMPRESSION: No fracture seen. ACT 112: Negative or not required by law. Electronically signed by: Timothy Goins M.D. 06/14/2025 12:[address] 06/14/25 09:52 CT SCAN OF THE BRAIN WITHOUT IV CONTRAST CLINICAL HISTORY: Fall. COMPARISON STUDY: Head CT February 13, 2023. MRI of the brain October 05, 2018. TECHNIQUE: Unenhanced axial CT scan of the brain was performed from the vertex to the skull base. A dose lowering technique was utilized adhering to the principles of ALARA. FINDINGS: Brain parenchyma: No acute intracranial hemorrhage, midline shift or mass effect is present. Phan-white matter differentiation is preserved. There are no extra- axial fluid collections. There are no findings to suggest acute dural sinus thrombosis or acute territorial infarct. White matter hypodensities favor small vessel disease. Ventricles, sulci, cisterns: There is no hydrocephalus. The basal cisterns are patent. Calvarium: There are no calvarial fractures. Sinuses and mastoids: The visualized paranasal sinuses are clear. The mastoid air cells are well pneumatized. Orbits: The bony orbits are grossly intact. IMPRESSION: 1. No acute intracranial findings. 2. No calvarial fractures. ACT 112: Negative or not required by law. Electronically signed by: Mj Membreno M.D. 06/14/2025 10:54 AM Knee X-Ray 06/14/25 09:52 XR knee LT 1 or 2V routine CLINICAL HISTORY: l knee COMPARISON: None FINDINGS: No fracture or dislocation seen. There is moderate osteoarthritis. IMPRESSION: No fracture seen. ACT 112: Negative or not required by law. Electronically signed by: Timothy Goins M.D. 06/14/2025 12:58 PM Pelvis X-Ray 06/14/25 09:52 XR pelvis 1-2V routine CLINICAL HISTORY: fall COMPARISON: 02/23/2014 FINDINGS: Exam is limited by habitus and skin fold artifact. No fracture or dislocation seen. Hip joint spaces are maintained. IMPRESSION: No fracture seen. ACT 112: Negative or not required by law. Electronically signed by: Timothy Goins M.D. 06/14/2025 12:54 PM Wrist X-Ray 06/14/25 09:52 XR wrist RT min 3V routine CLINICAL HISTORY: r wrist pain COMPARISON: None FINDINGS: No fracture or dislocation seen. There are minimal degenerative changes. IMPRESSION: No fracture seen. ACT 112: Negative or not required by law. Electronically signed by: Timothy Goins M.D. 06/14/2025 12:59 PM Abdomen/Pelvis CT 06/14/25 11:18 CT SCAN OF THE ABDOMEN AND PELVIS WITH IV CONTRAST CLINICAL HISTORY: Fall. COMPARISON STUDY: Abdominal CT dated 01/16/2024. TECHNIQUE: Following the IV administration of 93 cc of Optiray 320, CT scan of the abdomen and pelvis is performed from the lung bases to the proximal femora. Images are reviewed in the axial, sagittal, and coronal planes. IV contrast was administered without complication. A dose lowering technique was utilized adhering to the principles of ALARA. There is streak artifact from body wall abutting the CT gantry. CT DOSE: 2235.53 mGy.cm FINDINGS: Lung bases: The heart is top normal in size and without pericardial effusion. The coronary arteries are densely calcified. The lung bases are clear noting mild bibasilar scarring/atelectasis. There is a small hiatal hernia. Liver: The contrast-enhanced liver is enlarged, measuring 24.5 cm in length. The liver is otherwise normal in contour and attenuation. There is no intrahepatic biliary ductal dilatation. The hepatic veins and portal veins are patent. Gallbladder: Gallstones are suspected. There is no CT evidence of acute cholecystitis. Spleen: Normal in size and attenuation. Pancreas: Atrophic and grossly unremarkable. Adrenal glands: Unremarkable. Kidneys: The contrast enhanced kidneys demonstrate mild cortical atrophy and are without hydronephrosis. There is mild fullness of the renal pelvis bilaterally, likely secondary to bladder distention. No ureteral stone is seen. The kidneys enhance symmetrically. Abdominal vasculature: The abdominal aorta is normal in course and caliber noting moderate to advanced atherosclerotic calcification. Bowel: There is rectosigmoid fecal retention and mild to moderate constipation. No bowel obstruction is seen. There is moderate colonic diverticulosis without CT evidence of acute diverticulitis. The appendix is well-visualized and normal. Peritoneum: There is no intraperitoneal free air or abdominal ascites. Lymphadenopathy: There are mildly enlarged external iliac chain and pelvic sidewall lymph nodes seen bilaterally. A right pelvic sidewall node on image #279 measures 3.3 x 1.3 cm. A left external iliac node on image #258 measures 2.2 x 1.7 cm. Prominent retroperitoneal nodes measure up to 1.0 cm in short axis. No inguinal lymphadenopathy is identified. Pelvic viscera: The bladder is distended but otherwise normal as imaged. There are calcified uterine fibroids. No adnexal lesion is seen. Fluid is seen at the vaginal introitus. Skeletal structures: The skeletal structures are heterogeneously osteopenic. The lumbosacral spine, bony pelvis, and proximal femora appear intact. There is mild to moderate lumbosacral spondylosis. Degenerative sclerosis is noted in the sacroiliac joints. No lytic or blastic lesions are seen. IMPRESSION: 1. There is no evidence of solid organ injury in the abdomen or pelvis. 2. Colonic diverticulosis without CT evidence of acute diverticulitis. 3. Hepatomegaly. 4. Suspect cholelithiasis. 5. Mildly enlarged external iliac chain and pelvic sidewall lymph nodes are nonspecific and may be reactive. Correlate clinically. This can be followed if clinically warranted. 6. Additional findings as above. ACT 112: Negative or not required by law. Electronically signed by: Ranjeet Lopez M.D. 06/14/2025 12:[address] 06/14/25 11:18 CT SCAN OF THE CHEST WITH IV CONTRAST CLINICAL HISTORY: Fall. COMPARISON STUDY: Chest CT January 18, 2024. TECHNIQUE: Following the IV administration of 93 cc of Optiray 320, CT scan of the thorax was performed from the thoracic inlet to the upper abdomen. Images are reviewed in the axial, sagittal, and coronal planes. IV contrast was administered without complication. A dose lowering technique was utilized adhering to the principles of ALARA. FINDINGS: There is no evidence for traumatic injury to the thoracic aorta. Moderate cardiomegaly and coronary artery calcification are again noted. Dilatation of the central pulmonary arteries is similar to prior CT. There is no mediastinal hematoma. There is no thoracic lymphadenopathy. No pneumothorax or pleural effusion is present. Groundglass opacities with mosaic attenuation are similar to prior CT. A 4 mm groundglass right middle lobe nodule image 104 remains unchanged. This is likely benign. No new pulmonary nodules are present. No acute rib or thoracic spine fractures are identified. IMPRESSION: 1. No acute traumatic findings within the chest. 2. Moderate cardiomegaly and extensive coronary artery calcification. 3. Dilatation of the central pulmonary arteries which raises the possibility of pulmonary artery hypertension. ACT 112: Negative or not required by law. Electronically signed by: Mj Membreno M.D. 06/14/2025 12:13 PM Discharge Plan Visit Data Chief Complaint: Fall Stated Complaint: FALL, ANKLE PAIN, SIDE PAIN, HEMATOMA FOREHEAD ED Provider: Marc Jennings Discharge Problem: Hypoxia, Fall, Ambulatory dysfunction Condition: Fair Forms Stand Alone Forms: [facility] Prescriptions Prescriptions: No Action (DME) FreeStyle Jaleel 2 [place] Misc See Rx Instructions .Route Qty: 1 0RF Rx Instructions: As directed (DME) FreeStyle Jaleel 2 Sensor Kit See Rx Instructions .Route Qty: 1 0RF Rx Instructions: change every 14 days atorvastatin 20 mg tablet 20 mg PO HS Qty: 90 3RF (DME) pen needle, diabetic [BD Ultra-Fine Yaima Pen Needle] 32 gauge x 5/32" needle See Rx Instructions .Route Qty: 400 3RF Rx Instructions: Inject insulin four times daily insulin aspart U-100 [Novolog FlexPen U-100 Insulin] 100 unit/mL (3 mL) insulin pen 12 - 14 unit subcut BID Qty: 15 3RF Rx Instructions: Inject 12 to 14 units before you eat breakfast and lunch Brand medically necessary amlodipine 5 mg tablet 5 mg PO DAILY Qty: 90 3RF nystatin 100,000 unit/gram ointment 1 applic topical DAILY Qty: 30 3RF hydrochlorothiazide 12.5 mg tablet 12.5 mg PO DAILY Qty: 90 1RF metformin 1,000 mg tablet 1,000 mg PO BID 90 Days Qty: 180 3RF Hold Instructions: you will need a repeat blood test on Tuesday, 01/19. if blood work is normal you can resume your metformin at that time. losartan 25 mg tablet 25 mg PO QAM Qty: 90 3RF Rx Instructions: for high blood pressure gabapentin 100 mg capsule 100 mg PO HS Qty: 90 1RF Mounjaro 10 mg/0.5 mL pen injector 10 mg subcut Q7D Qty: 2 5RF Rx Instructions: SUNDAYS sulfamethoxazole-trimethoprim [Bactrim DS] 800-160 mg tablet 1 tab PO BID 7 Days Qty: 14 0RF (DME) blood-glucose meter [OneTouch Ultra2 Meter] [facility] [place] See Rx Instructions .ROUTE .MEDSUPPLY Qty: 1 1RF Rx Instructions: use to test blood sugar as directed (DME) OneTouch Ultra Test Strip See Rx Instructions .Route Qty: 300 3RF Rx Instructions: Use to monitor blood sugars TID cyanocobalamin (vitamin B-12) 1,000 mcg tablet 1,000 mcg PO QAM (DME) miscellaneous medical supply Misc See Rx Instructions .Route Qty: 1 0RF Rx Instructions: Compression Stockings, knee high, 15-0 mm/hg triamcinolone acetonide 0.1 % ointment 1 applic topical BID Qty: 80 2RF meclizine 25 mg tablet 25 mg PO BID PRN (Reason: dizziness) Qty: 60 1RF nystatin 100,000 unit/gram powder 1 applic topical TID Qty: 60 5RF clobetasol 0.05 % cream 1 applic topical BID 14 Days Qty: 15 1RF multivitamin Tablet 1 tab PO QAM vitamin E 1,000 unit Capsule 1,000 unit PO HS cholecalciferol (vitamin D3) 1,000 unit Tablet 1,000 unit PO HS aspirin 81 mg Tablet,Delayed Release (Dr/Ec) 81 mg PO DAILY furosemide 20 mg Tablet 20 mg PO QAM PRN (Reason: swelling of legs/feet) Qty: 15 0RF loteprednol etabonate 0.5 % drops,suspension 1 drp ophthalmic (eye) QID Referrals Referrals: Ingrid Ordoñez MD [Primary Care Provider] - Discharge Problem: Fall Qualifiers: Encounter type: initial encounter Qualified Code(s): W19.XXXA - Unspecified fall, initial encounter
[2025-06-14 10:14] LABS: Hematocrit (blood only) 38.0 % (37.0-47.0); Hemoglobin 12.6 g/dl (12.0-16.0); Immature Granulocytes # (auto) 0.03 K/uL (0.01-0.20); Immature Granulocytes % (auto) 0.3 %; Mean Corpuscular Hemoglobin 28.5 pg (25.0-34.0); Mean Corpuscular Volume 86.0 fL (80.0-100.0); Platelet Count 243 K/uL (130-400); RDW Standard Deviation 43.4 fL (36.4-46.3); Red Blood Count 4.42 M/uL (4.20-5.40); White Blood Count 10.97 K/ul (4.8-10.8)
[2025-06-14 10:32] LABS: Alanine Aminotransferase 11.0 U/L (7-52); Albumin Globulin Ratio 1.1 (0.9-2); Albumin Level 3.7 gm/dl (3.4-5.0); Alkaline Phosphatase 60.0 U/L (34-104); Anion Gap 7.0 (3-11); Bilirubin,Total 0.5 mg/dl (0.2-1.0); Blood Urea Nitrogen 20.0 mg/dl (6-23); Calcium 9.4 mg/dl (8.6-10.3); Carbon Dioxide 29.0 mmol/L (21-32); Chloride 101.0 mmol/L (98-107); Creatinine Clr Calc Pharmacy 56.4 ml/min; Globulin 3.4 gm/dl (2.5-4.0); Glucose 148.0 mg/dl (70-99(Fasting)); Lipase 14.0 U/L (11-82); Potassium 4.7 mmol/L (3.5-5.1); Sodium 137.0 mmol/L (136-145); Total Protein 7.1 gm/dl (6.0-8.3)
[2025-06-14 10:41] LABS: INR 1.0 (0.9-1.1); Prothrombin Time 10.9 Seconds (9.0-12.0)
--- NOTE | 2025-06-14 10:56 | CT Scan Report ---
CT SCAN OF THE BRAIN WITHOUT IV CONTRAST CLINICAL HISTORY: Fall. COMPARISON STUDY: Head CT February 13, 2023. MRI of the brain October 05, 2018. TECHNIQUE: Unenhanced axial CT scan of the brain was performed from the vertex to the skull base. A dose lowering technique was utilized adhering to the principles of ALARA. FINDINGS: Brain parenchyma: No acute intracranial hemorrhage, midline shift or mass effect is present. Phan-whi te matter differentiation is preserved. There are no extra-axial fluid collections. There are no find ings to suggest acute dural sinus thrombosis or acute territorial infarct. White matter hypodensities favor small vessel disease. Ventricles, sulci, cisterns: There is no hydrocephalus. The basal cisterns are patent. Calvarium: There are no calvarial fractures. Sinuses and mastoids: The visualized paranasal sinuses are clear. The mastoid air cells are well pneu matized. Orbits: The bony orbits are grossly intact. IMPRESSION: 1. No acute intracranial findings. 2. No calvarial fractures. ACT 112: Negative or not required by law. Electronically signed by: Mj Membreno M.D. 06/14/2025 10:54 AM
--- NOTE | 2025-06-14 11:01 | CT Scan Report ---
CT cervical spine wo con CT DOSE: 1180.07 mGy.cm CLINICAL HISTORY: fall. COMPARISON: None TECHNIQUE: Multiple axial CT images of the cervical spine were obtained without contrast. A dose low ering technique was utilized adhering to the principles of ALARA. FINDINGS: There is diffuse degenerative disc disease, severe at the mid and lower cervical spine. The re are a few Schmorl's nodes at the lower cervical spine, largest at C4-5 causing mild chronic-appear ing height loss at the superior endplate of the C5 vertebral body. No acute fracture or subluxation s een. IMPRESSION: No acute cervical spine fracture seen. ACT 112: Negative or not required by law. The above report was generated using voice recognition software. It may contain grammatical, syntax o r spelling errors. Electronically signed by: Timothy Goins M.D. 06/14/2025 10:59 AM
[2025-06-14] MEDS: OPTIRAY 320 100ml IV ONE (11:47)
--- NOTE | 2025-06-14 12:14 | CT Scan Report ---
CT SCAN OF THE CHEST WITH IV CONTRAST CLINICAL HISTORY: Fall. COMPARISON STUDY: Chest CT January 18, 2024. TECHNIQUE: Following the IV administration of 93 cc of Optiray 320, CT scan of the thorax was perform ed from the thoracic inlet to the upper abdomen. Images are reviewed in the axial, sagittal, and rock nal planes. IV contrast was administered without complication. A dose lowering technique was utilize d adhering to the principles of ALARA. FINDINGS: There is no evidence for traumatic injury to the thoracic aorta. Moderate cardiomegaly and coronary artery calcification are again noted. Dilatation of the central pulmonary arteries is simila r to prior CT. There is no mediastinal hematoma. There is no thoracic lymphadenopathy. No pneumothora x or pleural effusion is present. Groundglass opacities with mosaic attenuation are similar to prior CT. A 4 mm groundglass right middle lobe nodule image 104 remains unchanged. This is likely benign. N o new pulmonary nodules are present. No acute rib or thoracic spine fractures are identified. IMPRESSION: 1. No acute traumatic findings within the chest. 2. Moderate cardiomegaly and extensive coronary artery calcification. 3. Dilatation of the central pulmonary arteries which raises the possibility of pulmonary artery hype rtension. ACT 112: Negative or not required by law. Electronically signed by: Mj Membreno M.D. 06/14/2025 12:13 PM
--- NOTE | 2025-06-14 12:21 | CT Scan Report ---
CT SCAN OF THE ABDOMEN AND PELVIS WITH IV CONTRAST CLINICAL HISTORY: Fall. COMPARISON STUDY: Abdominal CT dated 01/16/2024. TECHNIQUE: Following the IV administration of 93 cc of Optiray 320, CT scan of the abdomen and pelvi s is performed from the lung bases to the proximal femora. Images are reviewed in the axial, sagittal , and coronal planes. IV contrast was administered without complication. A dose lowering technique wa s utilized adhering to the principles of ALARA. There is streak artifact from body wall abutting the CT gantry. CT DOSE: 2235.53 mGy.cm FINDINGS: Lung bases: The heart is top normal in size and without pericardial effusion. The coronary arteries a re densely calcified. The lung bases are clear noting mild bibasilar scarring/atelectasis. There is a small hiatal hernia. Liver: The contrast-enhanced liver is enlarged, measuring 24.5 cm in length. The liver is otherwise n ormal in contour and attenuation. There is no intrahepatic biliary ductal dilatation. The hepatic vei ns and portal veins are patent. Gallbladder: Gallstones are suspected. There is no CT evidence of acute cholecystitis. Spleen: Normal in size and attenuation. Pancreas: Atrophic and grossly unremarkable. Adrenal glands: Unremarkable. Kidneys: The contrast enhanced kidneys demonstrate mild cortical atrophy and are without hydronephros is. There is mild fullness of the renal pelvis bilaterally, likely secondary to bladder distention. N o ureteral stone is seen. The kidneys enhance symmetrically. Abdominal vasculature: The abdominal aorta is normal in course and caliber noting moderate to advance d atherosclerotic calcification. Bowel: There is rectosigmoid fecal retention and mild to moderate constipation. No bowel obstruction is seen. There is moderate colonic diverticulosis without CT evidence of acute diverticulitis. The ap pendix is well-visualized and normal. Peritoneum: There is no intraperitoneal free air or abdominal ascites. Lymphadenopathy: There are mildly enlarged external iliac chain and pelvic sidewall lymph nodes seen bilaterally. A right pelvic sidewall node on image #279 measures 3.3 x 1.3 cm. A left external iliac node on image #258 measures 2.2 x 1.7 cm. Prominent retroperitoneal nodes measure up to 1.0 cm in arron rt axis. No inguinal lymphadenopathy is identified. Pelvic viscera: The bladder is distended but otherwise normal as imaged. There are calcified uterine fibroids. No adnexal lesion is seen. Fluid is seen at the vaginal introitus. Skeletal structures: The skeletal structures are heterogeneously osteopenic. The lumbosacral spine, b mario pelvis, and proximal femora appear intact. There is mild to moderate lumbosacral spondylosis. Deg enerative sclerosis is noted in the sacroiliac joints. No lytic or blastic lesions are seen. IMPRESSION: 1. There is no evidence of solid organ injury in the abdomen or pelvis. 2. Colonic diverticulosis without CT evidence of acute diverticulitis. 3. Hepatomegaly. 4. Suspect cholelithiasis. 5. Mildly enlarged external iliac chain and pelvic sidewall lymph nodes are nonspecific and may be re active. Correlate clinically. This can be followed if clinically warranted. 6. Additional findings as above. ACT 112: Negative or not required by law. Electronically signed by: Ranjeet Lopez M.D. 06/14/2025 12:18 PM
--- NOTE | 2025-06-14 12:55 | XRay Report ---
XR pelvis 1-2V routine CLINICAL HISTORY: fall COMPARISON: 02/23/2014 FINDINGS: Exam is limited by habitus and skin fold artifact. No fracture or dislocation seen. Hip tiago int spaces are maintained. IMPRESSION: No fracture seen. ACT 112: Negative or not required by law. Electronically signed by: Timothy Goins M.D. 06/14/2025 12:54 PM
--- NOTE | 2025-06-14 12:57 | XRay Report ---
XR ankle LT min 3V routine CLINICAL HISTORY: l ankle pain COMPARISON: None. FINDINGS: There are chronic calcifications adjacent to the malleolus consistent with a sequela of old injury. No acute fracture or dislocation seen. There are mild degenerative changes. There are modera te calcaneal spurs. There is a tiny exostosis at the dorsal neck of the talus. IMPRESSION: No acute fracture seen. ACT 112: Negative or not required by law. Electronically signed by: Timothy Goins M.D. 06/14/2025 12:56 PM
--- NOTE | 2025-06-14 12:59 | XRay Report ---
XR foot LT min 3V routine CLINICAL HISTORY: l foot COMPARISON: None FINDINGS: No acute fracture or dislocation seen at the left. There are mild scattered degenerative c hanges without erosions. IMPRESSION: No fracture seen. ACT 112: Negative or not required by law. Electronically signed by: Timothy Goins M.D. 06/14/2025 12:57 PM
--- NOTE | 2025-06-14 12:59 | XRay Report ---
XR knee LT 1 or 2V routine CLINICAL HISTORY: l knee COMPARISON: None FINDINGS: No fracture or dislocation seen. There is moderate osteoarthritis. IMPRESSION: No fracture seen. ACT 112: Negative or not required by law. Electronically signed by: Timothy Goins M.D. 06/14/2025 12:58 PM
--- NOTE | 2025-06-14 13:00 | XRay Report ---
XR wrist RT min 3V routine CLINICAL HISTORY: r wrist pain COMPARISON: None FINDINGS: No fracture or dislocation seen. There are minimal degenerative changes. IMPRESSION: No fracture seen. ACT 112: Negative or not required by law. Electronically signed by: Timothy Goins M.D. 06/14/2025 12:59 PM
[2025-06-14 14:31] LABS: Creatine Kinase 32.0 U/L (26-192); Magnesium 1.6 mg/dl (1.7-2.4)
[2025-06-14 14:47] LABS: Thyroid Stimulating Hormone 0.88 uIu/ml (0.300-4.500)
--- NOTE | 2025-06-14 14:54 | History & Physical Report ---
Date of Service June 14, 2025 Assessment & Plan (1) Acute hypoxic respiratory failure: Plan: As above in the History of Present Illness. (2) Hypertensive urgency: Plan: As above in the History of Present Illness. (3) Ambulatory dysfunction: Plan: As above in the History of Present Illness. History of Present Illness Chief Complaint: "I was walking out of my bedroom with my cane, into the living room earlier this morning (06/14/2025, 8:00am) and I tripped on the carpet in the living room, and my left forehead hit the carpet. I did not pass out. I did not feel dizzy or lightheaded. I couldn't get up by myself for about 30 minutes, and then the ambulance arrived and got me back up on my feet. I should let you know that I was diagnosed with a urinary tract infection on 06/07/2025 (cf., sanchez-sensitive Klebsiella pneumoniae UTI as noted on 06/07/2025, 12:55pm urine culture, for which patient's urologist Dr. Dashawn Shannon gave me a prescription for bactrim DS twice a day for 7 days; I have 4 tablets left to take. I felt burning when I urinated, but after starting the bactrim DS, I feel fine now. The ER doc here said that I didn't have any broken bones or internal bleeding. The ER doc also said that my oxygen level dropped down to 87% on room air (06/14/2025, 11:10am), but I was breathing fine, not short of breath, no cough or wheeze. The ER doc gave me some oxygen and he said my oxygen level went right up to 97% (e.g., 3 liters/minute O2 via NC on 06/14/2025, 11:13am). I feel fine except the one spot where my left forehead hit the carpet this morning (06/14/2025, 8:00am). I don't have a headache, though, and I can see fine." Primary Care Provider: Ingrid Ordoñez MD 75 years old female with PMH of FULL CODE @ home, morbid obesity with BMI 45.0 (height 157.5 cm; weight 111.6 kg), hyperlipidemia on ASA 81mg PO daily and atorvastatin 20mg PO qhs, BPPV on meclizine 25mg PO bid prn dizziness/vertigo, HTN on amlodipine 5mg PO daily, HCTZ 12.5mg PO daily, and losartan 25mg PO daily, insulin-dependent DM2 for the past 30 years with HbA1c 5.7% (12/24/2024, 8:43am) on aspart insulin 12-14 units SQ bid with meals, tirzepatide 10mg SQ q7 days, empagliflozin 10mg PO daily, and metformin 1000mg PO bid, chronic ambulatory dysfunction utilizing cane inside/outside her home, but no walker or wheelchair, with last mechanical fall at home reported by the patient approximately 6 months ago, and former tobacco abuse with no subsequent diagnosis of COPD, not on home O2 or home steroids, who reports: "I was walking out of my bedroom with my cane, into the living room earlier this morning (06/14/2025, 8:00am) and I tripped on the carpet in the living room, and my left forehead hit the carpet. I did not pass out. I did not feel dizzy or lightheaded. I couldn't get up by myself for about 30 minutes, and then the ambulance arrived and got me back up on my feet. I should let you know that I was diagnosed with a urinary tract infection on 06/07/2025 (cf., sanchez-sensitive Klebsiella pneumoniae UTI as noted on 06/07/2025, 12:55pm urine culture, for which patient's urologist Dr. Dashawn Shannon gave me a prescription for bactrim DS twice a day for 7 days; I have 4 tablets left to take. I felt burning when I urinated, but after starting the bactrim DS, I feel fine now. The ER doc here said that I didn't have any broken bones or internal bleeding. The ER doc also said that my oxygen level dropped down to 87% on room air (06/14/2025, 11:10am), but I was breathing fine, not short of breath, no cough or wheeze. The ER doc gave me some oxygen and he said my oxygen level went right up to 97% (e.g., 3 liters/minute O2 via NC on 06/14/2025, 11:13am). I feel fine except the one spot where my left forehead hit the carpet this morning (06/14/2025, 8:00am). I don't have a headache, though, and I can see fine." Patient denies antecedent/coincident fevers, chills, diaphoresis, cough, wheeze, sore throat, hemoptysis, SOB/CORRIGAN, chest pains, palpitations, pleurisy, nausea, vomiting, diarrhea, abdominal pain, pelvic pain, hematemesis, hematochezia, melena, hematuria, dysuria, frequency, urgency, flank pain, headaches, dizziness, lightheadedness, visual changes, hearing changes, weakness, syncope, travel history, sick contacts, or food/drug ingestions novel or new. All other review of systems are reported as negative by the patient on admission date 06/14/2025. In [facility] ER bed #B8, patient was afebrile @ 36.7 degrees Fahrenheit, HR 93, RR 25, O2 sat 97% on 3 liters/minute O2 via nasal cannula, and BP 176/103 (06/14/2025, 11:21am). cf., original O2 sat 87% on room air (06/14/2025, 11:10am). Exam was noted for solitary ecchymosis, 2 cm diameter, on left frontal forehead just above lateral end of left eyebrow. Patient also reported tenderness in the left foot, generalized, with full range of motion about the left ankle (e.g., eversion, inversion, flexion, extension, adduction, abduction) and no overt ecchymosis, hematoma, laceration, etc. Labs in [facility] ER bed #B8 included: WBC 10.97, N73 L14 M12 E1, Hb 12.6, MCV 86.0, MCHC 33.2, platelet 243 (06/14/2025, 9:57am). Lactic acid #1 (06/14/2025, 9:57am). Procalcitonin #1 ___ (06/14/2025, 9:57am). U/A (06/14/2025, 9:57am). Na 137, K 4.7, BUN 20, creatinine 1.00, GFR 58.39, , anion gap 7, CO2 29, AST 11, ALT 11, ALK PHOS 60, Ca 9.4, Mg ____, PO4 , CK (06/14/2025, 9:57am). TSH (06/14/2025, 9:57am). Additional testing in [facility] ER bed #B8 included: Left ankle x-ray, 3 views (06/14/2025, 9:52am): No acute fracture. Cervical spine CT without IV contrast (06/14/2025, 9:52am): No acute cervical fracture. Left foot x-ray, 3 views (06/14/2025, 9:52am): No acute fracture. CT brain without IV contrast (06/14/2025, 9:52am): No acute bleed, mass, or midline shift. Left knee x-ray, 1 or 2 views (06/14/2025, 9:52am): No acute fracture. Pelvis x-ray (06/14/2025, 9:52am): No acute fracture. Right wrist x-ray, 3 views (06/14/2025, 9:52am): No acute fracture. CT abd/pelvis with IV contrast (06/14/2025, 11:18am): 1. No evidence of solid organ injury in the abdomen or pelvis. 2. Colonic diverticulosis without CT evidence of acute diverticulitis. 3. Hepatomegaly. 4. Suspect cholelithiasis. 5. Mildly enlarged external iliac chain and pelvic sidewall lymph nodes are nonspecific and may be reactive. CT chest with IV contrast (06/14/2025, 11:18am): 1. No acute traumatic findings within the chest. 2. Moderate cardiomegaly and extensive coronary artery calcification. 3. Dilatation of the central pulmonary arteries which raises the possibility of pulmonary artery hypertension. Patient was subsequently admitted to the inpatient hospitalist service @ [facility] on 06/14/2025 with the following diagnoses: 1. Acute hypoxic respiratory failure with admitting O2 saturation 87% on room air (06/14/2025, 11:10am) without cough, wheeze, SOB/CORRIGAN, chest pain, pleurisy, fevers/chills/diaphoresis. 2. HTN urgency with admitting BP 176/103 (06/14/2025, 11:21am). 3. Ambulatory dysfunction utilizing cane @ home, culminating in fall in living room after tripping on carpet in living room (06/14/2025, 8:00am) and remaining unable to get up off the floor by herself for 30 minutes until EMS arrived and lifted patient back up onto her feet on 06/14/2025, 8:30am. To address #1, patient was treated with 3 liters/minute O2 via nasal cannula and acute hypoxic respiratory failure RESOLVED with repeat O2 saturation 97% on 3 liters/minute O2 via nasal cannula (06/14/2025, 11:21am). Subsequently, I surmise that the etiology of patient's transient acute hypoxic respiratory failure was most probably due to hypoventilation, which in turn, was most probably due to patient's complaints of left forehead pain s/p fall onto carpeted living room floor on 06/14/2025, 8:00am, and patient's complaints of left foot pain s/p fall onto carpeted living room floor on 06/14/2025, 8:00am. To address #2, patient was started on her home-scheduled amlodipine 5mg PO daily and losartan 25mg PO daily (06/14/2025, 2:38pm). I will check repeat BP in 4 hours. If HTN urgency persists, I will start patient on hydralazine 10mg IV q8 prn diastolic BP > 100 mm Hg and/or systolic BP > 160 mm Hg. To address #3, patient awaits Mg ____, PO4 , CK , TSH , U/A , lactic acid , and procalcitonin (06/14/2025, 9:57am). In the interim, patient awaits PT/OT Service evaluation to determine if patient is fit for D/C back to her home or if patient is better served with D/C to SNF for short-term rehab. In addition, patient will continue and complete the 4 remaining tablets of bactrim DS PO q12 (start date/time, 06/14/2025, 3:00pm; stop date/time, 06/16/2025, 3:00pm) that patient was prescribed by her [facility] Urologist Dr. Dashawn Shannon to treat sanchez-sensitive Klebsiella pneumoniae UTI (as noted on 06/07/2025, 12:55pm urine culture). Of final note, patient will hold OFF her home-scheduled metformin 1000mg PO bid given potential for this medication to cause lactic acid elevation (as defined by lactic acid level >/= 2.0 mmol/L to 3.9 mmol/L) or overt lactic acidosis (as defined by lactic acid level >/= 4.0 mmol/L)). Allergies Allergy/AdvReac Type Severity Reaction Status Date / Time grass pollen-perennial rye, Allergy Severe DIFFICULTY Verified 12/28/24 13:57 standar BREATHING mold Allergy Severe DIFFICULTY Verified 12/28/24 13:57 BREATHING tetanus toxoid, adsorbed Allergy Intermediate SWELLING Verified 12/28/24 13:57 etodolac Allergy Unknown UNKNOWN Verified 12/28/24 13:57 house dust Allergy Unknown Unknown Verified 12/28/24 13:57 pollen extracts Allergy Unknown DIFFICULTY Verified 12/28/24 13:57 BREATHING clobetasol Allergy rash Verified 12/28/24 13:57 gabapentin AdvReac Intermediate Muscle Pain Verified 12/28/24 13:57 pregabalin [From Lyrica] AdvReac Intermediate eyes- Verified 12/28/24 13:57 blurred vision simvastatin AdvReac Intermediate "FEELS Verified 12/28/24 13:57 FUNNY" Home Medications Medication Instructions Recorded Confirmed Type multivitamin 1 tab PO QAM 06/18/18 06/14/25 History cholecalciferol (vitamin D3) 25 1,000 unit PO HS 10/01/18 06/14/25 History mcg (1,000 unit) tablet vitamin E 670 mg (1,000 unit) 1,000 unit PO HS 08/21/19 06/14/25 History capsule cyanocobalamin (vitamin B-12) 1,000 mcg PO QAM 03/13/21 06/14/25 History 1,000 mcg tablet flash glucose scanning reader #1 ea 09/10/22 06/14/25 Rx (FreeStyle Jlaeel 2 [place]) FreeStyle Jaleel 2 Sensor (flash #1 ea 12/15/22 06/14/25 Rx glucose sensor) aspirin 81 mg tablet,delayed 81 mg PO DAILY 02/13/23 06/14/25 History release miscellaneous medical supply #1 ea 07/18/23 06/14/25 Rx furosemide 20 mg tablet 20 mg PO QAM PRN swelling of 01/19/24 06/14/25 Rx legs/feet #15 tabs triamcinolone acetonide 0.1 % 1 applic topical BID #80 grams 06/21/24 06/14/25 Rx topical ointment atorvastatin 20 mg tablet 20 mg PO HS #90 tabs 07/16/24 06/14/25 Rx clobetasol 0.05 % topical cream 1 applic topical BID 2 weeks #15 07/19/24 06/14/25 Rx grams pen needle, diabetic 32 gauge x #400 ea 10/15/24 06/14/25 Rx 5/32" (BD Ultra-Fine Yaima Pen Needle) Novolog FlexPen U-100 Insulin 100 12 - 14 unit (0.12 - 0.14 mL) 11/16/24 06/14/25 Rx unit/mL (3 mL) subcutaneous subcut BID #15 mL (insulin aspart U-100) amlodipine 5 mg tablet 5 mg PO DAILY #90 tabs 12/16/24 06/14/25 Rx meclizine 25 mg tablet 25 mg PO BID PRN dizziness #60 tabs 12/28/24 06/14/25 Rx nystatin 100,000 unit/gram topical 1 applic topical TID #60 grams 12/28/24 06/14/25 Rx powder nystatin 100,000 unit/gram topical 1 applic topical DAILY #30 grams 02/13/25 06/14/25 Rx ointment hydrochlorothiazide 12.5 mg tablet 12.5 mg PO DAILY #90 tabs 02/19/25 06/14/25 Rx metformin 1,000 mg tablet 1,000 mg PO BID 90 days #180 tabs 03/19/25 06/14/25 Rx losartan 25 mg tablet 25 mg PO QAM #90 tabs 04/12/25 06/14/25 Rx gabapentin 100 mg capsule 100 mg PO HS #90 caps 05/07/25 06/14/25 Rx tirzepatide 10 mg/0.5 mL 10 mg (0.5 mL) subcut Q7D #2 mL 05/27/25 06/14/25 Rx subcutaneous pen injector (Aceuncleoro) blood sugar diagnostic (OneTouch #300 ea 06/10/25 06/14/25 Rx Ultra Test strips) blood-glucose meter (OneTouch #1 ea 06/10/25 06/14/25 Rx Ultra2 Meter) sulfamethoxazole 800 1 tab PO BID 7 days #14 tabs 06/10/25 06/14/25 Rx mg-trimethoprim 160 mg tablet (Bactrim DS) loteprednol etabonate 0.5 % eye 1 drp ophthalmic (eye) QID 06/14/25 06/14/25 History drops,suspension Past Med/Surg History Problem List (Updated 06/14/25 @ 14:59 by Cory Navarrete MD, PhD) Ambulatory dysfunction Hypertensive urgency Acute hypoxic respiratory failure Abnormal mammogram of both breasts Abnormality of right breast on screening mammogram Dermatophytosis, groin Renal cyst (Chronic) Urethral caruncle (Chronic) Health care maintenance (Chronic) Morbid obesity with BMI of 45.0-49.9, adult Chronic idiopathic urticaria Anxiety Incontinence (Chronic) Callus of toe (Acute) Chronic venous insufficiency Vertebral basilar insufficiency (Acute) Hyperlipidemia (Chronic) Benign essential hypertension (Chronic) COPD (chronic obstructive pulmonary disease) Asthma Controlled type 2 diabetes mellitus with neurologic complication, with long-term current use of insulin (Chronic) Diabetic nephropathy associated with type 2 diabetes mellitus (Chronic) Diabetic peripheral neuropathy associated with type 2 diabetes mellitus (Acute) Generalized osteoarthritis of multiple sites Generalized weakness (Acute) Low back pain Osteoarthritis of hands, bilateral Urethral stricture Urge and stress incontinence Xerostomia Nephrolithiasis (Chronic) Dizziness Echocardiogram abnormal Unable to specify wall motion abnormality due to limited visualization August 10, 2019 Allergy Loss of protective sensation of skin of foot Vitamin D deficiency Bilateral lower extremity edema Medical History Vaginal itching Back pain Acute exacerbation of chronic obstructive pulmonary disease Hypoxia Abnormal laboratory test COPD exacerbation Left shoulder pain Benign paroxysmal positional vertigo Edema Left shoulder tendinitis Venous (peripheral) insufficiency Toxic effect of cyanoacrylate Pain of left breast Left elbow pain Diabetic foot ulcer Hyperpigmentation of skin Pre-syncope Vulvar itching CKD stage 3 secondary to diabetes Hypoxia Difficult airway for intubation -Left peritonsillar abscess I&D 12/07/2012: Glidescope intubation, ETT 7.0 -Right hammertoe surgery/PIP arthroplasty 05/31/2012: LMA "an easy"unable to adequately ventilateintubatedDVL grade 1 ETT "in easy." Morbid (severe) obesity due to excess calories Chronic obstructive pulmonary disease Essential (primary) hypertension History of Helicobacter pylori infection History of diabetic ulcer of foot Rheumatoid arthritis Edema Hallux valgus (acquired), left foot Several foot deformities (claw toe, hammertoe); surgical intervention performed, subsequent non-healing wound. Lower GI bleed (07/31/14) Acute post-hemorrhagic anemia (07/31/14) Surgical History History of colonoscopy X MULTIPLE History of carpal tunnel release R/L S/P ureteral stent placement Status post repair of nerve S/P oophorectomy S/P knee surgery S/P foot surgery S/P section Family History (Updated 06/14/25 @ 14:50 by Cory Navarrete MD, PhD) Mother , at 92 years of age from natural causes. Colorectal cancer Myocardial infarction Sister Diabetes Hypertension Father , at 86 years of age from natural causes. Diabetes Grandfather Diabetes Myocardial infarction Other Family history non-contributory Denies family history of Ovarian cancer Prostate cancer Breast cancer Lung cancer Stroke Social History (Updated 06/14/25 @ 14:52 by Cory Navarrete MD, PhD) Smoking Status: Former smoker Tobacco Type: Cigarettes Age Started Using Tobacco: 15; Age Quit Using Tobacco: 39; packs per day: 0.25; Second Hand Exposure: Yes; Do You Dip or Chew Tobacco: No; Hx Alcohol Use: No Hx Substance Use: No Preferred Language: Italian Communication Ability: Effective Visual Impairment: No Limitations Hearing Ability: Normal Sewer Pipe Offbearer Required: No Beliefs That Will Affect Care: None marital status: Current Living Situation: Alone current occupational status: retired 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 How many Children do You have: 2 How many Children do You have Comment: 2 sons (aged 54 years, 55 years) both alive and well. Feels Safe at Home: Yes Childhood Exposure to Second-Hand Smoke: Yes Dental Care, Regularly: No Physical Activity Frequency: Does not Exercise Seatbelt Use: always Sunscreen Use: Yes Assistive Devices: Cane, Scooter/Electric Scooter, Walker and Wheelchair Review of Systems Constitutional: As above in the History of Present Illness. Physical Exam Constitutional: General: Comfortable, cooperative, coherent. Wide awake and alert. Not confused, lethargic, or obtunded. Patient speaks in complete, fluent, and articulate sentences without pause, interruption, cough, or wheeze. HEENT: Normocephalic. Traumatic with solitary ecchymosis, 2 cm diameter, on left frontal forehead just above lateral end of left eyebrow. EOMI. PERRL. No nystagmus, gaze paresis, anisocoria, miosis, mydriasis, chemosis, hyphema, scleral injection, conjunctivitis, or pterygium. No otorrhea. No rhinorrhea. Neck: Supple, no stridor, bruit, or goiter. Jugular venous pressure 5cm above the sternal angle of Erlin, which is typically 5 cm above the right atrium. Lymph: No anterior/posterior cervical lymphadenopathy, supraclavicular/infraclavicular lymphadenopathy, axilla/epitrochlear/inguinal lymphadenopathy. Chest: Symmetric rise and fall with respirations. Non-tender to palpation. Heart: RRR, S1 and S2. No S3 or S4 summation gallop. No tripartite friction rub. No murmur. Lungs: Clear to auscultation and percussion. No audible expiratory wheeze, egophony, pectoriloquy, increase in tactile fremitus, or flatness/dullness to percussion at the bases. Abd: Soft, non-tender, non-distended. Bowel sounds auscultated in all 4 quadrants. No rebound, guarding, Lino's sign, or organomegaly. Ext: No clubbing, cyanosis, or edema. 2+ pedal pulses bilaterally. Tenderness in the left foot, generalized, with full range of motion about the left ankle (e.g., eversion, inversion, flexion, extension, adduction, abduction) and no overt ecchymosis, hematoma, laceration, etc. Skin: No decubitus ulcer, exanthem, or enanthem. Neuro: No tremors, tics, or myoclonus. DTR+. 5/5 motor strength in all 4 extremities, proximally and distally. No myoclonus, tremors, or tics. Urology: No garnica catheter. No urethral discharge. Results & Data Results & Data Vital Signs (Past 12 Hours) Vital Signs Temp Pulse Pulse Resp BP BP Pulse Ox 06/14/25 13:30 171/108 H 06/14/25 13:30 96 H 18 98 06/14/25 13:21 84 15 93 06/14/25 13:15 80 23 97 06/14/25 13:09 86 21 98 06/14/25 13:00 147/93 H 06/14/25 13:00 147/93 H 06/14/25 13:00 147/93 H 06/14/25 12:48 79 19 06/14/25 12:42 81 21 06/14/25 12:36 78 20 06/14/25 12:30 161/77 H 06/14/25 12:27 77 19 97 06/14/25 12:03 92 H 21 95 06/14/25 12:00 144/80 H 06/14/25 11:54 84 18 99 06/14/25 11:33 84 19 06/14/25 11:30 201/121 H 06/14/25 11:30 201/121 H 06/14/25 11:30 201/121 H 06/14/25 11:24 83 24 97 06/14/25 11:21 93 H 25 H 97 06/14/25 11:15 96 H 24 96 06/14/25 11:13 80 18 176/103 H 97 06/14/25 11:13 80 18 97 06/14/25 11:10 87 L 06/14/25 11:09 79 13 94 06/14/25 11:00 176/103 H 06/14/25 11:00 176/103 H 06/14/25 11:00 176/103 H 06/14/25 10:12 82 25 H 90 06/14/25 10:00 129/81 06/14/25 10:00 80 06/14/25 09:48 36.7 C 83 20 146/106 H 96 O2 Del Method O2 Flow Rate 06/14/25 13:30 06/14/25 13:30 06/14/25 13:21 06/14/25 13:15 06/14/25 13:09 06/14/25 13:00 06/14/25 13:00 06/14/25 13:00 06/14/25 12:48 06/14/25 12:42 06/14/25 12:36 06/14/25 12:30 06/14/25 12:27 06/14/25 12:03 06/14/25 12:00 06/14/25 11:54 06/14/25 11:33 06/14/25 11:30 06/14/25 11:30 06/14/25 11:30 06/14/25 11:24 06/14/25 11:21 06/14/25 11:15 06/14/25 11:13 Nasal Cannula 3 06/14/25 11:13 Nasal Cannula 3 06/14/25 11:10 Room Air 06/14/25 11:09 06/14/25 11:00 06/14/25 11:00 06/14/25 11:00 06/14/25 10:12 06/14/25 10:00 06/14/25 10:00 06/14/25 09:48 Room Air Laboratory Results As above in the History of Present Illness. Diagnostic Findings As above in the History of Present Illness. Medications Administered As above in the History of Present Illness. Code Status & VTE Plan VTE Prophylaxis Plan VTE Prophylaxis will be ordered: Yes PG Care Time/CCT Total # of Minutes Spent Total Time Spent with Patient: Total time spent is greater than 50% in coordination of care (as documented) at patient's floor/unit and/or counseling patient: Coding Level of Care Code 28564 INT INP/OBS CARE 2/55MIN Diagnoses Acute hypoxic respiratory failure J96.01 Hypertensive urgency I16.0 Ambulatory dysfunction R26.2
[2025-06-14] MEDS: ACETAMINOPHEN 325 MG TAB PO PRN (15:33)
[2025-06-14] MEDS: SULFAMETHOXAZOLE/TRIMETHOPRIM DS 800/160MG TAB PO SCH (15:33)
[2025-06-14] MEDS: ASPIRIN 81 MG ECTAB PO SCH (19:29)
[2025-06-14] MEDS: LOSARTAN POTASSIUM 25 MG TAB PO SCH (19:29)
[2025-06-14 19:32] VITALS: RESP 18
[2025-06-14] MEDS: HEPARIN SOD 5,000 UNIT/0.5 ML VIAL SQ SCH (22:17)
[2025-06-14] MEDS ORDERED: GLUCOSE 10 TAB/TUBE PO PRN (23:51)
[2025-06-14] MEDS ORDERED: CARBOHYDRATES FOR HYPOGLYCEMIA PO PRN (23:51)
[2025-06-14] MEDS ORDERED: DEXTROSE 50% 50 ML SYRINGE IV PRN (23:51)
[2025-06-14] MEDS ORDERED: GLUCAGON FOR INJ 1 MG VIAL SQ PRN (23:51)
[2025-06-14] MEDS ORDERED: GLUCOSE 40% GEL 15 GM TUBE PO PRN (23:51)
[2025-06-15] MEDS: HYDROCORTISONE 1% CRM 30 GM TUBE EXT PRN (00:18)
[2025-06-15 01:27] LABS: Appearance Urine Clear (Clear); Glucose Urine UA Negative (Negative)
[2025-06-15] MEDS: GABAPENTIN 100 MG CAP PO SCH (02:58)
[2025-06-15] MEDS: HYDROmorphone INJ 0.5 MG/0.5 ML SYR IV PRN (03:03)
[2025-06-15 07:20] LABS: Hematocrit (blood only) 36.6 % (37.0-47.0); Hemoglobin 12.1 g/dl (12.0-16.0); Immature Granulocytes # (auto) 0.02 K/uL (0.01-0.20); Immature Granulocytes % (auto) 0.2 %; Mean Corpuscular Hemoglobin 28.3 pg (25.0-34.0); Mean Corpuscular Volume 85.5 fL (80.0-100.0); Platelet Count 228 K/uL (130-400); RDW Standard Deviation 43.5 fL (36.4-46.3); Red Blood Count 4.28 M/uL (4.20-5.40); White Blood Count 8.02 K/ul (4.8-10.8)
[2025-06-15 07:40] LABS: Anion Gap 7.0 (3-11); Blood Urea Nitrogen 19.0 mg/dl (6-23); Calcium 8.9 mg/dl (8.6-10.3); Carbon Dioxide 25.0 mmol/L (21-32); Chloride 104.0 mmol/L (98-107); Creatine Kinase 32.0 U/L (26-192); Creatinine Clr Calc Pharmacy 54.8 ml/min; Glucose 144.0 mg/dl (70-99(Fasting)); Potassium 4.3 mmol/L (3.5-5.1); Sodium 136.0 mmol/L (136-145)
[2025-06-15] MEDS: INSULIN ASPART PER UNIT CHARGE SC SCH (08:24)
[2025-06-15 09:23] VITALS: BP 135/82; PULSE 83; TEMP 98.4; O2SAT 92
[2025-06-15] MEDS: LOTEPREDNOL ETABONATE 5 ML OPH SUSP OP SCH (11:38)
--- NOTE | 2025-06-15 12:55 | Discharge Summary ---
Discharge Summary Date of Service June 15, 2025 Principal Dx & Hospital Course #1 = Principal Diagnosis (1) Acute hypoxic respiratory failure: As below in the Admission History of Present Illness. (2) Hypertensive urgency: As below in the Admission History of Present Illness. (3) Ambulatory dysfunction: As below in the Admission History of Present Illness. 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 with HbA1c 5.7% (12/24/2024, 8:43am) on aspart insulin 12-14 units SQ bid with meals, tirzepatide 10mg SQ q7 days, empagliflozin 10mg PO daily, and metformin 1000mg PO bid, chronic ambulatory dysfunction utilizing cane inside/outside her home, but no walker or wheelchair, with last mechanical fall at home reported by the patient approximately 6 months ago, and former tobacco abuse with no subsequent diagnosis of COPD, not on home O2 or home steroids, who reports: "I was walking out of my bedroom with my cane, into the living room earlier this morning (06/14/2025, 8:00am) and I tripped on the carpet in the living room, and my left forehead hit the carpet. I did not pass out. I did not feel dizzy or lightheaded. I couldn't get up by myself for about 30 minutes, and then the ambulance arrived and got me back up on my feet. I should let you know that I was diagnosed with a urinary tract infection on 06/07/2025 (cf., sanchez-sensitive Klebsiella pneumoniae UTI as noted on 06/07/2025, 12:55pm urine culture, for which patient's urologist Dr. Dashawn Shannon gave me a prescription for bactrim DS twice a day for 7 days; I have 4 tablets left to take. I felt burning when I urinated, but after starting the bactrim DS, I feel fine now. The ER doc here said that I didn't have any broken bones or internal bleeding. The ER doc also said that my oxygen level dropped down to 87% on room air (06/14/2025, 11:10am), but I was breathing fine, not short of breath, no cough or wheeze. The ER doc gave me some oxygen and he said my oxygen level went right up to 97% (e.g., 3 liters/minute O2 via NC on 06/14/2025, 11:13am). I feel fine except the one spot where my left forehead hit the carpet this morning (06/14/2025, 8:00am). I don't have a headache, though, and I can see fine." Patient denies antecedent/coincident fevers, chills, diaphoresis, cough, wheeze, sore throat, hemoptysis, SOB/CORRIGAN, chest pains, palpitations, pleurisy, nausea, vomiting, diarrhea, abdominal pain, pelvic pain, hematemesis, hematochezia, melena, hematuria, dysuria, frequency, urgency, flank pain, headaches, dizziness , lightheadedness, visual changes, hearing changes, weakness, syncope, travel history, sick contacts, or food/drug ingestions novel or new. All other review of systems are reported as negative by the patient on admission date 06/14/2025. In [facility] ER bed #B8, patient was afebrile @ 36.7 degrees Fahrenheit, HR 93, RR 25, O2 sat 97% on 3 liters/minute O2 via nasal cannula, an d BP 176/103 (06/14/2025, 11:21am). cf., original O2 sat 87% on room air (06/14/2025, 11:10am). Exam was noted for solitary ecchymosis, 2 cm diameter, on left frontal forehead just above lateral end of left eyebrow. Patient also reported tenderness in the left foot, generalized, with full range of motion about the left ankle (e.g., eversion, inversion, flexion, extension, adduction, abduction) and no overt ecchymosis, hematoma, laceration, etc. Labs in [facility] ER bed #B8 included: WBC 10.97, N73 L14 M12 E1, Hb 12.6, MCV 86.0, MCHC 33.2, platelet 243 (06/14/2025, 9:57am). Lactic acid #1 2.3 mmol/L (06/14/2025, 2:25pm). Lactic acid #2 2.2 mmol/L (06/14/2025, 6:47pm). Lactic acid #3 1.1 mmol/L (06/14/2025, 10:10pm). Procalcitonin #1 0.05 ng/mL (06/14/2025, 9:57am). U/A (06/15/2025, 1:09am): clear yellow, LE negative, nitrite negative. Na 137, K 4.7, BUN 20, creatinine 1.00, GFR 58.39, glucose 148, anion gap 7, CO2 29, AST 11, ALT 11, ALK PHOS 60, Ca 9.4, Mg 1.9, PO4 3.2, CK 32 U/L (06/14/2025, 9:57am). Na 136, K 4.3, BUN 19, creatinine 1.03, GFR 56.35, glucose 144, anion gap 7, CO2 25, CK 32 U/L (06/15/2025, 6:50am). TSH 0.880 uIU/mL (06/14/2025, 9:57am). Additional testing in [facility] ER bed #B8 included: Left ankle x-ray, 3 views (06/14/2025, 9:52am): No acute fracture. Cervical spine CT without IV contrast (06/14/2025, 9:52am): No acute cervical fracture. Left foot x-ray, 3 views (06/14/2025, 9:52am): No acute fracture. CT brain without IV contrast (06/14/2025, 9:52am): No acute bleed, mass, or midline shift. Left knee x-ray, 1 or 2 views (06/14/2025, 9:52am): No acute fracture. Pelvis x-ray (06/14/2025, 9:52am): No acute fracture. Right wrist x-ray, 3 views (06/14/2025, 9:52am): No acute fracture. CT abd/pelvis with IV contrast (06/14/2025, 11:18am): 1. No evidence of solid organ injury in the abdomen or pelvis. 2. Colonic diverticulosis without CT evidence of acute diverticulitis. 3. Hepatomegaly. 4. Suspect cholelithiasis. 5. Mildly enlarged external iliac chain and pelvic sidewall lymph nodes are nonspecific and may be reactive. CT chest with IV contrast (06/14/2025, 11:18am): 1. No acute traumatic findings within the chest. 2. Moderate cardiomegaly and extensive coronary artery calcification. 3. Dilatation of the central pulmonary arteries which raises the possibility of pulmonary artery hypertension. Patient was subsequently admitted to the inpatient hospitalist service @ [facility] on 06/14/2025 with the following diagnoses: 1. Acute hypoxic respiratory failure with admitting O2 saturation 87% on room air (06/14/2025, 11:10am) without cough, wheeze, SOB/CORRIGAN, chest pain, pleurisy, fevers/chills/diaphoresis. 2. HTN urgency with admitting BP 176/103 (06/14/2025, 11:21am). 3. Ambulatory dysfunction utilizing cane @ home, culminating in fall in living room after tripping on carpet in living room (06/14/2025, 8:00am) and remaining unable to get up off the floor by herself for 30 minutes until EMS arrived and lifted patient back up onto her feet on 06/14/2025, 8:30am. To address #1, patient was treated with 3 liters/minute O2 via nasal cannula and acute hypoxic respiratory failure RESOLVED with repeat O2 saturation 97% on 3 liters/minute O2 via nasal cannula (06/14/2025, 11:21am). Subsequently, I surmise that the etiology of patient's transient acute hypoxic respiratory failure was most probably due to hypoventilation, which in turn, was most probably due to patient's complaints of left forehead pain s/p fall onto carpeted living room floor on 06/14/2025, 8:00am, and patient's complaints of left foot pain s/p fall onto carpeted living room floor on 06/14/2025, 8:00am. To address #2, patient was started on her home-scheduled amlodipine 5mg PO daily (06/14/2025, 3:33pm; 06/15/2025, 8:36am) and home-scheduled losartan 25mg PO daily (06/14/2025, 7:29pm; 06/15/2025, 8:36am). I will check repeat BP in 4 hours. If HTN urgency persists, I will start patient on hydralazine 10mg IV q8 prn diastolic BP > 100 mm Hg and/or systolic BP > 160 mm Hg. HTN urgency RES OLVED with repeat BP 131/84 (06/14/2025, 4:00pm), then HTN urgency RECURRED with repeat BP 160/106 (06/14/2025, 4:30pm), then HTN urgency RESOLVED on its own with repeat BP 142/79 (06/14/2025, 6:30pm, 7:31pm). cf., discharge BP 135/82 (06/15/2025, 9:22am). Patient was subsequently discharged back to her home on her home-scheduled amlodipine 5mg PO daily and home-scheduled losartan 25mg PO daily on discharge date 06/15/2025. To address #3, patient awaits Mg ____, PO4 , CK , TSH , U/A , lactic acid , and procalcitonin (06/14/2025, 9:57am), all of which were resulted/reported subsequently as normal. In the interim, patient underwent PT/OT Service evaluations on 06/15/2025 to determine if patient is fit for D/C back to her home or if patient is better served with D/C to SNF for short-term rehab. Patient was subsequently cleared by PT/OT Services for D/C back to her home on 06/15/2025. In addition, patient will continue and complete the 2 remaining tablets of bactrim DS PO q12 (start date/time, 06/14/2025, 3:00pm; stop date/time, 06/16/2025, 3:00pm) that patient was originally prescri bed to receive by her [facility] Urologist Dr. Dashawn Shannon to treat sanchez-sensitive Klebsiella pneumoniae UTI (as noted on 06/07/2025, 12:55pm urine culture). Of final note, patient will hold OFF her home-scheduled metformin 1000mg PO bid until 06/17/2025, 11:18am, to allow for at least 72 hours to pass from the time of exposure to IV contrast during 06/14/2025, 11:18am CT chest/abdomen/pelvis with IV contrast, in order to avoid potential development of post-IV contrast nephropathy that can occur if metformin 1000mg PO bid were to continue uninterrupted. Patient reports that she will comply with this recommendation. Discharge Exam Constitutional General: Comfortable, cooperative, coherent. Wide awake and alert. Not confused, lethargic, or obtunded. Patient speaks in complete, fluent, and articulate sentences without pause, interruption, cough, or wheeze. HEENT: Normocephalic. Traumatic with solitary ecchymosis, 2 cm diameter, on left frontal forehead just above lateral end of left eyebrow. EOMI. PERRL. No nystagmus, gaze paresis, anisocoria, miosis, mydriasis, chemosis, hyphema, scleral injection, conjunctivitis, or pterygium. No otorrhea. No rhinorrhea. Neck: Supple, no stridor, bruit, or goiter. Jugular venous pressure 5cm above the sternal angle of Erlin, which is typically 5 cm above the right atrium. Lymph: No anterior/posterior cervical lymphadenopathy, supraclavicular/infraclavicular lymphadenopathy, axilla/epitrochlear/inguinal lymphadenopathy. Chest: Symmetric rise and fall with respirations. Non-tender to palpation. Heart: RRR, S1 and S2. No S3 or S4 summation gallop. No tripartite friction rub. No murmur. Lungs: Clear to auscultation and percussion. No audible expiratory wheeze, egophony, pectoriloquy, increase in tactile fremitus, or flatness/dullness to percussion at the bases. Abd: Soft, non-tender, non-distended. Bowel sounds auscultated in all 4 quadrants. No rebound, guarding, Lino's sign, or organomegaly. Ext: No clubbing, cyanosis, or edema. 2+ pedal pulses bilaterally. Tenderness in the left foot, generalized, with full range of motion about the left ankle (e.g., eversion, inversion, flexion, extension, adduction, abduction) and no overt ecchymosis, hematoma, laceration, etc. Skin: No decubitus ulcer, exanthem, or enanthem. Neuro: No tremors, tics, or myoclonus. DTR+. 5/5 motor strength in all 4 extremities, proximally and distally. No myoclonus, tremors, or tics. Urology: No garnica catheter. No urethral discharge. Discharge Plan Discharge Items Patient Disposition: Home - Self-Care Reason For Visit: ACUTE HYPOXIC RESPIRATORY FAILURE Discharge Diagnosis: 1. Acute hypoxic respiratory failure with admitting O2 saturation 87% on room air (06/14/2025, 11:10am) without cough, wheeze, SOB/CORRIGAN, chest pain, pleurisy, fevers/chills/diaphoresis. RESOLVED with discharge O2 saturation 92% on room air (06/15/2025, 9:22am) without cough, wheeze, SOB/CORRIGAN, chest pain, pleurisy, fevers/chills/diaphoresis. 2. HTN urgency with admitting BP 176/103 (06/14/2025, 11:21am). RESOLVED with discharge BP 135/82 (06/15/2025, 9:22am). 3. Ambulatory dysfunction utilizing cane @ home, culminating in fall in living room after tripping on carpet in living room (06/14/2025, 8:00am) and remaining unable to get up off the floor by herself for 30 minutes until EMS arrived and lifted patient back up onto her feet on 06/14/2025, 8:30am. RESOLVED with patient walking with her cane once again on 06/15/2025, 9:22am, NO falls. Condition on Discharge: Fair Activity: Resume your previous activity Lifting: Gradually increase as tolerated Bathing: No limitations Exercise/Sports: Gradually increase as tolerated Weightbearing: Full weightbearing Non-emergency contact: Primary Care Provider Call non-emergency contact if: you have any medication questions Follow-up/Referrals: Ingrid Ordoñez V., MD [Primary Care Provider] - 06/24/25 3:00 pm Diet: Carb Consistent or DM2 and Heart Healthy Addtl Attending Provider Instructions: See your PCP Dr. Ingrid Ordoñez within 5-7 days of hospital discharge for routine follow up visit. Pending Studies at Discharge: No Stand-Alone Forms: My [facility] 3DMGAME, Smoking Cessation Medications and DC Order Prescriptions: New losartan 25 mg Tablet 25 mg PO QAM Qty: 30 0RF Continued (DME) FreeStyle Jaleel 2 [place] [facility] See Rx Instructions .Route Qty: 1 0RF Rx Instructions: As directed (DME) FreeStyle Jaleel 2 Sensor Kit See Rx Instructions .Route Qty: 1 0RF Rx Instructions: change every 14 days atorvastatin 20 mg tablet 20 mg PO HS Qty: 90 3RF (DME) pen needle, diabetic [BD Ultra-Fine Yaima Pen Needle] 32 gauge x 5/32" needle See Rx Instructions .Route Qty: 400 3RF Rx Instructions: Inject insulin four times daily insulin aspart U-100 [Novolog FlexPen U-100 Insulin] 100 unit/mL (3 mL) insulin pen 12 - 14 unit subcut BID Qty: 15 3RF Rx Instructions: Inject 12 to 14 units before you eat breakfast and lunch Brand medically necessary amlodipine 5 mg tablet 5 mg PO DAILY Qty: 90 3RF nystatin 100,000 unit/gram ointment 1 applic topical DAILY Qty: 30 3RF hydrochlorothiazide 12.5 mg tablet 12.5 mg PO DAILY Qty: 90 1RF losartan 25 mg tablet 25 mg PO QAM Qty: 90 3RF Rx Instructions: for high blood pressure gabapentin 100 mg capsule 100 mg PO HS Qty: 90 1RF Mounjaro 10 mg/0.5 mL pen injector 10 mg subcut Q7D Qty: 2 5RF Rx Instructions: SUNDAYS (DME) blood-glucose meter [OneTouch Ultra2 Meter] [facility] See Rx Instructions .ROUTE .MEDSUPPLY Qty: 1 1RF Rx Instructions: use to test blood sugar as directed (DME) OneTouch Ultra Test Strip See Rx Instructions .Route Qty: 300 3RF Rx Instructions: Use to monitor blood sugars TID cyanocobalamin (vitamin B-12) 1,000 mcg tablet 1,000 mcg PO QAM (DME) miscellaneous medical supply Misc See Rx Instructions .Route Qty: 1 0RF Rx Instructions: Compression Stockings, knee high, 15-0 mm/hg triamcinolone acetonide 0.1 % ointment 1 applic topical BID Qty: 80 2RF meclizine 25 mg tablet 25 mg PO BID PRN (Reason: dizziness) Qty: 60 1RF nystatin 100,000 unit/gram powder 1 applic topical TID Qty: 60 5RF clobetasol 0.05 % cream 1 applic topical BID 14 Days Qty: 15 1RF multivitamin Tablet 1 tab PO QAM vitamin E 1,000 unit Capsule 1,000 unit PO HS cholecalciferol (vitamin D3) 1,000 unit Tablet 1,000 unit PO HS aspirin 81 mg Tablet,Delayed Release (Dr/Ec) 81 mg PO DAILY loteprednol etabonate 0.5 % drops,suspension 1 drp ophthalmic (eye) QID sulfamethoxazole-trimethoprim [Bactrim DS] 800-160 mg tablet 1 tab PO BID 7 Days Qty: 2 0RF Held metformin 1,000 mg tablet 1,000 mg PO BID 90 Days Qty: 180 3RF Hold Instructions: Resume on 06/17/25. Hold OFF metformin 1000mg PO bid until 06/17/2025, 11:18am, to allow for at least 72 hours to pass from the time of exposure to IV contrast during 06/14/2025, 11:18am CT chest/abd/pelvis with IV contrast, in order to avoid potential development of post-IV contrast nephropathy that can occur if metformin 1000mg PO bid were to continue uninterrupted. Discontinued furosemide 20 mg Tablet 20 mg PO QAM PRN (Reason: swelling of legs/feet) Qty: 15 0RF Discharge Orders: Discharge Order (Routine); Ordered 06/15/25 Ordered By: Cory Navarrete Discharge Order- CHF (Routine); Ordered 06/15/25 Ordered By: Cory Navarrete Admission Data Admit Date/Time: 06/14/25 12:35 Attending Provider: Cory Navarrete Admit Provider: Cory Navarrete Primary Care Provider: Ingrid Ordoñez V. Other Providers: Cory Navarrete Hospital Stay Data Consultations 06/14/25 12:19 ED Decision to Admit Stat Diagnostic Imagining Performed 06/14/25 09:52 CT cervical spine wo con Stat CT head/brain wo con Stat 06/14/25 11:18 CT abd pelvis IV con only Stat CT chest diagnostic w con Stat Pending Results Patient Have Any Pending Studies at Discharge: No Discharge Instructions Given to Patient (Per Discharging Provider) See your PCP Dr. Ingrid Ordoñez within 5-7 days of hospital discharge for routine follow up visit. Total Time Total Time Spent Total Time Spent (In Minutes): 35 minutes. Of this time period, 19 minutes were spent in coordinating patient's discharge. Coding Level of Care Code 64035 INP/OBS DISCH >30 MIN Diagnoses Acute hypoxic respiratory failure J96.01 Hypertensive urgency I16.0 Ambulatory dysfunction R26.2
[2025-06-15] MEDS ORDERED: LANTUS PER UNIT CHARGE SQ SCH (21:00)
--- NOTE | 2025-06-16 23:15 | Electrocardiogram Report ---
Test Reason : Blood Pressure : */* mmHG Vent. Rate : 82 BPM Atrial Rate : 82 BPM P-R Int : 176 ms QRS Dur : 88 ms QT Int : 394 ms P-R-T Axes : 33 -1 54 degrees QTcB Int : 460 ms Normal sinus rhythm Low voltage QRS Possible Inferior infarct (cited on or before 16-Jan-2024) Cannot rule out Anterior infarct (cited on or before 16-Jan-2024) Abnormal ECG When compared with ECG of 17-Jan-2024 04:17, No significant change was found Confirmed by Rafal Okeefe ([id number]) on 06/16/2025 11:15:26 PM Referred By: REFERRED SELF Confirmed By: Rafal Okeefe
== END 2025-06-15 13:29 | disposition home or self-care (01) | DRG 189 ==
LOC: ED 09:41 → EDINP 12:35 → INTOOBSV 12:35 → 3W 18:38